=== PATIENT | female | born 1945 | race Caucasian/White ===

== ENCOUNTER → 2016-04-16 | Outpatient (CLI) | payer OTHER ==
[~2016-04-16] MED LIST: HYDR25TA5 PO; LATA0.009 OP; LEVO175T23 PO; LISI40TA PO; METF1000 PO; OMEP20CA9 PO; OXYB5TAB74 PO; RANI300T PO
[2016-04-16 17:36] LABS: ESTIMATED AVERAGE GLUCOSE 146 mg/dl; HA1C FLAG Normal (Normal)
[2016-04-16 18:54] LABS: AST/SGOT 14 U/L (15-37); BLOOD UREA NITROGEN 15 mg/dl (7-18); BUN/CREATININE RATIO 18.7 (10-20); CALCIUM 9.2 mg/dl (8.5-10.1); CARBON DIOXIDE 30 mmol/L (21-32); CHLORIDE 104 mmol/L (98-107); CHOLESTEROL 193 mg/dl (0-200); CREATININE 0.79 mg/dl (0.60-1.20); GLUCOSE 139 mg/dl (70-99); POTASSIUM 4.3 mmol/L (3.5-5.1); SODIUM 141 mmol/L (136-145); TRIGLYCERIDES 105 mg/dl (0-150); VERY LOW DENSITY LIPOPROT CALC 21 mg/dl
[2016-04-16 19:12] LABS: ALB/GLOB RATIO 0.8 (0.9-2); ALKALINE PHOSPHATASE 91 U/L (45-117); ALT/SGPT 22 U/L (12-78); CHOLESTEROL/HDL RATIO 3.6; HDL CHOLESTEROL 53 mg/dl; LDL CHOLESTEROL CALCULATED 119 mg/dl
== END | disposition home or self-care (01) ==
LOC: C.LABBC 12:50
PROVIDERS: ATTEND Family Medicine
DX: Z11.59 Encounter for screening for other viral diseases (principal); I10 Essential (primary) hypertension; E11.9 Type 2 diabetes mellitus without complications; E03.9 Hypothyroidism, unspecified; E78.5 Hyperlipidemia, unspecified

== ENCOUNTER → 2016-07-03 | Outpatient (CLI) | payer OTHER ==
[~2016-07-03] MED LIST changes: +ACET-749 PO; +CARV6.25 PO; +DTR/5 PO; +GLIP-197 PO; -LATA0.009 OP; +LATA0.009 OPB; +LEVO175T3 PO; -OXYB5TAB74 PO; +POLYSOL50 OPB
--- NOTE | 2016-07-03 18:01 | DIAGNOSTIC IMAGING REPORT ---
ULTRASOUND VENOUS DOPPLER LWR EXT BILA CLINICAL HISTORY: ELEVATED D DIMER LEG SWELLING COMPARISON STUDY: No previous studies for comparison. FINDINGS: The examination was difficult due to the patient's large body habitus. Real-time and color flow Doppler imaging were performed. Flow was seen within the femoral, popliteal veins with no intraluminal thrombus demonstrated. The saphenous vein is patent. IMPRESSION: 1. Technically limited study with suboptimal visualization of the calf veins. 2. No evidence of DVT from the common femoral to the popliteal veins bilaterally Electronically signed by: Marcellus Weaver M.D. 07/03/2016 6:00 PM Dictated Date/Time: 07/03/2016 5:58 PM
== END | disposition home or self-care (01) ==
LOC: C.ULTR 17:07
PROVIDERS: ATTEND Family Medicine
DX: R79.89 Other specified abnormal findings of blood chemistry (principal)

== ENCOUNTER → 2016-07-03 | Outpatient (CLI) | payer OTHER ==
[2016-07-03 12:10] LABS: BASO % 0.2 %; BASO ABS # 0.02 K/uL (0-0.2); COMPLETE YES; EOS % 2.3 %; HEMATOCRIT 43.3 % (37-47); IG% 0.2 %; LYMPH % 29.8 %; MEAN CELL VOLUME 91.2 fL (80-100); MEAN CORPUSCULAR HEMOGLOBIN 30.1 pg (25-34); MEAN PLATELET VOLUME 9.3 fL (7.4-10.4); MONO % 7.5 %; PLATELET COUNT 243 K/uL (130-400); RED BLOOD COUNT 4.75 M/uL (4.2-5.4); WHITE BLOOD COUNT 9.73 K/uL (4.8-10.8)
[2016-07-03 12:21] LABS: BLOOD UREA NITROGEN 13 mg/dl (7-18); BUN/CREATININE RATIO 15.4 (10-20); CALCIUM 9.3 mg/dl (8.5-10.1); CARBON DIOXIDE 31 mmol/L (21-32); CHLORIDE 105 mmol/L (98-107); CREATININE 0.81 mg/dl (0.60-1.20); GLUCOSE 161 mg/dl (70-99); POTASSIUM 4.3 mmol/L (3.5-5.1); SODIUM 141 mmol/L (136-145)
[2016-07-03 12:31] LABS: ALB/GLOB RATIO 0.7 (0.9-2); ALKALINE PHOSPHATASE 95 U/L (45-117); ALT/SGPT 19 U/L (12-78); AST/SGOT 15 U/L (15-37); THYROID STIMULATING HORMONE 0.878 uIu/ml (0.300-4.500)
[2016-07-03 13:43] LABS: URINE PROTIEN/CREAT RATIO 0.1 (0-0.2); URINE TOTAL PROTEIN 20.1 mg/dl (0-11.9)
== END | disposition home or self-care (01) ==
LOC: C.LAB 10:58
PROVIDERS: ATTEND Family Medicine
DX: R60.0 Localized edema (principal); R79.89 Other specified abnormal findings of blood chemistry

== ENCOUNTER → 2016-07-16 | Outpatient (CLI) | payer OTHER ==
[~2016-07-16] MED LIST changes: +OPTIRAY 320 IV PRN
--- NOTE | 2016-07-16 11:38 | DIAGNOSTIC IMAGING REPORT ---
ABDOMEN AND PELVIS CT WITH IV AND ORAL CONTRAST CT DOSE: 1653.41 mGy.cm HISTORY: Generalized abdominal pain and cramping. TECHNIQUE: Multiaxial CT images of the abdomen and pelvis were performed following the use of intravenous and oral contrast. COMPARISON STUDY: None. FINDINGS: There is a 3.6 mm subpleural nodule within the right lower lobe on image 7. This is likely benign. The left lung base is clear. Mild hepatic steatosis. The pancreas, spleen, adrenal glands, and right kidney are unremarkable. There is a 1.5 cm hypodense lesion within the lower pole the left kidney. This likely represents a cyst. The gallbladder is not identified and is likely surgically absent. No retroperitoneal lymphadenopathy. The uterus and bilateral ovaries are unremarkable. Small focus of fat within the anterior bladder wall. This favors a small lipoma. This measures 1 cm. No bowel wall thickening or obstruction. Colonic diverticulosis. Normal appendix. Moderate degenerative disc disease within the lumbar spine. IMPRESSION: 1. No bowel wall thickening or obstruction. 2. Colonic diverticulosis. 3. Normal appendix. 4. Cholecystectomy. 5. Additional findings as described above. Electronically signed by: Wilfred Willis M.D. 07/16/2016 11:36 AM Dictated Date/Time: 07/16/2016 11:29 AM
== END ==
LOC: C.CTS 08:13
PROVIDERS: ATTEND Family Medicine
DX: R10.9 Unspecified abdominal pain (principal)

== ENCOUNTER → 2016-08-07 | Outpatient (CLI) | payer OTHER ==
[~2016-08-07] MED LIST changes: -OPTIRAY 320 IV PRN
[2016-08-07 11:22] LABS: ALT/SGPT 23 U/L (12-78); BLOOD UREA NITROGEN 14 mg/dl (7-18); BUN/CREATININE RATIO 18.8 (10-20); CARBON DIOXIDE 32 mmol/L (21-32); CHLORIDE 105 mmol/L (98-107); CREATININE 0.75 mg/dl (0.60-1.20); GLUCOSE 126 mg/dl (70-99); SODIUM 141 mmol/L (136-145)
[2016-08-07 11:25] LABS: ALB/GLOB RATIO 0.9 (0.9-2); ALKALINE PHOSPHATASE 95 U/L (45-117); AST/SGOT 19 U/L (15-37)
[2016-08-07 11:32] LABS: CALCIUM 10.2 mg/dl (8.5-10.1)
[2016-08-07 11:47] LABS: ESTIMATED AVERAGE GLUCOSE 177 mg/dl; HA1C FLAG Normal (Normal)
== END | disposition home or self-care (01) ==
LOC: C.LABBC 09:00
PROVIDERS: ATTEND Family Medicine
DX: I10 Essential (primary) hypertension (principal); E11.9 Type 2 diabetes mellitus without complications

== ENCOUNTER → 2017-03-10 | Day surgery (SDC) | payer OTHER ==
[2017-03-01 11:45] VITALS: BMI 54.0
[2017-03-04 09:40] VITALS: Ht 153 cm; Wt 129.0 kg
--- NOTE | 2017-03-04 09:57 | PAT Medication Instructions ---
Service Date Mar 04, 2017. Current Home Medication List Carvedilol (Coreg), 6.25 MG PO BID Glipizide (Glipizide Er), 1 TAB PO BID Latanoprost (Xalatan 0.005% Oph Rowena), 1 DROP OPB HS Levothyroxine Sodium (Levothyroxine Sodium), 1 TAB PO QAM Lisinopril (Zestril), 40 MG PO QAM Oxybutynin Chloride (Ditropan), 5 MG PO TID Polymyxin/Trimethoprim Oph (Polytrim Oph), 1 DROP OPB TID Ranitidine Hcl (Zantac), 300 MG PO HS Medication Instructions For Your Scheduled Surgery - Hold the following medications the morning of surgery: Glipizide (Glipizide Er), 1 TAB PO BID Lisinopril (Zestril), 40 MG PO QAM Oxybutynin Chloride (Ditropan), 5 MG PO TID - Take the following medications the morning of surgery with a sip of water: Carvedilol (Coreg), 6.25 MG PO BID Levothyroxine Sodium (Levothyroxine Sodium), 1 TAB PO QAM Polymyxin/Trimethoprim Oph (Polytrim Oph), 1 DROP OPB TID - Take the following medications as scheduled the night before surgery: Glipizide (Glipizide Er), 1 TAB PO BID Carvedilol (Coreg), 6.25 MG PO BID Latanoprost (Xalatan 0.005% Oph Rowena), 1 DROP OPB HS Ranitidine Hcl (Zantac), 300 MG PO HS Polymyxin/Trimethoprim Oph (Polytrim Oph), 1 DROP OPB TID Oxybutynin Chloride (Ditropan), 5 MG PO TID If you have any questions please call us at [phone] or [phone] or [phone]
[2017-03-04 10:29] LABS: HEMATOCRIT 43.1 % (37-47); MEAN CELL VOLUME 92.7 fL (80-100); MEAN CORPUSCULAR HEMOGLOBIN 30.1 pg (25-34); MEAN CORPUSCULAR HGB CONC 32.5 g/dl (32-36); MEAN PLATELET VOLUME 9.1 fL (7.4-10.4); PLATELET COUNT 212 K/uL (130-400); RED BLOOD COUNT 4.65 M/uL (4.2-5.4); WHITE BLOOD COUNT 12.07 K/uL (4.8-10.8)
[2017-03-04 12:00] LABS: BUN/CREATININE RATIO 20.4 (10-20); CALCIUM 9.3 mg/dl (8.5-10.1); CREATININE 0.81 mg/dl (0.60-1.20); POTASSIUM 4.2 mmol/L (3.5-5.1)
[~2017-03-10] VITALS: Ht 153 cm; Wt 129.0 kg
[~2017-03-10] MED LIST changes: +ACETAMINOPHEN/CODEINE 300/30MG TAB PO PRN; +ATROPINE SULFATE 0.1 MG/ML 5ML SYR IV PRN; +BUPIVACAINE 0.5 % 5 MG/1 ML PF 10ML VIAL ONE; +CARVEDILOL 6.25 MG TAB PO SCH; +CEFAZOLIN 3000MG IV PUSH 15 ML IV SCH; +EpHEDrine SULFATE INJ 50 MG/ML AMP IV PRN; -HYDR25TA5 PO; +LACTATED RINGER'S 1000ML 1,000 ML IV SCH; +LATANOPROST 0.005% OP SOLN 2.5 ML BTL OPB SCH; -LEVO175T23 PO; +LEVOTHYROXINE 175 MCG TAB PO SCH; +LIDOCAINE HCL 2% 2 ML VIAL (20MG/ML) ONE; +LIDOCAINE HCL 2% LOCAL 20 ML VIAL ONE; +LISINOPRIL 40 MG TAB PO SCH; -METF1000 PO; +MIDAZOLAM HCL 1 MG/ML 2ML VIAL ONE; +NON-FORMULARY MEDICATION (Glipizide (Glipizide Er) 1 TAB) PO SCH; +NON-FORMULARY MEDICATION (Ranitidine Hcl (Zantac) 300 MG) PO SCH; -OMEP20CA9 PO; +OXYBUTYNIN CHLORIDE 5 MG TAB PO SCH; +PROPOFOL IV EMULSION 10 MG/ML 20 ML VIAL IV ONE; +SODIUM CHLORIDE 0.9% 1000ML 1,000 ML IV SCH; +TRIMETHOPRIM/POLYMYXIN B OPB SCH
--- NOTE | 2017-03-10 06:48 | History & Physical Bridge - [place] ---
H&P Re-Evaluation Bridge Note: I have examined the patient, reviewed the History & Physical and in the interval since the performance of the History & Physical I have noted the following changes of clinical significance: No changes noted
--- NOTE | 2017-03-10 07:01 | Discharge Instructions-SurgCtr ---
Discharge Instructions Date of Service Mar 10, 2017. Visit Reason for Visit: Right Carpal Tunnel Syndrome Discharge Discharge Diagnosis / Problem: Right Carpal Tunnel Release Discharge Goals Goal(s): Decrease discomfort, Improve function, Increase independence, Improve disease control, Therapeutic intervention Activity Recommendations Activity Limitations: per Instructions/Follow-up section Anesthesia . Post Anesthesia Instructions: If you have had General Anesthesia or IV Sedation: * Do not drive today. * Resume driving when surgeon permits. * Do not make important decisions or sign legal documents today. * Call surgeon for: 1. Temperature elevations greater than 101 degrees F. 2. Uncontrollable pain. 3. Excessive bleeding. 4. Persistent nausea and vomiting. 5. Medication intolerance (nausea, vomiting or rash). * For nausea and vomiting use only clear liquids such as: tea, soda, bouillon until nausea subsides, then gradually increase diet as tolerated. * If you have any concerns or questions, call your surgeon's office. If physician is unavailable and it is an emergency, call 911 or go to the nearest emergency room. . Instructions / Follow-Up Instructions / Follow-Up Keep dressing clean, dry, and in place until return to clinic visit. Diet Recommendations Home Diet: resume previous diet Pending Studies Studies pending at discharge: no Medical Emergencies . Who to Call and When: Medical Emergencies: If at any time you feel your situation is an emergency, please call 911 immediately. . Non-Emergent Contact Non-Emergency issues call your: Surgeon . . "Provider Documentation" section prepared by Ryan Duff. .
[2017-03-10 07:32] VITALS: BP 177/106; PULSE 70; TEMP 36.3; O2SAT 97
--- NOTE | 2017-03-10 07:33 | [facility] Post Operative Brief Note ---
Immediate Operative Summary Operative Date Mar 10, 2017. Pre-Operative Diagnosis Right Carpal Tunnel Syndrome Post-Operative Diagnosis same Procedure(s) Performed Right Carpal Tunnel Release Surgeon Dr Duff Slag Worker Surgeon(s) none Estimated Blood Loss Minimal Findings Right Carpal TUnnel Syndrome Specimens none Anesthesia Local with IV Sedation Complication(s) None Disposition Recovery Room / PACU
--- NOTE | 2017-03-10 07:45 | Anesthesia Progress Nt - [facility] ---
Anesthesia Post Op Note Date & Time Mar 10, 2017 at 07:45 Vital Signs Pain Intensity: 1 Vital Signs Past 12 Hours Date Time Temp Pulse Resp B/P (MAP) Pulse Ox O2 Delivery O2 Flow Rate FiO2 03/10/17 06:26 36.6 75 16 212/87 (128 95 Notes Mental Status: alert / awake / arousable, participated in evaluation Pt Amnestic to Procedure: Yes Nausea / Vomiting: adequately controlled Pain: adequately controlled Airway Patency, RR, SpO2: stable & adequate BP & HR: stable & adequate Hydration State: stable & adequate Anesthetic Complications: no major complications apparent
--- NOTE | 2017-03-10 13:44 | OPERATIVE REPORT ---
DATE OF OPERATION: 03/10/2017 SURGEON: Ryan Duff MD ENGRAVER JEWELRY: None. PREOPERATIVE DIAGNOSIS: Right carpal tunnel syndrome. POSTOPERATIVE DIAGNOSIS: Same. PROCEDURE PERFORMED: Right carpal tunnel release. COMPLICATIONS: None. ESTIMATED BLOOD LOSS: Minimal. TOURNIQUET TIME: 7 minutes at 250 mmHg. ANESTHESIA: Local with IV sedation. OPERATIVE INDICATIONS: The patient is a 71-year-old female who has had a several year history of right hand pain, discomfort and numbness. She has been through extensive conservative treatment. She has had nerve studies several years ago, which showed severe carpal tunnel syndrome. The patient finally elected to proceed with surgical intervention. Of note, she has had some intermittent trigger fingers, but nothing recently and does not have any current active trigger fingers. OPERATIVE PROCEDURE: The patient was taken to the operating room, identified and placed on the operating table in the supine position. All contact areas were appropriately padded. IV antibiotics were provided by the anesthesia team. A right forearm tourniquet was placed. Some IV sedation was provided. 10 mL of a 50:50 combination of 0.5% Marcaine and 2% lidocaine were then injected in and around the proposed incision site. The right hand was then prepped and draped in the usual sterile fashion. The right arm was elevated and exsanguinated with Esmarch and tourniquet was placed at 250 mmHg. A 2.5-3 cm incision was made in the palm just ulnar to the palmaris longus tendon. Blunt dissection was carried out through the subcutaneous tissues down to the level of the palmar fascia. The palmar fascia was incised longitudinally in line with the skin incision. The underlying transverse carpal ligament was identified. It was transected distally with use of a Garvin blade knife and then bluntly spread. Attention was then drawn proximally. Blunt dissection carried out above and below the ligament proximally. The ligament was then transected for a minimum distance of 3 cm proximal to the wrist flexion crease. The ligament was bluntly spread and found to be completely released. There did appear to be quite a bit of tension and pressure on the median nerve. Attention was then drawn toward closing. The wound was irrigated with copious amounts of normal saline. The tourniquet was let down for a tourniquet time of 7 minutes. Hemostasis was assured with use of electrocautery. The wound was once again irrigated. The skin was then closed with 5-0 nylon suture in a horizontal mattress fashion. The hand was then cleaned and dried and a sterile dressing of Xeroform, 4 x 4, sterile cast padding and Kelton bandage were applied. The patient then transferred to the recovery room in stable condition. The patient tolerated the procedure well with no complications. All needle and sponge counts were correct at the end of the operation. I attest to the content of the Intraoperative Record and any orders documented therein. Any exception s are noted below.
== END | disposition home or self-care (01) ==
LOC: X.SURG 06:13
PROVIDERS: ATTEND Orthopaedic Surgery Sports Medicine
DX: G56.01 Carpal tunnel syndrome, right upper limb (principal); I10 Essential (primary) hypertension; J45.909 Unspecified asthma, uncomplicated; M19.90 Unspecified osteoarthritis, unspecified site; E11.9 Type 2 diabetes mellitus without complications; E66.01 Morbid (severe) obesity due to excess calories; Z96.659 Presence of unspecified artificial knee joint

== ENCOUNTER 2020-09-13 10:35 | Inpatient (IN) ==
--- NOTE | 2020-09-13 11:28 | Emergency Department Note ---
Impression & Plan Hypotension, Weakness, CHAN (acute kidney injury), Acute hyponatremia, DVT (deep venous thrombosis) ED Provider Note NAME: RIGO KRISHNAMURTHY AGE: 74 SEX: F : 1945 ARRIVES VIA: Walk-In INFORMANT: [Patient][family] ED PROVIDER(S): [Jayesh Dougherty MD] CHIEF COMPLAINT: Weakness HISTORY OF PRESENT ILLNESS: The patient is a 74-year-old female who over the last few months has been increasingly weak, short of breath, fatigued. She has lost 20 pounds. She has no appetite. She has some mild diffuse abdominal discomfort that seems to radiate to the back. She has not had fever. There has been no cough. No urinary complaints. The patient has had diarrhea. Sometimes, she cannot make it to the bathroom in time. The patient went to her doctor's office, she was referred to the ED for further testing. Of note, in our triage area, her blood pressure was 85 over palp. She admits she does feel worse with everything when she is standing, better sitting. REVIEW OF SYSTEMS: See HPI for pertinent positives and negatives. A total of ten systems were reviewed and were otherwise negative. PMHx/PSHx: See Below SOCIAL HISTORY: See Below. PHYSICAL EXAM: GENERAL: Patient is in no acute distress. HEENT: No acute trauma, normocephalic atraumatic, mucous membranes moist, no nasal congestion, no scleral icterus. NECK: No stridor, no adenopathy, no meningismus, trachea is midline. LUNGS: Clear to auscultation bilaterally, no wheeze, no rhonchi, breath sounds equal. HEART: Bradycardic, regular rhythm, no murmurs. ABDOMEN: Soft, diffusely mildly tender, bowel sounds positive, no hernias, no peritonitis. EXTREMITIES: No cyanosis, mild bilateral pedal edema, full range of motion of all the joints without pain or difficulty, no signs for acute trauma. She has a firm palpable areas behind both calves, primarily on the right and more distal than proximal. No leg erythema. NEUROLOGIC: Oriented x 3, no acute motor or sensory deficits, no focal weakness. SKIN: No rash, no jaundice, no diaphoresis. DIFFERENTIAL DIAGNOSIS: Infection, dehydration, metabolic abnormality, hypo/hyperglycemia, malignancy, UTI, electrolyte disturbance, anemia, hypoxia, cardiac sources, intracerebral event, toxicologic issues, stroke, TIA, as well as other pathologies. EMERGENCY DEPARTMENT COURSE/PROCEDURES: ECG: Indication was weakness. The ECG shows a sinus bradycardia with a rate of 51. There is some sinus arrhythmia. The QTc is 436. There is no ST elevation, no PVCs. Continuous Cardiac Monitoring: An order was placed for continuous cardiac monitoring. The monitor shows a rate of 50 with sinus bradycardia. Critical Care Note: I have personally spent 38 minutes of critical care time in the direct management of this patient. This includes bedside care, interpretation of diagnostic studies, and testing, discussion with consultants, patient, and family members, and other required patient management activities. This 38 minutes is in excess of all separately billable procedures. MEDICAL DECISION MAKING: There is no leukocytosis or concerning anemia. There is a normal platelet count. Sodium was low at 129. There was evidence for acute kidney injury with a creatinine over 2. No concerning liver enzyme elevation. Patient did appear to be slightly hyperthyroid. ECG showed a sinus bradycardia, no acute ischemia. Cardiac enzyme testing x1 was not consistent with acute cardiac injury. Urinalysis did not show evidence for infection. Covid testing returned negative. Chest film did not show pneumonia or CHF. Abdominal and pelvis CT did not show any evidence for bowel obstruction or mass. There was adenopathy seen. There was no urinary obstruction. Bilateral lower extremity ultrasound shows a left leg DVT. Patient presents with weakness and weight loss. She has been fatigued. She was hypotensive in triage. The patient received a liter of IV saline for hydration. The patient's blood pressure did improve with her IV hydration. The patient is in need of a hospital stay. She is hyponatremic with acute kidney injury. She is dehydrated. She has a left leg DVT. Further care in the hospital and correction of her electrolyte imbalance is required. I did speak with the patient and case management. The on-call hospitalist was consulted. Past Med/Surg History Medical History Anxiety Arthritis Asthma COVID-19 virus detected 06/03/20--c/o fever, headache, fatigue roughly a couple weeks ago, daughter was also sick with symptoms Diabetes mellitus, type 2 Diastolic dysfunction Dysphagia chronic dysphagia, h/o esophageal dilation GERD (gastroesophageal reflux disease) Hiatal hernia History of COVID-19 06/2020 Hypertension Hypothyroidism Morbid obesity with BMI of 45.0-49.9, adult SOBOE (shortness of breath on exertion) Surgical History History of anesthesia reaction "WAKES UP EARLY"-NEEDS MORE MEDS History of bilateral cataract extraction History of bilateral tubal ligation History of carpal tunnel release RIGHT History of section X 2 History of cholecystectomy History of colonoscopy History of esophagogastroduodenoscopy (EGD) WITH DILITATION History of total left knee replacement (TKR) History of total right knee replacement (TKR) x2 Hx of LASIK Family History Daughter Family history of reaction to anesthesia WAKES UP EARLY Mother Family history of diabetes mellitus Father Family history of diabetes mellitus Sister Family history of diabetes mellitus Sister Family history of diabetes mellitus Brother Family history of diabetes mellitus Brother Family history of diabetes mellitus Social History Smoking Status: Never smoker Second Hand Exposure: No; Hx Alcohol Use: No Hx Substance Use: No Preferred Language: Croatian Communication Ability: Effective Quantitative Analyst Developer Required: No Beliefs That Will Affect Care: None Current Living Situation: Family Current Living Situation Comment: Lives with daughter and son Other Information That Helps Us Care for You: No Feels Safe at Home: Yes Safety Concerns: Feels Safe At This Time Assistive Devices: Denture - Upper and Walker Allergies Allergies Allergy/AdvReac Type Severity Reaction Status Date / Time albuterol Allergy Intermediate tachycardia Verified 09/13/20 14:29 amoxicillin Allergy Mild RASH Verified 09/13/20 14:29 aspirin AdvReac Mild stomach Verified 09/13/20 14:29 upset Home Meds Home Medications Medication Instructions Recorded Confirmed carvedilol 6.25 mg PO BID 12/08/18 09/13/20 duloxetine 30 mg PO QAM 12/08/18 09/13/20 furosemide 20 mg PO QAM 12/08/18 09/13/20 glipizide 5 mg PO BID 12/08/18 09/13/20 latanoprost (PF) 1 drp OPHTHALMIC (EYE) HS 12/08/18 09/13/20 levothyroxine 175 mcg PO QAM 12/08/18 09/13/20 lisinopril 40 mg PO QAM 12/08/18 09/13/20 omeprazole 40 mg PO QAM 12/08/18 09/13/20 oxybutynin chloride [Ditropan XL] 5 mg PO TID 12/08/18 09/13/20 spironolactone 12.5 mg PO QAM 12/08/18 09/13/20 famotidine 40 mg PO HS 06/05/20 09/13/20 semaglutide [Ozempic] 0.25 mg SUBCUT FLORES 06/05/20 09/13/20 aspirin 81 mg PO DAILY 09/13/20 09/13/20 Results & Data (ED) Vital Signs Vital Signs - 24 hr 09/13/20 10:56 09/13/20 11:08 09/13/20 11:28 Temperature 36.0 C L Temperature Source Temporal Artery Scan Pulse Rate 50 L 52 L Pulse Rate [Apical] Pulse Rate from SpO2 Sensor 52 L Respiratory Rate 18 20 Respiratory Effort / Characteristics Non-Labored Respiratory Depth Normal Blood Pressure 83/54 L 119/74 Blood Pressure [Right Arm] Blood Pressure Mean 63 89 Blood Pressure Mean [Right Arm] Pulse Oximetry 98 98 98 Oxygen Delivery Method Room Air Room Air Sepsis Recent Fever Within 48 Hours No Sepsis New/Unexplained Change in Mental Status No Sepsis Action Taken by Nursing No Action Required 09/13/20 11:31 09/13/20 11:32 09/13/20 12:01 Temperature Temperature Source Pulse Rate 57 L 51 L Pulse Rate [Apical] 54 L Pulse Rate from SpO2 Sensor 56 L 57 L Respiratory Rate 16 18 20 Respiratory Effort / Characteristics Respiratory Depth Blood Pressure 121/67 108/48 L Blood Pressure [Right Arm] 121/67 Blood Pressure Mean 85 68 Blood Pressure Mean [Right Arm] 85 Pulse Oximetry 96 98 98 Oxygen Delivery Method Room Air Sepsis Recent Fever Within 48 Hours Sepsis New/Unexplained Change in Mental Status Sepsis Action Taken by Nursing 09/13/20 12:30 09/13/20 12:40 09/13/20 12:50 Temperature Temperature Source Pulse Rate 54 L 46 L 52 L Pulse Rate [Apical] Pulse Rate from SpO2 Sensor 52 L 49 L 54 L Respiratory Rate 19 18 23 Respiratory Effort / Characteristics Respiratory Depth Blood Pressure 116/72 Blood Pressure [Right Arm] Blood Pressure Mean 86 Blood Pressure Mean [Right Arm] Pulse Oximetry 97 96 96 Oxygen Delivery Method Sepsis Recent Fever Within 48 Hours Sepsis New/Unexplained Change in Mental Status Sepsis Action Taken by Custodial Medications Current Medication List: was personally reviewed by me Laboratory Data Attestation: I reviewed the patient's lab results. Result diagrams: 09/13/20 11:14 09/13/20 15:13 Lab Results 09/13/20 09/13/20 09/13/20 Range/Units 11:14 11:14 11:14 WBC 7.47 (4.8-10.8) K/uL RBC 3.93 L (4.2-5.4) M/uL Hgb 11.1 L (12.0-16.0) g/dL Hct 33.6 L (37-47) % MCV 85.5 (80-100) fL MCH 28.2 (25-34) pg MCHC 33.0 (32-36) g/dL RDW Std Deviation 47.3 H (36.4-46.3) fL RDW Coeff of Joseline 14.9 H (11.5-14.5) % Plt Count 192 (130-400) K/uL MPV 9.2 (7.4-10.4) fL Immature Gran % (Auto) 0.1 % Neut % (Auto) 82.6 % Lymph % (Auto) 9.2 % Tift % (Auto) 7.2 % Eos % (Auto) 0.8 % Baso % (Auto) 0.1 % Neut # (Auto) 6.16 (1.4-6.5) K/uL Lymph # (Auto) 0.69 L (1.2-3.4) K/uL Tift # (Auto) 0.54 (0.11-0.59) K/uL Eos # (Auto) 0.06 (0-0.5) K/uL Baso # (Auto) 0.01 (0-0.2) K/uL Immature Gran # (Auto) 0.01 (0.00-0.02) K/uL APTT 29.6 (21.0-31.0) Seconds PTT Ratio 1.1 Sodium 129 L (136-145) mmol/L Potassium 4.3 (3.5-5.1) mmol/L Chloride 96 L (98-107) mmol/L Carbon Dioxide 26 (21-32) mmol/L Anion Gap 7.0 (3-11) BUN 33 H (7-18) mg/dl Creatinine 2.14 H (0.6-1.2) mg/dl Est Cr Clr Drug Dosing 26.7 ml/min Est GFR ( Amer) 25.4 ml/min Est GFR (Non-Af Amer) 21.9 ml/min BUN/Creatinine Ratio 15.4 (10-20) Glucose 268 H (70-99) mg/dl Calcium 9.7 (8.5-10.1) mg/dl Magnesium 2.1 (1.8-2.4) mg/dl Total Bilirubin 0.8 (0.2-1) mg/dl AST 17 (15-37) U/L ALT 21 (12-78) U/L Alkaline Phosphatase 109 (45-117) U/L Troponin I < 0.015 (0-0.045) ng/ml Total Protein 7.5 (6.4-8.2) gm/dl Albumin 2.2 L (3.4-5.0) gm/dl Globulin 5.3 H (2.5-4.0) gm/dl Albumin/Globulin Ratio 0.4 L (0.9-2) TSH 0.254 L (0.300-4.500) uIu/ml Free T4 2.08 H (0.8-1.6) ng/dl COVID-19 Eval Order SARS-CoV-2 (PCR) (Negative) 09/13/20 09/13/20 Range/Units 11:41 11:41 WBC (4.8-10.8) K/uL RBC (4.2-5.4) M/uL Hgb (12.0-16.0) g/dL Hct (37-47) % MCV (80-100) fL MCH (25-34) pg MCHC (32-36) g/dL RDW Std Deviation (36.4-46.3) fL RDW Coeff of Joseline (11.5-14.5) % Plt Count (130-400) K/uL MPV (7.4-10.4) fL Immature Gran % (Auto) % Neut % (Auto) % Lymph % (Auto) % Tift % (Auto) % Eos % (Auto) % Baso % (Auto) % Neut # (Auto) (1.4-6.5) K/uL Lymph # (Auto) (1.2-3.4) K/uL Tift # (Auto) (0.11-0.59) K/uL Eos # (Auto) (0-0.5) K/uL Baso # (Auto) (0-0.2) K/uL Immature Gran # (Auto) (0.00-0.02) K/uL APTT (21.0-31.0) Seconds PTT Ratio Sodium (136-145) mmol/L Potassium (3.5-5.1) mmol/L Chloride (98-107) mmol/L Carbon Dioxide (21-32) mmol/L Anion Gap (3-11) BUN (7-18) mg/dl Creatinine (0.6-1.2) mg/dl Est Cr Clr Drug Dosing ml/min Est GFR ( Amer) ml/min Est GFR (Non-Af Amer) ml/min BUN/Creatinine Ratio (10-20) Glucose (70-99) mg/dl Calcium (8.5-10.1) mg/dl Magnesium (1.8-2.4) mg/dl Total Bilirubin (0.2-1) mg/dl AST (15-37) U/L ALT (12-78) U/L Alkaline Phosphatase (45-117) U/L Troponin I (0-0.045) ng/ml Total Protein (6.4-8.2) gm/dl Albumin (3.4-5.0) gm/dl Globulin (2.5-4.0) gm/dl Albumin/Globulin Ratio (0.9-2) TSH (0.300-4.500) uIu/ml Free T4 (0.8-1.6) ng/dl COVID-19 Eval [address] Covid[address] [facility] SARS-CoV-2 (PCR) NEGATIVE (Negative) Administered Medications Heparin Sodium/Dextrose (Heparin Sodium/Dextrose) 25,000 units in 500 mls @ 27 mls/hr IV .[id number] [facility]; Protocol Stop: 10/13/20 15:59 Last Admin: 09/13/20 16:55 Dose: 1,350 units/hr, 27 mls/hr Documented by: [id number] Cosigned by: [id number] Sodium Chloride (Nss 1000ml) 1,000 mls @ 80 mls/hr IV .[id number] [facility] Stop: 09/14/20 16:59 Last Admin: 09/13/20 15:49 Dose: 80 mls/hr Documented by: [id number] Insulin Aspart (Insulin Aspart 100 Units/Ml 3 Ml Pen) 0 units SC ACHS ELIA Stop: 10/13/20 16:29 Last Admin: 09/13/20 16:58 Dose: 9 units Documented by: [id number] Cosigned by: [id number] Discontinued Medications Heparin Sodium (Porcine) (Heparin Sod (Porcine) 1000 Unit/Ml) 6,000 units IV NOW ONE Stop: 09/13/20 16:01 Last Admin: 09/13/20 16:55 Dose: 6,000 units Documented by: [id number] Cosigned by: [id number] Heparin Sodium/Dextrose (Heparin Iv Adult Wt-Based Standard With Bolus Protocol) 1 ea IV Q15M ELIA; Protocol Stop: 09/13/20 15:30 Last Admin: 09/13/20 16:55 Dose: 1 ea Documented by: [id number] Sodium Chloride (Nss) 500 mls @ 999 mls/hr IV .Q31M [facility] Stop: 09/13/20 12:00 Last Infusion: 09/13/20 12:22 Dose: 0 mls/hr Documented by: [id number] Admin: 09/13/20 11:29 Dose: 999 mls/hr Documented by: [id number] Sodium Chloride (Nss 1000ml) 500 mls @ 999 mls/hr IV .Q31M ONE Stop: 09/13/20 12:25 Last Infusion: 09/13/20 13:33 Dose: 0 mls/hr Documented by: [id number] Admin: 09/13/20 12:22 Dose: 999 mls/hr Documented by: [id number] Imaging Data Radiologist's Impression: Chest X-Ray 09/13/20 11:21 XR chest 1V portable CLINICAL HISTORY: weakness COMPARISON STUDY: Chest x-ray dated 03/18/2012 FINDINGS: Study is rotated. The heart is borderline enlarged. There is no failure. There is no focal pulmonary consolidation. There are no significant pleural effusions. Increased basilar markings are likely atelectatic.[There is mild superior mediastinal prominence, likely secondary to mediastinal fat deposition, given the patient's body habitus. IMPRESSION: 1. Mild mediastinal prominence, statistically secondary to fat deposition given the patient's body habitus 2. No evidence of focal pulmonary consolidation 3. Mild basilar atelectasis ACT 112: Negative or not required by law. Electronically signed by: Marcellus Weaver M.D. 09/13/2020 11:39 AM Venous Doppler Study 09/13/20 11:22 US venous doppler LE BI CLINICAL HISTORY: Bilateral leg swelling COMPARISON STUDY: 07/03/2016 FINDINGS: Grayscale, color-flow, Doppler spectral waveform analysis was performed. The study was difficult from a technical standpoint due to the patient's body habitus. On the right, no intraluminal thrombus was visualized within the common femoral superficial femoral or popliteal veins. The proximal trifurcation veins of the right calf appear patent. On the left, no thrombus is visualized within the common femoral vein. There is left femoral vein and popliteal vein thrombus. Calf veins were nonvisualized. IMPRESSION: 1. Acute left lower extremity DVT involving the common femoral vein and popliteal vein. 2. No evidence of right lower extremity DVT ACT 112: Negative or not required by law. Electronically signed by: Marcellus Wevaer M.D. 09/13/2020 1:59 PM Abdomen/Pelvis CT 09/13/20 11:53 CT SCAN OF THE ABDOMEN AND PELVIS WITHOUT CONTRAST CLINICAL HISTORY: diarrhea, high creat COMPARISON STUDY: 07/16/2016 TECHNIQUE: CT scan of the abdomen and pelvis was performed from the lung bases to the proximal femurs. Images are reviewed in the axial, sagittal, and coronal planes. IV contrast was not administered for this examination. A dose lowering technique was utilized adhering to the principles of ALARA. CT DOSE: 1601.07 mGy.cm FINDINGS: Lower chest: There is prominence of the pulmonary arteries bilaterally. There are small bilateral pleural effusions. There is basilar atelectasis. Liver: There is mild hepatic steatosis. No focal hepatic masses are visualized on this noncontrast study. The liver has a subtle cirrhotic morphology Gallbladder: Not visualized presumed surgically absent. Spleen: Mildly enlarged measuring 13.1 cm. Pancreas: Unremarkable. Adrenal glands: Unremarkable. Kidneys: No renal, ureteral, or bladder calculi are visualized. Bowel: There are no transition zones to indicate bowel obstruction. There is no evidence of acute diverticulitis. The appendix appears normal. Peritoneum: There is no intraperitoneal free air or abdominal ascites. Vasculature: The abdominal aorta is normal in course and caliber. Adenopathy: Since the prior study, the patient has developed pathologic l ymphadenopathy. There are enlarged left inguinal lymph nodes measuring up to 36 mm in diameter. There are enlarged obturator and femoral chain lymph nodes measuring up to 28 mm in diameter. There is pathologic para-aortic lymphadenopathy. There is a 41 mm precaval lymph node. There is a 34 mm anterior para-aortic lymph node. There are enlarged mary hepatis lymph nodes. There are enlarged retrocrural lymph nodes. There is mild nonspecific infiltration of fat anterior to the left iliac vessels. Pelvic viscera: The bladder, and pelvic viscera are unremarkable. Skeletal structures: There are moderate multilevel degenerative changes in the spine. There is a grade 1 spinal listhesis of L5 and S1. No destructive lesions are visualized. There is ankylosis of the spine. IMPRESSION: 1. No evidence of bowel obstruction. No evidence of free air 2. No evidence of acute diverticulitis. No evidence of acute appendicitis. 3. No renal, ureteral, or bladder calculi identified 4. Hepatic steatosis. Subtle cirrhotic morphology the the liver. Splenomegaly. 5. Trace bilateral pleural effusions 6. Interval development of pathologic abdominal pelvic and inguinal lymphadenopathy. A lymphoproliferative disorder is the diagnosis of exclusion. Further workup is advocated. ACT 112: Positive. There are findings on this exam that require communication between the performing entity and the patient following Patient Test Result Information Act ([place] Act 112) guidelines. Electronically signed by: Marcellus Weaver M.D. 09/13/2020 1:39 PM Discharge Plan Visit Data Chief Complaint: Weakness Stated Complaint: REFERRED BY [facility], WEAKNESS, DIZZINESS ED Provider: Jayesh Dougherty Discharge Problem: Hypotension, Weakness, CHAN (acute kidney injury), Acute hyponatremia, DVT (deep venous thrombosis) Patient Disposition: Admitted As Inpatient Condition: Fair Discharge Instructions Interventions: ED Discharge Assessment Last Done: 09/13/20 14:40 Discharge Problem: Hypotension Qualifiers: Hypotension type: unspecified hypotension type Qualified Code(s): I95.9 - Hypotension, unspecified DVT (deep venous thrombosis) Qualifiers: DVT location: lower extremity Affected thrombotic vein of extremity: unspecified vein of extremity Chronicity: acute Laterality: left Qualified Code(s): I82.402 - Acute embolism and thrombosis of unspecified deep veins of left lower extremity
[2020-09-13] MEDS ORDERED: SODIUM CHLORIDE 0.9% 500 ML IV SCH (11:30)
[2020-09-13 11:40] LABS: Basophils # (auto) 0.01 K/uL (0-0.2); Basophils % (auto) 0.1 %; Eosinophils # (auto) 0.06 K/uL (0-0.5); Eosinophils % (auto) 0.8 %; Hematocrit (blood only) 33.6 % (37-47); Hemoglobin 11.1 g/dL (12.0-16.0); Immature Granulocytes # (auto) 0.01 K/uL (0.00-0.02); Immature Granulocytes % (auto) 0.1 %; Lymphocytes # (auto) 0.69 K/uL (1.2-3.4); Lymphocytes % (auto) 9.2 %; Mean Corpuscular Hemoglobin 28.2 pg (25-34); Mean Corpuscular Volume 85.5 fL (80-100); Mean Platelet Volume 9.2 fL (7.4-10.4); Monocytes # (auto) 0.54 K/uL (0.11-0.59); Monocytes % (auto) 7.2 %; Neutrophils # (auto) 6.16 K/uL (1.4-6.5); Neutrophils % (auto) 82.6 %; Platelet Count 192 K/uL (130-400); RDW Coefficient of Variation 14.9 % (11.5-14.5); RDW Standard Deviation 47.3 fL (36.4-46.3); Red Blood Count 3.93 M/uL (4.2-5.4); White Blood Count 7.47 K/uL (4.8-10.8)
--- NOTE | 2020-09-13 11:40 | XRay Report ---
XR chest 1V portable CLINICAL HISTORY: weakness COMPARISON STUDY: Chest x-ray dated 03/18/2012 FINDINGS: Study is rotated. The heart is borderline enlarged. There is no failure. There is no focal pulmonary consolidation. There are no significant pleural effusions. Increased basilar markings are l ikely atelectatic.[There is mild superior mediastinal prominence, likely secondary to mediastinal fat deposition, given the patient's body habitus. IMPRESSION: 1. Mild mediastinal prominence, statistically secondary to fat deposition given the patient's body lau bitus 2. No evidence of focal pulmonary consolidation 3. Mild basilar atelectasis ACT 112: Negative or not required by law. Electronically signed by: Marcellus Weaver M.D. 09/13/2020 11:39 AM
[2020-09-13 11:44] LABS: Appearance Urine Turbid (Clear); Bacteria Urine Automated Negative (Negative); Bilirubin Urine 1+ (Negative); Blood Urine Negative (Negative); Color Urine Dark Yellow; Epithelial Cell Urine Auto >30 /lpf (0-5); Glucose Urine UA Negative (Negative); Ketones Urine Trace (Negative); Leukocyte Esterase Urine Negative (Negative); Nitrite Urine Negative (Negative); Protein Urine Trace (Negative); Urobilinogen Urine Negative (Negative)
[2020-09-13 11:47] LABS: Alanine Aminotransferase 21 U/L (12-78); Albumin Level 2.2 gm/dl (3.4-5.0); Aspartate Aminotransferase 17 U/L (15-37); BUN Creatinine Ratio 15.4 (10-20); Blood Urea Nitrogen 33 mg/dl (7-18); Calcium 9.7 mg/dl (8.5-10.1); Carbon Dioxide 26 mmol/L (21-32); Chloride 96 mmol/L (98-107); Creatinine Clr Calc Pharmacy 26.7 ml/min; Est GFR (African American) 25.4 ml/min; Est GFR (Non-African American) 21.9 ml/min; Glucose 268 mg/dl (70-99); Magnesium 2.1 mg/dl (1.8-2.4); Potassium 4.3 mmol/L (3.5-5.1); Sodium 129 mmol/L (136-145)
[2020-09-13] MEDS ORDERED: SODIUM CHLORIDE 0.9% 1000ML 500 ML IV ONE (11:55)
[2020-09-13 11:58] LABS: Albumin Globulin Ratio 0.4 (0.9-2); Alkaline Phosphatase 109 U/L (45-117); Bilirubin,Total 0.8 mg/dl (0.2-1); Globulin 5.3 gm/dl (2.5-4.0); Thyroid Stimulating Hormone 0.254 uIu/ml (0.300-4.500); Total Protein 7.5 gm/dl (6.4-8.2); Troponin I < 0.015 ng/ml (0-0.045)
[2020-09-13 12:11] LABS: T4 Free Thyroxine 2.08 ng/dl (0.8-1.6)
--- NOTE | 2020-09-13 13:05 | History & Physical Report ---
Date of Service September 13, 2020 Assessment & Plan (1) Weakness: (2) Ambulatory dysfunction: Pt is 74 y/o F with PMH DM II, HTN, dyslipidemia, asthma, diastolic dysfunction, GERD, hypothyroidism, obesity, anxiety, H/O COVID-19 in 06/2020 presented to ER with complaint of progressive weakness past several months, worse past month. Was using cane, now unable to walk without assistance. Poor oral intake. In ER patient with initial blood pressure 83/54, afebrile, pulse 50. Blood pressure increased to 121/67 after 1L NSS No leukocytosis, UA appears contaminated, pseudohyponatremia, otherwise no significant electrolyte abnormality Pt initially hypotensive in ER and BP improved with lying supine and IVF. Weakness may be secondary to CHAN, orthostatic hypotension, dehydration, deconditioning, May have prolonged fatigue, poor appetite from COVID-19 in 05/2020 among others in the differential -Orthostatic vital signs -IVF -PT/OT -Fall precautions (3) CHAN (acute kidney injury): BUN: 33, Cr: 2.1. Baseline Cr: 0.9 Pt has had poor oral intake -CT abd/pelvis to R/O obstruction -IVF -Hold lisinopril, lasix, spironolactone -Monitor renal functions, avoid nephrotoxic agents when possible (4) Hyponatremia: Sodium: 132 corrected for glucose of 268 -IVF -Monitor BMP (5) Left leg DVT: (6) Calf tenderness: BLE Venous Doppler: 1. Acute left lower extremity DVT involving the common femoral vein and popliteal vein. 2. No evidence of right lower extremity DVT -Hypercoagulable workup -Start Heparin IV -Will need to follow renal functions to determine further anticoagulant choice (7) Abnormal CT of the abdomen: (8) Abdominal pain: Intermittent Loose stools reported and lower abdominal discomfort. No leukocytosis, UA appears contaminated CT ABD/PELVIS: 1. No evidence of bowel obstruction. No evidence of free air 2. No evidence of acute diverticulitis. No evidence of acute appendicitis. 3. No renal, ureteral, or bladder calculi identified 4. Hepatic steatosis. Subtle cirrhotic morphology the the liver. Splenomegaly. 5. Trace bilateral pleural effusions 6. Interval development of pathologic abdominal pelvic and inguinal lymphadenopathy. A lymphoproliferative disorder is the diagnosis of exclusion. Further workup is advocated. -Obtain C-diff, and stool culture if recurrent diarrhea -Pt will require further workup and outpatient referral heme/onc (9) Hypertension: Was hypotensive in ER -Continue carvedilol with holding parameters -Hold lisinopril, spironolactone, lasix (10) Diastolic dysfunction: Grade II diastolic dysfunction, EF 59% on echo in 2018 -Hold lasix for now secondary to CHAN and hypotension (11) Diabetes mellitus, type 2: A1c: 6.9 in 07/2020 -Hold home meds -Novolog, Lantus sliding scale per protocol (12) Hypothyroidism: TSH: 0.2, Free T4: 2.0 (TSH was 0.4 in 07/2020) -Decrease levothyroxine from 175mcg to 150mcg daily (13) Dysphagia: Chronic dysphagia. H/O EGD in 2019 without abnormality, however decision made to dilate esophagus -Aspiration precautions -Soft bite size diet (14) GERD (gastroesophageal reflux disease): -Continue PPI, H2 rosita (15) Anxiety: -Continue duloxetine (16) History of COVID-19: In 05/2020. Had GRAF, fever, fatigue. DVT Prophylaxis -Has current LLE DVT, Heparin IV Full Code as per discussion with pt and pt's daughter Follows with Dr Maynard for routine care Pt was seen and care coordinated with Dr Stevens. See addendum History of Present Illness Chief Complaint: Weakness Primary Care Provider: Musa Maynard MD Pt is 74 y/o F with PMH DM II, HTN, dyslipidemia, asthma, diastolic dysfunction, GERD, hypothyroidism, obesity, anxiety, H/O COVID-19 in 05/2020 presented to ER with complaint of progressive weakness. Reports has had progressive weakness over the last couple months, worse the past month. Has been using walker with seat. Has a lift chair. Complains of increased fatigue. Has been sleeping 20 hours a day. Pt has been sitting and not moving much. Decreased appetite and oral intake. Lost 20 pounds in the last 2 months. Daughter reports had a hallucination episode where she reported watching the neighbors put up [place] decorations. Daughter states that pt had reported shortness of breath on exertion previously, however denies that currently. Pt has chronic dysphagia, had esophagus stretched in past. Not on special diet. History COVID- 19 in 06/2020 symptoms were fever, GRAF, fatigue, poor appetite. Seems like still has decreased appetite and fatigue. Also reports loose stools and several episodes of fecal incontinence. Pt c/o lower abdominal discomfort. C/O lower extremity discomfort to calf area, left worse than right and daughter reports "cottage cheese" type sensation to skin on bilateral legs. Had Pfizer COVID 19 vaccine 05/31/20, 06/21/20. Denies h/o DVT/PE. Denies recent fever/chills, recent falls, N/V, hematochezia, melena, epistaxis, GRAF, dizziness, syncope, vision changes, neck pain, CP, orthopnea, palpitations, cough, sore throat, choking, otalgia, rhinorrhea, paresthesias, extremity edema, rashes, dysuria, hematuria, urinary frequency. In ER patient with initial blood pressure 83/54, afebrile, pulse 50. Blood pressure increased to 121/67 after 1L NSS. No leukocytosis. Patient found to have CHAN. UA unremarkable. Patient being admitted for further evaluation and treatment Allergies Allergy/AdvReac Type Severity Reaction Status Date / Time albuterol Allergy Intermediate tachycardia Verified 09/13/20 14:29 amoxicillin Allergy Mild RASH Verified 09/13/20 14:29 aspirin AdvReac Mild stomach Verified 09/13/20 14:29 upset Home Medications Medication Instructions Recorded Confirmed Type carvedilol 6.25 mg PO BID 12/08/18 09/13/20 History duloxetine 30 mg PO QAM 12/08/18 09/13/20 History furosemide 20 mg PO QAM 12/08/18 09/13/20 History glipizide 5 mg PO BID 12/08/18 09/13/20 History latanoprost (PF) 1 drp OPHTHALMIC (EYE) 12/08/18 09/13/20 History levothyroxine 175 mcg PO QAM 12/08/18 09/13/20 History lisinopril 40 mg PO QAM 12/08/18 09/13/20 History omeprazole 40 mg PO QAM 12/08/18 09/13/20 History oxybutynin chloride [Ditropan XL] 5 mg PO TID 12/08/18 09/13/20 History spironolactone 12.5 mg PO QAM 12/08/18 09/13/20 History famotidine 40 mg PO HS 06/05/20 09/13/20 History semaglutide [Ozempic] 0.25 mg SUBCUT FLORES 06/05/20 09/13/20 History aspirin 81 mg PO DAILY 09/13/20 09/13/20 History Past Med/Surg History Medical History Anxiety Arthritis Asthma COVID-19 virus detected 06/03/20--c/o fever, headache, fatigue roughly a couple weeks ago, daughter was also sick with symptoms Diabetes mellitus, type 2 Diastolic dysfunction Dysphagia chronic dysphagia, h/o esophageal dilation GERD (gastroesophageal reflux disease) Hiatal hernia History of COVID-19 06/2020 Hypertension Hypothyroidism Morbid obesity with BMI of 45.0-49.9, adult SOBOE (shortness of breath on exertion) Surgical History History of anesthesia reaction "WAKES UP EARLY"-NEEDS MORE MEDS History of bilateral cataract extraction History of bilateral tubal ligation History of carpal tunnel release RIGHT History of section X 2 History of cholecystectomy History of colonoscopy History of esophagogastroduodenoscopy (EGD) WITH DILITATION History of total left knee replacement (TKR) History of total right knee replacement (TKR) x2 Hx of LASIK Family History Daughter Family history of reaction to anesthesia WAKES UP EARLY Mother Family history of diabetes mellitus Father Family history of diabetes mellitus Sister Family history of diabetes mellitus Sister Family history of diabetes mellitus Brother Family history of diabetes mellitus Brother Family history of diabetes mellitus Social History Smoking Status: Never smoker Second Hand Exposure: No; Hx Alcohol Use: No Hx Substance Use: No Preferred Language: Setswana Communication Ability: Effective Office System Analyst Required: No Beliefs That Will Affect Care: None Current Living Situation: Family Current Living Situation Comment: Lives with daughter and son Other Information That Helps Us Care for You: No Feels Safe at Home: Yes Safety Concerns: Feels Safe At This Time Assistive Devices: Denture - Upper and Walker Review of Systems Review of Systems: All systems reviewed & are unremarkable except as noted in HPI & below Physical Exam Physical Exam: General: no distress, obese Head: normocephalic, atraumatic Eyes: PERRL, EOM's intact, conjunctiva non-injected, anicteric ENT: normal inspection external ears, nose, mucous membranes mildly dry Neck: supple, trachea midline Lungs: clear, no respiratory distress, no wheezing/rhonchi/rales CV: regular rhythm, rate 50, no murmur, no JVD, no pretibial edema Abd: protuberant, normal BS, soft,+tenderness to palpation RLQ, LLQ without rebound or guarding Ext: no cyanosis, no erythema, bilateral posterior lower legs with palpable cord like firmness, left posterior calf with tenderness to palpation, distal pulses palpable, sensation to light touch intact Neuro: Alert, oriented to person. Reports year as 1991, knows it is summer, knows previous president. Unsure of location. no focal deficits noted, somewhat flat affect Skin: warm, dry Results & Data Results & Data ([facility]) Vital Signs (Past 12 Hours) Vital Signs Temp Pulse Pulse Resp BP BP Pulse Ox 09/13/20 11:32 54 L 18 121/67 98 09/13/20 11:28 98 09/13/20 10:56 36.0 C L 50 L 18 83/54 L 98 Laboratory Results Short CBC 09/13/20 Range/Units 11:14 WBC 7.47 (4.8-10.8) K/uL Hgb 11.1 L (12.0-16.0) g/dL Hct 33.6 L (37-47) % Plt Count 192 (130-400) K/uL BMP 09/13/20 11:14 Sodium 129 L Potassium 4.3 Chloride 96 L Carbon Dioxide 26 BUN 33 H Creatinine 2.14 H Glucose 268 H Calcium 9.7 Cardiac Enzymes 09/13/20 Range/Units 11:14 Troponin I < 0.015 (0-0.045) ng/ml Liver Function 09/13/20 Range/Units 11:14 Total Bilirubin 0.8 (0.2-1) mg/dl AST 17 (15-37) U/L ALT 21 (12-78) U/L Alkaline Phosphatase 109 (45-117) U/L Albumin 2.2 L (3.4-5.0) gm/dl Urine 09/13/20 Range/Units Unknown Urine Color Dark Yellow Urine Appearance Turbid A (Clear) Urine pH 5.0 (4.5-7.5) Ur Specific [place] 1.020 (1.000-1.030) Urine Protein Trace H (Negative) Urine Glucose (UA) Negative (Negative) Diagnostic Findings Chest X-Ray 09/13/20 11:21 XR chest 1V portable CLINICAL HISTORY: weakness COMPARISON STUDY: Chest x-ray dated 03/18/2012 FINDINGS: Study is rotated. The heart is borderline enlarged. There is no failure. There is no focal pulmonary consolidation. There are no significant pleural effusions. Increased basilar markings are likely atelectatic.[There is mild superior mediastinal prominence, likely secondary to mediastinal fat deposition, given the patient's body habitus. IMPRESSION: 1. Mild mediastinal prominence, statistically secondary to fat deposition given the patient's body habitus 2. No evidence of focal pulmonary consolidation 3. Mild basilar atelectasis ACT 112: Negative or not required by law. Electronically signed by: Marcellus Weaver M.D. 09/13/2020 11:39 AM Venous Doppler Study 09/13/20 11:22 US venous doppler LE CLINICAL HISTORY: Bilateral leg swelling COMPARISON STUDY: 07/03/2016 FINDINGS: Grayscale, color-flow, Doppler spectral waveform analysis was performed. The study was difficult from a technical standpoint due to the patient's body habitus. On the right, no intraluminal thrombus was visualized within the common femoral superficial femoral or popliteal veins. The proximal trifurcation veins of the right calf appear patent. On the left, no thrombus is visualized within the common femoral vein. There is left femoral vein and popliteal vein thrombus. Calf veins were nonvisualized. IMPRESSION: 1. Acute left lower extremity DVT involving the common femoral vein and popliteal vein. 2. No evidence of right lower extremity DVT ACT 112: Negative or not required by law. Electronically signed by: Marcellus Weaver M.D. 09/13/2020 1:59 PM Abdomen/Pelvis CT 09/13/20 11:53 CT SCAN OF THE ABDOMEN AND PELVIS WITHOUT CONTRAST CLINICAL HISTORY: diarrhea, high creat COMPARISON STUDY: 07/16/2016 TECHNIQUE: CT scan of the abdomen and pelvis was performed from the lung bases to the proximal femurs. Images are reviewed in the axial, sagittal, and coronal planes. IV contrast was not administered for this examination. A dose lowering technique was utilized adhering to the principles of ALARA. CT DOSE: 1601.07 mGy.cm FINDINGS: Lower chest: There is prominence of the pulmonary arteries bilaterally. There ar e small bilateral pleural effusions. There is basilar atelectasis. Liver: There is mild hepatic steatosis. No focal hepatic masses are visualized on this noncontrast study. The liver has a subtle cirrhotic morphology Gallbladder: Not visualized presumed surgically absent. Spleen: Mildly enlarged measuring 13.1 cm. Pancreas: Unremarkable. Adrenal glands: Unremarkable. Kidneys: No renal, ureteral, or bladder calculi are visualized. Bowel: There are no transition zones to indicate bowel obstruction. There is no evidence of acute diverticulitis. The appendix appears normal. Peritoneum: There is no intraperitoneal free air or abdominal ascites. Vasculature: The abdominal aorta is normal in course and caliber. Adenopathy: Since the prior study, the patient has developed pathologic lymphadenopathy. There are enlarged left inguinal lymph nodes measuring up to 36 mm in diameter. There are enlarged obturator and femoral chain lymph nodes measuring up to 28 mm in diameter. There is pathologic para-aortic lymphadenopathy. There is a 41 mm precaval lymph node. There is a 34 mm anterior para-aortic lymph node. There are enlarged mary hepatis lymph nodes. There are enlarged retrocrural lymph nodes. There is mild nonspecific infiltration of fat anterior to the left iliac vessels. Pelvic viscera: The bladder, and pelvic viscera are unremarkable. Skeletal structures: There are moderate multilevel degenerative changes in the spine. There is a grade 1 spinal listhesis of L5 and S1. No destructive lesions are visualized. There is ankylosis of the spine. IMPRESSION: 1. No evidence of bowel obstruction. No evidence of free air 2. No evidence of acute diverticulitis. No evidence of acute appendicitis. 3. No renal, ureteral, or bladder calculi identified 4. Hepatic steatosis. Subtle cirrhotic morphology the the liver. Splenomegaly. 5. Trace bilateral pleural effusions 6. Interval development of pathologic abdominal pelvic and inguinal lymphadenopathy. A lymphoproliferative disorder is the diagnosis of exclusion. Further workup is advocated. ACT 112: Positive. There are findings on this exam that require communication between the performing entity and the patient following Patient Test Result Information Act ([place] Act 112) guidelines. Electronically signed by: Marcellus Weaver M.D. 09/13/2020 1:39 PM ECG Rate (beats per minute): 51 Rhythm: sinus bradycardia Code Status & VTE Plan VTE Prophylaxis Plan VTE Prophylaxis will be ordered: Yes Supervising Physician Co-Signing Physician Notes Patient is a 74-year-old female with history of diabetes mellitus, hypertension, diastolic dysfunction and other medical problems presents with history of generalized weakness, poor appetite, weight loss, fatigue, and increased sleeping since recent Covid infection in May. Patient admits to have lost at least about 20 pounds in last 2 months. She also states having dyspnea on exertion. Complains about generalized mild lower abdominal discomfort. Please review HPI for complete details of presentation. She was noted to have CHAN with creatinine elevated at 2.14. Noted elevated free T4 and decreased TSH. Corrected sodium mildly low. CT abdomen showed findings suggestive of lymphoproliferative disorder. Venous Dopplers showed acute left lower extremity DVT within femoral and popliteal vein. On exam patient is morbidly obese, no apparent distress, normocephalic atraumatic, lungs-decreased breath sounds, clear to auscultation, S1-S2, no murmur, abdomen soft, mild generalized tenderness, no guarding or rigidity, normal bowel sounds, alert, awake, oriented, grossly no focal deficits. Chronic venous stasis changes noted, no calf tenderness, no pretibial edema. Patient is admitted for management of gen eralized weakness likely secondary to lymphoproliferative disorder and acute DVT. Hypothyroidism could be contributing to weakness as well. Will start on IV heparin. Will need to establish with oncology. Will obtain anemia work-up including fecal occult. PT OT evaluation requested. Monitor for bradycardia while on carvedilol. Decreased levothyroxine dose to 150 mcg from 175 mcg. Will need repeat thyroid function tests as outpatient. Agree with holding Metformin, spironolactone, Lasix, lisinopril secondary to CHAN. We will give her gentle IV fluids. Monitor renal function and avoid nephrotoxic agents as able. Will obtain stool studies if recurrence of diarrhea. Consider nephrology evaluation if no improvement with current management. Monitor sodium levels. Agree with insulin therapy while hospitalized for diabetes management. I personally reviewed the record. Patient is interviewed and examined at bedside. Patient's care is coordinated with Eda Morton PA-C. Please refer to the documentation above for details of patient's presentation and for discussion of other issues.
--- NOTE | 2020-09-13 13:40 | CT Scan Report ---
CT SCAN OF THE ABDOMEN AND PELVIS WITHOUT CONTRAST CLINICAL HISTORY: diarrhea, high creat COMPARISON STUDY: 07/16/2016 TECHNIQUE: CT scan of the abdomen and pelvis was performed from the lung bases to the proximal femurs . Images are reviewed in the axial, sagittal, and coronal planes. IV contrast was not administered fo r this examination. A dose lowering technique was utilized adhering to the principles of ALARA. CT DOSE: 1601.07 mGy.cm FINDINGS: Lower chest: There is prominence of the pulmonary arteries bilaterally. There are small bilateral ple ural effusions. There is basilar atelectasis. Liver: There is mild hepatic steatosis. No focal hepatic masses are visualized on this noncontrast st udy. The liver has a subtle cirrhotic morphology Gallbladder: Not visualized presumed surgically absent. Spleen: Mildly enlarged measuring 13.1 cm. Pancreas: Unremarkable. Adrenal glands: Unremarkable. Kidneys: No renal, ureteral, or bladder calculi are visualized. Bowel: There are no transition zones to indicate bowel obstruction. There is no evidence of acute div erticulitis. The appendix appears normal. Peritoneum: There is no intraperitoneal free air or abdominal ascites. Vasculature: The abdominal aorta is normal in course and caliber. Adenopathy: Since the prior study, the patient has developed pathologic lymphadenopathy. There are en larged left inguinal lymph nodes measuring up to 36 mm in diameter. There are enlarged obturator and femoral chain lymph nodes measuring up to 28 mm in diameter. There is pathologic para-aortic lymphade nopathy. There is a 41 mm precaval lymph node. There is a 34 mm anterior para-aortic lymph node. Ther e are enlarged mary hepatis lymph nodes. There are enlarged retrocrural lymph nodes. There is mild n onspecific infiltration of fat anterior to the left iliac vessels. Pelvic viscera: The bladder, and pelvic viscera are unremarkable. Skeletal structures: There are moderate multilevel degenerative changes in the spine. There is a grad e 1 spinal listhesis of L5 and S1. No destructive lesions are visualized. There is ankylosis of the s pine. IMPRESSION: 1. No evidence of bowel obstruction. No evidence of free air 2. No evidence of acute diverticulitis. No evidence of acute appendicitis. 3. No renal, ureteral, or bladder calculi identified 4. Hepatic steatosis. Subtle cirrhotic morphology the the liver. Splenomegaly. 5. Trace bilateral pleural effusions 6. Interval development of pathologic abdominal pelvic and inguinal lymphadenopathy. A lymphoprolifer ative disorder is the diagnosis of exclusion. Further workup is advocated. ACT 112: Positive. There are findings on this exam that require communication between the performing entity and the patient following Patient Test Result Information Act ([place] Act 112) guidelines. Electronically signed by: Marcellus Weaver M.D. 09/13/2020 1:39 PM
--- NOTE | 2020-09-13 14:00 | Ultrasound Report ---
US venous doppler LE BI CLINICAL HISTORY: Bilateral leg swelling COMPARISON STUDY: 07/03/2016 FINDINGS: Grayscale, color-flow, Doppler spectral waveform analysis was performed. The study was difficult from a technical standpoint due to the patient's body habitus. On the right, no intraluminal thrombus was visualized within the common femoral superficial femoral o r popliteal veins. The proximal trifurcation veins of the right calf appear patent. On the left, no thrombus is visualized within the common femoral vein. There is left femoral vein and popliteal vein thrombus. Calf veins were nonvisualized. IMPRESSION: 1. Acute left lower extremity DVT involving the common femoral vein and popliteal vein. 2. No evidence of right lower extremity DVT ACT 112: Negative or not required by law. Electronically signed by: Marcellus Weaver M.D. 09/13/2020 1:59 PM
[2020-09-13] MEDS ORDERED: GLUCOSE 10 TABS/TUBE PO PRN (14:51)
[2020-09-13] MEDS ORDERED: GLUCOSE 40% GEL 15 GM TUBE PO PRN (14:51)
[2020-09-13] MEDS ORDERED: GLUCAGON FOR INJ 1 MG VIAL SQ PRN (14:51)
[2020-09-13] MEDS ORDERED: CARBOHYDRATES FOR HYPOGLYCEMIA PO PRN (14:51)
[2020-09-13] MEDS ORDERED: ONDANSETRON INJ 2 MG/ML 2 ML VIAL IV PRN (14:51)
[2020-09-13] MEDS ORDERED: DEXTROSE 50% 50 ML SYRINGE IV PRN (14:51)
[2020-09-13 15:32] LABS: Reticulocytes # 0.07 10^6/uL (0.02-0.10)
[2020-09-13] MEDS: SODIUM CHLORIDE 0.9% 1000ML 1,000 ML IV SCH (15:49)
[2020-09-13 15:53] LABS: BUN Creatinine Ratio 16.5 (10-20); Calcium 9.1 mg/dl (8.5-10.1); Est GFR (African American) 28.5 ml/min; Est GFR (Non-African American) 24.6 ml/min
[2020-09-13 15:58] LABS: Ferritin 819.1 ng/ml (8-388)
[2020-09-13] MEDS ORDERED: HEPARIN SOD (PORCINE) 1000 UNIT/ML IV ONE (16:00)
[2020-09-13 16:30] LABS: Folate (Folic Acid) 3.7 ng/ml (>5.38)
[2020-09-13] MEDS: HEPARIN SODIUM/DEXTROSE 25,000 UNITS/500 ML BAG IV SCH (16:55)
[2020-09-13] MEDS: Heparin IV Adult Wt-Based Standard WITH Bolus Protocol IV SCH ×3 (16:55→18:04)
[2020-09-13] MEDS: INSULIN ASPART 100 UNITS/ML 3 ML PEN SC SCH ×2 (16:58→20:53)
[2020-09-13 17:19] LABS: Partial Thromboplastin Ratio 1.1; Partial Thromboplastin Time 29.6 Seconds (21.0-31.0)
[2020-09-13] MEDS: INSULIN GLARGINE SOLOSTAR 100 UNITS/ML 3 ML PEN SC SCH (20:56)
[2020-09-13] MEDS: FAMOTIDINE 40 MG TABLET PO SCH (20:58)
[2020-09-13] MEDS: carvediloL 6.25 MG TAB PO SCH (20:58)
[2020-09-13] MEDS: LATANOPROST 0.005% OP SOLN 2.5 ML BTL OP SCH (20:59)
[2020-09-13] MEDS: OXYBUTYNIN CHLORIDE XL 5 MG TABCR PO SCH (20:59)
[2020-09-13 23:19] LABS: Partial Thromboplastin Ratio 4.6
[2020-09-13 23:22] LABS: Partial Thromboplastin Time 121.3 Seconds (21.0-31.0)
[2020-09-14] MEDS: SODIUM CHLORIDE 0.9% 1000ML 1,000 ML IV SCH (04:28)
[2020-09-14] MEDS: LEVOTHYROXINE SODIUM 150 MCG TABLET PO SCH (06:01)
[2020-09-14 07:44] LABS: Hematocrit (blood only) 30.1 % (37-47); Hemoglobin 9.9 g/dL (12.0-16.0); Mean Corpuscular Hemoglobin 27.5 pg (25-34); Mean Corpuscular Hgb Conc 32.9 g/dL (32-36); Mean Corpuscular Volume 83.6 fL (80-100); Mean Platelet Volume 8.5 fL (7.4-10.4); Platelet Count 206 K/uL (130-400); RDW Standard Deviation 45.5 fL (36.4-46.3); White Blood Count 6.21 K/uL (4.8-10.8)
[2020-09-14 08:04] LABS: BUN Creatinine Ratio 18.6 (10-20); Calcium 9.5 mg/dl (8.5-10.1); Est GFR (African American) 31.6 ml/min; Est GFR (Non-African American) 27.2 ml/min; Magnesium 1.9 mg/dl (1.8-2.4); Potassium 3.8 mmol/L (3.5-5.1)
[2020-09-14 08:06] LABS: Partial Thromboplastin Ratio 1.9
--- NOTE | 2020-09-14 08:26 | Electrocardiogram Report ---
Test Reason : Blood Pressure : / mmHG Vent. Rate : 051 BPM Atrial Rate : 051 BPM P-R Int : 128 ms QRS Dur : 100 ms QT Int : 474 ms P-R-T Axes : -17 023 036 degrees QTc Int : 436 ms Sinus bradycardia with sinus arrhythmia Otherwise normal ECG When compared with ECG of 04-MAR-2017 10:06, No significant change was found Confirmed by Jarod De Santiago [id number]) on 09/14/2020 8:26:33 AM Referred By: Musa Maynard Confirmed By:Jarod De Santiago
[2020-09-14] MEDS: carvediloL 6.25 MG TAB PO SCH ×2 (08:28→21:36)
[2020-09-14] MEDS: PANTOprazole 40 MG TAB PO SCH (08:28)
[2020-09-14] MEDS: ASPIRIN 81 MG ECTAB PO SCH (08:28)
[2020-09-14] MEDS: OXYBUTYNIN CHLORIDE XL 5 MG TABCR PO SCH ×3 (08:28→21:36)
[2020-09-14] MEDS: DULoxetine HCL 30 MG CAP PO SCH (08:29)
[2020-09-14] MEDS: INSULIN GLARGINE SOLOSTAR 100 UNITS/ML 3 ML PEN SC SCH ×2 (08:30→21:31)
[2020-09-14] MEDS: INSULIN ASPART 100 UNITS/ML 3 ML PEN SC SCH ×4 (08:30→21:30)
--- NOTE | 2020-09-14 14:17 | Hospitalist Progress Note ---
Date of Service September 14, 2020 Assessment & Plan (1) Weakness: (2) Ambulatory dysfunction: Pt is 74 y/o F with PMH DM II, HTN, dyslipidemia, asthma, diastolic dysfunction, GERD, hypothyroidism, obesity, anxiety, H/O COVID-19 in 06/2020 presented to ER with complaint of progressive weakness past several months, worse past month. Was using cane, now unable to walk without assistance. Poor oral intake. In ER patient with initial blood pressure 83/54, afebrile, pulse 50. Blood pressure increased to 121/67 after 1L NSS No leukocytosis, UA appears contaminated, pseudohyponatremia, otherwise no significant electrolyte abnormality ordered for PT/OT eval ct abdomen /pelvis shows pelvic and inguinal lympadenopathy , needs biopsy lower ext DVT ; on Iv heparin hypercoag work up ordered (3) CHAN (acute kidney injury): BUN: 33, Cr: 2.1. Baseline Cr: 0.9 renal function improved with IVF (4) Hyponatremia: improved with Iv fluid (5) Left leg DVT: (6) Calf tenderness: BLE Venous Doppler: 1. Acute left lower extremity DVT involving the common femoral vein and popliteal vein. 2. No evidence of right lower extremity DVT -Hypercoagulable workup -on Heparin IV (7) Abnormal CT of the abdomen: (8) Abdominal pain: Intermittent Loose stools reported and lower abdominal discomfort. No leukocytosis, UA appears contaminated CT ABD/PELVIS: 1. No evidence of bowel obstruction. No evidence of free air 2. No evidence of acute diverticulitis. No evidence of acute appendicitis. 3. No renal, ureteral, or bladder calculi identified 4. Hepatic steatosis. Subtle cirrhotic morphology the the liver. Splenomegaly. 5. Trace bilateral pleural effusions 6. Interval development of pathologic abdominal pelvic and inguinal lymphadenopathy. A lymphoproliferative disorder is the diagnosis of exclusion. Further workup is advocated. will need sugery consult for LN biopsy cont on iv heparin , which can be on hold 8-10 hrs prior to porcedure (9) Hypertension: BP improved after IVF -Continue carvedilol with holding parameters -Hold lisinopril, spironolactone, lasix (10) Diastolic dysfunction: Grade II diastolic dysfunction, EF 59% on echo in 2018 -Hold lasix for now secondary to CHAN and hypotension at present stable vol status (11) Diabetes mellitus, type 2: A1c: 6.9 in 07/2020 -Hold home meds -Novolog, Lantus sliding scale per protocol (12) Hypothyroidism: TSH: 0.2, Free T4: 2.0 (TSH was 0.4 in 07/2020) -Decrease levothyroxine from 175mcg to 150mcg daily (13) Dysphagia: Chronic dysphagia. H/O EGD in 2019 without abnormality, however decision made to dilate esophagus -Aspiration precautions -Soft bite size diet (14) GERD (gastroesophageal reflux disease): -Continue PPI, H2 rosita (15) Anxiety: -Continue duloxetine (16) History of COVID-19: In 05/2020. Had GRAF, fever, fatigue. DVT Prophylaxis -Has current LLE DVT, Heparin IV Full Code as per discussion with pt and pt's daughter Follows with Dr Maynard for routine care Admission and Anticipated Discharge Date Admission Date: September 13, 2020 Subjective no complain of SOB generalized weakness c/o BRICENO , no cough , no fever or chills Review of Systems Review of Systems: All systems reviewed & are unremarkable except as noted in Subjective Physical Exam Physical Exam: Physical exam: General: No acute distress, alert awake oriented x3 HEENT: PERRLA, EOMI, Heart: Regular S1-S2, no carotid bruit, no JVD, extensive bilateral lower ext edema with chronic venous stasis changes Lungs: Clear to auscultate, no wheeze or rales Abdomen: Soft nontender, no organomegaly Neuro: No focal neurological deficit normal speech, normal visual field, Psych: Alert awake oriented x3, normal affect Results & Data Results & Data ([facility]) Vital Signs (Past 12 Hours) Vital Signs Temp Pulse Pulse Resp BP BP Pulse Ox 09/14/20 11:54 36.7 C 58 L 18 177/84 H 98 09/14/20 07:42 60 09/14/20 07:33 36.5 C 62 18 157/51 H 97 09/14/20 03:50 36.4 C L 63 18 136/62 96
[2020-09-14] MEDS: HEPARIN SODIUM/DEXTROSE 25,000 UNITS/500 ML BAG IV SCH (17:20)
[2020-09-14] MEDS: LATANOPROST 0.005% OP SOLN 2.5 ML BTL OP SCH (21:37)
[2020-09-14] MEDS: FAMOTIDINE 40 MG TABLET PO SCH (21:37)
[2020-09-14] MEDS ORDERED: HALOPERIDOL LACTATE 5 MG/ML 1 ML VIAL IM STA (23:07)
[2020-09-15] MEDS ORDERED: HALOPERIDOL LACTATE 5 MG/ML 1 ML VIAL IM STA (02:28)
[2020-09-15] MEDS ORDERED: HALOPERIDOL LACTATE 5 MG/ML 1 ML VIAL ONE (02:33)
[2020-09-15] MEDS: LEVOTHYROXINE SODIUM 150 MCG TABLET PO SCH (06:02)
[2020-09-15 06:37] LABS: BUN Creatinine Ratio 20.5 (10-20); Calcium 9.4 mg/dl (8.5-10.1); Creatinine Clr Calc Pharmacy 43.1 ml/min; Est GFR (African American) 45.2 ml/min; Potassium 4.2 mmol/L (3.5-5.1)
[2020-09-15 06:54] LABS: Partial Thromboplastin Ratio 1.9
[2020-09-15 07:19] LABS: Partial Thromboplastin Time 49.5 Seconds (21.0-31.0)
[2020-09-15] MEDS: DULoxetine HCL 30 MG CAP PO SCH (08:42)
[2020-09-15] MEDS: PANTOprazole 40 MG TAB PO SCH (08:42)
[2020-09-15] MEDS: carvediloL 6.25 MG TAB PO SCH ×2 (08:43→20:26)
[2020-09-15] MEDS: OXYBUTYNIN CHLORIDE XL 5 MG TABCR PO SCH ×3 (08:43→20:27)
[2020-09-15] MEDS: INSULIN ASPART 100 UNITS/ML 3 ML PEN SC SCH ×4 (08:47→21:25)
[2020-09-15] MEDS: INSULIN GLARGINE SOLOSTAR 100 UNITS/ML 3 ML PEN SC SCH ×2 (08:48→21:26)
[2020-09-15] MEDS: HEPARIN SODIUM/DEXTROSE 25,000 UNITS/500 ML BAG IV SCH (17:31)
--- NOTE | 2020-09-15 17:57 | Surgery Consultation ---
Date of Consultation September 15, 2020 Assessment & Plan (1) Lymphadenopathy: This patient has lymphadenopathy. By CT it appeared to be pathologic. We will try to plan for lymph node biopsy. I will discuss the CT with the radiologist. I cannot palpate any of the lymph nodes even in the inguinal area. We will may need to discuss a needle localized technique. I explained all this to the daughter. History of Present Illness Reason for Consultation: Lymphadenopathy Requesting Physician: Sienna Kothari MD Attending Physician: Sienna Kothari MD History of Present Illness I have been asked by Dr. Kothari to see this 74-year-old female who was admitted with weakness. She was very sleepy when I went to see her. The history was obtained from the chart and from the patient's daughter. She has apparently been having increasing weakness over the the last few months. Her daughter said that she would sleep for at least the 16 to 18 hours a day. They had difficulty even keeping her aroused for meals. She apparently had had some shortness of breath at 1 point but she does have a history of chronic dysphagia. Her appetite has been poor. She has had about a 20 pound weight loss in the last 2 months. She underwent a work-up that included a CT scan of the abdomen and pelvis that showed lymphadenopathy in the retroperitoneum along the vena cava and aorta as well as in the mary hepatis. There were lymph nodes along the iliac vessels as well as in the left inguinal area. She has also been found to have a DVT. Allergies Allergy/AdvReac Type Severity Reaction Status Date / Time albuterol Allergy Intermediate tachycardia Verified 09/13/20 14:29 amoxicillin Allergy Mild RASH Verified 09/13/20 14:29 aspirin AdvReac Mild stomach Verified 09/13/20 14:29 upset Home Medications Medication Instructions Recorded Confirmed Type carvedilol 6.25 mg PO BID 12/08/18 09/13/20 History duloxetine 30 mg PO QAM 12/08/18 09/13/20 History furosemide 20 mg PO QAM 12/08/18 09/13/20 History glipizide 5 mg PO BID 12/08/18 09/13/20 History latanoprost (PF) 1 drp OPHTHALMIC (EYE) HS 12/08/18 09/13/20 History levothyroxine 175 mcg PO QAM 12/08/18 09/13/20 History lisinopril 40 mg PO QAM 12/08/18 09/13/20 History omeprazole 40 mg PO QAM 12/08/18 09/13/20 History oxybutynin chloride [Ditropan XL] 5 mg PO TID 12/08/18 09/13/20 History spironolactone 12.5 mg PO QAM 12/08/18 09/13/20 History famotidine 40 mg PO HS 06/05/20 09/13/20 History semaglutide [Ozempic] 0.25 mg SUBCUT FLORES 06/05/20 09/13/20 History aspirin 81 mg PO DAILY 09/13/20 09/13/20 History Patient History Medical History Anxiety Arthritis Asthma COVID-19 virus detected 06/03/20--c/o fever, headache, fatigue roughly a couple weeks ago, daughter was also sick with symptoms Diabetes mellitus, type 2 Diastolic dysfunction Dysphagia chronic dysphagia, h/o esophageal dilation GERD (gastroesophageal reflux disease) Hiatal hernia History of COVID-19 06/2020 Hypertension Hypothyroidism Morbid obesity with BMI of 45.0-49.9, adult SOBOE (shortness of breath on exertion) Surgical History History of anesthesia reaction "WAKES UP EARLY"-NEEDS MORE MEDS History of bilateral cataract extraction History of bilateral tubal ligation History of carpal tunnel release RIGHT History of section X 2 History of cholecystectomy History of colonoscopy History of esophagogastroduodenoscopy (EGD) WITH DILITATION History of total left knee replacement (TKR) History of total right knee replacement (TKR) x2 Hx of LASIK Family History Daughter Family history of reaction to anesthesia WAKES UP EARLY Mother Family history of diabetes mellitus Father Family history of diabetes mellitus Sister Family history of diabetes mellitus Sister Family history of diabetes mellitus Brother Family history of diabetes mellitus Brother Family history of diabetes mellitus Social History Smoking Status: Never smoker Second Hand Exposure: No; Hx Alcohol Use: No Hx Substance Use: No Preferred Language: Slovak Communication Ability: Effective Executive Creative Director Required: No Beliefs That Will Affect Care: None Current Living Situation: Family Current Living Situation Comment: Lives with daughter and son Other Information That Helps Us Care for You: No Feels Safe at Home: Yes Safety Concerns: Feels Safe At This Time Assistive Devices: Denture - Upper and Walker Physical Exam Constitutional: no acute distress Very sleepy upon my arrival Neck: trachea midline Respiratory: normal respiratory effort, lungs clear to auscultation Cardiovascular: Rate/Rhythm: regular rate and regular rhythm Gastrointestinal (Abdomen): Inspection/Auscultation: abdomen normal to inspection; abdomen not distended Percussion/Palpation: + abdomen tender and abdomen soft Lymphatic: I cannot palpate adenopathy in any of the lymph node bearing areas most likely due to her body habitus. Results & Data ([facility]) Vital Signs (Past 12 Hours) Vital Signs Temp Pulse Pulse Resp BP BP Pulse Ox 09/15/20 14:48 36.9 C 74 16 137/68 95 09/15/20 11:17 37.1 C 70 18 147/81 H 96 09/15/20 07:49 37.0 C 79 18 168/77 H 94 09/15/20 07:14 73 Laboratory Results 09/15/20 09/15/20 09/15/20 Range/Units 16:24 11:26 11:23 APTT (21.0-31.0) Seconds PTT Ratio Sodium (136-145) mmol/L Potassium (3.5-5.1) mmol/L Chloride (98-107) mmol/L Carbon Dioxide (21-32) mmol/L Anion Gap (3-11) BUN (7-18) mg/dl Creatinine (0.6-1.2) mg/dl Est Cr Clr Drug Dosing ml/min Est GFR ( Amer) ml/min Est GFR (Non-Af Amer) ml/min BUN/Creatinine Ratio (10-20) Glucose (70-99) mg/dl POC Glucose 163 H 151 H 143 H (70-99) mg/dl Calcium (8.5-10.1) mg/dl 09/15/20 09/15/20 09/15/20 Range/Units 11:21 07:37 05:51 APTT 49.5 H* (21.0-31.0) Seconds PTT Ratio 1.9 Sodium (136-145) mmol/L Potassium (3.5-5.1) mmol/L Chloride (98-107) mmol/L Carbon Dioxide (21-32) mmol/L Anion Gap (3-11) BUN (7-18) mg/dl Creatinine (0.6-1.2) mg/dl Est Cr Clr Drug Dosing ml/min Est GFR ( Amer) ml/min Est GFR (Non-Af Amer) ml/min BUN/Creatinine Ratio (10-20) Glucose (70-99) mg/dl POC Glucose 48 L* 109 H (70-99) mg/dl Calcium (8.5-10.1) mg/dl 09/15/20 09/15/20 09/14/20 Range/Units 05:51 03:05 20:26 APTT (21.0-31.0) Seconds PTT Ratio Sodium 136 (136-145) mmol/L Potassium 4.2 (3.5-5.1) mmol/L Chloride 106 (98-107) mmol/L Carbon Dioxide 24 (21-32) mmol/L Anion Gap 6.0 (3-11) BUN 27 H (7-18) mg/dl Creatinine 1.33 H D (0.6-1.2) mg/dl Est Cr Clr Drug Dosing 43.1 ml/min Est GFR ( Amer) 45.2 ml/min Est GFR (Non-Af Amer) 39.0 ml/min BUN/Creatinine Ratio 20.5 H (10-20) Glucose 116 H (70-99) mg/dl POC Glucose 112 H 99 (70-99) mg/dl Calcium 9.4 (8.5-10.1) mg/dl
[2020-09-15] MEDS: ACETAMINOPHEN 325 MG TAB PO PRN (20:25)
[2020-09-15] MEDS: LATANOPROST 0.005% OP SOLN 2.5 ML BTL OP SCH (20:27)
[2020-09-15] MEDS: FAMOTIDINE 40 MG TABLET PO SCH (20:27)
--- NOTE | 2020-09-16 00:14 | Hospitalist Progress Note ---
Date of Service September 16, 2020 Assessment & Plan (1) Weakness: (2) Ambulatory dysfunction: Pt is 74 y/o F with PMH DM II, HTN, dyslipidemia, asthma, diastolic dysfunction, GERD, hypothyroidism, obesity, anxiety, H/O COVID-19 in 06/2020 presented to ER with complaint of progressive weakness past several months, worse past month. Was using cane, now unable to walk without assistance. Poor oral intake. In ER patient with initial blood pressure 83/54, afebrile, pulse 50. Blood pressure increased to 121/67 after 1L NSS No leukocytosis, UA appears contaminated, pseudohyponatremia, otherwise no significant electrolyte abnormality ct abdomen /pelvis shows pelvic and inguinal lympadenopathy , concern for lymphoma needs biopsy general surgery consulted lower ext DVT ; on Iv heparin hypercoag work up ordered (3) CHAN (acute kidney injury): BUN: 33, Cr: 2.1. Baseline Cr: 0.9 renal function improved to baseline received Ivf (4) Hyponatremia: improved with Iv fluid Iv fluid d/willian , pt is tolerating PO intake (5) Left leg DVT: (6) Calf tenderness: BLE Venous Doppler: 1. Acute left lower extremity DVT involving the common femoral vein and popliteal vein. 2. No evidence of right lower extremity DVT -Hypercoagulable workup -on Heparin IV (7) Abnormal CT of the abdomen: (8) Abdominal pain: Intermittent Loose stools reported and lower abdominal discomfort. No leukocytosis, UA appears contaminated CT ABD/PELVIS: 1. No evidence of bowel obstruction. No evidence of free air 2. No evidence of acute diverticulitis. No evidence of acute appendicitis. 3. No renal, ureteral, or bladder calculi identified 4. Hepatic steatosis. Subtle cirrhotic morphology the the liver. Splenomegaly. 5. Trace bilateral pleural effusions 6. Interval development of pathologic abdominal pelvic and inguinal lymphadenopathy. A lymphoproliferative disorder is the diagnosis of exclusion. Further workup is advocated. will need sugery consult for LN biopsy cont on iv heparin , which can be on hold 8-10 hrs prior to porcedure (9) Hypertension: BP improved after IVF -Continue carvedilol with holding parameters -Hold lisinopril, spironolactone, lasix (10) Diastolic dysfunction: Grade II diastolic dysfunction, EF 59% on echo in 2018 -Hold lasix for now secondary to CHAN and hypotension at present stable vol status (11) Diabetes mellitus, type 2: A1c: 6.9 in 07/2020 -Hold home meds -Novolog, Lantus sliding scale per protocol (12) Hypothyroidism: TSH: 0.2, Free T4: 2.0 (TSH was 0.4 in 07/2020) -Decrease levothyroxine from 175mcg to 150mcg daily (13) Dysphagia: Chronic dysphagia. H/O EGD in 2019 without abnormality, however decision made to dilate esophagus -Aspiration precautions -Soft bite size diet (14) GERD (gastroesophageal reflux disease): -Continue PPI, H2 rosita (15) Anxiety: -Continue duloxetine (16) History of COVID-19: In 05/2020. Had GRAF, fever, fatigue. DVT Prophylaxis -Has current LLE DVT, Heparin IV Full Code as per discussion with pt and pt's daughter Follows with Dr Maynard for routine care Admission and Anticipated Discharge Date Admission Date: September 13, 2020 Subjective offers no new complain feels beter , was able to be on chair no fever or chills no cough Physical Exam Physical Exam: Physical exam: General: No acute distress, alert awake oriented x3 HEENT: PERRLA, EOMI, Heart: Regular S1-S2, no carotid bruit, no JVD, extensive bilateral lower ext edema with chronic venous stasis changes Lungs: Clear to auscultate, no wheeze or rales Abdomen: Soft nontender, no organomegaly Neuro: No focal neurological deficit normal speech, normal visual field, Psych: Alert awake oriented x3, normal affect Results & Data Results & Data ([facility]) Vital Signs (Past 12 Hours) Vital Signs Temp Pulse Pulse Resp BP Pulse Ox 09/15/20 22:33 36.9 C 81 18 166/90 H 94 09/15/20 22:19 69 09/15/20 14:48 36.9 C 74 16 137/68 95
[2020-09-16] MEDS: LEVOTHYROXINE SODIUM 150 MCG TABLET PO SCH (06:26)
[2020-09-16 08:16] LABS: Partial Thromboplastin Ratio 1.9
[2020-09-16 08:37] LABS: Partial Thromboplastin Time 49.8 Seconds (21.0-31.0)
[2020-09-16] MEDS: DULoxetine HCL 30 MG CAP PO SCH (08:41)
[2020-09-16] MEDS: PANTOprazole 40 MG TAB PO SCH (08:42)
[2020-09-16] MEDS: OXYBUTYNIN CHLORIDE XL 5 MG TABCR PO SCH ×3 (08:42→20:19)
[2020-09-16] MEDS: carvediloL 6.25 MG TAB PO SCH ×2 (08:42→20:19)
[2020-09-16] MEDS: INSULIN GLARGINE SOLOSTAR 100 UNITS/ML 3 ML PEN SC SCH ×2 (08:44→20:20)
[2020-09-16] MEDS: INSULIN ASPART 100 UNITS/ML 3 ML PEN SC SCH ×4 (08:45→20:21)
[2020-09-16] MEDS ORDERED: FIBERSOURCE HN 1.2 CAL 1000 ML BAG ONE (12:16)
[2020-09-16] MEDS: HEPARIN SODIUM/DEXTROSE 25,000 UNITS/500 ML BAG IV SCH (13:27)
--- NOTE | 2020-09-16 13:43 | Communication Note ---
Date of Service: September 16, 2020 received update from General Surgery regarding lymph node biopsy . As pt has new DVT on left lower extremity and same side inguinal LN biopsy is needed , surgery recommends vascular consult for IVF filter placement before surgical procedure . Dr dolan consulted will cont Iv heparin for now , needs to be on hold 10-8 hrs before any procedure will D/w Dr Dolan for IVC filter placement tomorrow ordered for NPO past midnight daughter will be updated over phone Sienna Kothari MD
--- NOTE | 2020-09-16 14:37 | Surgery Progress Note ---
Date of Service September 16, 2020 Assessment & Plan (1) Lymphadenopathy: By CT it appears to be pathologic. Given patient's body habitus, may require needle localization Given the new left lower extremity DVT , Dr. Kignston recommending vascular surgery consultation for possible IVC filter given lymphadenopathy is located in the left inguinal region. Continue medical management Will await vascular surgery consultation and recommendation Dr. Kingston has seen and examined pt, agrees with above. Admission and Anticipated Discharge Date Admission Date: September 13, 2020 Subjective having some pain in lower extremities bilaterally nurse states she had a few bites of eggs this morning and some coffee Physical Exam Constitutional: + morbidly obese; no acute distress and not ill appearing Respiratory: normal respiratory effort; no respiratory distress Skin: no rashes, warm and dry Lymphatic: + inguinal lymphadenopathy (left inguinal lymphadenopathy) Results & Data ([facility]) Vital Signs (Past 12 Hours) Vital Signs Temp Pulse Pulse Resp BP BP Pulse Ox 09/16/20 11:40 36.7 C 76 18 157/71 H 96 09/16/20 07:00 68 09/16/20 03:49 36.7 C 74 18 163/78 H 96 Laboratory Results 09/16/20 09/16/20 09/16/20 Range/Units 11:54 07:38 07:36 APTT 49.8 H* (21.0-31.0) Seconds PTT Ratio 1.9 POC Glucose 153 H 156 H (70-99) mg/dl 09/15/20 09/15/20 Range/Units 20:23 16:24 APTT (21.0-31.0) Seconds PTT Ratio POC Glucose 137 H 163 H (70-99) mg/dl Diagnostic Findings US venous doppler LE BI CLINICAL HISTORY: Bilateral leg swelling COMPARISON STUDY: 07/03/2016 FINDINGS: Grayscale, color-flow, Doppler spectral waveform analysis was performed. The study was difficult from a technical standpoint due to the patient's body habitus. On the right, no intraluminal thrombus was visualized within the common femoral superficial femoral or popliteal veins. The proximal trifurcation veins of the right calf appear patent. On the left, no thrombus is visualized within the common femoral vein. There is left femoral vein and popliteal vein thrombus. Calf veins were nonvisualized. IMPRESSION: 1. Acute left lower extremity DVT involving the common femoral vein and popliteal vein. 2. No evidence of right lower extremity DVT
--- NOTE | 2020-09-16 15:57 | Hospitalist Progress Note ---
Date of Service September 16, 2020 Assessment & Plan (1) Weakness: (2) Ambulatory dysfunction: Pt is 74 y/o F with PMH DM II, HTN, dyslipidemia, asthma, diastolic dysfunction, GERD, hypothyroidism, obesity, anxiety, H/O COVID-19 in 06/2020 presented to ER with complaint of progressive weakness past several months, worse past month. Was using cane, now unable to walk without assistance. Poor oral intake. In ER patient with initial blood pressure 83/54, afebrile, pulse 50. Blood pressure increased to 121/67 after 1L NSS No leukocytosis, UA appears contaminated, pseudohyponatremia, otherwise no significant electrolyte abnormality ct abdomen /pelvis shows pelvic and inguinal lymphadenopathy , concern for lymphoma needs biopsy general surgery consulted appreciate input As pt has new DVT on left lower extremity and same side inguinal LN biopsy is needed , surgery recommends vascular consult for IVF filter placement before surgical procedure . Dr dolan consulted will cont Iv heparin for now , needs to be on hold 10-8 hrs before any procedure will D/w Dr Dolan for IVC filter placement tomorrow ordered for NPO past midnight (3) CHAN (acute kidney injury): BUN: 33, Cr: 2.1. Baseline Cr: 0.9 renal function improved to baseline received Ivf (4) Hyponatremia: improved with Iv fluid Iv fluid d/willian , pt is tolerating PO intake (5) Left leg DVT: (6) Calf tenderness: BLE Venous Doppler: 1. Acute left lower extremity DVT involving the common femoral vein and popliteal vein. 2. No evidence of right lower extremity DVT -Hypercoagulable workup -on Heparin IV (7) Abnormal CT of the abdomen: (8) Abdominal pain: Intermittent Loose stools reported and lower abdominal discomfort. No leukocytosis, UA appears contaminated CT ABD/PELVIS: 1. No evidence of bowel obstruction. No evidence of free air 2. No evidence of acute diverticulitis. No evidence of acute appendicitis. 3. No renal, ureteral, or bladder calculi identified 4. Hepatic steatosis. Subtle cirrhotic morphology the the liver. Splenomegaly. 5. Trace bilateral pleural effusions 6. Interval development of pathologic abdominal pelvic and inguinal lymphadenopathy. A lymphoproliferative disorder is the diagnosis of exclusion. Further workup is advocated. will need sugery consult for LN biopsy cont on iv heparin , which can be on hold 8-10 hrs prior to porcedure (9) Hypertension: BP improved after IVF -Continue carvedilol with holding parameters -Hold lisinopril, spironolactone, lasix (10) Diastolic dysfunction: Grade II diastolic dysfunction, EF 59% on echo in 2018 -Hold lasix for now secondary to CHAN and hypotension at present stable vol status (11) Diabetes mellitus, type 2: A1c: 6.9 in 07/2020 -Hold home meds -Novolog, Lantus sliding scale per protocol (12) Hypothyroidism: TSH: 0.2, Free T4: 2.0 (TSH was 0.4 in 07/2020) -Decrease levothyroxine from 175mcg to 150mcg daily (13) Dysphagia: Chronic dysphagia. H/O EGD in 2019 without abnormality, however decision made to dilate esophagus -Aspiration precautions -Soft bite size diet (14) GERD (gastroesophageal reflux disease): -Continue PPI, H2 rosita (15) Anxiety: -Continue duloxetine (16) History of COVID-19: In 05/2020. Had GRAF, fever, fatigue. DVT Prophylaxis -Has current LLE DVT, Heparin IV Full Code as per discussion with pt and pt's daughter Follows with Dr Maynard for routine care Admission and Anticipated Discharge Date Admission Date: September 13, 2020 Subjective offers no new complain feels beter , was able to be on chair no fever or chills no cough Physical Exam Physical Exam: Physical exam: General: No acute distress, alert awake oriented x3 HEENT: PERRLA, EOMI, Heart: Regular S1-S2, no carotid bruit, no JVD, extensive bilateral lower ext edema with chronic venous stasis changes Lungs: Clear to auscultate, no wheeze or rales Abdomen: Soft nontender, no organomegaly Neuro: No focal neurological deficit normal speech, normal visual field, Psych: Alert awake oriented x3, normal affect Results & Data Results & Data ([facility]) Vital Signs (Past 12 Hours) Vital Signs Temp Pulse Pulse Resp BP BP Pulse Ox 09/16/20 15:37 36.8 C 86 18 172/89 H 94 09/16/20 11:40 36.7 C 76 18 157/71 H 96 09/16/20 07:00 68
[2020-09-16] MEDS ORDERED: POLYETHYLENE (MIRALAX) 17 GM PACK PO PRN (16:10)
[2020-09-16] MEDS ORDERED: POLYETHYLENE (MIRALAX) 17 GM PACK ONE (16:26)
[2020-09-16] MEDS: ACETAMINOPHEN 325 MG TAB PO PRN (16:38)
[2020-09-16] MEDS ORDERED: hydrALAZINE HCL 20 MG/ML VIAL IV PRN (16:57)
[2020-09-16] MEDS ORDERED: hydrALAZINE HCL 20 MG/ML VIAL ONE (17:13)
[2020-09-16] MEDS: FAMOTIDINE 40 MG TABLET PO SCH (20:19)
[2020-09-16] MEDS: DOCUSATE SODIUM 100 MG CAP PO SCH (20:19)
[2020-09-16] MEDS: LATANOPROST 0.005% OP SOLN 2.5 ML BTL OP SCH (20:20)
[2020-09-17] MEDS: LEVOTHYROXINE SODIUM 150 MCG TABLET PO SCH (05:25)
[2020-09-17 06:20] LABS: Partial Thromboplastin Ratio 1.2; Partial Thromboplastin Time 30.7 Seconds (21.0-31.0)
[2020-09-17 06:27] LABS: BUN Creatinine Ratio 14.6 (10-20); Calcium 9.1 mg/dl (8.5-10.1); Creatinine Clr Calc Pharmacy 67.2 ml/min; Est GFR (African American) 78.8 ml/min; Potassium 4.3 mmol/L (3.5-5.1)
[2020-09-17] MEDS ORDERED: LEVOTHYROXINE SODIUM 175 MCG TABLET PO SCH (06:30)
[2020-09-17] MEDS: INSULIN ASPART 100 UNITS/ML 3 ML PEN SC SCH ×4 (08:30→20:44)
--- NOTE | 2020-09-17 12:31 | Consultation ---
Date of Consultation September 17, 2020 Assessment & Plan (1) DVT (deep venous thrombosis): Acute LLE DVT noted on venous doppler, and pt will require interruption of her AC for lymph node bx, so IVC filter recommended. Planning to place filter on WEDNESDAY afternoon, and lymph node bx can be scheduled after that time. Pt agreeable. Please call if needed. Patient was seen, examined, and chart reviewed. Agree with exam and treatment plan of the Vascular PA. Affected thrombotic vein of extremity: unspecified vein of extremity Chronicity: acute DVT location: lower extremity Laterality: left Qualified Code(s): I82.402 - Acute embolism and thrombosis of unspecified deep veins of left lower extremity History of Present Illness Reason for Consultation: DVT, need IVC filter Attending Physician: Sienna Kothari MD History of Present Illness 74 yo f with hx of HTN, hypothyroidism, asthma, anxiety, DMII, GERD, obesity, admitted with generalized weakness and found to have L inguinal lymphadenopathy, as well as acute LLE DVT, seen in consultation today for IVC filter placement d/t interruption of AC for lymph node bx. Pt denies prior hx of DVT in past. Admits fatigue/malaise, and states this is improving since admission. Admits some mild chronic edema of BLE and some LLE calf discomfort. Pt denies GRAF, fever, chest pain, SOB, abd pain, N/V, rest pain, claudication, other complaints. Venous doppler demonstrates acute LLE DVT in common femoral to popliteal veins. Allergies Allergy/AdvReac Type Severity Reaction Status Date / Time albuterol Allergy Intermediate tachycardia Verified 09/13/20 14:29 amoxicillin Allergy Mild RASH Verified 09/13/20 14:29 aspirin AdvReac Mild stomach Verified 09/13/20 14:29 upset Home Medications Medication Instructions Recorded Confirmed Type carvedilol 6.25 mg PO BID 12/08/18 09/13/20 History duloxetine 30 mg PO QAM 12/08/18 09/13/20 History furosemide 20 mg PO QAM 12/08/18 09/13/20 History glipizide 5 mg PO BID 12/08/18 09/13/20 History latanoprost (PF) 1 drp OPHTHALMIC (EYE) HS 12/08/18 09/13/20 History levothyroxine 175 mcg PO QAM 12/08/18 09/13/20 History lisinopril 40 mg PO QAM 12/08/18 09/13/20 History omeprazole 40 mg PO QAM 12/08/18 09/13/20 History oxybutynin chloride [Ditropan XL] 5 mg PO TID 12/08/18 09/13/20 History spironolactone 12.5 mg PO QAM 12/08/18 09/13/20 History famotidine 40 mg PO HS 06/05/20 09/13/20 History semaglutide [Ozempic] 0.25 mg SUBCUT FLORES 06/05/20 09/13/20 History aspirin 81 mg PO DAILY 09/13/20 09/13/20 History Patient History Medical History Anxiety Arthritis Asthma COVID-19 virus detected 06/03/20--c/o fever, headache, fatigue roughly a couple weeks ago, daughter was also sick with symptoms Diabetes mellitus, type 2 Diastolic dysfunction Dysphagia chronic dysphagia, h/o esophageal dilation GERD (gastroesophageal reflux disease) Hiatal hernia History of COVID-19 06/2020 Hypertension Hypothyroidism Morbid obesity with BMI of 45.0-49.9, adult SOBOE (shortness of breath on exertion) Surgical History History of anesthesia reaction "WAKES UP EARLY"-NEEDS MORE MEDS History of bilateral cataract extraction History of bilateral tubal ligation History of carpal tunnel release RIGHT History of section X 2 History of cholecystectomy History of colonoscopy History of esophagogastroduodenoscopy (EGD) WITH DILITATION History of total left knee replacement (TKR) History of total right knee replacement (TKR) x2 Hx of LASIK Family History Daughter Family history of reaction to anesthesia WAKES UP EARLY Mother Family history of diabetes mellitus Father Family history of diabetes mellitus Sister Family history of diabetes mellitus Sister Family history of diabetes mellitus Brother Family history of diabetes mellitus Brother Family history of diabetes mellitus Social History Smoking Status: Never smoker Second Hand Exposure: No; Hx Alcohol Use: No Hx Substance Use: No Preferred Language: Micronesian Communication Ability: Effective Yard Engineer Required: No Beliefs That Will Affect Care: None Current Living Situation: Family Current Living Situation Comment: Lives with daughter and son Other Information That Helps Us Care for You: No Feels Safe at Home: Yes Safety Concerns: Feels Safe At This Time Assistive Devices: Walker Review of Systems Review of Systems: All systems reviewed & are unremarkable except as noted in HPI & below Physical Exam Constitutional: WD/WN, vitals as above + morbidly obese, cooperative and comfortable; not in distress Eyes: PERRL, conjunctivae normal, anicteric sclerae ENMT: Ears: no hearing impairment Neck: trachea midline Respiratory: normal respiratory effort, lungs clear to auscultation Auscultation: + diminished lung sounds Cardiovascular: Rate/Rhythm: regular rate and regular rhythm Vessels: femoral pulses present, posterior tibial pulses present, dorsalis pedis pulses present and radial pulses present; + abnormal peripheral pulses Extremities: normal capillary refill, + calf tenderness, + edema (+2 chronic) and + varicosities (firm varicosities posterior LLE, no erythema) Gastrointestinal (Abdomen): normal bowel sounds, soft, nontender, no hepatosplenomegaly Musculoskeletal: no cyanosis or clubbing, extremities motor strength 5/5 Skin: no rashes, warm and dry Neurologic: moves all extremities and awake; no focal motor deficits and not confused Psychiatric: A+Ox3, euthymic affect Results & Data ([facility]) Vital Signs (Past 12 Hours) Vital Signs Temp Pulse Resp BP Pulse Ox 09/17/20 07:37 36.8 C 81 18 163/82 H 95 09/17/20 01:05 37.0 C 82 21 171/84 H 94
--- NOTE | 2020-09-17 13:04 | Communication Note ---
Date of Service: September 17, [address] Xiong : IVC filter placement in scheduled for afternoon 09/19/20 will update general surgery , left inguinal LN biopsy will be done after IVC filter placement -possibly same day diet ordered IV heparin resumed pt will need order for NPO past midnight @ 12AM 09/19/20 IV heparin needs to be on hold 6-8 hrs prior to procedure Daughter updated over phone Sienna Kothari MD
[2020-09-17] MEDS: DULoxetine HCL 30 MG CAP PO SCH (14:48)
[2020-09-17] MEDS: DOCUSATE SODIUM 100 MG CAP PO SCH ×2 (14:48→20:48)
[2020-09-17] MEDS: carvediloL 6.25 MG TAB PO SCH ×2 (14:48→20:48)
[2020-09-17] MEDS: ASPIRIN 81 MG ECTAB PO SCH (14:48)
[2020-09-17] MEDS: OXYBUTYNIN CHLORIDE XL 5 MG TABCR PO SCH ×3 (14:49→20:47)
[2020-09-17] MEDS: SPIRONOLACTONE 12.5 MG TAB PO SCH (14:49)
[2020-09-17] MEDS: PANTOprazole 40 MG TAB PO SCH (14:49)
[2020-09-17] MEDS: lisinopril 40 MG TAB PO SCH (14:49)
--- NOTE | 2020-09-17 16:57 | Hospitalist Progress Note ---
Date of Service September 17, 2020 Assessment & Plan (1) Weakness: (2) Ambulatory dysfunction: Pt is 74 y/o F with PMH DM II, HTN, dyslipidemia, asthma, diastolic dysfunction, GERD, hypothyroidism, obesity, anxiety, H/O COVID-19 in 06/2020 presented to ER with complaint of progressive weakness past several months, worse past month. Was using cane, now unable to walk without assistance. Poor oral intake. In ER patient with initial blood pressure 83/54, afebrile, pulse 50. Blood pressure increased to 121/67 after 1L NSS No leukocytosis, UA appears contaminated, pseudohyponatremia, otherwise no significant electrolyte abnormality ct abdomen /pelvis shows pelvic and inguinal lymphadenopathy , concern for lymphoma needs biopsy general surgery consulted appreciate input As pt has new DVT on left lower extremity and same side inguinal LN biopsy is needed , surgery recommends vascular consult for IVF filter placement before surgical procedure . Dr markham consulted-plan for IVC filter placement on General Surgery will do Lymph node biopsy sameday after the IVC placement will cont Iv heparin for now , needs to be on hold 10-8 hrs before any procedure (3) CHAN (acute kidney injury): BUN: 33, Cr: 2.1. Baseline Cr: 0.9 renal function improved to baseline received Ivf (4) Hyponatremia: improved with Iv fluid Iv fluid d/willian , pt is tolerating PO intake (5) Left leg DVT: (6) Calf tenderness: BLE Venous Doppler: 1. Acute left lower extremity DVT involving the common femoral vein and popliteal vein. 2. No evidence of right lower extremity DVT -Hypercoagulable workup -on Heparin IV plan for IVC filter placement on (7) Abnormal CT of the abdomen: (8) Abdominal pain: Intermittent Loose stools reported and lower abdominal discomfort. No leukocytosis, UA appears contaminated GI symptoms has resolved completely CT ABD/PELVIS: 1. No evidence of bowel obstruction. No evidence of free air 2. No evidence of acute diverticulitis. No evidence of acute appendicitis. 3. No renal, ureteral, or bladder calculi identified 4. Hepatic steatosis. Subtle cirrhotic morphology the the liver. Splenomegaly. 5. Trace bilateral pleural effusions 6. Interval development of pathologic abdominal pelvic and inguinal lymphadenopathy. A lymphoproliferative disorder is the diagnosis of exclusion. Further workup is advocated. surgery consulted for LN biopsy cont on iv heparin , which can be on hold 8-10 hrs prior to procedure will need heme onc follow up once LN pathology is available daughter updated over phone (9) Hypertension: BP improved after IVF - -resumed lisinopril, spironolactone, lasix (10) Diastolic dysfunction: Grade II diastolic dysfunction, EF 59% on echo in 2018 lisinopril, aldactone lasix resumed at present stable vol status (11) Diabetes mellitus, type 2: A1c: 6.9 in 07/2020 -Hold home meds -Novolog, Lantus sliding scale per protocol (12) Hypothyroidism: TSH: 0.2, Free T4: 2.0 (TSH was 0.4 in 07/2020) -Decrease levothyroxine from 175mcg to 150mcg daily (13) Dysphagia: Chronic dysphagia. H/O EGD in 2019 without abnormality, however decision made to dilate esophagus -Aspiration precautions -Soft bite size diet (14) GERD (gastroesophageal reflux disease): -Continue PPI, H2 rosita (15) Anxiety: -Continue duloxetine (16) History of COVID-19: In 05/2020. Had GRAF, fever, fatigue. DVT Prophylaxis -Has current LLE DVT, Heparin IV Full Code as per discussion with pt and pt's daughter Follows with Dr Maynard for routine care Admission and Anticipated Discharge Date Admission Date: September 13, 2020 Review of Systems Review of Systems: All systems reviewed & are unremarkable except as noted in Subjective Physical Exam Physical Exam: Physical exam: General: No acute distress, alert awake oriented x3 HEENT: PERRLA, EOMI, Heart: Regular S1-S2, no carotid bruit, no JVD, extensive bilateral lower ext edema with chronic venous stasis changes Lungs: Clear to auscultate, no wheeze or rales Abdomen: Soft nontender, no organomegaly Neuro: No focal neurological deficit normal speech, normal visual field, Psych: Alert awake oriented x3, normal affect Results & Data Results & Data ([facility]) Vital Signs (Past 12 Hours) Vital Signs Temp Pulse Resp BP Pulse Ox 09/17/20 07:37 36.8 C 81 18 163/82 H 95
[2020-09-17] MEDS: INSULIN GLARGINE SOLOSTAR 100 UNITS/ML 3 ML PEN SC SCH ×2 (19:05→20:44)
--- NOTE | 2020-09-17 19:10 | Surgery Progress Note ---
Date of Service pt feels better, tolerated diet, no abdominal pain, September 17, 2020 Assessment & Plan (1) Lymphadenopathy: By CT it appears to be pathologic. Given patient's body habitus, may require needle localization Given the new left lower extremity DVT , Dr. Kingston recommending vascular surgery consultation for possible IVC filter given lymphadenopathy is located in the left inguinal region. Continue medical management Will await vascular surgery consultation and recommendation Dr. Kingston has seen and examined pt, agrees with above. 09/17/2020 7:07PM vascular surgeon will do IVC filter on 2020, I recommend to do biopsy left groin at same time, IVC filter place first, then i follow to do biopsy left groin lymph node, pt agrees with the plan, I will call her daughter tomorrow, Admission and Anticipated Discharge Date Admission Date: September 13, 2020 Supervising Physician Co-Signing Physician Notes Patient is a 74-year-old female with history of diabetes mellitus, hypertension, diastolic dysfunction and other medical problems presents with history of generalized weakness, poor appetite, weight loss, fatigue, and increased sleeping since recent Covid infection in May. Patient admits to have lost at least about 20 pounds in last 2 months. She also states having dyspnea on exertion. Complains about generalized mild lower abdominal discomfort. Please review HPI for complete details of presentation. She was noted to have CHAN with creatinine elevated at 2.14. Noted elevated free T4 and decreased TSH. Cor rected sodium mildly low. CT abdomen showed findings suggestive of lymphoproliferative disorder. Venous Dopplers showed acute left lower extremity DVT within femoral and popliteal vein. On exam patient is morbidly obese, no apparent distress, normocephalic atraumatic, lungs-decreased breath sounds, clear to auscultation, S1-S2, no murmur, abdomen soft, mild generalized tenderness, no guarding or rigidity, normal bowel sounds, alert, awake, oriented, grossly no focal deficits. Chronic venous stasis changes noted, no calf tenderness, no pretibial edema. Patient is admitted for management of generalized weakness likely secondary to lymphoproliferative disorder and acute DVT. Hypothyroidism could be contributing to weakness as well. Will start on IV heparin. Will need to establish with oncology. Will obtain anemia work-up including fecal occult. PT OT evaluation requested. Monitor for bradycardia while on carvedilol. Decreased levothyroxine dose to 150 mcg from 175 mcg. Will need repeat thyroid function tests as outpatient. Agree with holding Metformin, spironolactone, Lasix, lisinopril secondary to CHAN. We will give her gentle IV fluids. Monitor renal function and avoid nephrotoxic agents as able. Will obtain stool studies if recurrence of diarrhea. Consider nephrology evaluation if no improvement with current management. Monitor sodium levels. Agree with insulin therapy while hospitalized for diabetes management. I personally reviewed the record. Patient is interviewed and examined at bedside. Patient's care is coordinated with Eda Morton PA-C. Please refer to the documentation above for details of patient's presentation and for discussion of other issues. Subjective offers no new complain feels beter , was able to be on chair no fever or chills no cough Physical Exam Constitutional: WD/WN, vitals as above well developed and well nourished Eyes: PERRL, conjunctivae normal, anicteric sclerae Neck: trachea midline, no thyromegaly Respiratory: normal respiratory effort, lungs clear to auscultation Cardiovascular: RRR, no murmur, no edema Gastrointestinal (Abdomen): normal bowel sounds, soft, nontender, no hepatosplenomegaly Neurologic: awake Psychiatric: Orientation: alert Results & Data ([facility]) Vital Signs (Past 12 Hours) Vital Signs Temp Pulse Pulse Resp BP Pulse Ox 09/17/20 16:00 37.3 C 78 18 135/79 96 09/17/20 07:37 36.8 C 81 18 163/82 H 95 Laboratory Results Abnormal lab results 09/16/20 09/17/20 09/17/20 Range/Units 20:08 05:16 08:09 Glucose 110 H (70-99) mg/dl POC Glucose 147 H 129 H (70-99) mg/dl 09/17/20 09/17/20 Range/Units 12:31 17:08 Glucose (70-99) mg/dl POC Glucose 115 H 119 H (70-99) mg/dl
[2020-09-17] MEDS: HEPARIN SODIUM/DEXTROSE 25,000 UNITS/500 ML BAG IV SCH (19:30)
[2020-09-17] MEDS: LATANOPROST 0.005% OP SOLN 2.5 ML BTL OP SCH (20:48)
[2020-09-17] MEDS: FAMOTIDINE 40 MG TABLET PO SCH (20:48)
[2020-09-17 23:07] LABS: Anti-Thrombin III Activity 41 % normal (80-135); Protein S Functional(Activity) 57 % (60-140)
[2020-09-18 02:24] LABS: Partial Thromboplastin Ratio 1.9
[2020-09-18 02:31] LABS: Partial Thromboplastin Time 50.1 Seconds (21.0-31.0)
[2020-09-18] MEDS: LEVOTHYROXINE SODIUM 150 MCG TABLET PO SCH (05:57)
[2020-09-18] MEDS: carvediloL 6.25 MG TAB PO SCH ×2 (08:07→19:27)
[2020-09-18] MEDS: PANTOprazole 40 MG TAB PO SCH (08:07)
[2020-09-18] MEDS: lisinopril 40 MG TAB PO SCH (08:07)
[2020-09-18] MEDS: ASPIRIN 81 MG ECTAB PO SCH (08:07)
[2020-09-18] MEDS: SPIRONOLACTONE 12.5 MG TAB PO SCH (08:08)
[2020-09-18] MEDS: DULoxetine HCL 30 MG CAP PO SCH (08:08)
[2020-09-18] MEDS: OXYBUTYNIN CHLORIDE XL 5 MG TABCR PO SCH ×3 (08:08→19:27)
[2020-09-18] MEDS: DOCUSATE SODIUM 100 MG CAP PO SCH ×2 (08:19→19:28)
[2020-09-18] MEDS: INSULIN ASPART 100 UNITS/ML 3 ML PEN SC SCH ×4 (09:04→20:29)
[2020-09-18] MEDS: INSULIN GLARGINE SOLOSTAR 100 UNITS/ML 3 ML PEN SC SCH ×2 (09:06→20:45)
--- NOTE | 2020-09-18 11:27 | Surgery Progress Note ---
Date of Service September 18, 2020 Assessment & Plan (1) DVT (deep venous thrombosis): Being that the patient has a DVT in the left common femoral vein and large lymph nodes that will be biopsied in that area, we recommend a temporary filter. This is due to possible epilation of the vein and dislodgment of clot as well as being off the heparin for short period of time for the surgical procedure. I have discussed the risks options and benefits of the procedure with the patient. The patient understands the risks options and benefits and agrees to the procedure. Filter will be planned to be placed tomorrow afternoon. Admission and Anticipated Discharge Date Admission Date: September 13, 2020 Subjective Patient has no new complaints today she was sitting in a chair without any acute distress. Physical Exam Constitutional: WD/WN, vitals as above She does have mild swelling of the lower extremity. Results & Data ([facility]) Vital Signs (Past 12 Hours) Vital Signs Temp Pulse Resp BP Pulse Ox 09/18/20 07:06 37.0 C 70 16 123/74 94 (1) DVT (deep venous thrombosis) Affected thrombotic vein of extremity: unspecified vein of extremity Chronicity: acute DVT location: lower extremity Laterality: left Qualified Code(s): I82.402 - Acute embolism and thrombosis of unspecified deep veins of left lower extremity
--- NOTE | 2020-09-18 14:44 | Surgery Progress Note ---
Date of Service pt is stable, no fever, tolerated diet, September 18, 2020 Assessment & Plan (1) Lymphadenopathy: By CT it appears to be pathologic. Given patient's body habitus, may require needle localization Given the new left lower extremity DVT , Dr. Kingston recommending vascular surgery consultation for possible IVC filter given lymphadenopathy is located in the left inguinal region. Continue medical management Will await vascular surgery consultation and recommendation Dr. Kingston has seen and examined pt, agrees with above. 09/17/2020 7:07PM vascular surgeon will do IVC filter on 2020, I recommend to do biopsy left groin at same time, IVC filter place first, then i follow to do biopsy left groin lymph node, pt agrees with the plan, I will call her daughter tomorrow, 09/18/2020 2:38PM vascular surgeon will do IVC filter on 2020, I recommend to do U/S guard wire located left groin lymph node then I do biopsy left groin at same time, IVC filter place first, then i follow to do biopsy left groin lymph node, pt agrees with the plan, I called her daughter , D/W the benefits, risks and alternatives of the surgery, the risks - infection, bleeding, chronic wound infection, leg edema, pt's daughter and pt agree with surgery, pt's daughter gave consent on the phone, NPO after MN, hold iv heparin drip 6 hours prior surgery, possible hold heparin at 6 AM 09/19/2020, Admission and Anticipated Discharge Date Admission Date: September 13, 2020 Supervising Physician Co-Signing Physician Notes Patient is a 74-year-old female with history of diabetes mellitus, hypertension, diastolic dysfunction and other medical problems presents with history of generalized weakness, poor appetite, weight loss, fatigue, and increased s leeping since recent Covid infection in May. Patient admits to have lost at least about 20 pounds in last 2 months. She also states having dyspnea on exertion. Complains about generalized mild lower abdominal discomfort. Please review HPI for complete details of presentation. She was noted to have CHAN with creatinine elevated at 2.14. Noted elevated free T4 and decreased TSH. Corrected sodium mildly low. CT abdomen showed findings suggestive of lymphoproliferative disorder. Venous Dopplers showed acute left lower extremity DVT within femoral and popliteal vein. On exam patient is morbidly obese, no apparent distress, normocephalic atraumatic, lungs-decreased breath sounds, clear to auscultation, S1-S2, no murmur, abdomen soft, mild generalized tenderness, no guarding or rigidity, normal bowel sounds, alert, awake, oriented, grossly no focal deficits. Chronic venous stasis changes noted, no calf tenderness, no pretibial edema. Patient is admitted for management of generalized weakness likely secondary to lymphoproliferative disorder and acute DVT. Hypothyroidism could be contributing to weakness as well. Will start on IV heparin. Will need to establish with oncology. Will obtain anemia work-up including fecal occult. PT OT evaluation requested. Monitor for bradycardia while on carvedilol. Decreased levothyroxine dose to 150 mcg from 175 mcg. Will need repeat thyroid function tests as outpatient. Agree with holding Metformin, spironolactone, Lasix, lisinopril secondary to CHAN. We will give her gentle IV fluids. Monitor renal function and avoid nephrotoxic agents as able. Will obtain stool studies if recurrence of diarrhea. Consider nephrology evaluation if no improvement with current management. Monitor sodium levels. Agree with insulin therapy while hospitalized for diabetes management. I personally reviewed the record. Patient is interviewed and examined at bedside. Patient's care is coordinated with Eda Morton PA-C. Please refer to the documentation above for details of patient's presentation and for discussion of other issues. Subjective Patient has no new complaints today she was sitting in a chair without any acute distress. Physical Exam Constitutional: WD/WN, vitals as above well developed and well nourished Eyes: PERRL, conjunctivae normal, anicteric sclerae Neck: trachea midline, no thyromegaly Respiratory: normal respiratory effort, lungs clear to auscultation Cardiovascular: RRR, no murmur, no edema Gastrointestinal (Abdomen): normal bowel sounds, soft, nontender, no hepatosplenomegaly base on obesity, could not feel mass on left groin area, Neurologic: awake Psychiatric: Orientation: alert Results & Data ([facility]) Vital Signs (Past 12 Hours) Vital Signs Temp Pulse Resp BP Pulse Ox 09/18/20 07:06 37.0 C 70 16 123/74 94
[2020-09-18] MEDS: HEPARIN SODIUM/DEXTROSE 25,000 UNITS/500 ML BAG IV SCH (18:56)
--- NOTE | 2020-09-18 18:59 | Hospitalist Progress Note ---
Date of Service September 18, 2020 Assessment & Plan (1) Weakness: (2) Ambulatory dysfunction: Pt is 74 y/o F with PMH DM II, HTN, dyslipidemia, asthma, diastolic dysfunction, GERD, hypothyroidism, obesity, anxiety, H/O COVID-19 in 06/2020 presented to ER with complaint of progressive weakness past several months, worse past month. Was using cane, now unable to walk without assistance. Poor oral intake. In ER patient with initial blood pressure 83/54, afebrile, pulse 50. Blood pressure increased to 121/67 after 1L NSS No leukocytosis, UA appears contaminated, pseudohyponatremia, otherwise no significant electrolyte abnormality ct abdomen /pelvis shows pelvic and inguinal lymphadenopathy , concern for lymphoma needs biopsy general surgery consulted appreciate input As pt has new DVT on left lower extremity and same side inguinal LN biopsy is needed , surgery recommends vascular consult for IVF filter placement before surgical procedure . Dr markham consulted-plan for IVC filter placement on General Surgery will do Lymph node biopsy sameday after the IVC placement will cont Iv heparin for now , needs to be on hold 10-8 hrs before any procedure (3) CHAN (acute kidney injury): BUN: 33, Cr: 2.1. Baseline Cr: 0.9 Creatinine back to baseline resovled (4) Hyponatremia: improved with Iv fluid Iv fluid d/willian , pt is tolerating PO intake (5) Left leg DVT: (6) Calf tenderness: BLE Venous Doppler: 1. Acute left lower extremity DVT involving the common femoral vein and popliteal vein. 2. No evidence of right lower extremity DVT Hypercoagulable workup Continue Heparin IV drip plan for IVC filter placement on (7) Abnormal CT of the abdomen: (8) Abdominal pain: Intermittent Loose stools reported and lower abdominal discomfort. No leukocytosis, UA appears contaminated GI symptoms has resolved completely CT ABD/PELVIS: 1. No evidence of bowel obstruction. No evidence of free air 2. No evidence of acute diverticulitis. No evidence of acute appendicitis. 3. No renal, ureteral, or bladder calculi identified 4. Hepatic steatosis. Subtle cirrhotic morphology the the liver. Splenomegaly. 5. Trace bilateral pleural effusions 6. Interval development of pathologic abdominal pelvic and inguinal lymphadenopathy. A lymphoproliferative disorder is the diagnosis of exclusion. Further workup is advocated. surgery consulted for LN biopsy, plan for tomorrow cont on iv heparin , which can be on hold 8-10 hrs prior to procedure will need heme onc follow up once LN pathology is available (9) Hypertension: BP improved after IVF resumed lisinopril, spironolactone, lasix (10) Diastolic dysfunction: Grade II diastolic dysfunction, EF 59% on echo in 2018 lisinopril, aldactone lasix resumed at present stable vol status (11) Diabetes mellitus, type 2: A1c: 6.9 in 07/2020 -Hold home meds -Novolog, Lantus sliding scale per protocol (12) Hypothyroidism: TSH: 0.2, Free T4: 2.0 (TSH was 0.4 in 07/2020) -Decrease levothyroxine from 175mcg to 150mcg daily (13) Dysphagia: Chronic dysphagia. H/O EGD in 2019 without abnormality, however decision made to dilate esophagus -Aspiration precautions -Soft bite size diet (14) GERD (gastroesophageal reflux disease): -Continue PPI, H2 rosita (15) Anxiety: -Continue duloxetine (16) History of COVID-19: In 05/2020. Had GRAF, fever, fatigue. DVT Prophylaxis -Has current LLE DVT, Heparin IV Full Code Follows with Dr Maynard for routine care Admission and Anticipated Discharge Date Admission Date: September 13, 2020 Subjective Pt was seen and examined Lying in bed with no distress Pt said that she feels fine Schedule to have IVC filter place tomorrow Denies any chest pain, palpitation, dizziness and SOB Review of Systems Review of Systems: All systems reviewed & are unremarkable except as noted in Subjective Physical Exam Physical Exam: General- No acute distress Head- atraumatic Eyes- PERRL, EOMI, ENT- oropharynx clear Neck- supple, no JVD Lungs- clear to auscultation Heart- regular rhythm; no murmur Abdomen- normal bowel sounds, soft, nontender Extremities- +edema Neuro- alert, oriented x 3; PERRL, EOMI; no facial palsy; no dysarthria Skin- warm & dry Results & Data Results & Data ([facility]) Vital Signs (Past 12 Hours) Vital Signs Temp Pulse Resp BP Pulse Ox 09/18/20 14:49 36.4 C L 99 H 16 125/65 96 09/18/20 07:06 37.0 C 70 16 123/74 94
[2020-09-18] MEDS: FAMOTIDINE 40 MG TABLET PO SCH (19:28)
[2020-09-18] MEDS: LATANOPROST 0.005% OP SOLN 2.5 ML BTL OP SCH (19:28)
[2020-09-18] MEDS ORDERED: Nursing to Pharmacy Communication SCH (23:30)
[2020-09-19] MEDS: INSULIN ASPART 100 UNITS/ML 3 ML PEN SC SCH ×5 (00:05→20:32)
[2020-09-19] MEDS: HEPARIN SODIUM/DEXTROSE 25,000 UNITS/500 ML BAG IV SCH (00:29)
[2020-09-19] MEDS: LEVOTHYROXINE SODIUM 150 MCG TABLET PO SCH (06:09)
--- NOTE | 2020-09-19 07:04 | History & Physical Bridge Note ---
Date of Service September 19, 2020 History & Physical Bridge Note Patient for insertion for of filter today. I have discussed the risks options and benefits of the procedure with the patient. The patient understands the risks options and benefits and agrees to the procedure. I have examined the patient, reviewed the History & Physical and in the interval since the performance of the History & Physical I have noted the following changes of clinical significance: no changes noted
[2020-09-19 07:44] LABS: Eosinophils # (auto) 0.03 K/uL (0-0.5); Eosinophils % (auto) 0.4 %; Hematocrit (blood only) 30.9 % (37-47); Hemoglobin 9.9 g/dL (12.0-16.0); Immature Granulocytes # (auto) 0.04 K/uL (0.00-0.02); Immature Granulocytes % (auto) 0.5 %; Lymphocytes # (auto) 0.63 K/uL (1.2-3.4); Lymphocytes % (auto) 8.6 %; Mean Corpuscular Hemoglobin 27.6 pg (25-34); Mean Corpuscular Volume 86.1 fL (80-100); Mean Platelet Volume 8.6 fL (7.4-10.4); Monocytes # (auto) 0.85 K/uL (0.11-0.59); Monocytes % (auto) 11.6 %; Neutrophils # (auto) 5.77 K/uL (1.4-6.5); Neutrophils % (auto) 78.9 %; Platelet Count 139 K/uL (130-400); RDW Coefficient of Variation 16.1 % (11.5-14.5); RDW Standard Deviation 50.6 fL (36.4-46.3); Red Blood Count 3.59 M/uL (4.2-5.4); White Blood Count 7.32 K/uL (4.8-10.8)
[2020-09-19 07:55] LABS: Partial Thromboplastin Ratio 1.2; Partial Thromboplastin Time 31.2 Seconds (21.0-31.0)
[2020-09-19] MEDS: carvediloL 6.25 MG TAB PO SCH ×2 (08:39→20:26)
[2020-09-19] MEDS: ASPIRIN 81 MG ECTAB PO SCH (08:40)
[2020-09-19] MEDS: OXYBUTYNIN CHLORIDE XL 5 MG TABCR PO SCH ×3 (08:40→20:27)
[2020-09-19] MEDS: PANTOprazole 40 MG TAB PO SCH (08:40)
[2020-09-19] MEDS: DULoxetine HCL 30 MG CAP PO SCH (08:42)
[2020-09-19] MEDS: lisinopril 40 MG TAB PO SCH (08:42)
[2020-09-19] MEDS: SPIRONOLACTONE 12.5 MG TAB PO SCH (08:42)
[2020-09-19] MEDS: INSULIN GLARGINE SOLOSTAR 100 UNITS/ML 3 ML PEN SC SCH ×2 (08:44→20:32)
[2020-09-19] MEDS: DOCUSATE SODIUM 100 MG CAP PO SCH ×2 (08:48→20:26)
[2020-09-19] MEDS ORDERED: CLINDAMYCIN 600 MG/54 ML BAG IV SCH (09:00)
--- NOTE | 2020-09-19 13:41 | History & Physical Bridge Note ---
Date of Service September 19, 2020 History & Physical Bridge Note I have examined the patient, reviewed the History & Physical and in the interval since the performance of the History & Physical I have noted the following changes of clinical significance: no changes noted Supervising Physician Co-Signing Physician Notes Patient is a 74-year-old female with history of diabetes mellitus, hypertension, diastolic dysfunction and other medical problems presents with history of generalized weakness, poor appetite, weight loss, fatigue, and increased sleeping since recent Covid infection in May. Patient admits to have lost at least about 20 pounds in last 2 months. She also states having dyspnea on exertion. Complains about generalized mild lower abdominal discomfort. Please review HPI for complete details of presentation. She was noted to have CHAN with creatinine elevated at 2.14. Noted elevated free T4 and decreased TSH. Corrected sodium mildly low. CT abdomen showed findings suggestive of lymphoproliferative disorder. Venous Dopplers showed acute left lower extremity DVT within femoral and popliteal vein. On exam patient is morbidly obese, no apparent distress, normocephalic atraumatic, lungs-decreased breath sounds, clear to auscultation, S1-S2, no murmur, abdomen soft, mild generalized tenderness, no guarding or rigidity, normal bowel sounds, alert, awake, oriented, grossly no focal deficits. Chronic venous stasis changes noted, no calf tenderness, no pretibial edema. Patient is admitted for management of generalized weakness likely secondary to lymphoproliferative disorder and acute DVT. Hypothyroidism could be contributing to weakness as well. Will start on IV heparin. Will need to establish with oncology. Will obtain anemia work-up including fecal occult. PT OT evaluation requested. Monitor for bradycardia while on carvedilol. Decreased levothyroxine dose to 150 mcg from 175 mcg. Will need repeat thyroid function tests as outpatient. Agree with holding Metformin, spironolactone, Lasix, lisinopril secondary to CHAN. We will give her gentle IV fluids. Monitor renal function and avoid nephrotoxic agents as able. Will obtain stool studies if recurrence of diarrhea. Consider nephrology evaluation if no improvement with current management. Monitor sodium levels. Agree with insulin therapy while hospitalized for diabetes management. I personally reviewed the record. Patient is interviewed and examined at bedside. Patient's care is coordinated with Eda Morton PA-C. Please refer to the documentation above for details of patient's presentation and for discussion of other issues.
--- NOTE | 2020-09-19 14:09 | Ultrasound Report ---
ULTRASOUND-GUIDED NEEDLE LOCALIZATION LEFT INGUINAL LYMPH NODE CLINICAL HISTORY: Inguinal lymphadenopathy. Needle localization for surgical resection. COMPARISON STUDY: Pelvic CT dated 09/13/2020. PROCEDURE: The risks, benefits, and alternatives to the procedure were discussed with the patient. Wr itten informed consent was obtained. The patient was placed supine in ultrasound, and an approximatel y 3 cm left inguinal lymph node was identified by ultrasound and selected for needle localization. Th e left inguinal soft tissues were prepped and draped in the usual sterile fashion. 1% lidocaine was u sed for local anesthetic. The node was then localized under ultrasound guidance with a 20-gauge needl e. Once positioning was confirmed, the needle was removed and the wire was left in place for the surg enrike. The patient tolerated the procedure well and left the department in satisfactory condition. IMPRESSION: Completed needle localization of a left inguinal lymph node as above. ACT 112: Negative or not required by law. Electronically signed by: Jayesh Tapia M.D. 09/19/2020 2:07 PM
--- NOTE | 2020-09-19 15:31 | Anesthesiology Consultation ---
Date of Service September 19, 2020 Assessment & Plan (1) Encounter for pre-operative examination: Chart Review Chart Review: Acceptable Risk for Surgery and Patient NOT seen in Pre Admission Testing Consults Requested none History Surgery Operation Date: 09/16/20 14:10 Proposed Procedures p Needle Loc, Left Inguinal Lymph Node Excisional Biopsy - Juliocesar Sheehan MD Operation Date: 09/19/20 14:40 Proposed Procedures p Inferior Vena Cava Filter Placement - Rafat Xiong MD s Left Inguinal Lymph Node Excisional Biopsy (needle localization) - Kush Kingston MD Height/Weight Height: 5 ft 1 in Weight: 112.2 kg Allergies Allergy/AdvReac Type Severity Reaction Status Date / Time albuterol Allergy Intermediate tachycardia Verified 09/13/20 14:29 amoxicillin Allergy Mild RASH Verified 09/13/20 14:29 aspirin AdvReac Mild stomach Verified 09/13/20 14:29 upset Medications Home Medications Medication Instructions Recorded Confirmed Last Taken carvedilol 6.25 mg PO BID 12/08/18 09/13/20 09/13/20 duloxetine 30 mg PO QAM 12/08/18 09/13/20 09/13/20 furosemide 20 mg PO QAM 12/08/18 09/13/20 09/13/20 glipizide 5 mg PO BID 12/08/18 09/13/20 09/13/20 latanoprost (PF) 1 drp OPHTHALMIC (EYE) 12/08/18 09/13/20 09/12/20 levothyroxine 175 mcg PO QAM 12/08/18 09/13/20 09/13/20 lisinopril 40 mg PO QAM 12/08/18 09/13/20 09/13/20 omeprazole 40 mg PO QAM 12/08/18 09/13/20 09/13/20 oxybutynin chloride [Ditropan XL] 5 mg PO TID 12/08/18 09/13/20 09/13/20 spironolactone 12.5 mg PO QAM 12/08/18 09/13/20 09/13/20 famotidine 40 mg PO HS 06/05/20 09/13/20 09/12/20 semaglutide [Ozempic] 0.25 mg SUBCUT FLORES 06/05/20 09/13/20 09/08/20 aspirin 81 mg PO DAILY 09/13/20 09/13/20 09/13/20 Active Medications Generic Name Dose Route Start Last Admin Trade Name [place] PRN Reason Stop Dose Admin Acetaminophen 650 mg 09/13/20 14:51 09/16/20 16:38 Acetaminophen 325 Mg Tab PO 10/13/20 14:50 650 mg Q4H PRN Administration Pain or Fever Aspirin 81 mg 09/14/20 09:00 09/19/20 08:40 Aspirin 81 Mg Ectab PO 10/14/20 08:59 81 mg DAILY ELIA Administration Carvedilol 6.25 mg 09/13/20 21:00 09/19/20 08:39 Carvedilol 6.25 Mg Tab PO 10/13/20 20:59 6.25 mg BID ELIA Administration Docusate Sodium 100 mg 09/16/20 21:00 09/19/20 08:48 Docusate Sodium 100 Mg Cap PO 10/16/20 20:59 100 mg BID ELIA Administration Duloxetine HCl 30 mg 09/14/20 09:00 09/19/20 08:42 Duloxetine Hcl 30 Mg Cap PO 10/14/20 08:59 30 mg QAM ELIA Administration Famotidine 40 mg 09/13/20 21:00 09/18/20 19:28 Famotidine 40 Mg Tablet PO 10/13/20 20:59 40 mg HS ELIA Administration Hydralazine HCl 10 mg 09/16/20 16:57 09/16/20 17:20 Hydralazine Hcl 20 Mg/Ml Vial IV 10/16/20 16:56 10 mg Q8 PRN Administration SBP > 160 Heparin Sodium/Dextrose 25,000 units in 500 mls @ 0 mls/hr 09/13/20 16:00 09/19/20 00:29 Heparin Sodium/Dextrose IV 10/13/20 15:59 Not Given .Q0M ELIA Protocol 0 UNITS/HR Insulin Aspart 0 units 09/19/20 00:00 09/19/20 13:01 Insulin Aspart 100 Units/Ml 3 Ml Pen SC 10/19/20 00:00 Not Given Q6 ELIA Insulin Glargine 0 units 09/13/20 21:00 09/19/20 08:44 Insulin Glargine Solostar 100 Units/Ml 3 Ml Pen SC 10/13/20 20:59 5 units BID ELIA Administration Protocol Latanoprost 1 drops 09/13/20 21:00 09/18/20 19:28 Latanoprost 0.005% Op Soln 2.5 Ml Btl OP 10/13/20 20:59 1 drops HS ELIA Administration Levothyroxine Sodium 150 mcg 09/14/20 06:30 09/19/20 06:09 Levothyroxine Sodium 150 Mcg Tablet PO 10/14/20 06:29 150 mcg DAILYBB ELIA Administration Lisinopril 40 mg 09/17/20 09:00 09/19/20 08:42 Lisinopril 40 Mg Tab PO 10/17/20 08:59 40 mg QAM ELIA Administration Ondansetron HCl 4 mg 09/13/20 14:51 09/16/20 18:05 Ondansetron Inj 2 Mg/Ml 2 Ml Vial IV 10/13/20 14:50 4 mg Q6H PRN Administration Nausea Oxybutynin Chloride 5 mg 09/13/20 21:00 09/19/20 08:40 Oxybutynin Chloride Xl 5 Mg Tabcr PO 10/13/20 20:59 5 mg TID ELIA Administration Pantoprazole Sodium 40 mg 09/14/20 09:00 09/19/20 08:40 Pantoprazole 40 Mg Tab PO 10/14/20 08:59 40 mg QAM ELIA Administration Spironolactone 12.5 mg 09/17/20 09:00 09/19/20 08:42 Spironolactone 12.5 Mg Tab PO 10/17/20 08:59 12.5 mg QAM ELIA Administration NPO Date Last Intake of Fluids: 09/19/20 Time Last Intake of Fluids: 08:40 Date Last Intake of Solids: 09/18/20 Time Last Intake of Solids: 18:00 Last Intake of Solids Comment: Sip with meds this morning Past Medical History Medical History Anxiety Arthritis Asthma COVID-19 virus detected 06/03/20--c/o fever, headache, fatigue roughly a couple weeks ago, daughter was also sick with symptoms Diabetes mellitus, type 2 Diastolic dysfunction Dysphagia chronic dysphagia, h/o esophageal dilation GERD (gastroesophageal reflux disease) Hiatal hernia History of COVID-19 06/2020 Hypertension Hypothyroidism Morbid obesity with BMI of 45.0-49.9, adult SOBOE (shortness of breath on exertion) Past Family History Family History Daughter Family history of reaction to anesthesia WAKES UP EARLY Mother Family history of diabetes mellitus Father Family history of diabetes mellitus Sister Family history of diabetes mellitus Sister Family history of diabetes mellitus Brother Family history of diabetes mellitus Brother Family history of diabetes mellitus Past Surgical History Surgical History History of anesthesia reaction "WAKES UP EARLY"-NEEDS MORE MEDS History of bilateral cataract extraction History of bilateral tubal ligation History of carpal tunnel release RIGHT History of section X 2 History of cholecystectomy History of colonoscopy History of esophagogastroduodenoscopy (EGD) WITH DILITATION History of total left knee replacement (TKR) History of total right knee replacement (TKR) x2 Hx of LASIK Social History Smoking Status: Never smoker Hx Alcohol Use: No Alcohol type: hard liquor alcohol intake frequency: holidays/special occasions only Hx Substance Use: No substance use type: does not use Physical Exam Vital Signs Last Vital Signs Temp 37.2 C 09/19/20 14:30 Pulse 63 09/19/20 14:30 Resp 18 09/19/20 14:30 BP 127/67 09/19/20 14:30 Pulse Ox 96 09/19/20 14:30 Testing Laboratory Results 09/19/20 07:13 09/17/20 05:16 APTT 31.2 Seconds (21.0-31.0) H 09/19/20 07:13 Urine Color Dark Yellow 09/13/20 Unknown Urine Appearance Turbid (Clear) A 09/13/20 Unknown Urine pH 5.0 (4.5-7.5) 09/13/20 Unknown Ur Specific [place] 1.020 (1.000-1.030) 09/13/20 Unknown Urine Protein Trace (Negative) H 09/13/20 Unknown Urine Glucose (UA) Negative (Negative) 09/13/20 Unknown Urine Ketones Trace (Negative) H 09/13/20 Unknown Urine Nitrite Negative (Negative) 09/13/20 Unknown Ur Leukocyte Esterase Negative (Negative) 09/13/20 Unknown Urine WBC (Auto) 1-5 /hpf (0-5) 09/13/20 Unknown Urine RBC (Auto) 5-10 /hpf (0-4) H 09/13/20 Unknown U Hyaline Cast (Auto) Not Reportable 09/13/20 Unknown U Epithel Cells (Auto) >30 /lpf (0-5) H 09/13/20 Unknown Urine Bacteria (Auto) Negative (Negative) 09/13/20 Unknown 09/14/20 06:05 Urine Culture - Final Urine,Clean Catch More than three types of organisms present, all high counts. Repeat collection recommended. No further identifications or sensitivities to follow. 09/19/20 09/19/20 12:28 05:53 POC Glucose 108 H 123 H Electrocardiogram Date: 09/13/20 DICTATED BY: Jarod De Santiago MD Test Reason : Blood Pressure : / mmHG Vent. Rate : 051 BPM Atrial Rate : 051 BPM P-R Int : 128 ms QRS Dur : 100 ms QT Int : 474 ms P-R-T Axes : -17 023 036 degrees QTc Int : 436 ms Sinus bradycardia with sinus arrhythmia Otherwise normal ECG When compared with ECG of 04-MAR-2017 10:06, No significant change was found Confirmed by Jarod De Santiago ([id number]) on 09/14/2020 8:26:33 AM Chest X-Ray Date: 09/13/20 XR chest 1V portable CLINICAL HISTORY: weakness COMPARISON STUDY: Chest x-ray dated 03/18/2012 FINDINGS: Study is rotated. The heart is borderline enlarged. There is no failure. There is no focal pulmonary consolidation. There are no significant p leural effusions. Increased basilar markings are likely atelectatic.[There is mild superior mediastinal prominence, likely secondary to mediastinal fat deposition, given the patient's body habitus. IMPRESSION: 1. Mild mediastinal prominence, statistically secondary to fat deposition given the patient's body habitus 2. No evidence of focal pulmonary consolidation 3. Mild basilar atelectasis
[2020-09-19] MEDS ORDERED: ATROPINE SULFATE 0.1 MG/ML 10ML SYR IV PRN (15:36)
[2020-09-19] MEDS ORDERED: ONDANSETRON INJ 2 MG/ML 2 ML VIAL IV PRN (15:36)
[2020-09-19] MEDS ORDERED: fentaNYL citrate 100 MCG/2 ML VIAL IV PRN (15:36)
[2020-09-19] MEDS ORDERED: ONDANSETRON INJ 2 MG/ML 2 ML VIAL ONE (15:45)
[2020-09-19] MEDS ORDERED: MIDAZOLAM HCL 1 MG/ML 2ML VIAL ONE (15:45)
[2020-09-19] MEDS ORDERED: LIDOCAINE 2% 2 ML VIAL/AMP(20MG/ML) INFIL ONE (15:45)
[2020-09-19] MEDS ORDERED: PROPOFOL IV EMULSION 10 MG/ML 20 ML VIAL IV ONE (15:45)
[2020-09-19] MEDS ORDERED: fentaNYL citrate 100 MCG/2 ML VIAL ONE (15:45)
[2020-09-19] MEDS ORDERED: BUPIVACAINE 0.5 % 5 MG/1 ML MPF 30ML VIAL ONE (16:02)
[2020-09-19] MEDS ORDERED: LIDOCAINE 1% LOCAL 20 ML VIAL ONE (16:02)
[2020-09-19] MEDS ORDERED: BACITRACIN OINT 15 GM TUBE ONE (16:02)
[2020-09-19] MEDS ORDERED: VISIPAQUE IV PRN (16:26)
--- NOTE | 2020-09-19 16:29 | Operative Report ---
Post Operative Report Pre & Post Diagnosis Operation Date: 09/16/20 14:10 <No data on this case meets the specified criteria> Operation Date: 09/19/20 14:40 Pre-Op Diagnosis: Deep Vein Thrombosis Contraindication to Anticoagulation Post-Op Diagnosis: Deep Vein Thrombosis Contraindication to Anticoagulation I identified the patient and participated in the time-out.: Yes Procedure Operation Date: 09/16/20 14:10 <No data on this case meets the specified criteria> Operation Date: 09/19/20 14:40 Actual Procedures p Inferior Vena Cava Filter Placement, Right Jugular Vein Approach, Ultrasound Localization of Right Jugular Vein, Fluoroscopy for Positioning(Right) - Rafat Xiong MD s Left Inguinal Lymph Node Excisional Biopsy (needle localization) - Kush Kingston MD Surgeon Rafat Xiong MD [employer] Adviser None Estimated Blood Loss 0 Findings Consistent with Post-Op Diagnosis Specimens None Anesthesia Type General Complications none Disposition Accompanied Patient To Recovery: No Disposition: Recovery Room Indications This 74-year-old female with acute deep venous thrombosis of the left lower extremity. She has a large lymph node in the left groin which needed to be excised for biopsy. Due to the location of the lymph node and the possible epilation of the vein the filter for prophylaxis was recommended. I have discussed the risks options and benefits of the procedure with the patient. The patient understands the risks options and benefits and agrees to the procedure Description of Procedure The patient was brought to the angio suite and placed in the supine position. The patient was identified and a timeout performed. The right side of the neck was prepped and draped in the usual fashion. The right internal jugular vein was located with ultrasound. It was patent, compressed easily, and had no filling defects. The vein was then punctured under ultrasound visualization. A guidewire was then passed centrally into the inferior vena cava under fluoroscopic guidance. The puncture site was then dilated and the filter sheath inserted. It was passed to the infra renal vena cava. A venacavagram was done which showed no cava clot and an acceptable size. The renal veins were identified. The filter was then passed through the sheath and deployed in the infra renal vena cava in an upright position. Satisfied with the positioning of the filter, the sheath was removed. Pressure was applied to the puncture site. Adequate hemostasis was obtained and a sterile dressing was applied. The patient left the operation room in satisfactory condition and tolerated the procedure well. All needle and sponge counts were correct at the end of the procedure. I attest to the content of the Intraoperative Record and any orders documented therein. Any exceptions are noted below.
--- NOTE | 2020-09-19 16:46 | Hospitalist Progress Note ---
Date of Service September 19, 2020 Assessment & Plan (1) Left leg DVT: (2) Calf tenderness: 74 y/o F with PMH DM II, HTN, dyslipidemia, asthma, diastolic dysfunction, GERD, hypothyroidism, obesity, anxiety, H/O COVID-19 in 06/2020 presented to ER with complaint of progressive weakness past several months, worse past month. Was using cane, now unable to walk without assistance. No leukocytosis, UA appears contaminated, pseudohyponatremia, otherwise no significant electrolyte abnormality BLE Venous Doppler showed Acute left lower extremity DVT involving the common femoral vein and popliteal vein. Hypercoagulable workup pending On Heparin IV drip that placed on hold for lymph node biopsy Status post IVC filter placed by Dr. Xiong today Case discussed with surgery Dr. Kingston that recommend to restart the IV heparin drip 12 hours after the procedure Case discussed with Dr. Mcleod that recommended low dose heparin without bolus when planing to resume the heparin We will consider NOAC if insurance will cover it on discharge Continue monitor closely (3) Weakness: (4) Ambulatory dysfunction: Possible related to the pain from the DVT Continue PT OT eval Fall precaution (5) Inguinal lymphadenopathy: CT abd/pelvis showed interval development of pathologic abdominal pelvic and inguinal lymphadenopathy. S/P Left Inguinal Lymph Node Excisional Biopsy (needle localization) performed by Dr. Kingston Case discussed with Dr. Kingston agreed to resume the IV heparin drip 12 hr after the procedure (6) CHAN (acute kidney injury): BUN: 33, Cr: 2.1 on admission baseline Cr: 0.9 Creatinine back to baseline (7) Hyponatremia: improved with Iv fluid Iv fluid d/willian , pt is tolerating PO intake (8) Hypertension: BP improved after IVF - -resumed lisinopril, spironolactone, lasix (9) Diastolic dysfunction: Grade II diastolic dysfunction, EF 59% on echo in 2018 lisinopril, aldactone lasix resumed at present stable vol status (10) Diabetes mellitus, type 2: A1c: 6.9 in 07/2020 -Hold home meds -Novolog, Lantus sliding scale per protocol (11) Hypothyroidism: TSH: 0.2, Free T4: 2.0 (TSH was 0.4 in 07/2020) -Decrease levothyroxine from 175mcg to 150mcg daily (12) Dysphagia: Chronic dysphagia. H/O EGD in 2019 without abnormality, however decision made to dilate esophagus -Aspiration precautions -Soft bite size diet (13) Anxiety: -Continue duloxetine (14) GERD (gastroesophageal reflux disease): -Continue PPI, H2 rosita (15) History of COVID-19: In 05/2020. Had GRAF, fever, fatigue. DVT Prophylaxis S/P IVC filter Will resume heparin drip after 12hr from the procedure Full Code Follows with Dr Maynard for routine care Admission and Anticipated Discharge Date Admission Date: September 13, 2020 Subjective Pt was seen and examined for follow up of LE DVT Sitting in chair with no distress Pt had the IVC filter placed this morning She said that she feels ok Denies any chest pain, palpitation, dizziness and sob Review of Systems Review of Systems: All systems reviewed & are unremarkable except as noted in Subjective Physical Exam Physical Exam: General- No acute distress Head- atraumatic Eyes- PERRL, EOMI, ENT- oropharynx clear Neck- supple, no JVD Lungs- clear to auscultation Heart- regular rhythm; no murmur Abdomen- normal bowel sounds, soft, nontender Extremities- +edema , + left groin with dressing on from the IVC filter Neuro- alert, oriented x 3; PERRL, EOMI; no facial palsy; no dysarthria Skin- warm & dry Results & Data Results & [facility] ([facility]) Vital Signs (Past 12 Hours) Vital Signs Temp Pulse Resp BP BP Pulse Ox 09/19/20 14:30 37.2 C 63 18 127/67 96 09/19/20 07:25 37.4 C 71 16 127/76 93
--- NOTE | 2020-09-19 17:18 | Post Operative Brief Note ---
Immediate Post Op Note v1 Date of Surgery September 19, 2020 Pre & Post Diagnosis Operation Date: 09/16/20 14:10 <No data on this case meets the specified criteria> Operation Date: 09/19/20 14:40 Pre-Op Diagnosis: Deep Vein Thrombosis Contraindication to Anticoagulation Lymphadenopathy Post-Op Diagnosis: Deep Vein Thrombosis Contraindication to Anticoagulation Lymphadenopathy I identified the patient and participated in the time-out.: Yes Procedure Operation Date: 09/16/20 14:10 <No data on this case meets the specified criteria> Operation Date: 09/19/20 14:40 Actual Procedures p Inferior Vena Cava Filter Placement, Right Jugular Vein Approach, Ultrasound Localization of Right Jugular Vein, Fluoroscopy for Positioning(Right) - Rafat Xiong MD s Left Inguinal Lymph Node Excisional Biopsy (needle localization)(Right) - Kush Kingston MD Surgeon Kush Kingston MD De Icer Kit Assembler surgical scrub tech Estimated Blood Loss 3 Findings Consistent with Post-Op Diagnosis finding 2x3cm lymph node Fluids 700ml Specimens left groin lymph node Anesthesia Type General Complications none Disposition Accompanied Patient To Recovery: No Disposition: Recovery Room Overlapping Procedure I was immediately available: during the entire case.
--- NOTE | 2020-09-19 17:53 | Anesthesiology Progress Note ---
Date of Service September 19, 2020 Anesthesia Post Procedure Vital Signs Vital Signs: Temp Pulse Pulse Resp BP BP Pulse Ox 09/19/20 17:45 71 20 138/73 99 09/19/20 17:35 67 18 131/69 99 09/19/20 17:28 36.4 C L 68 18 140/63 99 09/19/20 14:30 37.2 C 63 18 127/67 96 09/19/20 07:25 37.4 C 71 16 127/76 93 09/18/20 23:26 37.3 C 72 16 133/84 95 Pain Intensity Right Leg: Pain Intensity: 3 Transfer of Care Handoff Completed per policy Notes Mental Status: alert / awake / arousable and participated in evaluation Patient Amnestic to Procedure: Yes Nausea / Vomiting: adequately controlled Pain: adequately controlled Airway Patency, RR, SpO2: stable & adequate BP & HR: stable & adequate Hydration State: stable & adequate Anesthetic Complications: no major complications apparent and Pt Satisfied with anesthetic care
--- NOTE | 2020-09-19 17:56 | Operative Report (OR) ---
DATE OF PROCEDURE: 09/19/2020 PREOPERATIVE DIAGNOSIS: Lymphadenopathy. POSTOPERATIVE DIAGNOSIS: Lymphadenopathy. OPERATION: Biopsy of left groin lymph node. SURGEON: Kush Kingston MD. ANESTHESIA: General. ESTIMATED BLOOD LOSS: About 3 mL. FINDINGS: Enlarged lymph node, size about 2 x 3 cm. COMPLICATIONS: None. INDICATIONS FOR THE PROCEDURE: This is a 74-year-old female who has an enlarged lymph node on the le ft side of the groin. The patient required to do biopsy of the left groin lymph node. I did talk to the patient and the patient's daughter about the benefits, risks, and alternate procedure. I indica fatimah the risks may include but not limited to such as bleeding, infection, nonhealing, chronic wound, injury to other organs, leg edema. They understand. The patient signed informed consent. Also, the patient's daughter gave her consent on the phone. I answered all questions. DESCRIPTION OF PROCEDURE: After identified the patient and verified the procedure, the patient was brought to the OR. The vascular surgeon did an IVC filter first. Once they finished the procedure, they called me to come to the OR. The patient already had a needle localized left inguinal lymph nod e by the radiology, so the patient's left side of the groin was prepped and draped in routine sterile fashion after timeout. Also, the patient received 600 clindamycin IV for prophylactic antibiotic. After time-out, I injected local around the wire. The wire already located in the left groin, then I made about a 2 cm incision, followed the wire, dissected deep into the subcutaneous layer and we fou nd the patient had one large lymph node. The lymph node size about 2 x 3 cm. I completely mobilized the lymph node. Whenever the blood supplied to the lymph node, I used a small metal clip to clip th e vessel, then used Bovie to take down all connected to lymph node tissue. Hemostasis obtained and o nce completely removed the large lymph node, we sent it to pathology. Hemostasis was obtained. Then , I closed the subcutaneous layer by using 2-0 Vicryl interruptedly, closed the skin by using 4-0 Matthew ryl continuous running. Then, we put a dressing on. The patient tolerated the procedure well. All instrument, needle and sponge counts were correct x2 at the end of the case. The patient was transfe rred to recovery room in stable condition. After the procedure, I did talk to the patient and patien t's family member about the OR findings and the procedure we did, they understand. Job ID: [id number]
[2020-09-19] MEDS ORDERED: Nursing to Pharmacy Communication SCH (19:15)
--- NOTE | 2020-09-19 20:20 | Communication Note ---
Date of Service: September 19, 2020 RN inquiring about timing of resumption of IV Heparin. Medication held prior to vascular procedure/lymph node biopsy today. Dr. Kingston (surgeon commissioned sales associate) recommends holding IV Heparin until patient seen on postop eval tomorrow. He also recommends that morning provider check with vascular surgery prior to resumption of IV heparin.
[2020-09-19] MEDS: LATANOPROST 0.005% OP SOLN 2.5 ML BTL OP SCH (20:27)
[2020-09-19] MEDS: FAMOTIDINE 40 MG TABLET PO SCH (20:27)
[2020-09-19] MEDS: ACETAMINOPHEN 325 MG TAB PO PRN (20:52)
[2020-09-19] MEDS ORDERED: glipiZIDE 5 MG TAB PO SCH (21:00)
[2020-09-20] MEDS ORDERED: Heparin IV Adult Wt-Based Low-Dose *NO* Bolus Protocol IV SCH (05:30)
[2020-09-20] MEDS: LEVOTHYROXINE SODIUM 150 MCG TABLET PO SCH (05:41)
[2020-09-20] MEDS ORDERED: HEPARIN SODIUM/DEXTROSE 25,000 UNITS/500 ML BAG IV SCH ×2 (06:30→17:15)
[2020-09-20 07:25] LABS: Hematocrit (blood only) 34.6 % (37-47); Hemoglobin 10.9 g/dL (12.0-16.0); Mean Corpuscular Hemoglobin 28.2 pg (25-34); Mean Corpuscular Hgb Conc 31.5 g/dL (32-36); Mean Corpuscular Volume 89.4 fL (80-100); Mean Platelet Volume 8.4 fL (7.4-10.4); Platelet Count 159 K/uL (130-400); RDW Coefficient of Variation 16.2 % (11.5-14.5); RDW Standard Deviation 52.6 fL (36.4-46.3); Red Blood Count 3.87 M/uL (4.2-5.4); White Blood Count 9.41 K/uL (4.8-10.8)
[2020-09-20 07:30] LABS: Partial Thromboplastin Ratio 1.2; Partial Thromboplastin Time 32.5 Seconds (21.0-31.0)
[2020-09-20 07:38] LABS: Calcium 9.4 mg/dl (8.5-10.1); Creatinine Clr Calc Pharmacy 57.6 ml/min; Est GFR (African American) 65.4 ml/min; Est GFR (Non-African American) 56.4 ml/min; Potassium 3.9 mmol/L (3.5-5.1)
[2020-09-20] MEDS: DULoxetine HCL 30 MG CAP PO SCH (08:44)
[2020-09-20] MEDS: ASPIRIN 81 MG ECTAB PO SCH (08:44)
[2020-09-20] MEDS: lisinopril 40 MG TAB PO SCH (08:45)
[2020-09-20] MEDS: carvediloL 6.25 MG TAB PO SCH ×2 (08:45→20:42)
[2020-09-20] MEDS: OXYBUTYNIN CHLORIDE XL 5 MG TABCR PO SCH ×3 (08:46→20:42)
[2020-09-20] MEDS: PANTOprazole 40 MG TAB PO SCH (08:46)
[2020-09-20] MEDS: SPIRONOLACTONE 12.5 MG TAB PO SCH (08:46)
[2020-09-20] MEDS: FUROSEMIDE 20 MG TAB PO SCH (08:59)
[2020-09-20] MEDS: DOCUSATE SODIUM 100 MG CAP PO SCH ×2 (08:59→20:49)
[2020-09-20] MEDS: INSULIN ASPART 100 UNITS/ML 3 ML PEN SC SCH ×4 (09:27→20:43)
[2020-09-20] MEDS: INSULIN GLARGINE SOLOSTAR 100 UNITS/ML 3 ML PEN SC SCH ×2 (09:29→20:43)
--- NOTE | 2020-09-20 13:14 | Surgery Progress Note ---
Date of Service F/U biopsy left groin lymph node, POD 1 pt is doing fine, no fever, September 20, 2020 Assessment & Plan (1) Lymphadenopathy: By CT it appears to be pathologic. Given patient's body habitus, may require needle localization Given the new left lower extremity DVT , Dr. Kingston recommending vascular surgery consultation for possible IVC filter given lymphadenopathy is located in the left inguinal region. Continue medical management Will await vascular surgery consultation and recommendation Dr. Kingston has seen and examined pt, agrees with above. 09/17/2020 7:07PM vascular surgeon will do IVC filter on 2020, I recommend to do biopsy left groin at same time, IVC filter place first, then i follow to do biopsy left groin lymph node, pt agrees with the plan, I will call her daughter tomorrow, 09/18/2020 2:38PM vascular surgeon will do IVC filter on 2020, I recommend to do U/S guard wire located left groin lymph node then I do biopsy left groin at same time, IVC filter place first, then i follow to do biopsy left groin lymph node, pt agrees with the plan, I called her daughter , D/W the benefits, risks and alternatives of the surgery, the risks - infection, bleeding, chronic wound infection, leg edema, pt's daughter and pt agree with surgery, pt's daughter gave consent on the phone, NPO after MN, hold iv heparin drip 6 hours prior surgery, possible hold heparin at 6 AM 09/19/2020, 09/20/2020 1:13PM s/p biopsy left groin lymph node, POD 1, doing fine, keep the dressing on for 4 days, she can take a shower on 09/24/2020, sign off today, please call with questions, thanks, Admission and Anticipated Discharge Date Admission Date: September 13, 2020 Subjective Pt was seen and examined for follow up of LE DVT Sitting in chair with no distress Pt had the IVC filter placed this morning She said that she feels ok Denies any chest pain, palpitation, dizziness and sob Physical Exam Constitutional: WD/WN, vitals as above well developed and well nourished Eyes: PERRL, conjunctivae normal, anicteric sclerae Neck: trachea midline, no thyromegaly Respiratory: normal respiratory effort, lungs clear to auscultation Cardiovascular: RRR, no murmur, no edema Gastrointestinal (Abdomen): normal bowel sounds, soft, nontender, no hepatosplenomegaly the incision site intact, no redness, Neurologic: awake Psychiatric: Orientation: alert Results & Data ([facility]) Vital Signs (Past 12 Hours) Vital Signs Temp Pulse Resp BP BP Pulse Ox 09/20/20 08:18 36.4 C L 67 16 126/63 95 09/20/20 01:37 36.6 C 80 18 156/85 H 92
--- NOTE | 2020-09-20 17:54 | Hospitalist Progress Note ---
Date of Service September 20, 2020 Assessment & Plan (1) Left leg DVT: (2) Calf tenderness: 74 y/o F with PMH DM II, HTN, dyslipidemia, asthma, diastolic dysfunction, GERD, hypothyroidism, obesity, anxiety, H/O COVID-19 in 06/2020 presented to ER with complaint of progressive weakness past several months, worse past month. Was using cane, now unable to walk without assistance. No leukocytosis, UA appears contaminated, pseudohyponatremia, otherwise no significant electrolyte abnormality BLE Venous Doppler showed Acute left lower extremity DVT involving the common femoral vein and popliteal vein. Hypercoagulable workup pending On Heparin IV drip that placed on hold for lymph node biopsy Status post IVC filter placed by Dr. Xiong today Case discussed with surgery Dr. Kingston that recommend to restart the IV heparin drip 12 hours after the procedure Case discussed with Dr. Mcleod that recommended low dose heparin without bolus when planing to resume the heparin We will consider NOAC if insurance will cover it on discharge Continue monitor closely 09/20 IV heparin drip has been on hold since surgeon wanted to reach with Dr. Xiong to see if it safe to resume the Lovenox Case discussed with Dr. Xiong no contraindication to resume heparin drip We will start with low-dose heparin drip with no bolus Plan to transition to Eliquis tomorrow if stable (3) Weakness: (4) Ambulatory dysfunction: Possible related to the pain from the DVT Continue PT OT eval Fall precaution (5) Inguinal lymphadenopathy: CT abd/pelvis showed interval development of pathologic abdominal pelvic and inguinal lymphadenopathy. S/P Left Inguinal Lymph Node Excisional Biopsy (needle localization) performed by Dr. Kingston Case discussed with Dr. Kingston agreed to resume the IV heparin drip 12 hr after the procedure (6) CHAN (acute kidney injury): BUN: 33, Cr: 2.1 on admission baseline Cr: 0.9 Creatinine back to baseline (7) Hyponatremia: improved with Iv fluid Iv fluid d/willian , pt is tolerating PO intake (8) Hypertension: BP improved after IVF resumed lisinopril, spironolactone, lasix (9) Diastolic dysfunction: Grade II diastolic dysfunction, EF 59% on echo in 2018 lisinopril, aldactone lasix resumed at present stable vol status (10) Diabetes mellitus, type 2: A1c: 6.9 in 07/2020 -Hold home meds -Novolog, Lantus sliding scale per protocol (11) Hypothyroidism: TSH: 0.2, Free T4: 2.0 (TSH was 0.4 in 07/2020) -Decrease levothyroxine from 175mcg to 150mcg daily (12) Dysphagia: Chronic dysphagia. H/O EGD in 2019 without abnormality, however decision made to dilate esophagus -Aspiration precautions -Soft bite size diet (13) Anxiety: -Continue duloxetine (14) GERD (gastroesophageal reflux disease): -Continue PPI, H2 rosita (15) History of COVID-19: In 05/2020. Had GRAF, fever, fatigue. DVT Prophylaxis S/P IVC filter Will resume heparin drip after 12hr from the procedure Full Code Follows with Dr Maynard for routine care Admission and Anticipated Discharge Date Admission Date: September 13, 2020 Subjective Pt was seen and examined for follow up of LE DVT Sitting in chair with no distress Status post day 1 IVC filter placement by Dr. Xiong Denies any chest pain, palpitation, dizziness and sob Review of Systems Review of Systems: All systems reviewed & are unremarkable except as noted in Subjective Physical Exam Physical Exam: General- No acute distress Head- atraumatic Eyes- PERRL, EOMI, ENT- oropharynx clear Neck- supple, no JVD Lungs- clear to auscultation Heart- regular rhythm; no murmur Abdomen- normal bowel sounds, soft, nontender Extremities- +edema , + left groin with dressing on from the IVC filter, no hematoma Neuro- alert, oriented x 3; PERRL, EOMI; no facial palsy; no dysarthria Skin- warm & dry Results & Data Results & Data ([facility]) Vital Signs (Past 12 Hours) Vital Signs Temp Pulse Resp BP Pulse Ox 09/20/20 15:26 36.7 C 63 16 114/71 91 09/20/20 08:18 36.4 C L 67 16 126/63 95
[2020-09-20] MEDS: Heparin IV Adult Wt-Based Low-Dose *NO* Bolus Protocol IV SCH ×2 (19:16→20:44)
[2020-09-20] MEDS: LATANOPROST 0.005% OP SOLN 2.5 ML BTL OP SCH (20:42)
[2020-09-20] MEDS: FAMOTIDINE 40 MG TABLET PO SCH (20:42)
[2020-09-20] MEDS ORDERED: COUGH DROP (SUGAR FREE) LOZ 24 LOZ/1 BOX BUCCAL ONE (22:34)
[2020-09-21] MEDS: Heparin IV Adult Wt-Based Low-Dose *NO* Bolus Protocol IV SCH (00:34)
[2020-09-21 02:03] LABS: Eosinophils # (auto) 0.04 K/uL (0-0.5); Eosinophils % (auto) 0.5 %; Hematocrit (blood only) 30.8 % (37-47); Hemoglobin 9.9 g/dL (12.0-16.0); Immature Granulocytes # (auto) 0.06 K/uL (0.00-0.02); Immature Granulocytes % (auto) 0.8 %; Lymphocytes # (auto) 0.77 K/uL (1.2-3.4); Lymphocytes % (auto) 10.1 %; Mean Corpuscular Hemoglobin 27.8 pg (25-34); Mean Corpuscular Hgb Conc 32.1 g/dL (32-36); Mean Corpuscular Volume 86.5 fL (80-100); Mean Platelet Volume 8.2 fL (7.4-10.4); Monocytes % (auto) 7.9 %; Neutrophils # (auto) 6.15 K/uL (1.4-6.5); Neutrophils % (auto) 80.7 %; Platelet Count 120 K/uL (130-400); RDW Coefficient of Variation 16.2 % (11.5-14.5); RDW Standard Deviation 51.4 fL (36.4-46.3); Red Blood Count 3.56 M/uL (4.2-5.4); White Blood Count 7.62 K/uL (4.8-10.8)
[2020-09-21 02:23] LABS: Partial Thromboplastin Ratio 1.8
[2020-09-21 02:24] LABS: Partial Thromboplastin Time 46.4 Seconds (21.0-31.0)
[2020-09-21] MEDS: LEVOTHYROXINE SODIUM 150 MCG TABLET PO SCH (06:39)
[2020-09-21 08:07] LABS: Partial Thromboplastin Ratio 1.7; Partial Thromboplastin Time 43.9 Seconds (21.0-31.0)
[2020-09-21] MEDS: OXYBUTYNIN CHLORIDE XL 5 MG TABCR PO SCH ×2 (08:54→13:27)
[2020-09-21] MEDS: DULoxetine HCL 30 MG CAP PO SCH (08:54)
[2020-09-21] MEDS: PANTOprazole 40 MG TAB PO SCH (08:54)
[2020-09-21] MEDS: lisinopril 40 MG TAB PO SCH (08:54)
[2020-09-21] MEDS: FUROSEMIDE 20 MG TAB PO SCH (08:54)
[2020-09-21] MEDS: ASPIRIN 81 MG ECTAB PO SCH (08:55)
[2020-09-21] MEDS: SPIRONOLACTONE 12.5 MG TAB PO SCH (08:55)
[2020-09-21] MEDS: carvediloL 6.25 MG TAB PO SCH (08:55)
[2020-09-21] MEDS: DOCUSATE SODIUM 100 MG CAP PO SCH (08:57)
[2020-09-21] MEDS: INSULIN GLARGINE SOLOSTAR 100 UNITS/ML 3 ML PEN SC SCH (08:57)
[2020-09-21] MEDS: INSULIN ASPART 100 UNITS/ML 3 ML PEN SC SCH ×2 (08:58→13:23)
[2020-09-21] MEDS ORDERED: APIXABAN 5 MG TABLET PO SCH (12:00)
--- NOTE | 2020-09-21 13:36 | Hospitalist Progress Note ---
Date of Service September 21, 2020 Assessment & Plan (1) Left leg DVT: (2) Calf tenderness: 74 y/o F with PMH DM II, HTN, dyslipidemia, asthma, diastolic dysfunction, GERD, hypothyroidism, obesity, anxiety, H/O COVID-19 in 06/2020 presented to ER with complaint of progressive weakness past several months, worse past month. Was using cane, now unable to walk without assistance. No leukocytosis, UA appears contaminated, pseudohyponatremia, otherwise no significant electrolyte abnormality BLE Venous Doppler showed Acute left lower extremity DVT involving the common femoral vein and popliteal vein. Hypercoagulable workup pending On Heparin IV drip that placed on hold for lymph node biopsy Status post IVC filter placed by Dr. Xiong today Case discussed with surgery Dr. Kingston that recommend to restart the IV heparin drip 12 hours after the procedure Case discussed with Dr. Mcleod that recommended low dose heparin without bolus when planing to resume the heparin We will consider NOAC if insurance will cover it on discharge Continue monitor closely 09/[address] Xiong yesterday and no contraindication to resume heparin drip yesterday Currently on low-dose heparin drip with no bolus Will transition to oral anticoagulant. Daughter does not want to do Coumadin because she will not have time to take her to get the INR check case discussed with Dr. Mcleod that recommended Eliquis BID. will do 10mg BID for 7 days, then 5mg BID Pt is on baby aspirin, discuss with daughter that pt had no stent place or hx CVA in the past. Will discontinue the aspirin 81mg to decrease the risk of bleeding while on Eliquis Major sides effect discuss with patient such bleeding (3) Weakness: (4) Ambulatory dysfunction: Possible related to the pain from the DVT Continue PT OT eval Fall precaution (5) Inguinal lymphadenopathy: CT abd/pelvis showed interval development of pathologic abdominal pelvic and inguinal lymphadenopathy. S/P Left Inguinal Lymph Node Excisional Biopsy (needle localization) performed by Dr. Kingston Case discussed with Dr. Kingston agreed to resume the IV heparin drip 12 hr after the procedure Will need to follow biopsy result of the lymph node keep the dressing on for 4 days, she can take a shower on 09/24/2020 as per surgery (6) CHAN (acute kidney injury): BUN: 33, Cr: 2.1 on admission baseline Cr: 0.9 Creatinine back to baseline (7) Hyponatremia: improved with Iv fluid Iv fluid d/willian , pt is tolerating PO intake (8) Hypertension: BP improved after IVF resumed lisinopril, spironolactone, lasix (9) Diastolic dysfunction: Grade II diastolic dysfunction, EF 59% on echo in 2018 lisinopril, aldactone lasix resumed at present stable vol status (10) Diabetes mellitus, type 2: A1c: 6.9 in 07/2020 -Hold home meds -Novolog, Lantus sliding scale per protocol (11) Hypothyroidism: TSH: 0.2, Free T4: 2.0 (TSH was 0.4 in 07/2020) -Decrease levothyroxine from 175mcg to 150mcg daily Check TSH in 4 weeks (12) Dysphagia: Chronic dysphagia. H/O EGD in 2019 without abnormality, however decision made to dilate esophagus -Aspiration precautions -Soft bite size diet (13) Anxiety: -Continue duloxetine (14) GERD (gastroesophageal reflux disease): -Continue PPI, H2 rosita (15) History of COVID-19: In 05/2020. Had GRAF, fever, fatigue. DVT Prophylaxis S/P IVC filter heparin drip , then transition to Eliquis Full Code Follows with Dr Maynard for routine care Admission and Anticipated Discharge Date Admission Date: September 13, 2020 Subjective Pt was seen and examined for follow up of LE DVT Sitting in chair with no distress Pt said that she feels fine No hematoma and tenderness in the left groin area I spoke to daughter this morning and provided with updates Discussed with daughter about anticoagulant on discharge Daughter does not want her to do the coumadin because daughter will not have the time for her to get INR done. She said that her dad was on coumadin I called the pharmacy to check the mcclain on eliquis, it will cost about $140/Month Daughter said that she will be able to afford it Denies any chest pain, palpitation, dizziness and sob Review of Systems Review of Systems: All systems reviewed & are unremarkable except as noted in Subjective Physical Exam Physical Exam: General- No acute distress Head- atraumatic Eyes- PERRL, EOMI, ENT- oropharynx clear Neck- supple, no JVD Lungs- clear to auscultation Heart- regular rhythm; no murmur Abdomen- normal bowel sounds, soft, nontender Extremities- +edema , + left groin with dressing on from the IVC filter, no hematoma Neuro- alert, oriented x 3; PERRL, EOMI; no facial palsy; no dysarthria Skin- warm & dry Results & Data Results & Data ([facility]) Vital Signs (Past 12 Hours) Vital Signs Temp Pulse Resp BP Pulse Ox 09/21/20 07:46 36.8 C 72 18 137/65 93
[2020-09-22] MEDS ORDERED: NON-FORMULARY MEDICATION (Semaglutide [Ozempic] 0.25 mg or 0.5 mg(2 mg/1.5 mL) Pen Injecto SQ SCH (17:23)
--- NOTE | 2020-10-01 23:36 | Discharge Summary ---
Date of Service September 21, 2020 Admission HPI Per Admitting Provider Pt is 74 y/o F with PMH DM II, HTN, dyslipidemia, asthma, diastolic dysfunction, GERD, hypothyroidism, obesity, anxiety, H/O COVID-19 in 05/2020 presented to ER with complaint of progressive weakness. Reports has had progressive weakness over the last couple months, worse the past month. Has been using walker with seat. Has a lift chair. Complains of increased fatigue. Has been sleeping 20 hours a day. Pt has been sitting and not moving much. Decreased appetite and oral intake. Lost 20 pounds in the last 2 months. Daughter reports had a hallucination episode where she reported watching the neighbors put up [place] decorations. Daughter states that pt had reported shortness of breath on exertion previously, however denies that currently. Pt has chronic dysphagia, had esophagus stretched in past. Not on special diet. History COVID-19 in 06/2020 symptoms were fever, GRAF, fatigue, poor appetite. Seems like still has decreased appetite and fatigue. Also reports loose stools and several episodes of fecal in continence. Pt c/o lower abdominal discomfort. C/O lower extremity discomfort to calf area, left worse than right and daughter reports "cottage cheese" type sensation to skin on bilateral legs. Had Pfizer COVID 19 vaccine 05/31/20, 06/21/20. Denies h/o DVT/PE. Denies recent fever/chills, recent falls, N/V, hematochezia, melena, epistaxis, GRAF, dizziness, syncope, vision changes, neck pain, CP, orthopnea, palpitations, cough, sore throat, choking, otalgia, rhinorrhea, paresthesias, extremity edema, rashes, dysuria, hematuria, urinary frequency. In ER patient with initial blood pressure 83/54, afebrile, pulse 50. Blood pressure increased to 121/67 after 1L NSS. No leukocytosis. Patient found to have CHAN. UA unremarkable. Patient being admitted for further evaluation and treatment Admission Exam Per Admitting Provider General: no distress, obese Head: normocephalic, atraumatic Eyes: PERRL, EOM's intact, conjunctiva non-injected, anicteric ENT: normal inspection external ears, nose, mucous membranes mildly dry Neck: supple, trachea midline Lungs: clear, no respiratory distress, no wheezing/rhonchi/rales CV: regular rhythm, rate 50, no murmur, no JVD, no pretibial edema Abd: protuberant, normal BS, soft,+tenderness to palpation RLQ, LLQ without rebound or guarding Ext: no cyanosis, no erythema, bilateral posterior lower legs with palpable cord like firmness, left posterior calf with tenderness to palpation, distal pulses palpable, sensation to light touch intact Neuro: Alert, oriented to person. Reports year as 1991, knows it is summer, knows previous president. Unsure of location. no focal deficits noted, somewhat flat affect Skin: warm, dry Principal Diagnosis Lower extremity DVT enlarged lymph node generalized weakness Discharge Exam General- No acute distress Head- atraumatic Eyes- PERRL, EOMI, ENT- oropharynx clear Neck- supple, no JVD Lungs- clear to auscultation Heart- regular rhythm; no murmur Abdomen- normal bowel sounds, soft, nontender Extremities- +edema , + left groin with dressing on from the IVC filter, no hematoma Neuro- alert, oriented x 3; PERRL, EOMI; no facial palsy; no dysarthria Skin- warm & dry Discharge Data Allergies Allergy/AdvReac Type Severity Reaction Status Date / Time albuterol Allergy Intermediate tachycardia Verified 09/25/20 19:57 amoxicillin Allergy Mild RASH Verified 09/25/20 19:57 aspirin AdvReac Mild stomach Verified 09/25/20 19:58 upset Consultations 09/13/20 12:22 ED Decision to Admit Stat 09/14/20 19:06 Consult General Surgery Routine 09/17/20 10:55 Consult Vascular Surgery Routine Procedures Performed Operation Date: 09/16/20 14:10 <No data on this case meets the specified criteria> Operation Date: 09/19/20 14:40 Actual Procedures s Inferior Vena Cava Filter Placement, Right Jugular Vein Approach, Ultrasound Localization of Right Jugular Vein, Fluoroscopy for Positioning(Right) - Rafat Xiong MD p Left Inguinal Lymph Node Excisional Biopsy (needle localization)(Right) - Kush Kingston MD Ordered Studies 09/13/20 11:22 US venous doppler LE BI Stat 09/13/20 11:53 CT abd pelvis wo con Stat 09/19/20 12:00 US soft tissue loc w/imaging Routine 09/19/20 12:39 EV IVC filter placement Routine XR chest 1V portable CLINICAL HISTORY: weakness COMPARISON STUDY: Chest x-ray dated 03/18/2012 FINDINGS: Study is rotated. The heart is borderline enlarged. There is no failure. There is no focal pulmonary consolidation. There are no significant pleural effusions. Increased basilar markings are likely atelectatic.[There is mild superior mediastinal prominence, likely secondary to mediastinal fat deposition, given the patient's body habitus. IMPRESSION: 1. Mild mediastinal prominence, statistically secondary to fat deposition given the patient's body habitus 2. No evidence of focal pulmonary consolidation 3. Mild basilar atelectasis ACT 112: Negative or not required by law. Electronically signed by: Marcellus Weaver M.D. 09/13/2020 11:39 AM Dictated: 09/13/20 1138Transcribed: 09/13/20 1138 US venous doppler LE BI CLINICAL HISTORY: Bilateral leg swelling COMPARISON STUDY: 07/03/2016 FINDINGS: Grayscale, color-flow, Doppler spectral waveform analysis was performed. The study was difficult from a technical standpoint due to the patient's body habitus. On the right, no intraluminal thrombus was visualized within the common femoral superficial femoral or popliteal veins. The proximal trifurcation veins of the right calf appear patent. On the left, no thrombus is visualized within the common femoral vein. There is left femoral vein and popliteal vein thrombus. Calf veins were nonvisualized. IMPRESSION: 1. Acute left lower extremity DVT involving the common femoral vein and popliteal vein. 2. No evidence of right lower extremity DVT ACT 112: Negative or not required by law. Electronically signed by: Marcellus Waever M.D. 09/13/2020 1:59 PM Dictated: 09/13/20 1357Transcribed: 09/13/[address] SCAN OF THE ABDOMEN AND PELVIS WITHOUT CONTRAST CLINICAL HISTORY: diarrhea, high creat COMPARISON STUDY: 07/16/2016 TECHNIQUE: CT scan of the abdomen and pelvis was performed from the lung bases to the proximal femurs. Images are reviewed in the axial, sagittal, and coronal planes. IV contrast was not administered for this examination. A dose lowering technique was utilized adhering to the principles of ALARA. CT DOSE: 1601.07 mGy.cm FINDINGS: Lower chest: There is prominence of the pulmonary arteries bilaterally. There are small bilateral pleural effusions. There is basilar atelectasis. Liver: There is mild hepatic steatosis. No focal hepatic masses are visualized on this noncontrast study. The liver has a subtle cirrhotic morphology Gallbladder: Not visualized presumed surgically absent. Spleen: Mildly enlarged measuring 13.1 cm. Pancreas: Unremarkable. Adrenal glands: Unremarkable. Kidneys: No renal, ureteral, or bladder calculi are visualized. Bowel: There are no transition zones to indicate bowel obstruction. There is no evidence of acute diverticulitis. The appendix appears normal. Peritoneum: There is no intraperitoneal free air or abdominal ascites. Vasculature: The abdominal aorta is normal in course and caliber. Adenopathy: Since the prior study, the patient has developed pathologic ly mphadenopathy. There are enlarged left inguinal lymph nodes measuring up to 36 mm in diameter. There are enlarged obturator and femoral chain lymph nodes measuring up to 28 mm in diameter. There is pathologic para-aortic lymphadenopathy. There is a 41 mm precaval lymph node. There is a 34 mm anterior para-aortic lymph node. There are enlarged mary hepatis lymph nodes. There are enlarged retrocrural lymph nodes. There is mild nonspecific infiltration of fat anterior to the left iliac vessels. Pelvic viscera: The bladder, and pelvic viscera are unremarkable. Skeletal structures: There are moderate multilevel degenerative changes in the spine. There is a grade 1 spinal listhesis of L5 and S1. No destructive lesions are visualized. There is ankylosis of the spine. IMPRESSION: 1. No evidence of bowel obstruction. No evidence of free air 2. No evidence of acute diverticulitis. No evidence of acute appendicitis. 3. No renal, ureteral, or bladder calculi identified 4. Hepatic steatosis. Subtle cirrhotic morphology the the liver. Splenomegaly. 5. Trace bilateral pleural effusions 6. Interval development of pathologic abdominal pelvic and inguinal lymphadenopathy. A lymphoproliferative disorder is the diagnosis of exclusion. Further workup is advocated. ACT 112: Positive. There are findings on this exam that require communication between the performing entity and the patient following Patient Test Result Information Act ([place] Act 112) guidelines. Electronically signed by: Marcellus Weaver M.D. 09/13/2020 1:39 PM Dictated: 09/13/20 1330Transcribed: 09/13/20 1330 ULTRASOUND-GUIDED NEEDLE LOCALIZATION LEFT INGUINAL LYMPH NODE CLINICAL HISTORY: Inguinal lymphadenopathy. Needle localization for surgical resection. COMPARISON STUDY: Pelvic CT dated 09/13/2020. PROCEDURE: The risks, benefits, and alternatives to the procedure were discussed with the patient. Written informed consent was obtained. The patient was placed supine in ultrasound, and an approximately 3 cm left inguinal lymph node was identified by ultrasound and selected for needle localization. The left inguinal soft tissues were prepped and draped in the usual sterile fashion. 1% lidocaine was used for local anesthetic. The node was then localized under ultrasound guidance with a 20-gauge needle. Once positioning was confirmed, the needle was removed and the wire was left in place for the surgeon. The patient tolerated the procedure well and left the department in satisfactory condition. IMPRESSION: Completed needle localization of a left inguinal lymph node as above. ACT 112: Negative or not required by law. Electronically signed by: Jayesh Tapia M.D. 09/19/2020 2:07 PM Dictated: 09/19/20 1403Transcribed: 09/19/20 1403 Hospital Course (1) Left leg DVT: (2) Calf tenderness: 74 y/o F with PMH DM II, HTN, dyslipidemia, asthma, diastolic dysfunction, GERD, hypothyroidism, obesity, anxiety, H/O COVID-19 in 06/2020 presented to ER with complaint of progressive weakness past several months, worse past month. Was using cane, now unable to walk without assistance. No leukocytosis, UA appears contaminated, pseudohyponatremia, otherwise no significant electrolyte abnormality BLE Venous Doppler showed Acute left lower extremity DVT involving the common femoral vein and popliteal vein. Hypercoagulable workup pending On Heparin IV drip that placed on hold for lymph node biopsy Status post IVC filter placed by Dr. Xiong today Case discussed with surgery Dr. Kingston that recommend to restart the IV heparin drip 12 hours after the procedure Case discussed with Dr. Mcleod that recommended low dose heparin without bolus when planing to resume the heparin We will consider NOAC if insurance will cover it on discharge Continue monitor closely 09/[address] Xiong yesterday and no contraindication to resume heparin drip yesterday Currently on low-dose heparin drip with no bolus Will transition to oral anticoagulant. Daughter does not want to do Coumadin because she will not have time to take her to get the INR check case discussed with Dr. Mcleod that recommended Eliquis BID. will do 10mg BID for 7 days, then 5mg BID Pt is on baby aspirin, discuss with daughter that pt had no stent place or hx CVA in the past. Will discontinue the aspirin 81mg to decrease the risk of bleeding while on Eliquis Major sides effect discuss with patient such bleeding (3) Weakness: (4) Ambulatory dysfunction: Possible related to the pain from the DVT Continue PT OT eval Fall precaution (5) Inguinal lymphadenopathy: CT abd/pelvis showed interval development of pathologic abdominal pelvic and inguinal lymphadenopathy. S/P Left Inguinal Lymph Node Excisional Biopsy (needle localization) performed by Dr. Kingston Case discussed with Dr. Kingston agreed to resume the IV heparin drip 12 hr after the procedure Will need to follow biopsy result of the lymph node keep the dressing on for 4 days, she can take a shower on 09/24/2020 as per surgery (6) CHAN (acute kidney injury): BUN: 33, Cr: 2.1 on admission baseline Cr: 0.9 Creatinine back to baseline (7) Hyponatremia: improved with Iv fluid Iv fluid d/willian , pt is tolerating PO intake (8) Hypertension: BP improved after IVF resumed lisinopril, spironolactone, lasix (9) Diastolic dysfunction: Grade II diastolic dysfunction, EF 59% on echo in 2018 lisinopril, aldactone lasix resumed at present stable vol status (10) Diabetes mellitus, type 2: A1c: 6.9 in 07/2020 -Hold home meds -Novolog, Lantus sliding scale per protocol (11) Hypothyroidism: TSH: 0.2, Free T4: 2.0 (TSH was 0.4 in 07/2020) -Decrease levothyroxine from 175mcg to 150mcg daily Check TSH in 4 weeks (12) Dysphagia: Chronic dysphagia. H/O EGD in 2019 without abnormality, however decision made to dilate esophagus -Aspiration precautions -Soft bite size diet (13) Anxiety: -Continue duloxetine (14) GERD (gastroesophageal reflux disease): -Continue PPI, H2 rosita (15) History of COVID-19: In 05/2020. Had GRAF, fever, fatigue. DVT Prophylaxis S/P IVC filter heparin drip , then transition to Eliquis Full Code Follows with Dr Maynard for routine care Total Time Total Time Spent Total Time Spent (In Minutes): 35 minutes Total Time Includes: Examination of the Patient, Discharge Planning, Medication Reconciliation, Communication With Other Providers and Other Discharge Plan Discharge Items Patient Disposition: Home - Home Health Services Reason For Visit: REFERRED BY NEYER, WEAKNESS, DIZZINESS Discharge Diagnosis: Lower extremity DVT enlarged lymph node generalized weakness Condition on Discharge: Fair Activity: Resume your previous activity Non-emergency contact: Primary Care Provider Call non-emergency contact if: you have any medication questions Follow-up/Referrals: Musa Maynard MD [Primary Care Provider] - Diet: Carb Consistent or DM2 and Heart Healthy Addtl Attending Provider Instructions: Follow up with your primary care provider dr. Maynard within 1 week [address] a referral with oncology base on the left groin lymph node biopsy result Monitor for abnormal bleeding (such as blood in your stool, urine,..) while on Eliquis Fall precaution No submerging incisions underwater for 2 weeks (no swimming, bathing, hot tubs) but you may shower and gently clean the incisions with soap and water and pat dry. Walking and light activities encouraged daily to prevent blood clots from forming keep the dressing on for 4 days and OK to take a shower on 09/24/2020 Medication Instructions:Eliquis Your condition is typically treated with an anticoagulant. Anticoagulants will thin your blood to help prevent new clots. You should take her medication exactly as directed. Never skip a dose. Never take a double dose. If you miss a dose, take it as soon as you remember. Avoid NSAIDs (Motrin, Aleve, Naproxen, Ibuprofen, Advil, Meloxicam,..) due to risks of bleeding Call your Primary Care doctor if you experience any of the following: Swelling or Pain in your leg Sudden, continuous pain deep in a muscle Pain that worsens when you are active or when you stand still for a long time Chest Pain Sudden Shortness of Breath Rapid or pounding heart beat Fainting Dizziness Cough with blood or bloody sputum Sweating more than normal Bruises Heavy or uncontrolled bleeding Blood in your urine, stool or vomit Black or tarry stools Caring for Your Self at Home: Avoid sitting, standing or lying down for long periods without moving your legs and feet When traveling by car, stop to get out and move around at least once every 3 hours On long airplane, train or bus rides, get up and move around when possible If you can't get up, wiggle your toes and tighten your calves to keep your blood moving Please take all medications as instructed on discharge list below. It is recommended that you follow-up with your primary care physician within 1-2 weeks of hospital discharge to ensure you are still doing well. Please call if you have any questions or problems. You can reach a [facility] hospitalist on duty at [facility] 24 hours a day by calling [phone] Pending Studies at Discharge: Yes Stand-Alone Forms: My [facility] Medications and DC Order Prescriptions: New Eliquis 5 mg Tablet 5 mg PO BID Qty: 74 RF: 0 Continued omeprazole 40 mg Capsule,Delayed Release(Dr/Ec) 40 mg PO QAM RF: 0 spironolactone 25 mg Tablet 12.5 mg PO QAM RF: 0 furosemide 20 mg Tablet 20 mg PO QAM RF: 0 duloxetine 30 mg Capsule,Delayed Release(Dr/Ec) 30 mg PO QAM RF: 0 levothyroxine 175 mcg Tablet 175 mcg PO QAM RF: 0 carvedilol 6.25 mg Tablet 6.25 mg PO BID RF: 0 oxybutynin chloride [Ditropan XL] 5 mg Tablet Extended Release 24hr 5 mg PO TID RF: 0 lisinopril 40 mg Tablet 40 mg PO QAM RF: 0 glipizide 5 mg Tablet 5 mg PO BID RF: 0 latanoprost (PF) 0.005 % Drops 1 drp OPHTHALMIC (EYE) HS RF: 0 famotidine 20 mg Tablet 40 mg PO HS RF: 0 Ozempic 0.25 mg or 0.5 mg(2 mg/1.5 mL) Pen Injector 0.25 mg SUBCUT FLORES RF: 0 Discontinued aspirin 81 mg Tablet,Delayed Release (Dr/Ec) 81 mg PO DAILY RF: 0 No Action levothyroxine 150 mcg capsule 150 mcg PO DAILY Qty: 30 RF: 3 Discharge Orders: Discharge Order (Routine); Ordered 09/21/20 Ordered By: Reny Jacobs/Other Patient Handouts: Excisional Biopsy: Neck Lymph Node, Lymphadenopathy Admission Data Admit Date/Time: 09/13/20 12:57 Attending Provider: Reny Ortega Admit Provider: César Stevens Primary Care Provider: Musa Maynard Other Providers: Donte Tierney ; Sienna Kothari ; [facility],Home Health ; [facility],Home Healthcare ; César Stevens ; Juliocesar Sheehan ; Elena Monge ; Alicia Garcia ; Aramis Gee ; Moo Walker ; Anayeli Tim ; Mary Anne Hair ; Yaw Portillo Jr ; Kush Kingston ; Milind Marie ; Kelly Bermudez ; Rafat Xiong Other Interventions: Discharge Summary Assessment (RN) Last Done: 09/21/20 15:29
== END 2020-09-21 16:25 | disposition home health service (06) | DRG 264 ==
LOC: ED 10:35 → SUATTDRO 12:57 → EDINP 12:57 → 2W 14:40 → 3N 09-17 00:53

== ENCOUNTER 2020-09-25 18:03 | Inpatient (IN) ==
[2020-09-25] MEDS ORDERED: SODIUM CHLORIDE 0.9% 1000ML 1,000 ML IV SCH (18:30)
[2020-09-25 19:11] LABS: Appearance Urine Cloudy (Clear); Bacteria Urine Automated 4+ (Negative); Blood Urine Trace (Negative); Color Urine Dark Yellow; Epithelial Cell Urine Auto 0-5 /lpf (0-5); Glucose Urine UA Negative (Negative); Ketones Urine Negative (Negative); Leukocyte Esterase Urine 3+ (Negative); Nitrite Urine Negative (Negative); Protein Urine Trace (Negative); Specific Gravity Urine 1.012 (1.000-1.030); Urobilinogen Urine Negative (Negative); WBC Urine Automated >30 /hpf (0-5)
[2020-09-25 19:14] LABS: Bilirubin Urine 1+ (Negative)
[2020-09-25] MEDS ORDERED: cefTRIAXone SODIUM 2,000 MG/70 ML BAG IV STA (19:23)
[2020-09-25 19:27] LABS: Basophils # (auto) 0.01 K/uL (0-0.2); Basophils % (auto) 0.1 %; Eosinophils # (auto) 0.06 K/uL (0-0.5); Eosinophils % (auto) 0.5 %; Hematocrit (blood only) 30.1 % (37-47); Hemoglobin 9.9 g/dL (12.0-16.0); Immature Granulocytes # (auto) 0.03 K/uL (0.00-0.02); Immature Granulocytes % (auto) 0.3 %; Lymphocytes # (auto) 0.53 K/uL (1.2-3.4); Lymphocytes % (auto) 4.5 %; Mean Corpuscular Hgb Conc 32.9 g/dL (32-36); Mean Platelet Volume 9.1 fL (7.4-10.4); Monocytes # (auto) 0.91 K/uL (0.11-0.59); Monocytes % (auto) 7.8 %; Neutrophils # (auto) 10.14 K/uL (1.4-6.5); Neutrophils % (auto) 86.8 %; Platelet Count 112 K/uL (130-400); RDW Coefficient of Variation 16.2 % (11.5-14.5); RDW Standard Deviation 50.5 fL (36.4-46.3); Red Blood Count 3.54 M/uL (4.2-5.4); White Blood Count 11.68 K/uL (4.8-10.8)
[2020-09-25] MEDS ORDERED: DEXTROSE 50% 50 ML SYRINGE IV STA (19:35)
--- NOTE | 2020-09-25 19:41 | XRay Report ---
XR chest 1V portable HISTORY: 74 years-old Female weakness acute weakness COMPARISON: Chest radiograph 09/13/2020 TECHNIQUE: Portable AP view of the chest FINDINGS: Cardiac silhouette is enlarged. Calcified plaque of the thoracic aorta. Mild right hemidiaphragmatic elevation with bibasilar opacities. Pulmonary vascular congestion. Degenerative changes of the should ers and spine. IMPRESSION: 1. Cardiomegaly with pulmonary vascular congestion. 2. Mild bibasilar opacities suggestive of atelectasis versus pneumonitis. ACT 112: Negative or not required by law. The above report was generated using voice recognition software. It may contain grammatical, syntax o r spelling errors. Electronically signed by: Parker Warren M.D. 09/25/2020 7:40 PM
[2020-09-25 19:48] LABS: Alanine Aminotransferase 17 U/L (12-78); Albumin Level 1.9 gm/dl (3.4-5.0); Aspartate Aminotransferase 25 U/L (15-37); BUN Creatinine Ratio 20.8 (10-20); Blood Urea Nitrogen 19 mg/dl (7-18); Carbon Dioxide 29 mmol/L (21-32); Chloride 97 mmol/L (98-107); Creatinine Clr Calc Pharmacy 62.1 ml/min; Est GFR (African American) 69.7 ml/min; Est GFR (Non-African American) 60.1 ml/min; Glucose 31 mg/dl (70-99); Magnesium 1.8 mg/dl (1.8-2.4); Potassium 3.4 mmol/L (3.5-5.1); Sodium 132 mmol/L (136-145)
[2020-09-25 19:56] LABS: Albumin Globulin Ratio 0.4 (0.9-2); Alkaline Phosphatase 124 U/L (45-117); Bilirubin,Total 0.9 mg/dl (0.2-1); Thyroid Stimulating Hormone 0.284 uIu/ml (0.300-4.500); Total Protein 6.9 gm/dl (6.4-8.2); Troponin I < 0.015 ng/ml (0-0.045)
[2020-09-25 20:11] LABS: T4 Free Thyroxine 2.01 ng/dl (0.8-1.6)
[2020-09-25] MEDS ORDERED: DEXTROSE 50% 50 ML SYRINGE IV ONE ×3 (20:12→23:32)
[2020-09-25] MEDS ORDERED: D5W AND 1/2NSS + 20MEQ KCL 20 MEQ/1,000 ML BAG IV SCH (20:30)
--- NOTE | 2020-09-25 20:51 | History & Physical Report ---
Date of Service September 25, 2020 Assessment & Plan (1) Hypoglycemia: (2) AMS (altered mental status): Pt is 74 y/o F with PMH DM II, HTN, dyslipidemia, asthma, diastolic dysfunction, GERD, hypothyroidism, obesity, anxiety, H/O COVID-19 in 05/2020, LLE DVT is on Eliquis, s/p IVC filter presented to ER with complaint of AMS and hypoglycemia. This afternoon with sudden onset AMS and found to have BSG 35. Patient was given 250 mL D50 with BSG up to 147 and back to baseline mental status. Reports ate sandwich for breakfast and for lunch. Is on glipizide and Ozempic, denies possible medication error In ER vitals stable, patient afebrile. BS in ER. Was given total 50 mg dextrose IV with BSG up to 71. In ER D5 1/2 NSS plus potassium 20 mEq given Pt back to baseline mental status with improved BSG. Will hold on brain imaging at this time Hold glipizide and Ozempic A1c: 6.9 in 07/2020 D5W at 125ml/hr Monitor BSG UTI UA: 3+ leuk esterase,> 30 WBC, 4+ bacteria. No reported symptoms In ER given Rocephin Urine culture pending Continue Rocephin Weakness/Ambulatory dysfunction: Ongoing generalized weakness Weakness may be secondary to deconditioning, prolonged fatigue from COVID-19 in 05/2020 Patient started receiving home PT this week Fall precautions Left lower extremity DVT Present upon admission. Diagnosed 09/13/2020 S/p IVC filter Continue Eliquis Hypertension: Continue carvedilol, lisinopril, spironolactone, lasix Diastolic dysfunction: Grade II diastolic dysfunction, EF 59% on echo in 2018 Continue lasix Hypothyroidism: TSH: 0.2, Free T4: 2.0 (TSH was 0.4 in 07/2020) Decrease levothyroxine from 175mcg to 150mcg daily Inguinal lymphadenopathy Had recent biopsy. Family awaiting results Anemia: Hgb: 9.9. Recent admission Hgb: 9-11 No reported bleeding Recent anemia studies decreased iron, TIBC, transferrin levels, increased ferritin, decreased folate, B12 and reticulocytes within normal limits Dysphagia: Chronic dysphagia. H/O EGD in 2019 without abnormality, however decision made to dilate esophagus Aspiration precautions Soft bite size diet GERD (gastroesophageal reflux disease): Continue PPI, H2 rosita Anxiety: Continue duloxetine History of COVID-19: In 05/2020. Had GRAF, fever, fatigue. DVT Prophylaxis Has current LLE DVT, Eliquis Full Code as per discussion with pt and pt's daughter Follows with Dr Mayanrd for routine care Pt was seen and care coordinated with Dr Terry. See addendum History of Present Illness Chief Complaint: Hypoglycemia Primary Care Provider: Musa Maynard MD Pt is 74 y/o F with PMH DM II, HTN, dyslipidemia, asthma, diastolic dysfunction, GERD, hypothyroidism, obesity, anxiety, H/O COVID-19 in 05/2020, LLE DVT is on Eliquis, s/p IVC filter presented to ER with complaint of hypoglycemia. Patient reports laid down to take a nap this afternoon and later when her son saw her she had altered mental status. Reports her BSG was 45 at the time and upon EMS arrival was reported at 35. Patient was given 250 mL D50 with BSG up to 147 and resolution of altered mental status. Daughter is with patient in ER and reports she is at her baseline mental status. Patient's daughter reports that she has not been eating and drinking as well. States did have egg sandwich for breakfast and ham sandwich for lunch today. Daughter reports she manages patient's medications and denies any possible occasion ER. States patient had her glipizide this morning. Last dose of Ozempic was on Wednesday. Does report patient still has overall weakness. She started home PT 2 days ago. She was recently admitted to [facility] 09/13/2020-09/21/2020 for generalized weakness and was diagnosed with LLE DVT, had IVC filter placed, was found to have inguinal lymphadenopathy and had biopsy, CAHN that resolved. Reports 3 days ago had a fall at home. Denies injury from that fall. Denies fever/chills, diaphoresis, N/V/D/C, GRAF, dizziness, syncope, vision changes, neck pain, CP, SOB, orthopnea, palpitations, cough, sore throat, choking, otalgia, rhinorrhea, abdominal pain, paresthesias, increased extremity edema, rashes, urinary symptoms. Allergies Allergy/AdvReac Type Severity Reaction Status Date / Time albuterol Allergy Intermediate tachycardia Verified 09/25/20 19:57 amoxicillin Allergy Mild RASH Verified 09/25/20 19:57 aspirin AdvReac Mild stomach Verified 09/25/20 19:58 upset Home Medications Medication Instructions Recorded Confirmed Type carvedilol 6.25 mg PO BID 12/08/18 09/25/20 History duloxetine 30 mg PO QAM 12/08/18 09/25/20 History furosemide 20 mg PO QAM 12/08/18 09/25/20 History glipizide 5 mg PO BID 12/08/18 09/25/20 History latanoprost (PF) 1 drp OPHTHALMIC (EYE) HS 12/08/18 09/25/20 History levothyroxine 175 mcg PO QAM 12/08/18 09/25/20 History lisinopril 40 mg PO QAM 12/08/18 09/25/20 History omeprazole 40 mg PO QAM 12/08/18 09/25/20 History oxybutynin chloride [Ditropan XL] 5 mg PO TID 12/08/18 09/25/20 History spironolactone 12.5 mg PO QAM 12/08/18 09/25/20 History Ozempic 0.25 mg SUBCUT FLORES 06/05/20 09/25/20 History famotidine 40 mg PO HS 06/05/20 09/25/20 History apixaban [Eliquis] 5 mg PO BID #74 tab 09/21/20 09/25/20 Rx Past Med/Surg History Medical History Anxiety Arthritis Asthma COVID-19 virus detected 06/03/20--c/o fever, headache, fatigue roughly a couple weeks ago, daughter was also sick with symptoms Diabetes mellitus, type 2 Diastolic dysfunction Dysphagia chronic dysphagia, h/o esophageal dilation GERD (gastroesophageal reflux disease) Hiatal hernia History of COVID-19 06/2020 Hypertension Hypothyroidism Morbid obesity with BMI of 45.0-49.9, adult SOBOE (shortness of breath on exertion) Surgical History History of anesthesia reaction "WAKES UP EARLY"-NEEDS MORE MEDS History of bilateral cataract extraction History of bilateral tubal ligation History of carpal tunnel release RIGHT History of section X 2 History of cholecystectomy History of colonoscopy History of esophagogastroduodenoscopy (EGD) WITH DILITATION History of total left knee replacement (TKR) History of total right knee replacement (TKR) x2 Hx of LASIK Family History Daughter Family history of reaction to anesthesia WAKES UP EARLY Mother Family history of diabetes mellitus Father Family history of diabetes mellitus Sister Family history of diabetes mellitus Sister Family history of diabetes mellitus Brother Family history of diabetes mellitus Brother Family history of diabetes mellitus Social History Smoking Status: Never smoker Second Hand Exposure: No; Hx Alcohol Use: No Hx Substance Use: No Preferred Language: Czech Communication Ability: Effective Sluice Tender Required: No Beliefs That Will Affect Care: None Current Living Situation: Family Current Living Situation Comment: Lives with daughter and son Feels Safe at Home: Yes Safety Concerns: Feels Safe At This Time Assistive Devices: Denture - Upper and Walker Review of Systems Review of Systems: All systems reviewed & are unremarkable except as noted in HPI & below Physical Exam Physical Exam: General: no distress, obese Head: normocephalic, atraumatic Eyes: PERRL, EOM's intact, conjunctiva non-injected, anicteric ENT: normal inspection external ears, nose, mucous membranes mildly dry Neck: supple, trachea midline Lungs: clear, no respiratory distress, no wheezing/rhonchi/rales CV: regular rhythm, no JVD, trace pretibial edema Abd: protuberant, normal BS, soft, nontender to palpation Ext: no cyanosis, no erythema, bilateral posterior lower legs with palpable cord like firmness, distal pulses palpable, sensation to light touch intact Neuro: Alert, oriented to person, place, year. no focal deficits noted Skin: warm, dry Results & Data Results & Data ([facility]) Vital Signs (Past 12 Hours) Vital Signs Temp Pulse Resp BP Pulse Ox 09/25/20 20:30 69 20 168/93 H 99 09/25/20 20:18 79 22 176/83 H 97 09/25/20 20:00 66 30 H 97 09/25/20 19:00 74 36 H 09/25/20 18:16 37 C 75 18 134/58 L 93 09/25/20 18:13 76 34 H 134/58 L 96 Laboratory Results Short CBC 09/25/20 Range/Units 19:14 WBC 11.68 H (4.8-10.8) K/uL Hgb 9.9 L (12.0-16.0) g/dL Hct 30.1 L (37-47) % Plt Count 112 L (130-400) K/uL BMP 09/25/20 19:14 Sodium 132 L Potassium 3.4 L Chloride 97 L Carbon Dioxide 29 BUN 19 H Creatinine 0.93 Glucose 31 L* Calcium 9.0 Cardiac Enzymes 09/25/20 Range/Units 19:14 Troponin I < 0.015 (0-0.045) ng/ml Liver Function 09/25/20 Range/Units 19:14 Total Bilirubin 0.9 (0.2-1) mg/dl AST 25 (15-37) U/L ALT 17 (12-78) U/L Alkaline Phosphatase 124 H (45-117) U/L Albumin 1.9 L (3.4-5.0) gm/dl Urine 09/25/20 Range/Units 18:55 Urine Color Dark Yellow Urine Appearance Cloudy A (Clear) Urine pH 6.0 (4.5-7.5) Ur Specific [place] 1.012 (1.000-1.030) Urine Protein Trace H (Negative) Urine Glucose (UA) Negative (Negative) Diagnostic Findings Chest X-Ray 09/25/20 18:27 XR chest 1V portable HISTORY: 74 years-old Female weakness acute weakness COMPARISON: Chest radiograph 09/13/2020 TECHNIQUE: Portable AP view of the chest FINDINGS: Cardiac silhouette is enlarged. Calcified plaque of the thoracic aorta. Mild right hemidiaphragmatic elevation with bibasilar opacities. Pulmonary vascular congestion. Degenerative changes of the shoulders and spine. IMPRESSION: 1. Cardiomegaly with pulmonary vascular congestion. 2. Mild bibasilar opacities suggestive of atelectasis versus pneumonitis. ACT 112: Negative or not required by law. The above report was generated using voice recognition software. It may contain grammatical, syntax or spelling errors. Electronically signed by: Parker Warren M.D. 09/25/2020 7:40 PM Code Status & VTE Plan VTE Prophylaxis Plan VTE Prophylaxis will be ordered: Yes Supervising Physician Co-Signing Physician Notes Care coordinated with Eda Morton PA-C. Agree with above note. Patient seen and examined. Please refer to her notes for full details. Vital signs reviewed. Physical exam: General exam: Alert and oriented. Not in acute distress. CVS: S1 and S2 heard, regular rate and rhythm, no murmurs. RS: Clear to auscultation, no wheezing or crackles. ABD: Soft, bowel sounds present, nontender, no distention. CUFF SLITTER: Nonfocal. EXT: No edema, no erythema. Labs: Reviewed. Assessment and plan: 74f who recently had left LE DVT s/p ivc filter and left groin lymphnode biopsy was found to be confused at home and hypoglycemic. Encephalopathy mostly from hypoglcemia requiring D!0. hold home diabetic medication close monitor UTi left groin biopsy site infection possible cause of hypoglycemia started on abx zosyn and vancofollow cultures surgery consult for biopsy site infection Lymphadenopathy s/p biposy of left groin lymph node pathology possible hodgkins needs close followup Other diagnosis and plan of care as per Eda Morton PA-C.. Amado soliman MD.
--- NOTE | 2020-09-25 20:55 | Emergency Department Note ---
History of Present Illness General Chief complaint: Hypoglycemia Time Seen by Provider: 09/25/20 18:08 Source: patient, family (daughter) and RN notes reviewed Mode of arrival: EMS Limitations: no limitations History of Present Illness Provider complaint: Low blood sugar This pt is a 74 yo female who presents to the ED with c/o low blood glucose per EMS. Pt was noted to be altered and family checked her glucose, noting it in the 30s. Ambulance was called and pt was given dextrose with improvement, but quickly dropped by arrival in the ED. Pt was recently admitted to [facility] and per family her diabetes meds have remained the same. Daughter states she is "a picky eater" and will only eat sugary sweets and did not eat a good dinner last night. She noted this as the reason the pt's sugars dropped. She denies fevers, vomiting, CP, SOB, abd pain, urinary sx. Home Medications Medication Instructions Recorded Confirmed Type carvedilol 6.25 mg PO BID 12/08/18 09/25/20 History duloxetine 30 mg PO QAM 12/08/18 09/25/20 History furosemide 20 mg PO QAM 12/08/18 09/25/20 History glipizide 5 mg PO BID 12/08/18 09/25/20 History latanoprost (PF) 1 drp OPHTHALMIC (EYE) HS 12/08/18 09/25/20 History levothyroxine 175 mcg PO QAM 12/08/18 09/25/20 History lisinopril 40 mg PO QAM 12/08/18 09/25/20 History omeprazole 40 mg PO QAM 12/08/18 09/25/20 History oxybutynin chloride [Ditropan XL] 5 mg PO TID 12/08/18 09/25/20 History spironolactone 12.5 mg PO QAM 12/08/18 09/25/20 History Ozempic 0.25 mg SUBCUT FLORES 06/05/20 09/25/20 History famotidine 40 mg PO HS 06/05/20 09/25/20 History apixaban [Eliquis] 5 mg PO BID #74 tab 09/21/20 09/25/20 Rx levothyroxine 150 mcg PO DAILY #30 cap 09/27/20 Rx Allergies Allergy/AdvReac Type Severity Reaction Status Date / Time albuterol Allergy Intermediate tachycardia Verified 09/25/20 19:57 amoxicillin Allergy Mild RASH Verified 09/25/20 19:57 aspirin AdvReac Mild stomach Verified 09/25/20 19:58 upset Past Med/Surg History Medical History Anxiety Arthritis Asthma COVID-19 virus detected 06/03/20--c/o fever, headache, fatigue roughly a couple weeks ago, daughter was also sick with symptoms Diabetes mellitus, type 2 Diastolic dysfunction Dysphagia chronic dysphagia, h/o esophageal dilation GERD (gastroesophageal reflux disease) Hiatal hernia History of COVID-19 06/2020 Hypertension Hypothyroidism Morbid obesity with BMI of 45.0-49.9, adult SOBOE (shortness of breath on exertion) Surgical History History of anesthesia reaction "WAKES UP EARLY"-NEEDS MORE MEDS History of bilateral cataract extraction History of bilateral tubal ligation History of carpal tunnel release RIGHT History of section X 2 History of cholecystectomy History of colonoscopy History of esophagogastroduodenoscopy (EGD) WITH DILITATION History of total left knee replacement (TKR) History of total right knee replacement (TKR) x2 Hx of LASIK Family History Daughter Family history of reaction to anesthesia WAKES UP EARLY Mother Family history of diabetes mellitus Father Family history of diabetes mellitus Sister Family history of diabetes mellitus Sister Family history of diabetes mellitus Brother Family history of diabetes mellitus Brother Family history of diabetes mellitus Social History Smoking Status: Never smoker Second Hand Exposure: No; Hx Alcohol Use: No Hx Substance Use: No Preferred Language: Brazilian Communication Ability: Effective Tow Bar Driver Required: No Beliefs That Will Affect Care: None Current Living Situation: Family Current Living Situation Comment: Lives with daughter and son Feels Safe at Home: Yes Safety Concerns: Feels Safe At This Time Assistive Devices: Denture - Upper and Oxygen - Continuous Review of Systems See HPI for pertinent positives & negatives. and A total of 10 systems reviewed and were otherwise negative Physical Exam Vital Signs Vital Signs - 24 hr 09/25/20 18:13 09/25/20 18:16 09/25/20 19:00 Temperature 37 C Temperature Source Oral Pulse Rate 76 75 74 Pulse Rate from SpO2 Sensor 75 Respiratory Rate 34 H 18 36 H Respiratory Effort / Characteristics Non-Labored Spontaneous Respiratory Depth Normal Blood Pressure 134/58 L 134/58 L Blood Pressure Mean 83 83 Blood Pressure Position Lying Pulse Oximetry 96 93 Oxygen Delivery Method Room Air Sepsis Recent Fever Within 48 Hours No Sepsis New/Unexplained Change in Mental Status N/A Sepsis Action Taken by Nursing No Action Required 09/25/20 20:00 09/25/20 20:18 09/25/20 20:30 Temperature Temperature Source Pulse Rate 66 79 69 Pulse Rate from SpO2 Sensor 66 71 69 Respiratory Rate 30 H 22 20 Respiratory Effort / Characteristics Respiratory Depth Blood Pressure 176/83 H 168/93 H Blood Pressure Mean 114 118 Blood Pressure Position Pulse Oximetry 97 97 99 Oxygen Delivery Method Sepsis Recent Fever Within 48 Hours Sepsis New/Unexplained Change in Mental Status Sepsis Action Taken by Nursing Vital signs reviewed. General: Obese, chronically ill-appearing 74 yo female, in no significant distress. HEENT: No scleral icterus, PERRLA, neck supple. Atraumatic. Cardiovascular: Regular rate and rhythm, no extra sounds. Pulmonary: Clear to auscultation bilaterally, normal work of breathing. Abdomen: Soft, obese, nontender, nondistended, positive bowel sounds. Musculoskeletal: Atraumatic, no peripheral edema. Neurologic: Patient awake alert and follows commands, but confused to age, date and details of recent events. Skin: Warm, dry, no rash Course Administered Medications Acetaminophen (Acetaminophen 325 Mg Tab) 650 mg PO Q4H PRN PRN Reason: Pain or Fever Stop: 10/25/20 23:05 Last Admin: 09/26/20 23:21 Dose: 650 mg Documented by: [id number] Admin: 09/26/20 12:07 Dose: 650 mg Documented by: [id number] Apixaban (Apixaban 5 Mg Tablet) 5 mg PO BID [facility] Stop: 10/25/20 23:05 Last Admin: 09/30/20 23:16 Dose: Not Given Documented by: [id number] Admin: 09/30/20 08:28 Dose: 5 mg Documented by: [id number] Admin: 09/29/20 21:04 Dose: 5 mg Documented by: [id number] Admin: 09/29/20 08:38 Dose: 5 mg Documented by: [id number] Admin: 09/28/20 20:36 Dose: 5 mg Documented by: [id number] Admin: 09/28/20 09:27 Dose: 5 mg Documented by: [id number] Admin: 09/27/20 20:45 Dose: 5 mg Documented by: [id number] Admin: 09/27/20 08:11 Dose: 5 mg Documented by: [id number] Admin: 09/26/20 20:43 Dose: 5 mg Documented by: [id number] Admin: 09/26/20 07:45 Dose: 5 mg Documented by: [id number] Admin: 09/26/20 00:58 Dose: 5 mg Documented by: [id number] Carvedilol (Carvedilol 6.25 Mg Tab) 6.25 mg PO BID [facility] Stop: 10/26/20 08:59 Last Admin: 09/30/20 23:17 Dose: Not Given Documented by: [id number] Admin: 09/30/20 08:28 Dose: 6.25 mg Documented by: [id number] Admin: 09/29/20 21:04 Dose: 6.25 mg Documented by: [id number] Admin: 09/29/20 08:38 Dose: 6.25 mg Documented by: [id number] Admin: 09/28/20 20:36 Dose: 6.25 mg Documented by: [id number] Admin: 09/28/20 09:27 Dose: 6.25 mg Documented by: [id number] Admin: 09/27/20 20:46 Dose: 6.25 mg Documented by: [id number] Admin: 09/27/20 08:11 Dose: 6.25 mg Documented by: [id number] Admin: 09/26/20 20:43 Dose: 6.25 mg Documented by: [id number] Admin: 09/26/20 07:45 Dose: 6.25 mg Documented by: [id number] Dextrose (Dextrose 50% 50 Ml Syringe) 25 - 50 ml IV UD PRN; Protocol PRN Reason: Hypoglycemia Protocol Stop: 10/25/20 23:05 Last Admin: 09/26/20 00:56 Dose: 25 ml Documented by: [id number] Docusate Sodium (Docusate Sodium 100 Mg Cap) 100 mg PO BID [facility] Stop: 10/30/20 20:59 Last Admin: 09/30/20 23:17 Dose: Not Given Documented by: [id number] Duloxetine HCl (Duloxetine Hcl 30 Mg Cap) 30 mg PO QA [facility] Stop: 10/26/20 08:59 Last Admin: 09/30/20 08:29 Dose: 30 mg Documented by: [id number] Admin: 09/29/20 08:38 Dose: 30 mg Documented by: [id number] Admin: 09/28/20 09:28 Dose: 30 mg Documented by: [id number] Admin: 09/27/20 08:11 Dose: 30 mg Documented by: [id number] Admin: 09/26/20 07:45 Dose: 30 mg Documented by: [id number] Famotidine (Famotidine 40 Mg Tablet) 40 mg PO HS [facility] Stop: 10/26/20 20:59 Last Admin: 09/30/20 23:17 Dose: Not Given Documented by: [id number] Admin: 09/29/20 21:04 Dose: 40 mg Documented by: [id number] Admin: 09/28/20 20:37 Dose: 40 mg Documented by: [id number] Admin: 09/27/20 20:46 Dose: 40 mg Documented by: [id number] Admin: 09/26/20 20:43 Dose: 40 mg Documented by: [id number] Furosemide (Furosemide 20 Mg Tab) 20 mg PO QAM [facility] Stop: 10/26/20 08:59 Last Admin: 09/28/20 10:06 Dose: 20 mg Documented by: [id number] Admin: 09/26/20 07:45 Dose: 20 mg Documented by: [id number] Meropenem 500 mg/ Syringe 10 mls @ 2 mls/min IV Q6 [facility]; Protocol Stop: 10/07/20 23:29 Last Admin: 10/01/20 06:06 Dose: 2 mls/min Documented by: [id number] Admin: 10/01/20 00:08 Dose: 2 mls/min Documented by: [id number] Doxycycline Hyclate 100 mg/ (Dextrose) 110 mls @ 50 mls/hr IV Q12H [facility] Stop: 10/11/20 00:00 Last Infusion: 10/01/20 03:18 Dose: 0 mls/hr Documented by: [id number] Admin: 10/01/20 00:50 Dose: 50 mls/hr Documented by: [id number] Insulin Aspart (Insulin Aspart 100 Units/Ml 3 Ml Pen) 0 units SC ACHS [facility] Stop: 10/27/20 07:29 Last Admin: 09/30/20 21:42 Dose: 1 units Documented by: [id number] Cosigned by: [id number] Admin: 09/30/20 17:18 Dose: Not Given Documented by: [id number] Cosigned by: [id number] Admin: 09/30/20 11:50 Dose: Not Given Documented by: [id number] Cosigned by: [id number] Admin: 09/30/20 09:17 Dose: Not Given Documented by: [id number] Cosigned by: [id number] Admin: 09/29/20 21:28 Dose: Not Given Documented by: [id number] Cosigned by: [id number] Admin: 09/29/20 17:05 Dose: 1 units Documented by: [id number] Cosigned by: [id number] Admin: 09/29/20 12:06 Dose: Not Given Documented by: [id number] Cosigned by: [id number] Admin: 09/29/20 07:30 Dose: Not Given Documented by: [id number] Cosigned by: [id number] Admin: 09/28/20 20:37 Dose: 1 units Documented by: [id number] Cosigned by: [id number] Admin: 09/28/20 16:54 Dose: 6 units Documented by: [id number] Cosigned by: [id number] Admin: 09/28/20 13:20 Dose: Not Given Documented by: [id number] Cosigned by: [id number] Admin: 09/28/20 10:06 Dose: Not Given Documented by: [id number] Cosigned by: [id number] Admin: 09/27/20 20:47 Dose: 1 units Documented by: [id number] Cosigned by: [id number] Admin: 09/27/20 17:47 Dose: 1 units Documented by: [id number] Cosigned by: [id number] Admin: 09/27/20 13:04 Dose: 1 units Documented by: [id number] Cosigned by: [id number] Admin: 09/27/20 08:10 Dose: 1 units Documented by: [id number] Cosigned by: [id number] Lactobacillus Acidoph/Casei/Rhamnos (Advanced Probiotic 1250 Mg Capsule) 2 cap PO DAILY [facility] Stop: 10/29/20 08:59 Last Admin: 09/30/20 08:29 Dose: 2 cap Documented by: [id number] Admin: 09/29/20 08:38 Dose: 2 cap Documented by: [id number] Latanoprost (Latanoprost 0.005% Op Soln 2.5 Ml Btl) 1 drops OP HS [facility] Stop: 10/26/20 20:59 Last Admin: 09/30/20 21:35 Dose: 1 drops Documented by: [id number] Admin: 09/29/20 21:04 Dose: 1 drops Documented by: [id number] Admin: 09/28/20 20:37 Dose: 1 drops Documented by: [id number] Admin: 09/27/20 20:46 Dose: 1 drops Documented by: [id number] Admin: 09/26/20 20:44 Dose: 1 drops Documented by: [id number] Levothyroxine Sodium (Levothyroxine Sodium 125 Mcg Tablet) 125 mcg PO DAILYBB [facility] Stop: 10/27/20 06:29 Last Admin: 09/27/20 05:44 Dose: 125 mcg Documented by: [id number] Lisinopril (Lisinopril 40 Mg Tab) 40 mg PO QAM [facility] Stop: 10/26/20 08:59 Last Admin: 09/30/20 08:29 Dose: 40 mg Documented by: [id number] Admin: 09/29/20 08:38 Dose: 40 mg Documented by: [id number] Admin: 09/28/20 10:07 Dose: 40 mg Documented by: [id number] Admin: 09/26/20 07:46 Dose: 40 mg Documented by: [id number] Oxybutynin Chloride (Oxybutynin Chloride Xl 5 Mg Tabcr) 5 mg PO TID [facility] Stop: 10/26/20 08:59 Last Admin: 09/30/20 23:17 Dose: Not Given Documented by: [id number] Admin: 09/30/20 14:51 Dose: 5 mg Documented by: [id number] Admin: 09/30/20 08:28 Dose: 5 mg Documented by: [id number] Admin: 09/29/20 21:04 Dose: 5 mg Documented by: [id number] Admin: 09/29/20 13:33 Dose: 5 mg Documented by: [id number] Admin: 09/29/20 08:38 Dose: 5 mg Documented by: [id number] Admin: 09/28/20 20:37 Dose: 5 mg Documented by: [id number] Admin: 09/28/20 15:02 Dose: 5 mg Documented by: [id number] Admin: 09/28/20 09:28 Dose: 5 mg Documented by: [id number] Admin: 09/27/20 20:46 Dose: 5 mg Documented by: [id number] Admin: 09/27/20 13:04 Dose: 5 mg Documented by: [id number] Admin: 09/27/20 08:11 Dose: 5 mg Documented by: [id number] Admin: 09/26/20 20:44 Dose: 5 mg Documented by: [id number] Admin: 09/26/20 12:07 Dose: 5 mg Documented by: [id number] Admin: 09/26/20 07:46 Dose: 5 mg Documented by: [id number] Pantoprazole Sodium (Pantoprazole 40 Mg Tab) [facility] [place] Stop: 10/26/20 08:59 Last Admin: 09/30/20 08:29 Dose: 40 mg Documented by: [id number] Admin: 09/29/20 08:38 Dose: 40 mg Documented by: [id number] Admin: 09/28/20 09:29 Dose: 40 mg Documented by: [id number] Admin: 09/27/20 08:11 Dose: 40 mg Documented by: [id number] Admin: 09/26/20 07:46 Dose: 40 mg Documented by: [id number] Polyethylene Glycol (Polyethylene (Miralax) 17 Gm Pack) 17 gm PO DAILY PRN PRN Reason: Constipation Stop: 10/25/20 23:05 Last Admin: 09/30/20 08:27 Dose: 17 gm Documented by: [id number] Admin: 09/28/20 23:04 Dose: 17 gm Documented by: [id number] Spironolactone (Spironolactone 12.5 Mg Tab) 12.5 mg PO [facility] Stop: 10/26/20 08:59 Last Admin: 09/30/20 08:29 Dose: 12.5 mg Documented by: [id number] Admin: 09/29/20 08:38 Dose: 12.5 mg Documented by: [id number] Admin: 09/28/20 10:35 Dose: 12.5 mg Documented by: [id number] Admin: 09/26/20 07:46 Dose: 12.5 mg Documented by: [id number] Discontinued Medications Ciprofloxacin (Ciprofloxacin 500 Mg Tab) 500 mg PO Q12H [facility]; Protocol Stop: 10/08/20 17:59 Last Admin: 09/30/20 05:55 Dose: 500 mg Documented by: [id number] Admin: 09/29/20 17:22 Dose: 500 mg Documented by: [id number] Dextrose (Dextrose 50% 50 Ml Syringe) 25 ml IV NOW STA Stop: 09/25/20 19:36 Last Admin: 09/25/20 19:42 Dose: 25 ml Documented by: [id number] Dextrose (Dextrose 50% 50 Ml Syringe) 25 ml IV NOW ONE Stop: 09/25/20 20:13 Last Admin: 09/25/20 20:13 Dose: 25 ml Documented by: [id number] Dextrose (Dextrose 50% 50 Ml Syringe) 25 ml IV NOW ONE Stop: 09/25/20 20:18 Last Admin: 09/25/20 20:26 Dose: Not Given Documented by: [id number] Dextrose (Dextrose 50% 50 Ml Syringe) Confirm Administered Dose 50 ml IV .STK-MED ONE Stop: 09/25/20 23:33 Last Admin: 09/25/20 23:35 Dose: 50 ml Documented by: [id number] Sodium Chloride (Nss 1000ml) 1,000 mls @ 125 mls/hr IV .Q8H [facility] Stop: 09/26/20 02:29 Last Infusion: 09/25/20 21:48 Dose: 0 mls/hr Documented by: [id number] Admin: 09/25/20 19:33 Dose: 125 mls/hr Documented by: [id number] Ceftriaxone Sodium (Rocephin) 2,000 mg in 70 mls @ 140 mls/hr IV NOW STA Stop: 09/25/20 19:52 Last Infusion: 09/25/20 20:07 Dose: 0 mls/hr Documented by: [id number] Admin: 09/25/20 19:33 Dose: 140 mls/hr Documented by: [id number] Potassium Chloride/Dextrose/Sod Cl (D5w And 1/2nss + 20meq Kcl) 20 meq in 1,000 mls @ 100 mls/hr IV .Q10H [facility] Stop: 10/25/20 20:29 Last Infusion: 09/25/20 23:50 Dose: 0 mls/hr Documented by: [id number] Admin: 09/25/20 21:48 Dose: 100 mls/hr Documented by: [id number] Dextrose (D5w) 1,000 mls @ 125 mls/hr IV .Q8H [facility] Stop: 09/26/20 07:05 Last Infusion: 09/26/20 01:05 Dose: 0 mls/hr Documented by: [id number] Admin: 09/25/20 23:52 Dose: 125 mls/hr Documented by: [id number] Dextrose (D10w) 1,000 mls @ 75 mls/hr IV .[id number] [facility] Stop: 10/26/20 00:59 Last Admin: 09/26/20 15:11 Dose: Not Given Documented by: [id number] Infusion: 09/26/20 14:46 Dose: 0 mls/hr Documented by: [id number] Infusion: 09/26/20 06:01 Dose: 75 mls/hr Documented by: [id number] Infusion: 09/26/20 05:16 Dose: 0 mls/hr Documented by: [id number] Infusion: 09/26/20 03:00 Dose: 75 mls/hr Documented by: [id number] Infusion: 09/26/20 02:15 Dose: 0 mls/hr Documented by: [id number] Admin: 09/26/20 01:15 Dose: 75 mls/hr Documented by: [id number] Ertapenem 1,000 mg/ Sodium (Chloride) 60 mls @ 100 mls/hr IV Q24H [facility] Stop: 10/03/20 04:59 Last Infusion: 09/27/20 06:21 Dose: 0 mls/hr Documented by: [id number] Admin: 09/27/20 05:43 Dose: 100 mls/hr Documented by: [id number] Infusion: 09/26/20 05:45 Dose: 0 mls/hr Documented by: [id number] Admin: 09/26/20 05:15 Dose: 100 mls/hr Documented by: [id number] Vancomycin HCl 1,250 mg/ (Sodium Chloride) 275 mls @ 200 mls/hr IV Q12H [facility]; Protocol Stop: 10/03/20 17:59 Last Infusion: 09/27/20 07:51 Dose: 0 mls/hr Documented by: [id number] Admin: 09/27/20 05:43 Dose: 200 mls/hr Documented by: [id number] Infusion: 09/26/20 19:05 Dose: 0 mls/hr Documented by: [id number] Admin: 09/26/20 17:36 Dose: 200 mls/hr Documented by: [id number] Vancomycin HCl 2,500 mg/ (Sodium Chloride) 550 mls @ 200 mls/hr IV NOW ONE Stop: 09/26/20 07:44 Last Infusion: 09/26/20 08:00 Dose: 0 mls/hr Documented by: [id number] Admin: 09/26/20 05:15 Dose: 200 mls/hr Documented by: [id number] Dextrose/Sodium Chloride (D5w And Nss) 1,000 mls @ 100 mls/hr IV .Q10H [facility] Stop: 09/27/20 00:44 Last Infusion: 09/27/20 00:48 Dose: 0 mls/hr Documented by: [id number] Admin: 09/26/20 14:46 Dose: 100 mls/hr Documented by: [id number] Ceftriaxone Sodium 2,000 mg/ (Dextrose) 70 mls @ 100 mls/hr IV DAILY [facility]; Protocol Stop: 10/02/20 08:59 Last Infusion: 09/28/20 11:08 Dose: 0 mls/hr Documented by: [id number] Admin: 09/28/20 10:05 Dose: 100 mls/hr Documented by: [id number] Infusion: 09/27/20 10:24 Dose: 0 mls/hr Documented by: [id number] Admin: 09/27/20 09:33 Dose: 100 mls/hr Documented by: [id number] Ciprofloxacin (Cipro / D5w) 400 mg in 200 mls @ 100 mls/hr IV Q12H [facility]; Protocol Stop: 10/08/20 17:59 Last Infusion: 09/29/20 09:01 Dose: 0 mls/hr Documented by: [id number] Admin: 09/29/20 05:54 Dose: 100 mls/hr Documented by: [id number] Infusion: 09/28/20 20:44 Dose: 0 mls/hr Documented by: [id number] Admin: 09/28/20 18:22 Dose: 100 mls/hr Documented by: [id number] Lactated Ringer's (Lr) 1,000 mls @ 75 mls/hr IV .[id number] [facility] Stop: 09/29/20 07:04 Last Infusion: 09/29/20 09:01 Dose: 0 mls/hr Documented by: [id number] Admin: 09/28/20 18:22 Dose: 75 mls/hr Documented by: [id number] Ciprofloxacin (Cipro / D5w) 400 mg in 200 mls @ 100 mls/hr IV Q12H [facility]; Protocol Stop: 10/08/20 17:59 Last Infusion: 09/30/20 19:40 Dose: 0 mls/hr Documented by: [id number] Admin: 09/30/20 17:25 Dose: 100 mls/hr Documented by: [id number] Sodium Chloride (Nss) 500 mls @ 100 mls/hr IV .Q5H [facility] Stop: 10/01/20 04:14 Last Infusion: 10/01/20 04:37 Dose: 0 mls/hr Documented by: [id number] Admin: 09/30/20 23:12 Dose: 100 mls/hr Documented by: [id number] Levalbuterol HCl (') 1.25 mg NEB NOW STA Stop: 10/01/20 01:45 Last Admin: 10/01/20 02:17 Dose: 1.25 mg Documented by: [id number] Levothyroxine Sodium (Levothyroxine Sodium 150 Mcg Tablet) 150 mcg PO DAILYBB [facility] Stop: 10/26/20 06:29 Last Admin: 09/26/20 05:16 Dose: 150 mcg Documented by: [id number] Critical Care Time Critical Care Time: Yes I have personally spent 35 minutes of critical care time in the direct management of this patient. This was a life threatening event. This 35 minutes is in excess of all separately billable procedures. Medical Decision Making Differential Diagnosis Infection, dehydration, metabolic abnormality, hypo/hyperglycemia, electrolyte disturbance, anemia, hypoxia, cardiac sources, intracerebral event, toxicologic, neurologic, as well as other pathologies. Medical Records Attestation: I reviewed the patient's medical records. Home Medications Current Medication List: was personally reviewed by me Laboratory Data Attestation: I reviewed the patient's lab results. Result diagrams: 09/30/20 22:16 09/30/20 22:16 Lab Results 09/25/20 09/25/20 09/25/20 Range/Units 18:16 18:55 19:14 WBC 11.68 H (4.8-10.8) K/uL RBC 3.54 L (4.2-5.4) M/uL Hgb 9.9 L (12.0-16.0) g/dL Hct 30.1 L (37-47) % MCV 85.0 (80-100) fL MCH 28.0 (25-34) pg MCHC 32.9 (32-36) g/dL RDW Std Deviation 50.5 H (36.4-46.3) fL RDW Coeff of Joseline 16.2 H (11.5-14.5) % Plt Count 112 L (130-400) K/uL MPV 9.1 (7.4-10.4) fL Immature Gran % (Auto) 0.3 % Neut % (Auto) 86.8 % Lymph % (Auto) 4.5 % [place] % (Auto) 7.8 % Eos % (Auto) 0.5 % Baso % (Auto) 0.1 % Neut # (Auto) 10.14 H (1.4-6.5) K/uL Lymph # (Auto) 0.53 L (1.2-3.4) K/uL [place] # (Auto) 0.91 H (0.11-0.59) K/uL Eos # (Auto) 0.06 (0-0.5) K/uL Baso # (Auto) 0.01 (0-0.2) K/uL Immature Gran # (Auto) 0.03 H (0.00-0.02) K/uL Sodium (136-145) mmol/L Potassium (3.5-5.1) mmol/L Chloride (98-107) mmol/L Carbon Dioxide (21-32) mmol/L Anion Gap (3-11) BUN (7-18) mg/dl Creatinine (0.6-1.2) mg/dl Est Cr Clr Drug Dosing ml/min Est GFR ( Amer) ml/min Est GFR (Non-Af Amer) ml/min BUN/Creatinine Ratio (10-20) Glucose (70-99) mg/dl POC Glucose 67 L* (70-99) mg/dl Calcium (8.5-10.1) mg/dl Magnesium (1.8-2.4) mg/dl Total Bilirubin (0.2-1) mg/dl AST (15-37) U/L ALT (12-78) U/L Alkaline Phosphatase (45-117) U/L Troponin I (0-0.045) ng/ml Total Protein (6.4-8.2) gm/dl Albumin (3.4-5.0) gm/dl Globulin (2.5-4.0) gm/dl Albumin/Globulin Ratio (0.9-2) TSH (0.300-4.500) uIu/ml Free T4 (0.8-1.6) ng/dl Urine Color Dark Yellow Urine Appearance Cloudy A (Clear) Urine pH 6.0 (4.5-7.5) Ur Specific Jones 1.012 (1.000-1.030) Urine Protein Trace H (Negative) Urine Glucose (UA) Negative (Negative) Urine Ketones Negative (Negative) Urine Blood Trace H (Negative) Urine Nitrite Negative (Negative) Urine Bilirubin 1+ H (Negative) Urine Urobilinogen Negative (Negative) Ur Leukocyte Esterase 3+ H (Negative) Urine WBC (Auto) >30 H (0-5) /hpf Urine RBC (Auto) 10-30 H (0-4) /hpf U Hyaline Cast (Auto) 1-5 (0-5) /lpf U Epithel Cells (Auto) 0-5 (0-5) /lpf Urine Bacteria (Auto) 4+ H (Negative) COVID-19 Eval Order SARS-CoV-2 (PCR) (Negative) 09/25/20 09/25/20 09/25/20 Range/Units 19:14 19:16 19:34 WBC (4.8-10.8) K/uL RBC (4.2-5.4) M/uL Hgb (12.0-16.0) g/dL Hct (37-47) % MCV (80-100) fL MCH (25-34) pg MCHC (32-36) g/dL RDW Std Deviation (36.4-46.3) fL RDW Coeff of Joseline (11.5-14.5) % Plt Count (130-400) K/uL MPV (7.4-10.4) fL Immature Gran % (Auto) % Neut % (Auto) % Lymph % (Auto) % [place] % (Auto) % Eos % (Auto) % Baso % (Auto) % Neut # (Auto) (1.4-6.5) K/uL Lymph # (Auto) (1.2-3.4) K/uL [place] # (Auto) (0.11-0.59) K/uL Eos # (Auto) (0-0.5) K/uL Baso # (Auto) (0-0.2) K/uL Immature Gran # (Auto) (0.00-0.02) K/uL Sodium 132 L (136-145) mmol/L Potassium 3.4 L (3.5-5.1) mmol/L Chloride 97 L (98-107) mmol/L Carbon Dioxide 29 (21-32) mmol/L Anion Gap 6.0 (3-11) BUN 19 H (7-18) mg/dl Creatinine 0.93 (0.6-1.2) mg/dl Est Cr Clr Drug Dosing 62.1 ml/min Est GFR ( Amer) 69.7 ml/min Est GFR (Non-Af Amer) 60.1 ml/min BUN/Creatinine Ratio 20.8 H (10-20) Glucose 31 L* (70-99) mg/dl POC Glucose 43 L* 41 L* (70-99) mg/dl Calcium 9.0 (8.5-10.1) mg/dl Magnesium 1.8 (1.8-2.4) mg/dl Total Bilirubin 0.9 (0.2-1) mg/dl AST 25 (15-37) U/L ALT 17 (12-78) U/L Alkaline Phosphatase 124 H (45-117) U/L Troponin I < 0.015 (0-0.045) ng/ml Total Protein 6.9 (6.4-8.2) gm/dl Albumin 1.9 L (3.4-5.0) gm/dl Globulin 5.0 H (2.5-4.0) gm/dl Albumin/Globulin Ratio 0.4 L (0.9-2) TSH 0.284 L (0.300-4.500) uIu/ml Free T4 2.01 H (0.8-1.6) ng/dl Urine Color Urine Appearance (Clear) Urine pH (4.5-7.5) Ur Specific Jones (1.000-1.030) Urine Protein (Negative) Urine Glucose (UA) (Negative) Urine Ketones (Negative) Urine Blood (Negative) Urine Nitrite (Negative) Urine Bilirubin (Negative) Urine Urobilinogen (Negative) Ur Leukocyte Esterase (Negative) Urine WBC (Auto) (0-5) /hpf Urine RBC (Auto) (0-4) /hpf U Hyaline Cast (Auto) (0-5) /lpf U Epithel Cells (Auto) (0-5) /lpf Urine Bacteria (Auto) (Negative) COVID-19 Eval Order SARS-CoV-2 (PCR) (Negative) 09/25/20 09/25/20 09/25/20 Range/Units 19:44 19:44 20:05 WBC (4.8-10.8) K/uL RBC (4.2-5.4) M/uL Hgb (12.0-16.0) g/dL Hct (37-47) % MCV (80-100) fL MCH (25-34) pg MCHC (32-36) g/dL RDW Std Deviation (36.4-46.3) fL RDW Coeff of Joseline (11.5-14.5) % Plt Count (130-400) K/uL MPV (7.4-10.4) fL Immature Gran % (Auto) % Neut % (Auto) % Lymph % (Auto) % [place] % (Auto) % Eos % (Auto) % Baso % (Auto) % Neut # (Auto) (1.4-6.5) K/uL Lymph # (Auto) (1.2-3.4) K/uL [place] # (Auto) (0.11-0.59) K/uL Eos # (Auto) (0-0.5) K/uL Baso # (Auto) (0-0.2) K/uL Immature Gran # (Auto) (0.00-0.02) K/uL Sodium (136-145) mmol/L Potassium (3.5-5.1) mmol/L Chloride (98-107) mmol/L Carbon Dioxide (21-32) mmol/L Anion Gap (3-11) BUN (7-18) mg/dl Creatinine (0.6-1.2) mg/dl Est Cr Clr Drug Dosing ml/min Est GFR ( Amer) ml/min Est GFR (Non-Af Amer) ml/min BUN/Creatinine Ratio (10-20) Glucose (70-99) mg/dl POC Glucose 52 L* (70-99) mg/dl Calcium (8.5-10.1) mg/dl Magnesium (1.8-2.4) mg/dl Total Bilirubin (0.2-1) mg/dl AST (15-37) U/L ALT (12-78) U/L Alkaline Phosphatase (45-117) U/L Troponin I (0-0.045) ng/ml Total Protein (6.4-8.2) gm/dl Albumin (3.4-5.0) gm/dl Globulin (2.5-4.0) gm/dl Albumin/Globulin Ratio (0.9-2) TSH (0.300-4.500) uIu/ml Free T4 (0.8-1.6) ng/dl Urine Color Urine Appearance (Clear) Urine pH (4.5-7.5) Ur Specific Jones (1.000-1.030) Urine Protein (Negative) Urine Glucose (UA) (Negative) Urine Ketones (Negative) Urine Blood (Negative) Urine Nitrite (Negative) Urine Bilirubin (Negative) Urine Urobilinogen (Negative) Ur Leukocyte Esterase (Negative) Urine WBC (Auto) (0-5) /hpf Urine RBC (Auto) (0-4) /hpf U Hyaline Cast (Auto) (0-5) /lpf U Epithel Cells (Auto) (0-5) /lpf Urine Bacteria (Auto) (Negative) COVID-19 Eval Order Covid19 at [facility] SARS-CoV-2 (PCR) NEGATIVE (Negative) Imaging Data Radiologist's Impression: Chest X-Ray 09/25/20 18:27 XR chest 1V portable HISTORY: 74 years-old Female weakness acute weakness COMPARISON: Chest radiograph 09/13/2020 TECHNIQUE: Portable AP view of the chest FINDINGS: Cardiac silhouette is enlarged. Calcified plaque of the thoracic aorta. Mild right hemidiaphragmatic elevation with bibasilar opacities. Pulmonary vascular congestion. Degenerative changes of the shoulders and spine. IMPRESSION: 1. Cardiomegaly with pulmonary vascular congestion. 2. Mild bibasilar opacities suggestive of atelectasis versus pneumonitis. ACT 112: Negative or not required by law. The above report was generated using voice recognition software. It may contain grammatical, syntax or spelling errors. Electronically signed by: Parker Warren M.D. 09/25/2020 7:40 PM ECG Data Attestation: I personally reviewed and interpreted this ECG as follows: Indication: + altered mental status Rate (beats per minute): 73 Rhythm: + normal sinus ECG Intervals/blocks: + Normal QT-c ECG Lawn: + Normal ECG ST segments: + Normal ST segments Comparison ECG Date: from (09/13/20) Change: no significant change Blood Pressure Blood Pressure Findings: Elevated blood pressure Blood Pressure Disposition: further management by hospitalist MDM Narrative This pt was evaluated and appeared to be in no distress. IV access was obtained and lab work was drawn. An order was placed for the switchboard operator helper and the pt was noted to be in a NSR at 75 bpm. Pt was given food and fluid to drink, but glucose kept dropping. IV dextrose was administered prehospital and again in the ED, and still the glucose dropped. The etiology must be a medication error. IV D5 continuous was initiated as well as IV ceftriaxone for UTI administered. Case was d/w the hospitalist for further management. Impression & Plan Encephalopathy, Acute UTI, Hypoglycemia associated with diabetes Discharge Plan Visit Data Chief Complaint: Hypoglycemia ED Provider: Shanon Ochoa Discharge Problem: Encephalopathy, Acute UTI, Hypoglycemia associated with diabetes Patient Disposition: Admitted As Inpatient Discharge Instructions Interventions: ED Discharge Assessment Last Done: 09/25/20 22:20
[2020-09-25] MEDS ORDERED: GLUCAGON FOR INJ 1 MG VIAL SQ PRN (23:06)
[2020-09-25] MEDS ORDERED: CARBOHYDRATES FOR HYPOGLYCEMIA PO PRN (23:06)
[2020-09-25] MEDS ORDERED: GLUCOSE 40% GEL 15 GM TUBE PO PRN (23:06)
[2020-09-25] MEDS ORDERED: DEXTROSE 5% 1,000 ML IV SCH (23:06)
[2020-09-25] MEDS ORDERED: GLUCOSE 10 TABS/TUBE PO PRN (23:06)
[2020-09-25] MEDS ORDERED: DEXTROSE 50% 50 ML SYRINGE IV PRN (23:06)
[2020-09-26] MEDS: APIXABAN 5 MG TABLET PO SCH ×3 (00:58→20:43)
[2020-09-26] MEDS: DEXTROSE 10% 1,000 ML IV SCH ×2 (01:15→15:11)
[2020-09-26] MEDS ORDERED: VANCOMYCIN CONSULT ACTIVE PRN (04:22)
[2020-09-26] MEDS ORDERED: VANCOMYCIN HCL 2,500 MG in SODIUM CHLORIDE 0.9% 500 ML IV ONE (05:00)
[2020-09-26] MEDS: ERTAPENEM SODIUM 1,000 MG in SODIUM CHLORIDE 0.9% 50 ML IV SCH (05:15)
[2020-09-26] MEDS ORDERED: LEVOTHYROXINE SODIUM 150 MCG TABLET PO SCH (06:30)
[2020-09-26 07:16] LABS: Hematocrit (blood only) 31.4 % (37-47); Hemoglobin 10.1 g/dL (12.0-16.0); Mean Corpuscular Hemoglobin 27.5 pg (25-34); Mean Corpuscular Hgb Conc 32.2 g/dL (32-36); Mean Corpuscular Volume 85.6 fL (80-100); Mean Platelet Volume 8.8 fL (7.4-10.4); Platelet Count 111 K/uL (130-400); RDW Coefficient of Variation 16.3 % (11.5-14.5); RDW Standard Deviation 50.9 fL (36.4-46.3); Red Blood Count 3.67 M/uL (4.2-5.4); White Blood Count 10.16 K/uL (4.8-10.8)
[2020-09-26 07:43] LABS: Creatinine Clr Calc Pharmacy 65.7 ml/min; Est GFR (African American) 74.5 ml/min; Est GFR (Non-African American) 64.3 ml/min; Potassium 3.7 mmol/L (3.5-5.1)
[2020-09-26] MEDS: carvediloL 6.25 MG TAB PO SCH ×2 (07:45→20:43)
[2020-09-26] MEDS: FUROSEMIDE 20 MG TAB PO SCH (07:45)
[2020-09-26] MEDS: DULoxetine HCL 30 MG CAP PO SCH (07:45)
[2020-09-26] MEDS: OXYBUTYNIN CHLORIDE XL 5 MG TABCR PO SCH ×3 (07:46→20:44)
[2020-09-26] MEDS: lisinopril 40 MG TAB PO SCH (07:46)
[2020-09-26] MEDS: SPIRONOLACTONE 12.5 MG TAB PO SCH (07:46)
[2020-09-26] MEDS: PANTOprazole 40 MG TAB PO SCH (07:46)
--- NOTE | 2020-09-26 07:47 | Hospitalist Progress Note ---
Date of Service September 26, 2020 Assessment & Plan Admission and Anticipated Discharge Date Admission Date: September 25, 2020 Subjective Tsh is low and t4 high. will follow repeat labs.If shows same may need to start on methimazole or discuss with endocrinology Results & Data Results & Data ([facility]) Vital Signs (Past 12 Hours) Vital Signs Temp Pulse Pulse Resp BP BP BP 09/26/20 07:08 36.9 C 97 H 22 117/90 09/26/20 06:34 100 H 09/26/20 03:32 37.4 C 102 H 20 159/73 H 09/26/20 01:36 88 09/26/20 00:20 36.6 C 98 H 16 146/83 H 09/25/20 21:31 78 22 09/25/20 21:30 80 20 178/76 H 09/25/20 21:01 73 22 09/25/20 21:00 74 22 170/83 H 09/25/20 20:30 69 20 168/93 H 09/25/20 20:18 79 22 176/83 H 09/25/20 20:00 66 30 H Pulse Ox 09/26/20 07:08 95 09/26/20 06:34 09/26/20 03:32 97 09/26/20 01:36 09/26/20 00:20 96 09/25/20 21:31 09/25/20 21:30 09/25/20 21:01 09/25/20 21:00 09/25/20 20:30 99 09/25/20 20:18 97 09/25/20 20:00 97
[2020-09-26] MEDS ORDERED: cefTRIAXone SODIUM 2,000 MG in DEXTROSE 5% 50 ML IV SCH (09:00)
--- NOTE | 2020-09-26 11:56 | Hospitalist Progress Note ---
Date of Service September 26, 2020 Assessment & Plan (1) Hypoglycemia: (2) AMS (altered mental status): Pt is 74 y/o F with PMH DM II, HTN, dyslipidemia, asthma, diastolic dysfunction, GERD, hypothyroidism, obesity, anxiety, H/O COVID-19 in 05/2020, LLE DVT is on Eliquis, s/p IVC filter presented to ER with complaint of AMS and hypoglycemia. Presented with with sudden onset AMS and found to have BSG 35 Metabolic encephalopathy Presented with altered mental status, metabolic encephalopathy in setting of hypoglycemia, possible urinary tract infection, possible left groin biopsy site infection Mental status gradually improving, patient is still remains very fatigued, lethargic, with wakes up to voice, able to recognize person knows that she is in hospital cannot tell me the name of the hospital No dysarthria, no focal neurological deficit Blood glucose improved after IV dextrose, continue to hold p.o. glipizide and Ozempic Follow urine culture, and wound culture report, Continue with IV Rocephin for now Hypoglycemia: Hold glipizide and Ozempic A1c: 6.9 in 07/2020 Oral hypoglycemics may needs to be adjusted for presentation with hypoglycemia We will DC glipizide on discharge, and have close follow-up with family physician for glycemic management UTI UA: 3+ leuk esterase,> 30 WBC, 4+ bacteria. No reported symptoms Urine culture pending Continue Rocephin Weakness/Ambulatory dysfunction: Ongoing generalized weakness Weakness may be secondary to deconditioning, prolonged fatigue from COVID-19 in 05/2020 Patient started receiving home PT this week Fall precautions PT OT evaluation requested Left lower extremity DVT Present upon admission. Diagnosed 09/13/2020 S/p IVC filter Continue Eliquis Hypertension: Continue carvedilol, lisinopril, spironolactone, lasix Diastolic dysfunction: Stable volume status Grade II diastolic dysfunction, EF 59% on echo in 2018 Continue lasix Abnormal thyroid function test: Patient been on levothyroxine for hypothyroidism: Thyroid function shows low TSH, elevated free T4 reduce levothyroxine to 125 mcg daily Repeat TSH level in 4 to 6 weeks Recently diagnosed Hodgkin's lymphoma. left groin LN biopsy : Hodgkin's Lymphoma , needs out patient oncology follow up concern for possible infection at biopsy site appreciate input from wound care , no surrounding erythema , or evidence of infection noted wound culture ordered , will follow Anemia: Hgb: 9.9. Recent admission Hgb: 9-11 No reported bleeding Recent anemia studies decreased iron, TIBC, transferrin levels, increased ferritin, decreased folate, B12 and reticulocytes within normal limits Dysphagia: Chronic dysphagia. H/O EGD in 2019 without abnormality, however decision made to dilate esophagus Aspiration precautions Soft bite size diet GERD (gastroesophageal reflux disease): Continue PPI, H2 rosita Anxiety: Continue duloxetine History of COVID-19: In 05/2020. Had GRAF, fever, fatigue. DVT Prophylaxis Has current LLE DVT, Eliquis Full Code as per discussion with pt and pt's daughter Follows with Dr Maynard for routine care Disposition: Lives at home with son and daughter, has good family support PT OT evaluation, Case management consult for discharge planning Admission and Anticipated Discharge Date Admission Date: September 25, 2020 Subjective Follow-up visit for lethargy altered mental status, hypoglycemia: Remains lethargic, wakes up to voice, States that she feels very tired and weak, knows that she is in the hospital, oriented to person only Febrile episode noted this morning, Review of Systems Review of Systems: Unobtainable due to cognitive status Physical Exam Physical Exam: Physical exam: General: Morbidly obese, appears to be tired and lethargic, wakes up to voice HEENT: PERRLA, EOMI, Heart: Regular S1-S2, no carotid bruit, no JVD, no lower extremity edema Lungs: Diminished breath sound Abdomen: Soft nontender, no organomegaly Extremity: No cyanosis, no deformity, abscess site on left groin, appears to be healing well, no surrounding erythema, mild serous drainage Neuro: Unable to assess as patient remains very lethargic, moving all extremities, no dysphagia, Results & Data Results & Data ([facility]) Vital Signs (Past 12 Hours) Vital Signs Temp Pulse Pulse Resp BP BP Pulse Ox 09/26/20 11:20 38.1 C H 80 21 164/85 H 97 09/26/20 07:08 36.9 C 97 H 22 117/90 95 09/26/20 06:34 100 H 09/26/20 03:32 37.4 C 102 H 20 159/73 H 97 09/26/20 01:36 88 09/26/20 00:20 36.6 C 98 H 16 146/83 H 96
[2020-09-26] MEDS: ACETAMINOPHEN 325 MG TAB PO PRN ×2 (12:07→23:21)
--- NOTE | 2020-09-26 12:39 | Surgery Consultation ---
Date of Consultation September 26, 2020 Assessment & Plan (1) Postoperative follow-up: pt is a 74 year-old female who admitted to hospital for hypoglycemia, S/P biopsy left groin lymph node, reviewed pathology report- Hodgkin lymphoma, with pt and her daughter himanshu on the phone, IMP: Hodgkin lymphoma the incision heals well, please consult oncologist for further treatment, sign off today, please call with questions, thanks, Present on Admission?: Yes Supervising Physician Co-Signing Physician Notes Care coordinated with Eda Morton PA-C. Agree with above note. Patient seen and examined. Please refer to her notes for full details. Vital signs reviewed. Physical exam: General exam: Alert and oriented. Not in acute distress. CVS: S1 and S2 heard, regular rate and rhythm, no murmurs. RS: Clear to auscultation, no wheezing or crackles. ABD: Soft, bowel sounds present, nontender, no distention. OPERATIONS OFFICER: Nonfocal. EXT: No edema, no erythema. Labs: Reviewed. Assessment and plan: 74f who recently had left LE DVT s/p ivc filter and left groin lymphnode biopsy was found to be confused at home and hypoglycemic. Encephalopathy mostly from hypoglcemia requiring D!0. hold home diabetic medication close monitor UTi left groin biopsy site infection possible cause of hypoglycemia started on abx zosyn and vancofollow cultures surgery consult for biopsy site infection Lymphadenopathy s/p biposy of left groin lymph node pathology possible hodgkins needs close followup Other diagnosis and plan of care as per Eda Morton PA-C.. Amado soliman MD. History of Present Illness Attending Physician: Sienna Kothari MD Chief Complaint: Hypoglycemia Primary Care Provider: Musa Maynard MD Pt is 74 y/o F with PMH DM II, HTN, dyslipidemia, asthma, diastolic dysfunction, GERD, hypothyroidism, obesity, anxiety, H/O COVID-19 in 05/2020, LLE DVT is on Eliquis, s/p IVC filter presented to ER with complaint of hypoglycemia. Patient reports laid down to take a nap this afternoon and later when her son saw her she had altered mental status. Reports her BSG was 45 at the time and upon EMS arrival was reported at 35. Patient was given 250 mL D50 with BSG up to 147 and resolution of altered mental status. Daughter is with patient in ER and reports she is at her baseline mental status. Patient's daughter reports that she has not been eating and drinking as well. States did have egg sandwich for breakfast and ham sandwich for lunch today. Daughter reports she manages patient's medications and denies any possible occasion ER. States patient had her glipizide this morning. Last dose of Ozempic was on Wednesday. Does report patient still has overall weakness. She started home PT 2 days ago. She was recently admitted to [facility] 09/13/2020-09/21/2020 for generalized weakness and was diagnosed with LLE DVT, had IVC filter placed, was found to have inguinal lymphadenopathy and had biopsy, CHAN that resolved. Reports 3 days ago had a fall at home. Denies injury from that fall. Denies fever/chills, diaphoresis, N/V/D/C, GRAF, dizziness, syncope, vision changes, neck pain, CP, SOB, orthopnea, palpitations, cough, sore throat, choking, otalgia, rhinorrhea, abdominal pain, paresthesias, increased extremity edema, rashes, urinary symptoms. I ( Julián Colbert MD) was asked for consult F/U S/P biopsy left groin lymph node, I reviewed pt's H/P, labs, with pt, no fever, Allergies Allergy/AdvReac Type Severity Reaction Status Date / Time albuterol Allergy Intermediate tachycardia Verified 09/25/20 19:57 amoxicillin Allergy Mild RASH Verified 09/25/20 19:57 aspirin AdvReac Mild stomach Verified 09/25/20 19:58 upset Home Medications Medication Instructions Recorded Confirmed Type carvedilol 6.25 mg PO BID 12/08/18 09/25/20 History duloxetine 30 mg PO QAM 12/08/18 09/25/20 History furosemide 20 mg PO QAM 12/08/18 09/25/20 History glipizide 5 mg PO BID 12/08/18 09/25/20 History latanoprost (PF) 1 drp OPHTHALMIC (EYE) HS 12/08/18 09/25/20 History levothyroxine 175 mcg PO QAM 12/08/18 09/25/20 History lisinopril 40 mg PO QAM 12/08/18 09/25/20 History omeprazole 40 mg PO QAM 12/08/18 09/25/20 History oxybutynin chloride [Ditropan XL] 5 mg PO TID 12/08/18 09/25/20 History spironolactone 12.5 mg PO QAM 12/08/18 09/25/20 History Ozempic 0.25 mg SUBCUT FLORES 06/05/20 09/25/20 History famotidine 40 mg PO HS 06/05/20 09/25/20 History apixaban [Eliquis] 5 mg PO BID #74 tab 09/21/20 09/25/20 Rx Past Med/Surg History Medical History Anxiety Arthritis Asthma COVID-19 virus detected 06/03/20--c/o fever, headache, fatigue roughly a couple weeks ago, daughter was also sick with symptoms Diabetes mellitus, type 2 Diastolic dysfunction Dysphagia chronic dysphagia, h/o esophageal dilation GERD (gastroesophageal reflux disease) Hiatal hernia History of COVID-19 06/2020 Hypertension Hypothyroidism Morbid obesity with BMI of 45.0-49.9, adult SOBOE (shortness of breath on exertion) Surgical History History of anesthesia reaction "WAKES UP EARLY"-NEEDS MORE MEDS History of bilateral cataract extraction History of bilateral tubal ligation History of carpal tunnel release RIGHT History of section X 2 History of cholecystectomy History of colonoscopy History of esophagogastroduodenoscopy (EGD) WITH DILITATION History of total left knee replacement (TKR) History of total right knee replacement (TKR) x2 Hx of LASIK Family History Daughter Family history of reaction to anesthesia WAKES UP EARLY Mother Family history of diabetes mellitus Father Family history of diabetes mellitus Sister Family history of diabetes mellitus Sister Family history of diabetes mellitus Brother Family history of diabetes mellitus Brother Family history of diabetes mellitus Social History Smoking Status: Never smoker Second Hand Exposure: No; Hx Alcohol Use: No Hx Substance Use: No Preferred Language: Danish Communication Ability: Effective Email Production Specialist Required: No Beliefs That Will Affect Care: None Current Living Situation: Family Current Living Situation Comment: Lives with daughter and son Feels Safe at Home: Yes Safety Concerns: Feels Safe At This Time Assistive Devices: Denture - Upper and Walker Review of Systems Review of Systems: All systems reviewed & are unremarkable except as noted in HPI & below Allergies Allergy/AdvReac Type Severity Reaction Status Date / Time albuterol Allergy Intermediate tachycardia Verified 09/25/20 19:57 amoxicillin Allergy Mild RASH Verified 09/25/20 19:57 aspirin AdvReac Mild stomach Verified 09/25/20 19:58 upset Home Medications Medication Instructions Recorded Confirmed Type carvedilol 6.25 mg PO BID 12/08/18 09/25/20 History duloxetine 30 mg PO QAM 12/08/18 09/25/20 History furosemide 20 mg PO QAM 12/08/18 09/25/20 History glipizide 5 mg PO BID 12/08/18 09/25/20 History latanoprost (PF) 1 drp OPHTHALMIC (EYE) HS 12/08/18 09/25/20 History levothyroxine 175 mcg PO QAM 12/08/18 09/25/20 History lisinopril 40 mg PO QAM 12/08/18 09/25/20 History omeprazole 40 mg PO QAM 12/08/18 09/25/20 History oxybutynin chloride [Ditropan XL] 5 mg PO TID 12/08/18 09/25/20 History spironolactone 12.5 mg PO QAM 12/08/18 09/25/20 History Ozempic 0.25 mg SUBCUT FLORES 06/05/20 09/25/20 History famotidine 40 mg PO HS 06/05/20 09/25/20 History apixaban [Eliquis] 5 mg PO BID #74 tab 09/21/20 09/25/20 Rx levothyroxine [Synthroid] 125 mcg PO DAILYBB #30 tab 09/26/20 Rx Patient History Medical History Anxiety Arthritis Asthma COVID-19 virus detected 06/03/20--c/o fever, headache, fatigue roughly a couple weeks ago, daughter was also sick with symptoms Diabetes mellitus, type 2 Diastolic dysfunction Dysphagia chronic dysphagia, h/o esophageal dilation GERD (gastroesophageal reflux disease) Hiatal hernia History of COVID-19 06/2020 Hypertension Hypothyroidism Morbid obesity with BMI of 45.0-49.9, adult SOBOE (shortness of breath on exertion) Surgical History History of anesthesia reaction "WAKES UP EARLY"-NEEDS MORE MEDS History of bilateral cataract extraction History of bilateral tubal ligation History of carpal tunnel release RIGHT History of section X 2 History of cholecystectomy History of colonoscopy History of esophagogastroduodenoscopy (EGD) WITH DILITATION History of total left knee replacement (TKR) History of total right knee replacement (TKR) x2 Hx of LASIK Family History Daughter Family history of reaction to anesthesia WAKES UP EARLY Mother Family history of diabetes mellitus Father Family history of diabetes mellitus Sister Family history of diabetes mellitus Sister Family history of diabetes mellitus Brother Family history of diabetes mellitus Brother Family history of diabetes mellitus Social History Smoking Status: Never smoker Second Hand Exposure: No; Hx Alcohol Use: No Hx Substance Use: No Preferred Language: Danish Communication Ability: Effective Email Production Specialist Required: No Beliefs That Will Affect Care: None Current Living Situation: Family Current Living Situation Comment: Lives with daughter and son Feels Safe at Home: Yes Safety Concerns: Feels Safe At This Time Assistive Devices: Denture - Upper and Walker Physical Exam Constitutional: WD/WN, vitals as above well developed and well nourished Eyes: PERRL, conjunctivae normal, anicteric sclerae Neck: trachea midline, no thyromegaly Respiratory: normal respiratory effort, lungs clear to auscultation Cardiovascular: RRR, no murmur, no edema Gastrointestinal (Abdomen): normal bowel sounds, soft, nontender, no hepatosplenomegaly left groin incision heals well, no redness, Neurologic: awake Psychiatric: Orientation: alert and oriented x 3 Results & Data ([facility]) Vital Signs (Past 12 Hours) Vital Signs Temp Pulse Pulse Resp BP Pulse Ox 09/26/20 11:20 38.1 C H 80 21 164/85 H 97 09/26/20 07:08 36.9 C 97 H 22 117/90 95 09/26/20 06:34 100 H 09/26/20 03:32 37.4 C 102 H 20 159/73 H 97 09/26/20 01:36 88 Laboratory Results Abnormal lab results 09/25/20 09/25/20 09/25/20 Range/Units 18:16 18:55 19:14 WBC 11.68 H (4.8-10.8) K/uL RBC 3.54 L (4.2-5.4) M/uL Hgb 9.9 L (12.0-16.0) g/dL Hct 30.1 L (37-47) % RDW Std Deviation 50.5 H (36.4-46.3) fL RDW Coeff of Joseline 16.2 H (11.5-14.5) % Plt Count 112 L (130-400) K/uL Neut # (Auto) 10.14 H (1.4-6.5) K/uL Lymph # (Auto) 0.53 L (1.2-3.4) K/uL [place] # (Auto) 0.91 H (0.11-0.59) K/uL Immature Gran # (Auto) 0.03 H (0.00-0.02) K/uL Sodium (136-145) mmol/L Potassium (3.5-5.1) mmol/L Chloride (98-107) mmol/L BUN (7-18) mg/dl BUN/Creatinine Ratio (10-20) Glucose (70-99) mg/dl POC Glucose 67 L* (70-99) mg/dl Alkaline Phosphatase (45-117) U/L Albumin (3.4-5.0) gm/dl Globulin (2.5-4.0) gm/dl Albumin/Globulin Ratio (0.9-2) TSH (0.300-4.500) uIu/ml Free T4 (0.8-1.6) ng/dl Urine Appearance Cloudy A (Clear) Urine Protein Trace H (Negative) Urine Blood Trace H (Negative) Urine Bilirubin 1+ H (Negative) Ur Leukocyte Esterase 3+ H (Negative) Urine WBC (Auto) >30 H (0-5) /hpf Urine RBC (Auto) 10-30 H (0-4) /hpf Urine Bacteria (Auto) 4+ H (Negative) 09/25/20 09/25/20 09/25/20 Range/Units 19:14 19:16 19:34 WBC (4.8-10.8) K/uL RBC (4.2-5.4) M/uL Hgb (12.0-16.0) g/dL Hct (37-47) % RDW Std Deviation (36.4-46.3) fL RDW Coeff of Joseline (11.5-14.5) % Plt Count (130-400) K/uL Neut # (Auto) (1.4-6.5) K/uL Lymph # (Auto) (1.2-3.4) K/uL [place] # (Auto) (0.11-0.59) K/uL Immature Gran # (Auto) (0.00-0.02) K/uL Sodium 132 L (136-145) mmol/L Potassium 3.4 L (3.5-5.1) mmol/L Chloride 97 L (98-107) mmol/L BUN 19 H (7-18) mg/dl BUN/Creatinine Ratio 20.8 H (10-20) Glucose 31 L* (70-99) mg/dl POC Glucose 43 L* 41 L* (70-99) mg/dl Alkaline Phosphatase 124 H (45-117) U/L Albumin 1.9 L (3.4-5.0) gm/dl Globulin 5.0 H (2.5-4.0) gm/dl Albumin/Globulin Ratio 0.4 L (0.9-2) TSH 0.284 L (0.300-4.500) uIu/ml Free T4 2.01 H (0.8-1.6) ng/dl Urine Appearance (Clear) Urine Protein (Negative) Urine Blood (Negative) Urine Bilirubin (Negative) Ur Leukocyte Esterase (Negative) Urine WBC (Auto) (0-5) /hpf Urine RBC (Auto) (0-4) /hpf Urine Bacteria (Auto) (Negative) 09/25/20 09/25/20 09/25/20 Range/Units 20:05 22:58 23:29 WBC (4.8-10.8) K/uL RBC (4.2-5.4) M/uL Hgb (12.0-16.0) g/dL Hct (37-47) % RDW Std Deviation (36.4-46.3) fL RDW Coeff of Joseline (11.5-14.5) % Plt Count (130-400) K/uL Neut # (Auto) (1.4-6.5) K/uL Lymph # (Auto) (1.2-3.4) K/uL [place] # (Auto) (0.11-0.59) K/uL Immature Gran # (Auto) (0.00-0.02) K/uL Sodium (136-145) mmol/L Potassium (3.5-5.1) mmol/L Chloride (98-107) mmol/L BUN (7-18) mg/dl BUN/Creatinine Ratio (10-20) Glucose (70-99) mg/dl POC Glucose 52 L* 67 L* 26 L* (70-99) mg/dl Alkaline Phosphatase (45-117) U/L Albumin (3.4-5.0) gm/dl Globulin (2.5-4.0) gm/dl Albumin/Globulin Ratio (0.9-2) TSH (0.300-4.500) uIu/ml Free T4 (0.8-1.6) ng/dl Urine Appearance (Clear) Urine Protein (Negative) Urine Blood (Negative) Urine Bilirubin (Negative) Ur Leukocyte Esterase (Negative) Urine WBC (Auto) (0-5) /hpf Urine RBC (Auto) (0-4) /hpf Urine Bacteria (Auto) (Negative) 09/25/20 09/26/20 09/26/20 Range/Units 23:30 00:44 01:11 WBC (4.8-10.8) K/uL RBC (4.2-5.4) M/uL Hgb (12.0-16.0) g/dL Hct (37-47) % RDW Std Deviation (36.4-46.3) fL RDW Coeff of Joseline (11.5-14.5) % Plt Count (130-400) K/uL Neut # (Auto) (1.4-6.5) K/uL Lymph # (Auto) (1.2-3.4) K/uL [place] # (Auto) (0.11-0.59) K/uL Immature Gran # (Auto) (0.00-0.02) K/uL Sodium (136-145) mmol/L Potassium (3.5-5.1) mmol/L Chloride (98-107) mmol/L BUN (7-18) mg/dl BUN/Creatinine Ratio (10-20) Glucose (70-99) mg/dl POC Glucose 34 L* 64 L* 164 H (70-99) mg/dl Alkaline Phosphatase (45-117) U/L Albumin (3.4-5.0) gm/dl Globulin (2.5-4.0) gm/dl Albumin/Globulin Ratio (0.9-2) TSH (0.300-4.500) uIu/ml Free T4 (0.8-1.6) ng/dl Urine Appearance (Clear) Urine Protein (Negative) Urine Blood (Negative) Urine Bilirubin (Negative) Ur Leukocyte Esterase (Negative) Urine WBC (Auto) (0-5) /hpf Urine RBC (Auto) (0-4) /hpf Urine Bacteria (Auto) (Negative) 09/26/20 09/26/20 09/26/20 Range/Units 06:58 06:58 06:58 WBC (4.8-10.8) K/uL RBC 3.67 L (4.2-5.4) M/uL Hgb 10.1 L (12.0-16.0) g/dL Hct 31.4 L (37-47) % RDW Std Deviation 50.9 H (36.4-46.3) fL RDW Coeff of Joseline 16.3 H (11.5-14.5) % Plt Count 111 L (130-400) K/uL Neut # (Auto) (1.4-6.5) K/uL Lymph # (Auto) (1.2-3.4) K/uL [place] # (Auto) (0.11-0.59) K/uL Immature Gran # (Auto) (0.00-0.02) K/uL Sodium 132 L (136-145) mmol/L Potassium (3.5-5.1) mmol/L Chloride 97 L (98-107) mmol/L BUN (7-18) mg/dl BUN/Creatinine Ratio (10-20) Glucose (70-99) mg/dl POC Glucose (70-99) mg/dl Alkaline Phosphatase (45-117) U/L Albumin (3.4-5.0) gm/dl Globulin (2.5-4.0) gm/dl Albumin/Globulin Ratio (0.9-2) TSH 0.181 L (0.300-4.500) uIu/ml Free T4 (0.8-1.6) ng/dl Urine Appearance (Clear) Urine Protein (Negative) Urine Blood (Negative) Urine Bilirubin (Negative) Ur Leukocyte Esterase (Negative) Urine WBC (Auto) (0-5) /hpf Urine RBC (Auto) (0-4) /hpf Urine Bacteria (Auto) (Negative) 09/26/20 09/26/20 Range/Units 07:44 11:16 WBC (4.8-10.8) K/uL RBC (4.2-5.4) M/uL Hgb (12.0-16.0) g/dL Hct (37-47) % RDW Std Deviation (36.4-46.3) fL RDW Coeff of Joseline (11.5-14.5) % Plt Count (130-400) K/uL Neut # (Auto) (1.4-6.5) K/uL Lymph # (Auto) (1.2-3.4) K/uL [place] # (Auto) (0.11-0.59) K/uL Immature Gran # (Auto) (0.00-0.02) K/uL Sodium (136-145) mmol/L Potassium (3.5-5.1) mmol/L Chloride (98-107) mmol/L BUN (7-18) mg/dl BUN/Creatinine Ratio (10-20) Glucose (70-99) mg/dl POC Glucose 101 H 137 H (70-99) mg/dl Alkaline Phosphatase (45-117) U/L Albumin (3.4-5.0) gm/dl Globulin (2.5-4.0) gm/dl Albumin/Globulin Ratio (0.9-2) TSH (0.300-4.500) uIu/ml Free T4 (0.8-1.6) ng/dl Urine Appearance (Clear) Urine Protein (Negative) Urine Blood (Negative) Urine Bilirubin (Negative) Ur Leukocyte Esterase (Negative) Urine WBC (Auto) (0-5) /hpf Urine RBC (Auto) (0-4) /hpf Urine Bacteria (Auto) (Negative)
[2020-09-26] MEDS ORDERED: D5W AND NSS 1,000 ML IV SCH (14:45)
--- NOTE | 2020-09-26 16:00 | Pharmacy Report ---
Pharmacy Abx Initial Consult - Date of Service September 26, 2020 - Pharmacy Dosing Scope Date of Consult: 09/26/20 Consultation requested by: Dr. Terry Pharmacy is consulted to initiate Vancomycin IV dosing therapy, order appropriate labs and adjust drug dose/frequency. - Subjective The patient is a 74 year old F admitted on 09/25/20 20:23. - Objective Height: 5 ft 1 in Weight: 116.8 kg Vital Signs (Past 12hrs): Vital Signs Temp Pulse Pulse Resp BP Pulse Ox 09/26/20 14:47 36.9 C 82 28 H 164/82 H 98 09/26/20 14:30 36.9 C 72 21 120/66 97 09/26/20 14:20 73 09/26/20 13:28 37.3 C 09/26/20 11:20 38.1 C H 80 21 164/85 H 97 09/26/20 07:08 36.9 C 97 H 22 117/90 95 09/26/20 06:34 100 H Lab Results (24hrs): Laboratory Tests (24 Hours) 09/26/20 09/26/20 09/25/20 06:58 06:58 19:14 WBC 10.16 Neut # (Auto) Creatinine 0.88 0.93 Est Cr Clr Drug Dosing 65.7 62.1 09/25/20 19:14 WBC 11.68 H Neut # (Auto) 10.14 H Creatinine Est Cr Clr Drug Dosing Micro Results: 09/26/20 11:30 Gram Stain - Final Groin Wound Culture - Pending 09/26/20 05:20 Gram Stain - Final Groin Wound Culture - Pending - Risk Factors for Resistance * Hospitalization for 48 hours or more within the past 90 days * Asthma, Diabetes * Covid + in 05/2020 - Assessment & Plan Assessment 74 year old F admitted with L groin cellulitis. Due to recent admission, patient is empirically started on Vancomycin. Also on Invanz 1 gm Q24h. Plan Vancomycin IV * Estimated PK Parameters: Vd 0.7 L/kg, Edgard 0.056 hr-1, t1/2 12.4 hr * Loading dose: 2500 mg (21.4 mg/kg) IV x 1 dose given today at 0500. * Maintenance dose: 1250 mg IV (10.7 mg/kg) every 12 hours * Goal trough level for Cellulitis: ~ 15 mcg/mL * If Vancomycin is continued, then will order a Trough level tomorrow evening before 3rd maintenance dose. Pharmacy will continue to follow and will adjust dose/frequency as necessary. Thank you.
[2020-09-26] MEDS: VANCOMYCIN HCL 1,250 MG in SODIUM CHLORIDE 0.9% 250 ML IV SCH (17:36)
[2020-09-26] MEDS: FAMOTIDINE 40 MG TABLET PO SCH (20:43)
[2020-09-26] MEDS: LATANOPROST 0.005% OP SOLN 2.5 ML BTL OP SCH (20:44)
[2020-09-27] MEDS ORDERED: ONDANSETRON INJ 2 MG/ML 2 ML VIAL IV PRN (02:20)
[2020-09-27] MEDS: VANCOMYCIN HCL 1,250 MG in SODIUM CHLORIDE 0.9% 250 ML IV SCH (05:43)
[2020-09-27] MEDS: ERTAPENEM SODIUM 1,000 MG in SODIUM CHLORIDE 0.9% 50 ML IV SCH (05:43)
[2020-09-27] MEDS: LEVOTHYROXINE SODIUM 125 MCG TABLET PO SCH (05:44)
--- NOTE | 2020-09-27 05:45 | Electrocardiogram Report ---
Test Reason : Blood Pressure : / mmHG Vent. Rate : 073 BPM Atrial Rate : 073 BPM P-R Int : 130 ms QRS Dur : 104 ms QT Int : 386 ms P-R-T Axes : 097 023 039 degrees QTc Int : 425 ms Normal sinus rhythm Normal ECG When compared with ECG of 13-SEP-2020 11:06, No significant change was found Confirmed by Jarod De Santiago ([id number]) on 09/27/2020 5:45:16 AM Referred By: REFERRED SELF Confirmed By:Jarod De Santiago
[2020-09-27] MEDS: INSULIN ASPART 100 UNITS/ML 3 ML PEN SC SCH ×4 (08:10→20:47)
[2020-09-27] MEDS: carvediloL 6.25 MG TAB PO SCH ×2 (08:11→20:46)
[2020-09-27] MEDS: PANTOprazole 40 MG TAB PO SCH (08:11)
[2020-09-27] MEDS: OXYBUTYNIN CHLORIDE XL 5 MG TABCR PO SCH ×3 (08:11→20:46)
[2020-09-27] MEDS: APIXABAN 5 MG TABLET PO SCH ×2 (08:11→20:45)
[2020-09-27] MEDS: DULoxetine HCL 30 MG CAP PO SCH (08:11)
[2020-09-27] MEDS: cefTRIAXone SODIUM 2,000 MG in DEXTROSE 5% 50 ML IV SCH (09:33)
--- NOTE | 2020-09-27 14:44 | Hospitalist Progress Note ---
Date of Service September 27, 2020 Assessment & Plan (1) Hypoglycemia: (2) AMS (altered mental status): Pt is 74 y/o F with PMH DM II, HTN, dyslipidemia, asthma, diastolic dysfunction, GERD, hypothyroidism, obesity, anxiety, H/O COVID-19 in 05/2020, LLE DVT is on Eliquis, s/p IVC filter presented to ER with complaint of AMS and hypoglycemia. Presented with with sudden onset AMS and found to have BSG 35 Metabolic encephalopathy resolved, mental status improved gradually to baseline Presented with altered mental status, metabolic encephalopathy in setting of hypoglycemia, possible urinary tract infection, possible left groin biopsy site infection on Iv rocephin , Hypoglycemia: Hold glipizide and Ozempic A1c: 6.9 in 07/2020- Oral hypoglycemics may needs to be adjusted for presentation with hypoglycemia We will DC glipizide on discharge, and have close follow-up with family physician for glycemic management UTI UA: 3+ leuk esterase,> 30 WBC, 4+ bacteria. No reported symptoms Urine culture Klebsiella Continue Rocephin Weakness/Ambulatory dysfunction: Ongoing generalized weakness Weakness may be secondary to deconditioning, prolonged fatigue from COVID-19 in 05/2020 Patient started receiving home PT this week Fall precautions PT OT evaluation requested Left lower extremity DVT Present upon admission. Diagnosed 09/13/2020 S/p IVC filter Continue Eliquis Hypertension: Continue carvedilol, lisinopril, spironolactone, lasix Diastolic dysfunction: Stable volume status Grade II diastolic dysfunction, EF 59% on echo in 2018 Continue lasix Abnormal thyroid function test: Patient been on levothyroxine for hypothyroidism: Thyroid function shows low TSH, elevated free T4 reduce levothyroxine to 125 mcg daily Repeat TSH level in 4 to 6 weeks Recently diagnosed Hodgkin's lymphoma. left groin LN biopsy : Hodgkin's Lymphoma , needs out patient oncology follow up discussed with Daughter , will [facility] to schedule out patient follow up concern for possible infection at biopsy site appreciate input from wound care , no surrounding erythema , or evidence of infection noted wound culture ordered , will follow on rocephin Anemia: possible anemia of chronic disease /underlying hematological malignancy - Hodgkins lymphoma Hgb: 9.9. Recent admission Hgb: 9-11 No reported bleeding Dysphagia: denies of any symptoms reports of very poor appetite Chronic dysphagia. H/O EGD in 2019 without abnormality, however decision made to dilate esophagus Aspiration precautions Soft bite size diet GERD (gastroesophageal reflux disease): Continue PPI, H2 rosita Anxiety: Continue duloxetine History of COVID-19: In 05/2020. Had GRAF, fever, fatigue. DVT Prophylaxis Has current LLE DVT, Eliquis Full Code as per discussion with pt and pt's daughter Follows with Dr Maynard for routine care Disposition: Lives at home with son and daughter, has good family support PT OT evaluation, Case management consult for discharge planning Daughter updated over phone Admission and Anticipated Discharge Date Admission Date: September 25, 2020 Subjective Follow-up visit for lethargy altered mental status, hypoglycemia: awake and alert today knows where she is at appetite remains very poor denies of any shortness of breath , no fever or chill , no cough Review of Systems Review of Systems: All systems reviewed & are unremarkable except as noted in Subjective Physical Exam Physical Exam: Physical exam: General: Morbidly obese, appears to be tired and lethargic, wakes up to voice HEENT: PERRLA, EOMI, Heart: Regular S1-S2, no carotid bruit, no JVD, no lower extremity edema Lungs: Diminished breath sound Abdomen: Soft nontender, no organomegaly Extremity: No cyanosis, no deformity, abscess site on left groin, appears to be healing well, no surrounding erythema, mild serous drainage Neuro: Unable to assess as patient remains very lethargic, moving all extremities, no dysphagia, Results & Data Results & Data ([facility]) Vital Signs (Past 12 Hours) Vital Signs Temp Pulse Pulse Resp BP BP Pulse Ox 09/27/20 11:07 36.6 C 77 16 131/60 99 09/27/20 07:42 84 09/27/20 07:33 36.8 C 78 16 134/69 97 09/27/20 03:33 37.5 C 83 24 170/92 H 96
[2020-09-27] MEDS ORDERED: VANCOMYCIN TROUGH ONE (17:30)
[2020-09-27] MEDS: FAMOTIDINE 40 MG TABLET PO SCH (20:46)
[2020-09-27] MEDS: LATANOPROST 0.005% OP SOLN 2.5 ML BTL OP SCH (20:46)
[2020-09-28 07:34] LABS: BUN Creatinine Ratio 22.5 (10-20); Creatinine Clr Calc Pharmacy 91.4 ml/min; Est GFR (African American) 101.7 ml/min; Est GFR (Non-African American) 87.7 ml/min; Potassium 4.2 mmol/L (3.5-5.1)
[2020-09-28] MEDS: APIXABAN 5 MG TABLET PO SCH ×2 (09:27→20:36)
[2020-09-28] MEDS: carvediloL 6.25 MG TAB PO SCH ×2 (09:27→20:36)
[2020-09-28] MEDS: OXYBUTYNIN CHLORIDE XL 5 MG TABCR PO SCH ×3 (09:28→20:37)
[2020-09-28] MEDS: DULoxetine HCL 30 MG CAP PO SCH (09:28)
[2020-09-28] MEDS: PANTOprazole 40 MG TAB PO SCH (09:29)
[2020-09-28] MEDS: cefTRIAXone SODIUM 2,000 MG in DEXTROSE 5% 50 ML IV SCH (10:05)
[2020-09-28] MEDS: FUROSEMIDE 20 MG TAB PO SCH (10:06)
[2020-09-28] MEDS: INSULIN ASPART 100 UNITS/ML 3 ML PEN SC SCH ×4 (10:06→20:37)
[2020-09-28] MEDS: lisinopril 40 MG TAB PO SCH (10:07)
[2020-09-28] MEDS: SPIRONOLACTONE 12.5 MG TAB PO SCH (10:35)
--- NOTE | 2020-09-28 16:08 | Hospitalist Progress Note ---
Date of Service September 28, 2020 Assessment & Plan (1) Hypoglycemia: (2) AMS (altered mental status): Pt is 74 y/o F with PMH DM II, HTN, dyslipidemia, asthma, diastolic dysfunction, GERD, hypothyroidism, obesity, anxiety, H/O COVID-19 in 05/2020, LLE DVT is on Eliquis, s/p IVC filter presented to ER with complaint of AMS and hypoglycemia. Presented with with sudden onset AMS and found to have BSG 35 Metabolic encephalopathy remains very lathergic and fatigued very poor appetite cont antibiotic for infection : UTI /wound infection at left groin biopsy site Presented with altered mental status, metabolic encephalopathy in setting of hypoglycemia, possible urinary tract infection, left groin biopsy site infection Hypoglycemia: Hold glipizide and Ozempic A1c: 6.9 in 07/2020- Oral hypoglycemics may needs to be adjusted for presentation with hypoglycemia We will DC glipizide on discharge, and have close follow-up with family physician for glycemic management UTI Urine culture Klebsiella /Pseudomonas abx changed to PO cipro per sensitivity Wound infection at left groin biopsy site : appreciate input from wound care , wound culture : Klebsiella /Psudomonas cont on Cipro Weakness/Ambulatory dysfunction: Ongoing generalized weakness Weakness may be secondary to deconditioning, prolonged fatigue from COVID-19 in 05/2020 Patient started receiving home PT this week Fall precautions PT OT evaluation requested Left lower extremity DVT Present upon admission. Diagnosed 09/13/2020 S/p IVC filter Continue Eliquis Hyponatremia : acute on chronic hold Lasix repeat Lab in am Hypertension: Continue carvedilol, lisinopril, spironolactone, Diastolic dysfunction: Stable volume status Grade II diastolic dysfunction, EF 59% on echo in 2018 hold lasix for low Na Abnormal thyroid function test: Patient been on levothyroxine for hypothyroidism: Thyroid function shows low TSH, elevated free T4 reduce levothyroxine to 125 mcg daily Repeat TSH level in 4 to 6 weeks Recently diagnosed Hodgkin's lymphoma. left groin LN biopsy : Hodgkin's Lymphoma , needs out patient oncology follow up discussed with Daughter , will update [facility] to schedule out patient follow up Anemia: possible anemia of chronic disease /underlying hematological malignancy - Hodgkins lymphoma Hgb: 9.9. Recent admission Hgb: 9-11 No reported bleeding Dysphagia: denies of any symptoms reports of very poor appetite Chronic dysphagia. H/O EGD in 2019 without abnormality, however decision made to dilate esophagus Aspiration precautions Soft bite size diet GERD (gastroesophageal reflux disease): Continue PPI, H2 rosita Anxiety: Continue duloxetine History of COVID-19: In 05/2020. Had GRAF, fever, fatigue. DVT Prophylaxis Has current LLE DVT, Eliquis Full Code as per discussion with pt and pt's daughter Follows with Dr Maynard for routine care Disposition: Lives at home with son and daughter, has good family support PT OT evaluation, Case management consult for discharge planning Admission and Anticipated Discharge Date Admission Date: September 25, 2020 Subjective Follow-up visit for lethargy altered mental status, hypoglycemia: pt sitting on chair , hardly ate anything , appetite very poor , falling sleep while on chair daughter present , says pt is much more deconditioned during this admission than past pt remains afebrile , no Shortness of breath , no fever or chills Review of Systems Review of Systems: Unobtainable due to reduced consciousness (very fatigued and lathergic ) Physical Exam Physical Exam: Physical exam: General: Morbidly obese, appears to be tired and lethargic, wakes up to voice HEENT: PERRLA, EOMI, Heart: Regular S1-S2, no carotid bruit, no JVD, no lower extremity edema Lungs: Diminished breath sound Abdomen: Soft nontender, no organomegaly Extremity: No cyanosis, no deformity, abscess site on left groin, appears to be healing well, no surrounding erythema, mild serous drainage Neuro: Unable to assess as patient remains very lethargic, moving all extremities, no dysphagia, Results & Data Results & Data ([facility]) Vital Signs (Past 12 Hours) Vital Signs Temp Pulse Pulse Resp BP Pulse Ox 09/28/20 11:27 37.0 C 86 18 133/82 93 09/28/20 07:40 37.2 C 90 22 153/75 H 93 09/28/20 07:30 87
[2020-09-28] MEDS ORDERED: LACTATED RINGER'S 1,000 ML IV SCH (17:45)
[2020-09-28] MEDS: CIPROFLOXACIN / D5W 400 MG/200 ML BAG IV SCH (18:22)
[2020-09-28] MEDS: FAMOTIDINE 40 MG TABLET PO SCH (20:37)
[2020-09-28] MEDS: LATANOPROST 0.005% OP SOLN 2.5 ML BTL OP SCH (20:37)
[2020-09-28] MEDS ORDERED: CIPROFLOXACIN 500 MG TAB PO SCH (21:00)
[2020-09-28] MEDS: POLYETHYLENE (MIRALAX) 17 GM PACK PO PRN (23:04)
[2020-09-29] MEDS: CIPROFLOXACIN / D5W 400 MG/200 ML BAG IV SCH (05:54)
[2020-09-29] MEDS: INSULIN ASPART 100 UNITS/ML 3 ML PEN SC SCH ×4 (07:30→21:28)
[2020-09-29] MEDS: APIXABAN 5 MG TABLET PO SCH ×2 (08:38→21:04)
[2020-09-29] MEDS: OXYBUTYNIN CHLORIDE XL 5 MG TABCR PO SCH ×3 (08:38→21:04)
[2020-09-29] MEDS: carvediloL 6.25 MG TAB PO SCH ×2 (08:38→21:04)
[2020-09-29] MEDS: PANTOprazole 40 MG TAB PO SCH (08:38)
[2020-09-29] MEDS: lisinopril 40 MG TAB PO SCH (08:38)
[2020-09-29] MEDS: ADVANCED PROBIOTIC 1250 MG CAPSULE PO SCH (08:38)
[2020-09-29] MEDS: SPIRONOLACTONE 12.5 MG TAB PO SCH (08:38)
[2020-09-29] MEDS: DULoxetine HCL 30 MG CAP PO SCH (08:38)
--- NOTE | 2020-09-29 16:40 | Hospitalist Progress Note ---
Date of Service September 29, 2020 Assessment & Plan (1) Hypoglycemia: (2) AMS (altered mental status): Pt is 74 y/o F with PMH DM II, HTN, dyslipidemia, asthma, diastolic dysfunction, GERD, hypothyroidism, obesity, anxiety, H/O COVID-19 in 05/2020, LLE DVT is on Eliquis, s/p IVC filter presented to ER with complaint of AMS and hypoglycemia. Presented with with sudden onset AMS and found to have BSG 35 Metabolic encephalopathy due to infection , mental status waxes , weans , high risk for sun downing cont antibiotic for infection : UTI /wound infection at left groin biopsy site Presented with altered mental status, metabolic encephalopathy in setting of hypoglycemia, urinary tract infection, left groin biopsy site infection Hypoglycemia: Hold glipizide and Ozempic A1c: 6.9 in 07/2020- Oral hypoglycemics may needs to be adjusted for presentation with hypoglycemia We will DC glipizide on discharge, and have close follow-up with family physician for glycemic management UTI Urine culture Klebsiella /Pseudomonas abx changed to PO cipro per sensitivity Wound infection at left groin biopsy site : appreciate input from wound care , wound culture : Klebsiella /Psudomonas cont on Cipro Weakness/Ambulatory dysfunction: Ongoing generalized weakness Weakness may be secondary to deconditioning, prolonged fatigue from COVID-19 in 05/2020 Patient started receiving home PT this week Fall precautions PT OT evaluation requested Left lower extremity DVT Present upon admission. Diagnosed 09/13/2020 S/p IVC filter Continue Eliquis Hyponatremia : acute on chronic hold Lasix repeat Lab in am Hypertension: Continue carvedilol, lisinopril, spironolactone, Diastolic dysfunction: Stable volume status Grade II diastolic dysfunction, EF 59% on echo in 2018 hold lasix for low Na Abnormal thyroid function test: Patient been on levothyroxine for hypothyroidism: Thyroid function shows low TSH, elevated free T4 reduce levothyroxine to 125 mcg daily Repeat TSH level in 4 to 6 weeks Recently diagnosed Hodgkin's lymphoma. left groin LN biopsy : Hodgkin's Lymphoma , needs out patient oncology follow up discussed with Daughter , wants to have pt follow up with Dr Avelar [facility] Dr Avelar consulted Anemia: possible anemia of chronic disease /underlying hematological malignancy - Hodgkins lymphoma Hgb: 9.9. Recent admission Hgb: 9-11 No reported bleeding Dysphagia: denies of any symptoms reports of very poor appetite Chronic dysphagia. H/O EGD in 2019 without abnormality, however decision made to dilate esophagus Aspiration precautions Soft bite size diet GERD (gastroesophageal reflux disease): Continue PPI, H2 rosita Anxiety: Continue duloxetine History of COVID-19: In 05/2020. Had GRAF, fever, fatigue. DVT Prophylaxis Has current LLE DVT, Eliquis Full Code as per discussion with pt and pt's daughter Follows with Dr Maynard for routine care Disposition: Lives at home with son and daughter, has good family support PT OT evaluation, Case management consult for discharge planning Admission and Anticipated Discharge Date Admission Date: September 25, 2020 Subjective Follow-up visit for lethargy altered mental status, hypoglycemia: more awake and alert today daughter present at bedside appetite has improved somewhat , ate most part of her dinner still needs a lot of encouragement form family members episode of confusion , disorientation noted -sun downing ( noted in in past admission as well ) no cough , no fever or chills Daughter requests Heme onc consult with Dr Avelar for pt's new Dx of Hodgkins Lymphoma Physical Exam Physical Exam: Physical exam: General: Morbidly obese, confused , awake , HEENT: PERRLA, EOMI, Heart: Regular S1-S2, no carotid bruit, no JVD, no lower extremity edema Lungs: Diminished breath sound Abdomen: Soft nontender, no organomegaly Extremity: No cyanosis, no deformity, abscess site on left groin, appears to be healing well, no surrounding erythema, mild serous drainage Neuro: no focal deficit , confused Results & Data Results & Data ([facility]) Vital Signs (Past 12 Hours) Vital Signs Temp Pulse Resp BP Pulse Ox 09/29/20 11:30 36.7 C 74 20 114/70 97 09/29/20 07:23 37.3 C 74 18 134/76 98
[2020-09-29] MEDS: CIPROFLOXACIN 500 MG TAB PO SCH (17:22)
[2020-09-29] MEDS ORDERED: MICONAZOLE NITRATE POWDER 43 GM EXT PRN (21:02)
[2020-09-29] MEDS: LATANOPROST 0.005% OP SOLN 2.5 ML BTL OP SCH (21:04)
[2020-09-29] MEDS: FAMOTIDINE 40 MG TABLET PO SCH (21:04)
[2020-09-30] MEDS: CIPROFLOXACIN 500 MG TAB PO SCH (05:55)
--- NOTE | 2020-09-30 07:02 | CT Scan Report ---
CT head/brain wo con CLINICAL HISTORY: confusion COMPARISON STUDY: No previous studies for comparison. TECHNIQUE: Axial CT of the brain is performed from the vertex to the skull base. IV contrast was not administered for this examination. A dose lowering technique was utilized adhering to the principles of ALARA. CT DOSE: 884.08 mGy.cm FINDINGS: No intra or extra-axial mass lesions are visualized. There is no CT evidence of acute cortical infarc tion. There is no evidence of midline shift. There is no acute hemorrhage. No calvarial fractures ar e visualized. There are patchy white matter hypodensities likely on a small vessel basis. There is no evidence of pathologic ventricular dilatation. There is no evidence of acute sinusitis IMPRESSION: No acute intracranial findings ACT 112: Negative or not required by law. Electronically signed by: Marcellus Weaver M.D. 09/30/2020 7:01 AM
--- NOTE | 2020-09-30 07:43 | XRay Report ---
XR chest 1V portable CLINICAL HISTORY: hypoxia COMPARISON STUDY: Chest radiograph September 25, 2020. FINDINGS: Lung volumes are normal. Upper mediastinal widening is unchanged. Cardiomegaly is unchanged . There are small bilateral pleural effusions. There is no pneumothorax. Mild pulmonary edema is pres ent. There are mild bibasilar opacities. IMPRESSION: Mild pulmonary edema with small bilateral pleural effusions and mild bibasilar opacities. ACT 112: Negative or not required by law. Electronically signed by: Soham Olivera M.D. 09/30/2020 7:41 AM
[2020-09-30] MEDS: POLYETHYLENE (MIRALAX) 17 GM PACK PO PRN (08:27)
[2020-09-30] MEDS: APIXABAN 5 MG TABLET PO SCH ×2 (08:28→23:16)
[2020-09-30] MEDS: carvediloL 6.25 MG TAB PO SCH ×2 (08:28→23:17)
[2020-09-30] MEDS: OXYBUTYNIN CHLORIDE XL 5 MG TABCR PO SCH ×3 (08:28→23:17)
[2020-09-30] MEDS: lisinopril 40 MG TAB PO SCH (08:29)
[2020-09-30] MEDS: ADVANCED PROBIOTIC 1250 MG CAPSULE PO SCH (08:29)
[2020-09-30] MEDS: DULoxetine HCL 30 MG CAP PO SCH (08:29)
[2020-09-30] MEDS: PANTOprazole 40 MG TAB PO SCH (08:29)
[2020-09-30] MEDS: SPIRONOLACTONE 12.5 MG TAB PO SCH (08:29)
--- NOTE | 2020-09-30 09:06 | Hospitalist Progress Note ---
Date of Service September 30, 2020 Assessment & Plan (1) Hypoglycemia: (2) AMS (altered mental status): Pt is 74 y/o F with PMH DM II, HTN, dyslipidemia, asthma, diastolic dysfunction, GERD, hypothyroidism, obesity, anxiety, H/O COVID-19 in 05/2020, LLE DVT is on Eliquis, s/p IVC filter presented to ER with complaint of AMS and hypoglycemia. Presented with with sudden onset AMS and found to have BSG 35 Metabolic encephalopathy due to infection , mental status waxes , weans , high risk for sun downing cont antibiotic for infection : UTI /wound infection at left groin biopsy site Presented with altered mental status, metabolic encephalopathy in setting of hypoglycemia, urinary tract infection, left groin biopsy site infection Slurred speech , increased lethargy noted overnight , no evidence of Acute CVA , will check blood gas , BMP no hypoglycemia , BSG 160 's pt able to wake up and talk briefly no facial droop noted CT head done overnight -no acute CVA cont to monitor , aspiration precaution Hypoglycemia: Hold glipizide and Ozempic A1c: 6.9 in 07/2020- Oral hypoglycemics may needs to be adjusted for presentation with hypoglycemia We will DC glipizide on discharge, and have close follow-up with family physician for glycemic management UTI Urine culture Klebsiella /Pseudomonas abx changed to PO cipro per sensitivity Wound infection at left groin biopsy site : appreciate input from wound care , wound culture : Klebsiella /Pseudomonas cont on Cipro Weakness/Ambulatory dysfunction: Ongoing generalized weakness Weakness may be secondary to deconditioning, prolonged fatigue from COVID-19 in 05/2020 Patient started receiving home PT this week Fall precautions PT OT evaluation requested Left lower extremity DVT Present upon admission. Diagnosed 09/13/2020 S/p IVC filter Continue Eliquis Hyponatremia : acute on chronic hold Lasix repeat Lab in am Hypertension: Continue carvedilol, lisinopril, spironolactone, Diastolic dysfunction: Stable volume status Grade II diastolic dysfunction, EF 59% on echo in 2018 hold lasix for low Na Abnormal thyroid function test: Patient been on levothyroxine for hypothyroidism: Thyroid function shows low TSH, elevated free T4 reduce levothyroxine to 125 mcg daily Repeat TSH level in 4 to 6 weeks Recently diagnosed Hodgkin's lymphoma. left groin LN biopsy : Hodgkin's Lymphoma , needs out patient oncology follow up discussed with Daughter , wants to have pt follow up with Dr Avelar [facility] [place] Dr Avelar consulted Anemia: possible anemia of chronic disease /underlying hematological malignancy - Hodgkins lymphoma Hgb: 9.9. Recent admission Hgb: 9-11 No reported bleeding Dysphagia: hold food when pt is lathergic reports of very poor appetite Chronic dysphagia. H/O EGD in 2019 without abnormality, however decision made to dilate esophagus Aspiration precautions Soft bite size diet GERD (gastroesophageal reflux disease): Continue PPI, H2 rosita Anxiety: Continue duloxetine History of COVID-19: In 05/2020. Had GRAF, fever, fatigue. DVT Prophylaxis Has current LLE DVT, Eliquis Full Code as per discussion with pt and pt's daughter Follows with Dr Maynard for routine care Disposition: Lives at home with son and daughter, has good family support PT OT evaluation, Case management consult for discharge planning Admission and Anticipated Discharge Date Admission Date: September 25, 2020 Subjective Follow-up visit for lethargy altered mental status, hypoglycemia: pt is more confused /disoriented today overnight , pt had slurred speech -stat CT was done -negative for acute stroke was hypoxic , placed on supplemental 02 Chest Xray shows , no infiltration , mild pulm edema this morning , pt continues to be very lethargic seen at bedside wakes up to voice , unable to follow command , disoriented pt had poor urine output since yesterday no fever or chills ordered for stat ABG , BMP monitor closely Review of Systems Review of Systems: Unobtainable due to reduced consciousness Physical Exam Physical Exam: Physical exam: General: Morbidly obese, confused ,very fatigued , opens eyes to voice HEENT: PERRLA, EOMI, Heart: Regular S1-S2, no carotid bruit, no JVD, no lower extremity edema Lungs: Diminished breath sound Abdomen: Soft nontender, no organomegaly Extremity: No cyanosis, no deformity, abscess site on left groin, appears to be healing well, no surrounding erythema, mild serous drainage Neuro: unable to follow command , confused , very lethargic , Results & Data Results & Data ([facility]) Vital Signs (Past 12 Hours) Vital Signs Temp Pulse Pulse Resp BP Pulse Ox 09/30/20 08:27 79 130/69 09/30/20 07:07 36.4 C L 78 19 145/78 H 98 09/30/20 07:00 84 09/30/20 03:05 36.9 C 80 24 142/79 H 97 09/30/20 00:38 78 09/29/20 23:32 36.8 C 75 24 127/75 94
[2020-09-30 09:16] LABS: Base Excess ABG 3.4 mEq/L (-9-1.8); HCO3 ABG 28 mmol/L (19-24); Oxygen Saturation ABG 96.2 % (90-95); PCO2 ABG 42 mmHg (35-46); PO2 ABG 79 mmHg (80-95); pH ABG 7.44 (7.35-7.45)
[2020-09-30 09:17] LABS: Allen Test Pos (Pos)
[2020-09-30] MEDS: INSULIN ASPART 100 UNITS/ML 3 ML PEN SC SCH ×4 (09:17→21:42)
[2020-09-30 09:33] LABS: BUN Creatinine Ratio 34.1 (10-20); Calcium 9.8 mg/dl (8.5-10.1); Creatinine Clr Calc Pharmacy 60.8 ml/min; Est GFR (African American) 67.9 ml/min; Est GFR (Non-African American) 58.6 ml/min; Potassium 4.6 mmol/L (3.5-5.1)
[2020-09-30] MEDS ORDERED: bisacodyL 5 MG TABEC PO PRN (17:02)
[2020-09-30] MEDS ORDERED: CIPROFLOXACIN / D5W 400 MG/200 ML BAG IV SCH (18:00)
[2020-09-30] MEDS: LATANOPROST 0.005% OP SOLN 2.5 ML BTL OP SCH (21:35)
[2020-09-30 22:34] LABS: Hematocrit (blood only) 30.9 % (37-47); Hemoglobin 9.8 g/dL (12.0-16.0); Mean Corpuscular Hemoglobin 27.5 pg (25-34); Mean Corpuscular Volume 86.6 fL (80-100); RDW Standard Deviation 51.1 fL (36.4-46.3); Red Blood Count 3.57 M/uL (4.2-5.4); White Blood Count 10.02 K/uL (4.8-10.8)
[2020-09-30 22:37] LABS: HCO3 ABG 29 mmol/L (19-24); Oxygen Saturation ABG 96.8 % (90-95); PCO2 ABG 43 mmHg (35-46); PO2 ABG 85 mmHg (80-95); pH ABG 7.44 (7.35-7.45)
[2020-09-30 22:38] LABS: Allen Test Pos (Pos)
[2020-09-30 22:51] LABS: Albumin Level 1.5 gm/dl (3.4-5.0); BUN Creatinine Ratio 31.3 (10-20); Blood Urea Nitrogen 30 mg/dl (7-18); Calcium 9.7 mg/dl (8.5-10.1); Carbon Dioxide 29 mmol/L (21-32); Chloride 98 mmol/L (98-107); Creatinine Clr Calc Pharmacy 61.4 ml/min; Est GFR (African American) 68.8 ml/min; Est GFR (Non-African American) 59.3 ml/min; Glucose 159 mg/dl (70-99); Magnesium 2.1 mg/dl (1.8-2.4); Potassium 4.5 mmol/L (3.5-5.1); Sodium 131 mmol/L (136-145)
[2020-09-30 22:56] LABS: Alanine Aminotransferase 30 U/L (12-78); Albumin Globulin Ratio 0.3 (0.9-2); Alkaline Phosphatase 198 U/L (45-117); Aspartate Aminotransferase 48 U/L (15-37); Bilirubin,Total 1.2 mg/dl (0.2-1); Total Protein 6.5 gm/dl (6.4-8.2); Troponin I < 0.015 ng/ml (0-0.045)
[2020-09-30 22:58] LABS: Mean Corpuscular Hgb Conc 31.7 g/dL (32-36); Mean Platelet Volume 9.6 fL (7.4-10.4); Platelet Count 94 K/uL (130-400)
[2020-09-30 23:01] LABS: Dohle Bodies Occasional; Eosinophils # (auto) 0.03 K/uL (0-0.5); Eosinophils % (auto) 0.3 %; Immature Granulocytes # (auto) 0.05 K/uL (0.00-0.02); Immature Granulocytes % (auto) 0.5 %; Lymphocytes # (auto) 0.34 K/uL (1.2-3.4); Lymphocytes % (auto) 3.4 %; Monocytes # (auto) 0.36 K/uL (0.11-0.59); Monocytes % (auto) 3.6 %; Neutrophils # (auto) 9.24 K/uL (1.4-6.5); Neutrophils % (auto) 92.2 %; Platelet Estimate Decreased (Normal); Toxic Vacuolation 1+
[2020-09-30] MEDS ORDERED: MEROPENEM CONSULT ACITVE PRN (23:05)
[2020-09-30] MEDS ORDERED: SODIUM CHLORIDE 0.9% 500 ML IV SCH (23:15)
[2020-09-30] MEDS: FAMOTIDINE 40 MG TABLET PO SCH (23:17)
[2020-09-30] MEDS: DOCUSATE SODIUM 100 MG CAP PO SCH (23:17)
[2020-09-30 23:48] LABS: Lyme Ab IgM w/WB Rflx Negative (Negative)
[2020-09-30 23:57] LABS: Lyme Ab IgG w/WB Rflx Positive (Negative)
[2020-10-01] MEDS: MEROPENEM 500 MG in SYRINGE 0 ML IV SCH ×2 (00:08→06:06)
[2020-10-01] MEDS: DOXYCYCLINE HYCLATE 100 MG in DEXTROSE 5% 100 ML IV SCH ×3 (00:50→23:52)
[2020-10-01] MEDS ORDERED: ' NEB STA (01:44)
[2020-10-01 07:42] LABS: BUN Creatinine Ratio 34.6 (10-20); Calcium 9.8 mg/dl (8.5-10.1); Creatinine Clr Calc Pharmacy 68.9 ml/min; Est GFR (African American) 78.8 ml/min; Potassium 4.3 mmol/L (3.5-5.1)
[2020-10-01] MEDS: SPIRONOLACTONE 12.5 MG TAB PO SCH (09:08)
[2020-10-01] MEDS: ADVANCED PROBIOTIC 1250 MG CAPSULE PO SCH (09:08)
[2020-10-01] MEDS: PANTOprazole 40 MG TAB PO SCH (09:08)
[2020-10-01] MEDS: DOCUSATE SODIUM 100 MG CAP PO SCH ×2 (09:09→20:42)
[2020-10-01] MEDS: carvediloL 6.25 MG TAB PO SCH ×2 (09:09→20:42)
[2020-10-01] MEDS: APIXABAN 5 MG TABLET PO SCH ×2 (09:09→20:41)
[2020-10-01] MEDS: DULoxetine HCL 30 MG CAP PO SCH (09:09)
[2020-10-01] MEDS: lisinopril 40 MG TAB PO SCH (09:09)
[2020-10-01] MEDS: INSULIN ASPART 100 UNITS/ML 3 ML PEN SC SCH ×4 (09:10→20:42)
[2020-10-01] MEDS: OXYBUTYNIN CHLORIDE XL 5 MG TABCR PO SCH ×3 (09:10→20:42)
[2020-10-01] MEDS: CEFEPIME 2,000 MG in SYRINGE 0 ML IV SCH ×2 (13:07→21:50)
[2020-10-01] MEDS: ACETAMINOPHEN 1,000 MG/100 ML VIAL IV PRN (14:48)
--- NOTE | 2020-10-01 17:05 | Hospitalist Progress Note ---
Date of Service October 01, 2020 Assessment & Plan (1) Hypoglycemia: (2) AMS (altered mental status): Pt is 74 y/o F with PMH DM II, HTN, dyslipidemia, asthma, diastolic dysfunction, GERD, hypothyroidism, obesity, anxiety, H/O COVID-19 in 05/2020, LLE DVT is on Eliquis, s/p IVC filter presented to ER with complaint of AMS and hypoglycemia. Presented with with sudden onset AMS and found to have BSG 35 Metabolic encephalopathy due to infection , mental status waxes , weans , high risk for sun downing cont antibiotic for infection : UTI /wound infection at left groin biopsy site Presented with altered mental status, metabolic encephalopathy in setting of hypoglycemia, urinary tract infection, left groin biopsy site infection Slurred speech , increased lethargy noted overnight , no evidence of Acute CVA , will check blood gas , BMP no hypoglycemia , BSG 160 's pt able to wake up and talk briefly no facial droop noted CT head done overnight -no acute CVA cont to monitor , aspiration precaution Hypoglycemia: Hold glipizide and Ozempic A1c: 6.9 in 07/2020- Oral hypoglycemics may needs to be adjusted for presentation with hypoglycemia We will DC glipizide on discharge, and have close follow-up with family physician for glycemic management UTI Urine culture Klebsiella /Pseudomonas abx changed to PO cipro per sensitivity Wound infection at left groin biopsy site : appreciate input from wound care , wound culture : Klebsiella /Pseudomonas cont on Cipro Weakness/Ambulatory dysfunction: Ongoing generalized weakness Weakness may be secondary to deconditioning, prolonged fatigue from COVID-19 in 05/2020 Patient started receiving home PT this week Fall precautions PT OT evaluation requested Left lower extremity DVT Present upon admission. Diagnosed 09/13/2020 S/p IVC filter Continue Eliquis Hyponatremia : acute on chronic hold Lasix repeat Lab in am Hypertension: Continue carvedilol, lisinopril, spironolactone, Diastolic dysfunction: Stable volume status Grade II diastolic dysfunction, EF 59% on echo in 2018 hold lasix for low Na Abnormal thyroid function test: Patient been on levothyroxine for hypothyroidism: Thyroid function shows low TSH, elevated free T4 reduce levothyroxine to 125 mcg daily Repeat TSH level in 4 to 6 weeks Recently diagnosed Hodgkin's lymphoma. left groin LN biopsy : Hodgkin's Lymphoma , needs out patient oncology follow up discussed with Daughter , wants to have pt follow up with Dr Avelar [facility] [place] Dr Avelar consulted Anemia: possible anemia of chronic disease /underlying hematological malignancy - Hodgkins lymphoma Hgb: 9.9. Recent admission Hgb: 9-11 No reported bleeding Dysphagia: hold food when pt is lathergic reports of very poor appetite Chronic dysphagia. H/O EGD in 2019 without abnormality, however decision made to dilate esophagus Aspiration precautions Soft bite size diet GERD (gastroesophageal reflux disease): Continue PPI, H2 rosita Anxiety: Continue duloxetine History of COVID-19: In 05/2020. Had GRAF, fever, fatigue. DVT Prophylaxis Has current LLE DVT, Eliquis Full Code as per discussion with pt and pt's daughter Follows with Dr Maynard for routine care Disposition: Lives at home with son and daughter, has good family support PT OT evaluation, Case management consult for discharge planning Admission and Anticipated Discharge Date Admission Date: September 25, 2020 Subjective Follow-up visit for lethargy altered mental status, hypoglycemia: More sedated during my exam, per nursing patient was more awake and alert in the morning, Appetite remains very poor Physical Exam Physical Exam: Physical exam: General: Morbidly obese, confused ,very fatigued , opens eyes to voice HEENT: PERRLA, EOMI, Heart: Regular S1-S2, no carotid bruit, no JVD, no lower extremity edema Lungs: Diminished breath sound Abdomen: Soft nontender, no organomegaly Extremity: No cyanosis, no deformity, abscess site on left groin, appears to be healing well, no surrounding erythema, mild serous drainage Neuro: unable to follow command , confused , very lethargic , Results & Data Results & Data ([facility]) Vital Signs (Past 12 Hours) Vital Signs Temp Pulse Pulse Resp BP Pulse Ox 10/01/20 11:37 36.8 C 83 16 142/77 H 97 10/01/20 08:00 80 10/01/20 07:10 37.0 C 81 20 130/65 96
[2020-10-01] MEDS ORDERED: LACTATED RINGER'S 1,000 ML IV SCH (20:30)
[2020-10-01] MEDS: FAMOTIDINE 40 MG TABLET PO SCH (20:42)
[2020-10-01] MEDS: LATANOPROST 0.005% OP SOLN 2.5 ML BTL OP SCH (21:50)
[2020-10-02] MEDS: CEFEPIME 2,000 MG in SYRINGE 0 ML IV SCH ×2 (04:05→11:31)
[2020-10-02 06:19] LABS: Hematocrit (blood only) 30.4 % (37-47); Hemoglobin 9.5 g/dL (12.0-16.0); Mean Corpuscular Hemoglobin 27.1 pg (25-34); Mean Corpuscular Hgb Conc 31.3 g/dL (32-36); Mean Corpuscular Volume 86.9 fL (80-100); RDW Coefficient of Variation 16.2 % (11.5-14.5); RDW Standard Deviation 51.7 fL (36.4-46.3); White Blood Count 10.39 K/uL (4.8-10.8)
[2020-10-02 06:21] LABS: Mean Platelet Volume 9.5 fL (7.4-10.4); Platelet Count 66 K/uL (130-400)
[2020-10-02 06:36] LABS: Albumin Level 1.4 gm/dl (3.4-5.0); BUN Creatinine Ratio 41.7 (10-20); Creatinine Clr Calc Pharmacy 64.6 ml/min; Est GFR (African American) 73.5 ml/min; Est GFR (Non-African American) 63.4 ml/min; Potassium 4.3 mmol/L (3.5-5.1)
[2020-10-02 06:39] LABS: Albumin Globulin Ratio 0.3 (0.9-2); Bilirubin,Total 1.3 mg/dl (0.2-1); Globulin 4.7 gm/dl (2.5-4.0); Total Protein 6.1 gm/dl (6.4-8.2)
[2020-10-02] MEDS: lisinopril 40 MG TAB PO SCH (09:36)
[2020-10-02] MEDS: carvediloL 6.25 MG TAB PO SCH ×2 (09:36→20:03)
[2020-10-02] MEDS: OXYBUTYNIN CHLORIDE XL 5 MG TABCR PO SCH ×4 (09:36→20:04)
[2020-10-02] MEDS: DULoxetine HCL 30 MG CAP PO SCH (09:37)
[2020-10-02] MEDS: DOCUSATE SODIUM 100 MG CAP PO SCH ×2 (09:38→20:04)
[2020-10-02] MEDS: APIXABAN 5 MG TABLET PO SCH ×2 (09:38→20:04)
[2020-10-02] MEDS: PANTOprazole 40 MG TAB PO SCH (09:38)
[2020-10-02] MEDS: SPIRONOLACTONE 12.5 MG TAB PO SCH (09:38)
[2020-10-02] MEDS: LACTULOSE SYRUP 30 GM/45 ML UDP PO SCH (09:39)
[2020-10-02] MEDS: ADVANCED PROBIOTIC 1250 MG CAPSULE PO SCH (09:44)
[2020-10-02] MEDS: INSULIN ASPART 100 UNITS/ML 3 ML PEN SC SCH ×4 (09:52→20:05)
[2020-10-02] MEDS: DOXYCYCLINE HYCLATE 100 MG in DEXTROSE 5% 100 ML IV SCH (11:34)
--- NOTE | 2020-10-02 16:07 | Communication Note ---
Date of Service: October 02, 2020 Opal is 74 years old is right-handed and was admitted on the for lethargy and a change in mental status was found to have significant hypoglycemia. There was evidence for acute urinary tract infection and she recovered but last evening after having relatively normal mental status she apparently became less responsive dysarthric and has remained intermittently lethargic all day long and well occasionally oriented really is not very cooperative and this is a significant change. I talked about one of the nurses who knows her from outside confirm that this is a definite change in her overall status No one has noted any significant focal neurologic deficits. CAT scan of the brain has shown no significant changes and her metabolic studies are diffusely mildly abnormal but her glucose level remains unchanged and she continues to have low protein anemia mild renal failure all pretty much at baseline This occurs in the setting of recently diagnosed Hodgkin's lymphoma with inguinal adenopathy, with apparently acute renal injury that is resolving, low- grade hyponatremia, left leg DVT status post Dale filter placement, dysphagia, remote history of COVID-19 in May with some lethargy since that point, GERD, type 2 diabetes, asthma, arthritis, chronic anxiety, morbid obesity Medications at home include Eliquis carvedilol duloxetine famotidine, Lasix, glipizide, latanoprost eyedrops, levothyroxine, lisinopril, omeprazole, oxybutynin, Ozempic and spironolactone Family history is noncontributory Social history reveals remarried non-smoker nonconsumer of ethanol living at home Systems review could really not be obtained from the patient I refer the reader to multiple progress notes describing her lethargy over the past day but she herself offers no complaints other than pain in her arms and shoulders, she denies any headaches or visual disturbances denies chest pain but really it is difficult to keep her awake enough and attentive enough to cooperate with any questioning and to prefers to lay in bed with her eyes deviated slightly to the right and to have a slightly dysarthric speech pattern Exam reveals a blood pressure 124/75 pulse 74 respiration rate 18 she is afebrile O2 saturation 91% on 2 L She can be aroused has mildly dysarthric speech she is very hesitant seems to have trouble naming common objects at times cannot tell me her current location tends to have her head and eyes deviated a little to the right and tends to use her left arm a little more preferentially than the right but this is pretty subtle and the right arm is painful to the touch and she will not hold both arms up for any period of time to test for drift or pronation sign. She withdraws all extremities to noxious stimulation including the lower extremities. I am not impressed with any facial asymmetry and I cannot demonstrate a field cut or cannot document neglect of bilateral cutaneous stimulation but she really is so poorly cooperative that this is difficult to state with certainty. 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 It is difficult to tell exactly what is going on here. The fact that this may have been an overnight acute change suggest the possibility of a cerebrovascular event and there are some subtle signs of some bihemispheric involvement with a subtle head and eye deviation to the right yet the weakness of the right arm (this may reflect pain however) and some ill-defined language disturbance that may simply be a nonspecific encephalopathy but has elements of an aphasia with the hesitancy and word finding issues I would suggest that we get an EEG and we will schedule him for tomorrow as some of this fluctuation might reflect some nonconvulsive status epilepticus She is also on cefepime for the bladder infection and this cephalosporin is notorious for causing encephalopathy at times with seizure-like activity particularly in the setting of renal failure. She has been on it for a few days and this is often sufficient to cause this type of pattern and we have certainly seen at least 2 other similar cases within the past 6 months EEG will be helpful and that it often shows a nonspecific encephalopathy but can also show periodic epileptiform discharges I would repeat a CAT scan even though I doubt that we will get a find structural disease I am going to communicate with her attending physician Dr. Stevens with my concerns and suggest that the cefepime be stopped and an alternative antibiotic preferably of a non beta lactam type be substituted I will check back in the morning and will read the eeg but if we do see evidence that looks like continuous epileptiform activity she may need continuous EEG monitoring at a tertiary care center and prompt institution of anticonvulsants Yuriy Perez MD
--- NOTE | 2020-10-02 19:37 | Hospitalist Progress Note ---
Date of Service October 02, 2020 Assessment & Plan (1) Hypoglycemia: (2) AMS (altered mental status): Patient is a 74yr female with H/O DM II, HTN, dyslipidemia, asthma, diastolic dysfunction, GERD, hypothyroidism, obesity, anxiety, H/O COVID-19 in 05/2020, LLE DVT is on Eliquis, s/p IVC filter presented to ER with complaint of AMS and hypoglycemia. Presented with with sudden onset AMS and found to have BSG 35 Acute metabolic encephalopathy Presented with Hypoglycemia CT Head:No acute intracranial findings Covid screen negative Lyme's IgG positive, IgM negative Infection contributing--chronic infection, UTI MRI brain pending Appreciate neurology input EEG ordered to rule out nonconvulsive status epilepticus Cefepime changed to Cipro as Cefepime thought to be causing AMS Monitor for hypoglycemia Pending to transfer to tertiary care facility if EEG shows epileptiform activity Urinary tract infection Left Groin Biopsy site Infection Wound culture growing Klebsiella pneumonia, Pseudomonas Urine culture growing Klebsiella pneumonia Continue Doxycycline IV cefepime transition to ciprofloxacin Lactic acidosis Likely secondary to Hodgkin's lymphoma Monitor Hypoglycemia: Hold glipizide and Ozempic A1c: 6.9 in 07/2020 Consider to discontinue oral hypoglycemics upon discharge Monitor BGs Weakness/Ambulatory dysfunction: Ongoing generalized weakness Weakness may be secondary to deconditioning, prolonged fatigue from COVID-19 in 05/2020 Fall precautions PT OT as able Left lower extremity DVT Present upon admission. Diagnosed 09/13/2020 S/p IVC filter Continue Eliquis Chronic Hyponatremia : Due to diuretics Lasix held Monitor sodium levels Hypertension: Continue carvedilol, lisinopril, spironolactone, Diastolic dysfunction: Grade II diastolic dysfunction, EF 59% on echo in 2018 Monitor Volume status Resume lasix as able Abnormal thyroid function test: H/O Hypothyroidism: Low TSH, elevated free T4 levothyroxine held Repeat TSH, Free T4 in AM Recently diagnosed Hodgkin's lymphoma. left groin LN biopsy : Hodgkin's Lymphoma Needs out patient oncology follow up Follows with Dr Rosio NAVA Anemia: possible anemia of chronic disease /underlying hematological malignancy - Hodgkins lymphoma Monitor CBC No reported bleeding Dysphagia: very poor appetite Chronic dysphagia. H/O EGD in 2019 without abnormality, however decision made to dilate esophagus Aspiration precautions Soft bite size diet GERD (gastroesophageal reflux disease): Continue PPI, H2 rosita Anxiety: On Duloxetine--Hold due to AMS H/O COVID-19: In 05/2020 DVT Px: on Eliquis Code Status Full Code Admission and Anticipated Discharge Date Admission Date: September 25, 2020 Subjective Patient is seen and examined at bedside Currently oriented to person only Remains confused MRI brain pending Unable to follow simple commands Discussed with neurology today Poor historian secondary to mental status Review of Systems Review of Systems: Unobtainable due to mental health condition Physical Exam Physical Exam: Physical Exam: Vitals signs as noted above General Appearance:Morbidly Obese, no apparent distress Head: normocephalic, Atraumatic Eyes: normal inspection, EOMI Neck: supple, Trachea midline Respiratory/Chest: Normal breath sounds, CTA, No accessory muscle use Cardiovascular: S1, S2, No murmur Abdomen/GI:Soft, mild tender, Bowel sounds present : Left Groin in bandage Extremities/Musculoskeletal:normal inspection, 1+ B/L LE edema Neurologic/Psych:Alert, awake, OX1, grossly no focal neurological deficits Skin: normal color, warm Results & Data Results & Data ([place]) Vital Signs (Past 12 Hours) Vital Signs Temp Pulse Pulse Resp BP Pulse Ox 10/02/20 15:28 74 10/02/20 14:59 36.6 C 75 18 124/75 91 10/02/20 07:42 69 Laboratory Results Short CBC 10/02/20 Range/Units 06:05 WBC 10.39 (4.8-10.8) K/uL Hgb 9.5 L (12.0-16.0) g/dL Hct 30.4 L (37-47) % Plt Count 66 L (130-400) K/uL BMP 10/02/20 06:05 Sodium 134 L Potassium 4.3 Chloride 102 Carbon Dioxide 30 BUN 37 H Creatinine 0.89 Glucose 130 H Calcium 10.0 Liver Function 10/02/20 Range/Units 06:05 Total Bilirubin 1.3 H (0.2-1) mg/dl AST 32 (15-37) U/L ALT 27 (12-78) U/L Alkaline Phosphatase 154 H (45-117) U/L Albumin 1.4 L (3.4-5.0) gm/dl
[2020-10-02] MEDS: FAMOTIDINE 40 MG TABLET PO SCH (20:04)
[2020-10-02] MEDS: LATANOPROST 0.005% OP SOLN 2.5 ML BTL OP SCH (20:06)
[2020-10-02] MEDS: CIPROFLOXACIN / D5W 400 MG/200 ML BAG IV SCH (20:16)
[2020-10-02] MEDS ORDERED: OLANZapine 10 MG/2.1 ML SDV IM STA (22:21)
[2020-10-03] MEDS: DOXYCYCLINE HYCLATE 100 MG in DEXTROSE 5% 100 ML IV SCH ×2 (00:08→12:32)
--- NOTE | 2020-10-03 06:57 | Magnetic Resonance Report ---
MRI OF THE BRAIN WITHOUT CONTRAST CLINICAL HISTORY: Altered mental status NON-HODGKIN'S LYMPHOMA COMPARISON STUDY: Noncontrast head CT performed 09/29/2020 FINDINGS: Sagittal and axial images were obtained. The study is compromised by significant motion artifact. The patient was combative and unable to complete the examination. Coronal FLAIR images were not acquired . No postcontrast images were acquired. No intra or extra-axial mass lesions are visualized Axial diffusion-weighted images reveal no evidence of acute or subacute infarction. There is no evidence of ventricular dilatation. There are no abnormal flow voids. IMPRESSION: 1. Motion degraded study. 2. No evidence of acute or subacute infarct 3. No evidence of mass effect. 4. No evidence of hydrocephalus. ACT 112: Negative or not required by law. Electronically signed by: Marcellus Weaver M.D. 10/03/2020 6:56 AM
[2020-10-03 07:41] LABS: Hematocrit (blood only) 28.2 % (37-47); Hemoglobin 8.7 g/dL (12.0-16.0); Mean Corpuscular Hemoglobin 27.3 pg (25-34); Mean Corpuscular Hgb Conc 30.9 g/dL (32-36); Mean Corpuscular Volume 88.4 fL (80-100); RDW Coefficient of Variation 16.4 % (11.5-14.5); RDW Standard Deviation 53.4 fL (36.4-46.3); Red Blood Count 3.19 M/uL (4.2-5.4); White Blood Count 9.72 K/uL (4.8-10.8)
[2020-10-03 07:44] LABS: Mean Platelet Volume 10.1 fL (7.4-10.4); Platelet Count 72 K/uL (130-400)
[2020-10-03 08:03] LABS: Albumin Level 1.3 gm/dl (3.4-5.0); BUN Creatinine Ratio 43.2 (10-20); Calcium 9.9 mg/dl (8.5-10.1); Creatinine Clr Calc Pharmacy 49.8 ml/min; Est GFR (African American) 53.9 ml/min; Est GFR (Non-African American) 46.5 ml/min; Potassium 4.3 mmol/L (3.5-5.1)
[2020-10-03 08:17] LABS: Albumin Globulin Ratio 0.3 (0.9-2); Bilirubin,Total 1.2 mg/dl (0.2-1); Globulin 4.3 gm/dl (2.5-4.0); T4 Free Thyroxine 0.59 ng/dl (0.8-1.6); Thyroid Stimulating Hormone 0.722 uIu/ml (0.300-4.500); Total Protein 5.6 gm/dl (6.4-8.2)
[2020-10-03] MEDS: INSULIN ASPART 100 UNITS/ML 3 ML PEN SC SCH ×4 (08:43→21:53)
[2020-10-03] MEDS: CIPROFLOXACIN / D5W 400 MG/200 ML BAG IV SCH ×2 (08:43→21:19)
[2020-10-03] MEDS: carvediloL 6.25 MG TAB PO SCH ×2 (08:45→21:55)
[2020-10-03] MEDS: lisinopril 40 MG TAB PO SCH (08:46)
[2020-10-03 09:17] LABS: 18KDIGG Band REACTIVE; 23KDIGG Band NON-REACTIVE; 23KDIGM Band NON-REACTIVE; 28KDIGG Band NON-REACTIVE; 30KDIGG Band NON-REACTIVE; 39KDIGG Band REACTIVE; 39KDIGM Band NON-REACTIVE; 41KDIGG Band REACTIVE; 41KDIGM Band NON-REACTIVE; 45KDIGG Band NON-REACTIVE; 58KDIGG Band REACTIVE; 66KDIGG Band NON-REACTIVE; 93KDIGG Band NON-REACTIVE; Lyme Antibodies, WB IgG NEGATIVE (NEGATIVE); Lyme Antibodies, WB IgM NEGATIVE (NEGATIVE)
[2020-10-03] MEDS: DOCUSATE SODIUM 100 MG CAP PO SCH ×2 (10:10→21:55)
[2020-10-03] MEDS: APIXABAN 5 MG TABLET PO SCH ×2 (10:10→21:55)
[2020-10-03] MEDS: SPIRONOLACTONE 12.5 MG TAB PO SCH (10:11)
[2020-10-03] MEDS: ADVANCED PROBIOTIC 1250 MG CAPSULE PO SCH (10:11)
[2020-10-03] MEDS: PANTOprazole 40 MG TAB PO SCH (10:11)
[2020-10-03] MEDS: OXYBUTYNIN CHLORIDE XL 5 MG TABCR PO SCH ×2 (10:11→13:20)
[2020-10-03] MEDS: LACTULOSE SYRUP 30 GM/45 ML UDP PO SCH (10:11)
--- NOTE | 2020-10-03 12:41 | Electroencephalogram ---
EEG Procedure Note Date of Service October 03, 2020 Start / End Times Start Time: 1057 End Time: 1117 Referring Physician Yuriy Perez MD History Acute onset of encephalopathy cause uncertain Home Medication List Medication Instructions Recorded Confirmed Type carvedilol 6.25 mg PO BID 12/08/18 09/25/20 History duloxetine 30 mg PO QAM 12/08/18 09/25/20 History furosemide 20 mg PO QAM 12/08/18 09/25/20 History glipizide 5 mg PO BID 12/08/18 09/25/20 History latanoprost (PF) 1 drp OPHTHALMIC (EYE) HS 12/08/18 09/25/20 History levothyroxine 175 mcg PO QAM 12/08/18 09/25/20 History lisinopril 40 mg PO QAM 12/08/18 09/25/20 History omeprazole 40 mg PO QAM 12/08/18 09/25/20 History oxybutynin chloride [Ditropan XL] 5 mg PO TID 12/08/18 09/25/20 History spironolactone 12.5 mg PO QAM 12/08/18 09/25/20 History Ozempic 0.25 mg SUBCUT FLORES 06/05/20 09/25/20 History famotidine 40 mg PO HS 06/05/20 09/25/20 History apixaban [Eliquis] 5 mg PO BID #74 tab 09/21/20 09/25/20 Rx levothyroxine 150 mcg PO DAILY #30 cap 09/27/20 Rx Inpatient Medication List Acetaminophen (Acetaminophen 325 Mg Tab) 650 mg PO Q4H PRN PRN Reason: Pain or Fever Stop: 10/25/20 23:05 Last Admin: 09/26/20 23:21 Dose: 650 mg Documented by: [id number] Admin: 09/26/20 12:07 Dose: 650 mg Documented by: [id number] Apixaban (Apixaban 5 Mg Tablet) 5 mg PO BID [facility] Stop: 10/25/20 23:05 Last Admin: 10/03/20 10:10 Dose: Not Given Documented by: [id number] Admin: 10/02/20 20:04 Dose: 5 mg Documented by: [id number] Admin: 10/02/20 09:38 Dose: 5 mg Documented by: [id number] Admin: 10/01/20 20:41 Dose: Not Given Documented by: [id number] Admin: 10/01/20 09:09 Dose: 5 mg Documented by: [id number] Admin: 09/30/20 23:16 Dose: Not Given Documented by: [id number] Admin: 09/30/20 08:28 Dose: 5 mg Documented by: [id number] Admin: 09/29/20 21:04 Dose: 5 mg Documented by: [id number] Admin: 09/29/20 08:38 Dose: 5 mg Documented by: [id number] Admin: 09/28/20 20:36 Dose: 5 mg Documented by: [id number] Admin: 09/28/20 09:27 Dose: 5 mg Documented by: [id number] Admin: 09/27/20 20:45 Dose: 5 mg Documented by: [id number] Admin: 09/27/20 08:11 Dose: 5 mg Documented by: [id number] Admin: 09/26/20 20:43 Dose: 5 mg Documented by: [id number] Admin: 09/26/20 07:45 Dose: 5 mg Documented by: [id number] Admin: 09/26/20 00:58 Dose: 5 mg Documented by: [id number] Carvedilol (Carvedilol 6.25 Mg Tab) 6.25 mg PO BID [facility] Stop: 10/26/20 08:59 Last Admin: 10/03/20 08:45 Dose: Not Given Documented by: [id number] Admin: 10/02/20 20:03 Dose: 6.25 mg Documented by: [id number] Admin: 10/02/20 09:36 Dose: 6.25 mg Documented by: [id number] Admin: 10/01/20 20:42 Dose: Not Given Documented by: [id number] Admin: 10/01/20 09:09 Dose: 6.25 mg Documented by: [id number] Admin: 09/30/20 23:17 Dose: Not Given Documented by: [id number] Admin: 09/30/20 08:28 Dose: 6.25 mg Documented by: [id number] Admin: 09/29/20 21:04 Dose: 6.25 mg Documented by: [id number] Admin: 09/29/20 08:38 Dose: 6.25 mg Documented by: [id number] Admin: 09/28/20 20:36 Dose: 6.25 mg Documented by: [id number] Admin: 09/28/20 09:27 Dose: 6.25 mg Documented by: [id number] Admin: 09/27/20 20:46 Dose: 6.25 mg Documented by: [id number] Admin: 09/27/20 08:11 Dose: 6.25 mg Documented by: [id number] Admin: 09/26/20 20:43 Dose: 6.25 mg Documented by: [id number] Admin: 09/26/20 07:45 Dose: 6.25 mg Documented by: [id number] Dextrose (Dextrose 50% 50 Ml Syringe) 25 - 50 ml IV UD PRN; Protocol PRN Reason: Hypoglycemia Protocol Stop: 10/25/20 23:05 Last Admin: 09/26/20 00:56 Dose: 25 ml Documented by: [id number] Docusate Sodium (Docusate Sodium 100 Mg Cap) 100 mg PO BID [facility] Stop: 10/30/20 20:59 Last Admin: 10/03/20 10:10 Dose: Not Given Documented by: [id number] Admin: 10/02/20 20:04 Dose: 100 mg Documented by: [id number] Admin: 10/02/20 09:38 Dose: 100 mg Documented by: [id number] Admin: 10/01/20 20:42 Dose: Not Given Documented by: [id number] Admin: 10/01/20 09:09 Dose: 100 mg Documented by: [id number] Admin: 09/30/20 23:17 Dose: Not Given Documented by: [id number] Duloxetine HCl (Duloxetine Hcl 30 Mg Cap) 30 mg PO QAM [facility] Stop: 10/26/20 08:59 Last Admin: 10/02/20 09:37 Dose: 30 mg Documented by: [id number] Admin: 10/01/20 09:09 Dose: 30 mg Documented by: [id number] Admin: 09/30/20 08:29 Dose: 30 mg Documented by: [id number] Admin: 09/29/20 08:38 Dose: 30 mg Documented by: [id number] Admin: 09/28/20 09:28 Dose: 30 mg Documented by: [id number] Admin: 09/27/20 08:11 Dose: 30 mg Documented by: [id number] Admin: 09/26/20 07:45 Dose: 30 mg Documented by: [id number] Famotidine (Famotidine 40 Mg Tablet) 40 mg PO HS [facility] Stop: 10/26/20 20:59 Last Admin: 10/02/20 20:04 Dose: 40 mg Documented by: [id number] Admin: 10/01/20 20:42 Dose: Not Given Documented by: [id number] Admin: 09/30/20 23:17 Dose: Not Given Documented by: [id number] Admin: 09/29/20 21:04 Dose: 40 mg Documented by: [id number] Admin: 09/28/20 20:37 Dose: 40 mg Documented by: [id number] Admin: 09/27/20 20:46 Dose: 40 mg Documented by: [id number] Admin: 09/26/20 20:43 Dose: 40 mg Documented by: [id number] [facility]uro[facility] ([facility] 20 Mg Tab) [facility] [place]: 10/26/20 08:59 Last Admin: 09/28/20 10:06 Dose: 20 mg Documented by: [id number] Admin: 09/26/20 07:45 Dose: 20 mg Documented by: [id number] Doxycycline Hyclate 100 mg/ (Dextrose) 110 mls @ 50 mls/hr IV Q12H [facility] Stop: 10/11/20 00:00 Last Admin: 10/03/20 12:32 Dose: 50 mls/hr Documented by: [id number] Infusion: 10/03/20 02:21 Dose: 0 mls/hr Documented by: [id number] Admin: 10/03/20 00:08 Dose: 50 mls/hr Documented by: [id number] Infusion: 10/02/20 13:46 Dose: 0 mls/hr Documented by: [id number] Admin: 10/02/20 11:34 Dose: 50 mls/hr Documented by: [id number] Infusion: 10/02/20 02:05 Dose: 0 mls/hr Documented by: [id number] Admin: 10/01/20 23:52 Dose: 50 mls/hr Documented by: [id number] Infusion: 10/01/20 17:28 Dose: 0 mls/hr Documented by: [id number] Admin: 10/01/20 13:07 Dose: 50 mls/hr Documented by: [id number] Infusion: 10/01/20 03:18 Dose: 0 mls/hr Documented by: [id number] Admin: 10/01/20 00:50 Dose: 50 mls/hr Documented by: [id number] Acetaminophen (Ofirmev) 1,000 mg in 100 mls @ 400 mls/hr IV Q8H PRN PRN Reason: Pain or Fever Stop: 10/04/20 02:34 Last Infusion: 10/01/20 15:10 Dose: 0 mls/hr Documented by: [id number] Admin: 10/01/20 14:48 Dose: 400 mls/hr Documented by: [id number] Ciprofloxacin (Cipro / D5w) 400 mg in 200 mls @ 100 mls/hr IV Q12H [facility]; Protocol Stop: 10/06/20 19:59 Last Infusion: 10/03/20 10:43 Dose: 0 mls/hr Documented by: [id number] Admin: 10/03/20 08:43 Dose: 100 mls/hr Documented by: [id number] Infusion: 10/02/20 22:16 Dose: 0 mls/hr Documented by: [id number] Admin: 10/02/20 20:16 Dose: 100 mls/hr Documented by: [id number] Insulin Aspart (Insulin Aspart 100 Units/Ml 3 Ml Pen) 0 units SC ACHS [facility] Stop: 10/27/20 07:29 Last Admin: 10/03/20 12:28 Dose: Not Given Documented by: [id number] Admin: 10/03/20 08:43 Dose: Not Given Documented by: [id number] Admin: 10/02/20 20:05 Dose: Not Given Documented by: [id number] Admin: 10/02/20 16:47 Dose: Not Given Documented by: [id number] Cosigned by: [id number] Admin: 10/02/20 11:25 Dose: Not Given Documented by: [id number] Cosigned by: [id number] Admin: 10/02/20 09:52 Dose: Not Given Documented by: [id number] Cosigned by: [id number] Admin: 10/01/20 20:42 Dose: Not Given Documented by: [id number] Cosigned by: [id number] Admin: 10/01/20 17:29 Dose: 1 units Documented by: [id number] Cosigned by: [id number] Admin: 10/01/20 13:06 Dose: Not Given Documented by: [id number] Admin: 10/01/20 09:10 Dose: Not Given Documented by: [id number] Admin: 09/30/20 21:42 Dose: 1 units Documented by: [id number] Cosigned by: [id number] Admin: 09/30/20 17:18 Dose: Not Given Documented by: [id number] Cosigned by: [id number] Admin: 09/30/20 11:50 Dose: Not Given Documented by: [id number] Cosigned by: [id number] Admin: 09/30/20 09:17 Dose: Not Given Documented by: [id number] Cosigned by: [id number] Admin: 09/29/20 21:28 Dose: Not Given Documented by: [id number] Cosigned by: [id number] Admin: 09/29/20 17:05 Dose: 1 units Documented by: [id number] Cosigned by: [id number] Admin: 09/29/20 12:06 Dose: Not Given Documented by: [id number] Cosigned by: [id number] Admin: 09/29/20 07:30 Dose: Not Given Documented by: [id number] Cosigned by: [id number] Admin: 09/28/20 20:37 Dose: 1 units Documented by: [id number] Cosigned by: [id number] Admin: 09/28/20 16:54 Dose: 6 units Documented by: [id number] Cosigned by: [id number] Admin: 09/28/20 13:20 Dose: Not Given Documented by: [id number] Cosigned by: [id number] Admin: 09/28/20 10:06 Dose: Not Given Documented by: [id number] Cosigned by: [id number] Admin: 09/27/20 20:47 Dose: 1 units Documented by: [id number] Cosigned by: [id number] Admin: 09/27/20 17:47 Dose: 1 units Documented by: [id number] Cosigned by: [id number] Admin: 09/27/20 13:04 Dose: 1 units Documented by: [id number] Cosigned by: [id number] Admin: 09/27/20 08:10 Dose: 1 units Documented by: [id number] Cosigned by: [id number] Lactobacillus Acidoph/Casei/Rhamnos (Advanced Probiotic 1250 Mg Capsule) 2 cap PO DAILY [facility] Stop: 10/29/20 08:59 Last Admin: 10/03/20 10:11 Dose: Not Given Documented by: [id number] Admin: 10/02/20 09:44 Dose: Not Given Documented by: [id number] Admin: 10/01/20 09:08 Dose: 2 cap Documented by: [id number] Admin: 09/30/20 08:29 Dose: 2 cap Documented by: [id number] Admin: 09/29/20 08:38 Dose: 2 cap Documented by: [id number] Lactulose (Lactulose Syrup 30 Gm/45 Ml Udp) 30 gm PO DAILY [facility] Stop: 11/01/20 08:59 Last Admin: 10/03/20 10:11 Dose: Not Given Documented by: [id number] Admin: 10/02/20 09:39 Dose: 30 gm Documented by: [id number] Latanoprost (Latanoprost 0.005% Op Soln 2.5 Ml Btl) 1 drops OP HS [facility] Stop: 10/26/20 20:59 Last Admin: 10/02/20 20:06 Dose: 1 drops Documented by: [id number] Admin: 10/01/20 21:50 Dose: 1 drops Documented by: [id number] Admin: 09/30/20 21:35 Dose: 1 drops Documented by: [id number] Admin: 09/29/20 21:04 Dose: 1 drops Documented by: [id number] Admin: 09/28/20 20:37 Dose: 1 drops Documented by: [id number] Admin: 09/27/20 20:46 Dose: 1 drops Documented by: [id number] Admin: 09/26/20 20:44 Dose: 1 drops Documented by: [id number] Levothyroxine Sodium (Levothyroxine Sodium 125 Mcg Tablet) 125 mcg PO DAILYBB [facility] Stop: 10/27/20 06:29 Last Admin: 09/27/20 05:44 Dose: 125 mcg Documented by: [id number] Lisinopril (Lisinopril 40 Mg Tab) 40 mg PO QAM [facility] Stop: 10/26/20 08:59 Last Admin: 10/03/20 08:46 Dose: Not Given Documented by: [id number] Admin: 10/02/20 09:36 Dose: 40 mg Documented by: [id number] Admin: 10/01/20 09:09 Dose: 40 mg Documented by: [id number] Admin: 09/30/20 08:29 Dose: 40 mg Documented by: [id number] Admin: 09/29/20 08:38 Dose: 40 mg Documented by: [id number] Admin: 09/28/20 10:07 Dose: 40 mg Documented by: [id number] Admin: 09/26/20 07:46 Dose: 40 mg Documented by: [id number] Oxybutynin Chloride (Oxybutynin Chloride Xl 5 Mg Tabcr) 5 mg PO TID [facility] Stop: 10/26/20 08:59 Last Admin: 10/03/20 10:11 Dose: Not Given Documented by: [id number] Admin: 10/02/20 20:04 Dose: 5 mg Documented by: [id number] Admin: 10/02/20 13:49 Dose: Not Given Documented by: [id number] Admin: 10/02/20 09:36 Dose: 5 mg Documented by: [id number] Admin: 10/01/20 20:42 Dose: Not Given Documented by: [id number] Admin: 10/01/20 16:27 Dose: Not Given Documented by: [id number] Admin: 10/01/20 09:10 Dose: 5 mg Documented by: [id number] Admin: 09/30/20 23:17 Dose: Not Given Documented by: [id number] Admin: 09/30/20 14:51 Dose: 5 mg Documented by: [id number] Admin: 09/30/20 08:28 Dose: 5 mg Documented by: [id number] Admin: 09/29/20 21:04 Dose: 5 mg Documented by: [id number] Admin: 09/29/20 13:33 Dose: 5 mg Documented by: [id number] Admin: 09/29/20 08:38 Dose: 5 mg Documented by: [id number] Admin: 09/28/20 20:37 Dose: 5 mg Documented by: [id number] Admin: 09/28/20 15:02 Dose: 5 mg Documented by: [id number] Admin: 09/28/20 09:28 Dose: 5 mg Documented by: [id number] Admin: 09/27/20 20:46 Dose: 5 mg Documented by: [id number] Admin: 09/27/20 13:04 Dose: 5 mg Documented by: [id number] Admin: 09/27/20 08:11 Dose: 5 mg Documented by: [id number] Admin: 09/26/20 20:44 Dose: 5 mg Documented by: [id number] Admin: 09/26/20 12:07 Dose: 5 mg Documented by: [id number] Admin: 09/26/20 07:46 Dose: 5 mg Documented by: [id number] Pantoprazole Sodium (Pantoprazole 40 Mg Tab) 40 mg PO [facility] Stop: 10/26/20 08:59 Last Admin: 10/03/20 10:11 Dose: Not Given Documented by: [id number] Admin: 10/02/20 09:38 Dose: 40 mg Documented by: [id number] Admin: 10/01/20 09:08 Dose: 40 mg Documented by: [id number] Admin: 09/30/20 08:29 Dose: 40 mg Documented by: [id number] Admin: 09/29/20 08:38 Dose: 40 mg Documented by: [id number] Admin: 09/28/20 09:29 Dose: 40 mg Documented by: [id number] Admin: 09/27/20 08:11 Dose: 40 mg Documented by: [id number] Admin: 09/26/20 07:46 Dose: 40 mg Documented by: [id number] Polyethylene Glycol (Polyethylene (Miralax) 17 Gm Pack) 17 gm PO DAILY PRN PRN Reason: Constipation Stop: 10/25/20 23:05 Last Admin: 09/30/20 08:27 Dose: 17 gm Documented by: [id number] Admin: 09/28/20 23:04 Dose: 17 gm Documented by: [id number] Spironolactone (Spironolactone 12.5 Mg Tab) [facility] Stop: 10/26/20 08:59 Last Admin: 10/03/20 10:11 Dose: Not Given Documented by: [id number] Admin: 10/02/20 09:38 Dose: 12.5 mg Documented by: [id number] Admin: 10/01/20 09:08 Dose: 12.5 mg Documented by: [id number] Admin: 09/30/20 08:29 Dose: 12.5 mg Documented by: [id number] Admin: 09/29/20 08:38 Dose: 12.5 mg Documented by: [id number] Admin: 09/28/20 10:35 Dose: 12.5 mg Documented by: [id number] Admin: 09/26/20 07:46 Dose: 12.5 mg Documented by: [id number] Discontinued Medications Ciprofloxacin (Ciprofloxacin 500 Mg Tab) 500 mg PO Q12H [facility]; Protocol Stop: 10/08/20 17:59 Last Admin: 09/30/20 05:55 Dose: 500 mg Documented by: [id number] Admin: 09/29/20 17:22 Dose: 500 mg Documented by: [id number] Dextrose (Dextrose 50% 50 Ml Syringe) 25 ml IV NOW STA Stop: 09/25/20 19:36 Last Admin: 09/25/20 19:42 Dose: 25 ml Documented by: [id number] Dextrose (Dextrose 50% 50 Ml Syringe) 25 ml IV NOW ONE Stop: 09/25/20 20:13 Last Admin: 09/25/20 20:13 Dose: 25 ml Documented by: [id number] Dextrose (Dextrose 50% 50 Ml Syringe) 25 ml IV NOW ONE Stop: 09/25/20 20:18 Last Admin: 09/25/20 20:26 Dose: Not Given Documented by: [id number] Dextrose (Dextrose 50% 50 Ml Syringe) Confirm Administered Dose 50 ml IV .STK-M ED ONE Stop: 09/25/20 23:33 Last Admin: 09/25/20 23:35 Dose: 50 ml Documented by: [id number] Sodium Chloride (Nss 1000ml) 1,000 mls @ 125 mls/hr IV .Q8H [facility]IA Stop: 09/26/20 02:29 Last Infusion: 09/25/20 21:48 Dose: 0 mls/hr Documented by: [id number] Admin: 09/25/20 19:33 Dose: 125 mls/hr Documented by: [id number] Ceftriaxone Sodium (Rocephin) 2,000 mg in 70 mls @ 140 mls/hr IV NOW STA Stop: 09/25/20 19:52 Last Infusion: 09/25/20 20:07 Dose: 0 mls/hr Documented by: [id number] Admin: 09/25/20 19:33 Dose: 140 mls/hr Documented by: [id number] Potassium Chloride/Dextrose/Sod Cl (D5w And 1/2nss + 20meq Kcl) 20 meq in 1,000 mls @ 100 mls/hr IV .Q10H [facility]IA Stop: 10/25/20 20:29 Last Infusion: 09/25/20 23:50 Dose: 0 mls/hr Documented by: [id number] Admin: 09/25/20 21:48 Dose: 100 mls/hr Documented by: [id number] Dextrose (D5w) 1,000 mls @ 125 mls/hr IV .Q8H ELIA Stop: 09/26/20 07:05 Last Infusion: 09/26/20 01:05 Dose: 0 mls/hr Documented by: [id number] Admin: 09/25/20 23:52 Dose: 125 mls/hr Documented by: [id number] Dextrose (D10w) 1,000 mls @ 75 mls/hr IV .[id number] [facility] Stop: 10/26/20 00:59 Last Admin: 09/26/20 15:11 Dose: Not Given Documented by: [id number] Infusion: 09/26/20 14:46 Dose: 0 mls/hr Documented by: [id number] Infusion: 09/26/20 06:01 Dose: 75 mls/hr Documented by: [id number] Infusion: 09/26/20 05:16 Dose: 0 mls/hr Documented by: [id number] Infusion: 09/26/20 03:00 Dose: 75 mls/hr Documented by: [id number] Infusion: 09/26/20 02:15 Dose: 0 mls/hr Documented by: [id number] Admin: 09/26/20 01:15 Dose: 75 mls/hr Documented by: [id number] Ertapenem 1,000 mg/ Sodium (Chloride) 60 mls @ 100 mls/hr IV Q24H [facility] Stop: 10/03/20 04:59 Last Infusion: 09/27/20 06:21 Dose: 0 mls/hr Documented by: [id number] Admin: 09/27/20 05:43 Dose: 100 mls/hr Documented by: [id number] Infusion: 09/26/20 05:45 Dose: 0 mls/hr Documented by: [id number] Admin: 09/26/20 05:15 Dose: 100 mls/hr Documented by: [id number] Vancomycin HCl 1,250 mg/ (Sodium Chloride) 275 mls @ 200 mls/hr IV Q12H [facility]; Protocol Stop: 10/03/20 17:59 Last Infusion: 09/27/20 07:51 Dose: 0 mls/hr Documented by: [id number] Admin: 09/27/20 05:43 Dose: 200 mls/hr Documented by: [id number] Infusion: 09/26/20 19:05 Dose: 0 mls/hr Documented by: [id number] Admin: 09/26/20 17:36 Dose: 200 mls/hr Documented by: [id number] Vancomycin HCl 2,500 mg/ (Sodium Chloride) 550 mls @ 200 mls/hr IV NOW ONE Stop: 09/26/20 07:44 Last Infusion: 09/26/20 08:00 Dose: 0 mls/hr Documented by: [id number] Admin: 09/26/20 05:15 Dose: 200 mls/hr Documented by: [id number] Dextrose/Sodium Chloride (D5w And Nss) 1,000 mls @ 100 mls/hr IV .Q10H [facility] Stop: 09/27/20 00:44 Last Infusion: 09/27/20 00:48 Dose: 0 mls/hr Documented by: [id number] Admin: 09/26/20 14:46 Dose: 100 mls/hr Documented by: [id number] Ceftriaxone Sodium 2,000 mg/ (Dextrose) 70 mls @ 100 mls/hr IV DAILY [facility]; Protocol Stop: 10/02/20 08:59 Last Infusion: 09/28/20 11:08 Dose: 0 mls/hr Documented by: [id number] Admin: 09/28/20 10:05 Dose: 100 mls/hr Documented by: [id number] Infusion: 09/27/20 10:24 Dose: 0 mls/hr Documented by: [id number] Admin: 09/27/20 09:33 Dose: 100 mls/hr Documented by: [id number] Ciprofloxacin (Cipro / D5w) 400 mg in 200 mls @ 100 mls/hr IV Q12H [facility]; Protocol Stop: 10/08/20 17:59 Last Infusion: 09/29/20 09:01 Dose: 0 mls/hr Documented by: [id number] Admin: 09/29/20 05:54 Dose: 100 mls/hr Documented by: [id number] Infusion: 09/28/20 20:44 Dose: 0 mls/hr Documented by: [id number] Admin: 09/28/20 18:22 Dose: 100 mls/hr Documented by: [id number] Lactated Ringer's (Lr) 1,000 mls @ 75 mls/hr IV .[id number] [facility] Stop: 09/29/20 07:04 Last Infusion: 09/29/20 09:01 Dose: 0 mls/hr Documented by: [id number] Admin: 09/28/20 18:22 Dose: 75 mls/hr Documented by: [id number] Ciprofloxacin (Cipro / D5w) 400 mg in 200 mls @ 100 mls/hr IV Q12H [facility]; Protocol Stop: 10/08/20 17:59 Last Infusion: 09/30/20 19:40 Dose: 0 mls/hr Documented by: [id number] Admin: 09/30/20 17:25 Dose: 100 mls/hr Documented by: [id number] Meropenem 500 mg/ Syringe 10 mls @ 2 mls/min IV Q6 [facility]; Protocol Stop: 10/07/20 23:29 Last Admin: 10/01/20 06:06 Dose: 2 mls/min Documented by: [id number] Admin: 10/01/20 00:08 Dose: 2 mls/min Documented by: [id number] Sodium Chloride (Nss) 500 mls @ 100 mls/hr IV .Q5H [facility] Stop: 10/01/20 04:14 Last Infusion: 10/01/20 04:37 Dose: 0 mls/hr Documented by: [id number] Admin: 09/30/20 23:12 Dose: 100 mls/hr Documented by: [id number] Cefepime HCl 2,000 mg/ Syringe 20 mls @ 5 mls/min IV Q8H [facility]; Protocol Stop: 10/08/20 11:59 Last Admin: 10/02/20 11:31 Dose: 5 mls/min Documented by: [id number] Admin: 10/02/20 04:05 Dose: 5 mls/min Documented by: [id number] Admin: 10/01/20 21:50 Dose: 5 mls/min Documented by: [id number] Admin: 10/01/20 13:07 Dose: 5 mls/min Documented by: [id number] Lactated Ringer's (Lr) 1,000 mls @ 80 mls/hr IV .[id number] [facility] Stop: 10/02/20 08:59 Last Infusion: 10/02/20 10:28 Dose: 0 mls/hr Documented by: [id number] Admin: 10/01/20 21:50 Dose: 80 mls/hr Documented by: [id number] Levalbuterol HCl (') 1.25 mg NEB NOW STA Stop: 10/01/20 01:45 Last Admin: 10/01/20 02:17 Dose: 1.25 mg Documented by: [id number] Levothyroxine Sodium (Levothyroxine Sodium 150 Mcg Tablet) 150 mcg PO DAILYBB [facility] Stop: 10/26/20 06:29 Last Admin: 09/26/20 05:16 Dose: 150 mcg Documented by: [id number] Olanzapine (Olanzapine 10 Mg/2.1 Ml Sdv) 5 mg IM NOW STA Stop: 10/02/20 22:22 Last Admin: 10/02/20 22:51 Dose: 5 mg Documented by: [id number] Description This is a 21 electrode EEG with a single channel dedicated to limited EKG. The electrodes were placed in accordance with the International 10-20 system. This EEG was done as a bedside recording and is of reasonably good technical quality allowing for a lot of muscle movement artifacts early on. Once this activity began to caryl tracing became more comfortable. Photic stimulation was performed. Drowsiness light sleep not clearly recorded. Video analysis indicates that the patient is confused and moving randomly and the teletype technician confirms this. Under these conditions there is no normal background alpha rhythm but rather a posterior head region predominant upper theta rhythm of modest voltage which is symmetrical and bilaterally more prominent in the posterior head regions. Centrally the pattern shifts into more of theta delta rhythm with periodic somewhat rhythmic modest amplitude delta activity alternating with low amplitude more chaotic theta but all this is symmetrical, does not demonstrate unilateral predominance and is not associate with any periodic sharp or slow wave discharges or indeed any. potentially epileptogenic activity Beta activity cannot be clearly defined. Photic stimulation provokes minimal driving response of any. There is no evidence for clear-cut potentially epileptogenic activity Interpretation This EEG indicates evidence for nonspecific generalized moderate to moderately severe encephalopathy with no lateralizing features and with no associated potentially epileptogenic features Clinical Correlation This is a moderately abnormal EEG indicating evidence for nonspecific generalized encephalopathy without any associated potentially epileptiform activity. Pattern such as this may be seen in multifocal structural disease although in this setting the MRI and CT scan did not indicate anything of significance. It could also be seen in a toxic or metabolic encephalopathy and in this case cefepime toxicity can produce a similar EEG pattern. The absence of potential epileptogenic activity is reassuring but does not limit future epileptiform activity and repeat tracing in 24 hours may be helpful yuriy Perez MD
[2020-10-03] MEDS ORDERED: SODIUM CHLORIDE 0.9% 1000ML 1,000 ML IV ONE (14:17)
--- NOTE | 2020-10-03 15:53 | Communication Note ---
Date of Service: October 03, 2020 however looks a little better today but is still clearly confused not very verbal but some of this could be recovery from her Zyprexa that was on board to get her through an MRI last night and this wasn't very successful. MRI was incomplete but did not show any evidence for embolic infarctions on diffusion- weighted imaging and EEG today showed a moderate to moderately severe generalized nonfocal encephalopathy pattern without ongoing potentially epileptogenic features She moves all extremities today but still prefers not to interact with the examiner speaks very sparsely won't answer orientation questions but doesn't have the head or eye deviation that that was present yesterday exam otherwise is pretty unreliable and not very helpful Laboratory studies showed a mild renal failure with elevated BUN marginal creatinine and the cefepime has been discontinued but it will take some time for any encephalopathy associated with this agent to clear Overall she remains afebrile. 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 Dr. River will be assuming the service tomorrow and will return to do EEG. I'll discuss things with him tomorrow when I see him in the office Yuriy Perez MD
--- NOTE | 2020-10-03 16:37 | Hospitalist Progress Note ---
Date of Service October 03, 2020 Assessment & Plan (1) Hypoglycemia: (2) AMS (altered mental status): Patient is a 74yr female with H/O DM II, HTN, dyslipidemia, asthma, diastolic dysfunction, GERD, hypothyroidism, obesity, anxiety, H/O COVID-19 in 05/2020, LLE DVT is on Eliquis, s/p IVC filter presented to ER with complaint of AMS and hypoglycemia. Presented with with sudden onset AMS and found to have BSG 35 Acute metabolic encephalopathy Presented with Hypoglycemia CT Head:No acute intracranial findings Covid screen negative Lyme's IgG positive, IgM negative Infection contributing--chronic infection, UTI MRI brain: Motion degraded study. No evidence of acute or subacute infarct. No evidence of mass effect. No evidence of hydrocephalus. Appreciate neurology input EEG: nonspecific generalized moderate to moderately severe encephalopathy with no lateralizing features and with no associated potentially epileptogenic features Cefepime changed to Cipro as Cefepime thought to be causing AMS Monitor for hypoglycemia Hold duloxetine, oxybutynin Plan for repeat EEG tomorrow Gentle IV fluids Urinary tract infection Left Groin Biopsy site Infection Wound culture growing Klebsiella pneumonia, Pseudomonas Urine culture growing Klebsiella pneumonia Continue Doxycycline IV cefepime transition to ciprofloxacin Continue current medications Lactic acidosis Likely secondary to Hodgkin's lymphoma Monitor Hypoglycemia: Hold glipizide and Ozempic A1c: 6.9 in 07/2020 Consider to discontinue oral hypoglycemics upon discharge Monitor BGs Weakness/Ambulatory dysfunction: Ongoing generalized weakness Weakness may be secondary to deconditioning, prolonged fatigue from COVID-19 in 05/2020 Fall precautions PT OT as able Left lower extremity DVT Present upon admission. Diagnosed 09/13/2020 S/p IVC filter Continue Eliquis Chronic Hyponatremia : Due to diuretics Lasix held Monitor sodium levels:133 Hypertension: Continue carvedilol, lisinopril Diastolic dysfunction: Grade II diastolic dysfunction, EF 59% on echo in 2018 Monitor Volume status Resume lasix, Aldactone as able Abnormal thyroid function test: H/O Hypothyroidism: Low TSH, elevated free T4 Repeat TSH normalized Repeat Free T4 low Resume levothyroxine at reduced dose Recently diagnosed Hodgkin's lymphoma. left groin LN biopsy : Hodgkin's Lymphoma Needs out patient oncology follow up Follows with Dr Rosio NAVA Anemia: possible anemia of chronic disease /underlying hematological malignancy - Hodgkins lymphoma Monitor CBC No reported bleeding Dysphagia: very poor appetite Chronic dysphagia. H/O EGD in 2019 without abnormality, however decision made to dilate esophagus Aspiration precautions Soft bite size diet GERD (gastroesophageal reflux disease): Continue PPI, H2 rosita Anxiety: On Duloxetine--Hold due to AMS H/O COVID-19: In 05/2020 DVT Px: on Eliquis Code Status Full Code Admission and Anticipated Discharge Date Admission Date: September 25, 2020 Subjective Patient is seen and examined at bedside Patient very lethargic this morning Received Zyprexa overnight Updated patient's daughter over the phone Discussed with neurology today MRI brain unremarkable EEG showed no signs of seizure activity Poor oral intake as per flavoring maker of Systems Review of Systems: All systems reviewed & are unremarkable except as noted in HPI & below Physical Exam Physical Exam: Physical Exam: Vitals signs as noted above General Appearance:Morbidly Obese, no apparent distress Head: normocephalic, Atraumatic Eyes: normal inspection, EOMI Neck: supple, Trachea midline Respiratory/Chest: Normal breath sounds, CTA, No accessory muscle use Cardiovascular: S1, S2, No murmur Abdomen/GI:Soft, mild tender, Bowel sounds present : Left Groin in bandage Extremities/Musculoskeletal:normal inspection, 1+ B/L LE edema Neurologic/Psych:grossly no focal neurological deficits Skin: normal color, warm Results & Data Results & Data ([facility]) Vital Signs (Past 12 Hours) Vital Signs Temp Pulse Pulse Resp BP Pulse Ox 10/03/20 14:14 36.9 C 66 20 112/66 93 10/03/20 11:23 36.7 C 67 20 102/64 98 10/03/20 08:40 98/59 L 10/03/20 08:30 67 10/03/20 07:34 36.6 C 69 20 103/61 93 Laboratory Results Short CBC 10/03/20 Range/Units 07:22 WBC 9.72 (4.8-10.8) K/uL Hgb 8.7 L (12.0-16.0) g/dL Hct 28.2 L (37-47) % Plt Count 72 L (130-400) K/uL BMP 10/03/20 07:22 Sodium 133 L Potassium 4.3 Chloride 102 Carbon Dioxide 26 BUN 50 H Creatinine 1.15 Glucose 93 Calcium 9.9 Liver Function 10/03/20 Range/Units 07:22 Total Bilirubin 1.2 H (0.2-1) mg/dl AST 27 (15-37) U/L ALT 22 (12-78) U/L Alkaline Phosphatase 143 H (45-117) U/L Albumin 1.3 L (3.4-5.0) gm/dl
[2020-10-03] MEDS: LATANOPROST 0.005% OP SOLN 2.5 ML BTL OP SCH (21:36)
[2020-10-03] MEDS: FAMOTIDINE 40 MG TABLET PO SCH (21:55)
[2020-10-03] MEDS: ACETAMINOPHEN 1,000 MG/100 ML VIAL IV PRN (22:02)
[2020-10-04] MEDS: DOXYCYCLINE HYCLATE 100 MG in DEXTROSE 5% 100 ML IV SCH ×2 (00:48→12:48)
[2020-10-04] MEDS: LEVOTHYROXINE SODIUM 125 MCG TABLET PO SCH (06:06)
[2020-10-04] MEDS: ADVANCED PROBIOTIC 1250 MG CAPSULE PO SCH (08:12)
[2020-10-04] MEDS: DOCUSATE SODIUM 100 MG CAP PO SCH ×2 (08:12→21:17)
[2020-10-04] MEDS: carvediloL 6.25 MG TAB PO SCH ×2 (08:13→21:17)
[2020-10-04] MEDS: APIXABAN 5 MG TABLET PO SCH ×2 (08:13→21:18)
[2020-10-04] MEDS: PANTOprazole 40 MG TAB PO SCH (08:13)
[2020-10-04] MEDS: LACTULOSE SYRUP 30 GM/45 ML UDP PO SCH (08:19)
[2020-10-04] MEDS: CIPROFLOXACIN / D5W 400 MG/200 ML BAG IV SCH ×2 (08:19→20:30)
[2020-10-04] MEDS: INSULIN ASPART 100 UNITS/ML 3 ML PEN SC SCH ×4 (08:22→21:18)
[2020-10-04 09:51] LABS: Hemoglobin 9.6 g/dL (12.0-16.0); Mean Corpuscular Hemoglobin 27.7 pg (25-34); Mean Corpuscular Volume 89.3 fL (80-100); RDW Coefficient of Variation 16.6 % (11.5-14.5); RDW Standard Deviation 54.5 fL (36.4-46.3); Red Blood Count 3.47 M/uL (4.2-5.4); White Blood Count 14.42 K/uL (4.8-10.8)
[2020-10-04 09:59] LABS: Mean Platelet Volume 10.5 fL (7.4-10.4); Platelet Count 61 K/uL (130-400)
[2020-10-04 10:07] LABS: BUN Creatinine Ratio 40.3 (10-20); Creatinine Clr Calc Pharmacy 41.6 ml/min; Est GFR (African American) 42.9 ml/min; Potassium 4.3 mmol/L (3.5-5.1)
[2020-10-04] MEDS ORDERED: SODIUM CHLORIDE 0.9% 1000ML 1,000 ML IV ONE (10:20)
--- NOTE | 2020-10-04 13:35 | Electroencephalogram ---
EEG Procedure Note Date of Service October 04, 2020 Start / End Times Start Time: 12:49 End Time: 11:[address] Yuriy Perez History A 74-year-old woman with encephalopathy. EEG performed for evaluation epileptiform activity. Home Medication List Medication Instructions Recorded Confirmed Type carvedilol 6.25 mg PO BID 12/08/18 09/25/20 History duloxetine 30 mg PO QAM 12/08/18 09/25/20 History furosemide 20 mg PO QAM 12/08/18 09/25/20 History glipizide 5 mg PO BID 12/08/18 09/25/20 History latanoprost (PF) 1 drp OPHTHALMIC (EYE) HS 12/08/18 09/25/20 History levothyroxine 175 mcg PO QAM 12/08/18 09/25/20 History lisinopril 40 mg PO QAM 12/08/18 09/25/20 History omeprazole 40 mg PO QAM 12/08/18 09/25/20 History oxybutynin chloride [Ditropan XL] 5 mg PO TID 12/08/18 09/25/20 History spironolactone 12.5 mg PO QAM 12/08/18 09/25/20 History Ozempic 0.25 mg SUBCUT FLORES 06/05/20 09/25/20 History famotidine 40 mg PO HS 06/05/20 09/25/20 History apixaban [Eliquis] 5 mg PO BID #74 tab 09/21/20 09/25/20 Rx levothyroxine 150 mcg PO DAILY #30 cap 09/27/20 Rx Inpatient Medication List Eliquis, carvedilol, duloxetine, Lasix, famotidine, Synthroid, lisinopril Description This is a 21 electrode EEG with a single channel dedicated to limited EKG. The electrodes were placed in accordance with the International 10-20 system. REPORT: At the onset of the EEG the patient is in an altered mental state. The posterior dominant rhythm is not well seen. The background is symmetric and disorganized. Background predominantly consisted of generalized 3-4 Hz de lta activity with some intermixed faster activity. There is intermittent generalized frontally predominant sharply contoured waves with triphasic morphology seen. Photic stimulation does not induce any additional abnormalities. No stage 2 sleep transients are recorded. IMPRESSION: This is an abnormal routine EEG in a patient with altered mentation due to 1. Generalized background slowing suggestive of a nonspecific encephalopathy, 2. Occasional triphasic waves which are nonspecific and suggestive of an encephalopathy although more commonly seen in metabolic encephalopathies (hepatic and/or renal). No electrographic seizures are recorded.
--- NOTE | 2020-10-04 17:25 | Neurology Progress Note ---
Date of Service October 04, 2020 Assessment & Plan (1) Encephalopathy: A 74-year-old woman with multiple medical comorbidities admitted to hospital on September 25 for presumed hypoglycemic encephalopathy confounded by continued altered mental status in the setting of a presumed sepsis associated encephalopathy/delirium. Patient had 2 EEGs performed during the hospital admission both of which were suggestive of a nonspecific encephalopathy with most recently showing some intermittent triphasic waves which can be seen in uremic or hepatic encephalopathies. There was no electrographic seizures or epileptiform discharges recorded. No lateralizing features seen. On examination today the patient does not appear to be in status epilepticus or evidence of a seizure. She is awake and following some simple commands although speech is very incomprehensible. Given the patient's low blood glucose upon admission unclear if the patient sustained irreversible damage from the hypoglycemia therefore affecting her overall mental status. However the a sepsis associated encephalopathy can take several weeks for recovery in clinic late may lag behind overall objective data seen in her labs. Other possibilities include cefepime toxicity as discussed previously by Dr. Perez. Cefepime has been stopped. Delirium is likely also contributing. I did review her recent MRI of the brain although somewhat limited due to motion artifact however on diffusion-weighted imaging I do not see any signs to suggest an acute stroke contributing to her altered mentation. At this point I would recommend a repeat routine EEG in 2 to 3 days if mentation remains the same. Otherwise I would continue with seizure precautions. (2) Acute UTI: (3) Hypoglycemia associated with diabetes: Admission and Anticipated Discharge Date Admission Date: September 25, 2020 Subjective Patient was seen and examined this afternoon at bedside. Patient is awake and speech is incomprehensible. She tells me that she is 54 years old. She is following some simple commands such as lift both arms although has significant difficulty. She was unable to stick her tongue out although has very dry oral mucosa. Physical Exam Physical Exam: Patient appears acute on chronically ill. She is morbidly obese. Oral mucosa is very dry tongue is midline. Eyes are midline no spontaneous nystagmus. No tremor or myoclonic jerks are present. Patient is diffusely weak and is able to raise both arms against gravity upon command. Pupils are symmetric. She is unable to ambulate. Results & Data ([facility]) Vital Signs (Past 12 Hours) Vital Signs Temp Pulse Resp BP Pulse Ox 10/04/20 16:22 36.4 C L 74 22 102/66 95 07/02/21 12:22 36.4 C L 72 22 108/68 96 10/04/20 08:26 36.6 C 66 20 100/64 95
--- NOTE | 2020-10-04 19:53 | Hospitalist Progress Note ---
Date of Service October 04, 2020 Assessment & Plan (1) Hypoglycemia: (2) AMS (altered mental status): Patient is a 74yr female with H/O DM II, HTN, dyslipidemia, asthma, diastolic dysfunction, GERD, hypothyroidism, obesity, anxiety, H/O COVID-19 in 05/2020, LLE DVT is on Eliquis, s/p IVC filter presented to ER with complaint of AMS and hypoglycemia. Presented with with sudden onset AMS and found to have BSG 35 Acute metabolic encephalopathy Presented with Hypoglycemia CT Head:No acute intracranial findings Covid screen negative Lyme's IgG positive, IgM negative Infection contributing--chronic infection, UTI MRI brain: Motion degraded study. No evidence of acute or subacute infarct. No evidence of mass effect. No evidence of hydrocephalus. Appreciate neurology input EEG: nonspecific generalized moderate to moderately severe encephalopathy with no lateralizing features and with no associated potentially epileptogenic features Cefepime changed to Cipro as Cefepime thought to be causing AMS Monitor for hypoglycemia Hold duloxetine, oxybutynin Plan for repeat EEG as able Continue gentle IV fluids Delirium contributing as well Aspiration precautions Urinary tract infection Left Groin Biopsy site Infection Wound culture growing Klebsiella pneumonia, Pseudomonas Urine culture growing Klebsiella pneumonia Continue Doxycycline IV cefepime transition to ciprofloxacin Persistent leukocytosis Consider ID evaluation if needed Lactic acidosis Likely secondary to Hodgkin's lymphoma Monitor Hypoglycemia: Hold glipizide and Ozempic A1c: 6.9 in 07/2020 Consider to discontinue oral hypoglycemics upon discharge Monitor BGs Weakness/Ambulatory dysfunction: Ongoing generalized weakness Weakness may be secondary to deconditioning, prolonged fatigue from COVID-19 in 05/2020 Fall precautions PT OT as able Left lower extremity DVT Present upon admission. Diagnosed 09/13/2020 S/p IVC filter Continue Eliquis Chronic Hyponatremia : Due to diuretics Lasix held Monitor sodium levels:133 Hypertension: Continue carvedilol, lisinopril Diastolic dysfunction: Grade II diastolic dysfunction, EF 59% on echo in 2018 Monitor Volume status Resume lasix, Aldactone as able Abnormal thyroid function test: H/O Hypothyroidism: Low TSH, elevated free T4 Repeat TSH normalized Repeat Free T4 low Continue Levothyroxine at reduced dose Recently diagnosed Hodgkin's lymphoma. left groin LN biopsy : Hodgkin's Lymphoma Needs out patient oncology follow up Follows with Dr Rosio MEDINA Anemia: Thrombocytopenia possible anemia of chronic disease /underlying hematological malignancy - Hodgkins lymphoma Monitor CBC No reported bleeding issues Dysphagia: very poor appetite Chronic dysphagia. H/O EGD in 2019 without abnormality, however decision made to dilate esophagus Aspiration precautions Soft bite size diet GERD (gastroesophageal reflux disease): Continue PPI, H2 rosita Anxiety: On Duloxetine--Hold due to AMS H/O COVID-19: In 05/2020 DVT Px: on Eliquis Code Status Full Code Admission and Anticipated Discharge Date Admission Date: September 25, 2020 Subjective Patient is seen and examined at bedside More alert, awake during my encounter History is limited secondary to encephalopathy Discussed with neurology today Plan to repeat EEG in 2 to 3 days High risk for aspiration Review of Systems Review of Systems: Unobtainable due to reduced consciousness Physical Exam Physical Exam: Physical Exam: Vitals signs as noted above General Appearance:Morbidly Obese, no apparent distress Head: normocephalic, Atraumatic Eyes: normal inspection, EOMI Neck: supple, Trachea midline Respiratory/Chest: Normal breath sounds, CTA, No accessory muscle use Cardiovascular: S1, S2, No murmur Abdomen/GI:Soft, mild tender, Bowel sounds present : Left Groin in bandage Extremities/Musculoskeletal:normal inspection, 1+ B/L LE edema Neurologic/Psych:grossly no focal neurological deficits Skin: normal color, warm Results & Data Results & Data ([facility]) Vital Signs (Past 12 Hours) Vital Signs Temp Pulse Pulse Resp BP Pulse Ox 10/04/20 19:32 36.9 C 70 22 100/59 L 91 10/04/20 18:13 65 10/04/20 16:22 36.4 C L 74 22 102/66 95 10/04/20 12:22 36.4 C L 72 22 108/68 96 10/04/20 08:26 36.6 C 66 20 100/64 95 10/04/20 08:00 64 Laboratory Results Short CBC 10/04/20 Range/Units 09:15 WBC 14.42 H (4.8-10.8) K/uL Hgb 9.6 L (12.0-16.0) g/dL Hct 31.0 L (37-47) % Plt Count 61 L (130-400) K/uL BMP 10/04/20 09:15 Sodium 133 L Potassium 4.3 Chloride 102 Carbon Dioxide 28 BUN 56 H Creatinine 1.39 H Glucose 114 H Calcium 10.0
[2020-10-04] MEDS: FAMOTIDINE 40 MG TABLET PO SCH (21:17)
[2020-10-04] MEDS: LATANOPROST 0.005% OP SOLN 2.5 ML BTL OP SCH (21:18)
[2020-10-05] MEDS: DOXYCYCLINE HYCLATE 100 MG in DEXTROSE 5% 100 ML IV SCH ×3 (01:06→23:57)
[2020-10-05 06:20] LABS: Hematocrit (blood only) 30.4 % (37-47); Hemoglobin 9.4 g/dL (12.0-16.0); Mean Corpuscular Hemoglobin 27.1 pg (25-34); Mean Corpuscular Hgb Conc 30.9 g/dL (32-36); Mean Corpuscular Volume 87.6 fL (80-100); RDW Coefficient of Variation 16.6 % (11.5-14.5); RDW Standard Deviation 53.4 fL (36.4-46.3); Red Blood Count 3.47 M/uL (4.2-5.4); White Blood Count 15.38 K/uL (4.8-10.8)
[2020-10-05 06:31] LABS: Mean Platelet Volume 11.1 fL (7.4-10.4); Platelet Count 66 K/uL (130-400)
[2020-10-05] MEDS: LEVOTHYROXINE SODIUM 125 MCG TABLET PO SCH (06:35)
[2020-10-05 06:43] LABS: Basophils # (auto) 0.01 K/uL (0-0.2); Basophils % (auto) 0.1 %; Eosinophils # (auto) 0.05 K/uL (0-0.5); Eosinophils % (auto) 0.3 %; Immature Granulocytes % (auto) 1.3 %; Lymphocytes # (auto) 0.43 K/uL (1.2-3.4); Lymphocytes % (auto) 2.8 %; Neutrophils # (auto) 14.39 K/uL (1.4-6.5); Neutrophils % (auto) 93.5 %; Polychromasia 1+; Toxic Vacuolation 2+
[2020-10-05 06:53] LABS: BUN Creatinine Ratio 44.8 (10-20); Calcium 10.2 mg/dl (8.5-10.1); Est GFR (Non-African American) 39.7 ml/min; Potassium 4.6 mmol/L (3.5-5.1)
[2020-10-05] MEDS: CIPROFLOXACIN / D5W 400 MG/200 ML BAG IV SCH ×2 (08:33→21:20)
[2020-10-05] MEDS: INSULIN ASPART 100 UNITS/ML 3 ML PEN SC SCH ×4 (08:33→21:24)
[2020-10-05] MEDS: APIXABAN 5 MG TABLET PO SCH ×2 (08:38→21:21)
[2020-10-05] MEDS: PANTOprazole 40 MG TAB PO SCH (08:39)
[2020-10-05] MEDS: ADVANCED PROBIOTIC 1250 MG CAPSULE PO SCH (08:39)
[2020-10-05] MEDS: carvediloL 6.25 MG TAB PO SCH ×2 (08:39→21:32)
[2020-10-05] MEDS: DOCUSATE SODIUM 100 MG CAP PO SCH ×2 (09:29→21:23)
--- NOTE | 2020-10-05 17:09 | Hospitalist Progress Note ---
Date of Service October 05, 2020 Assessment & Plan (1) Hypoglycemia: (2) AMS (altered mental status): Patient is a 74yr female with H/O DM II, HTN, dyslipidemia, asthma, diastolic dysfunction, GERD, hypothyroidism, obesity, anxiety, H/O COVID-19 in 05/2020, LLE DVT is on Eliquis, s/p IVC filter presented to ER with complaint of AMS and hypoglycemia. Presented with with sudden onset AMS and found to have BSG 35 Acute metabolic encephalopathy Presented with Hypoglycemia CT Head:No acute intracranial findings Covid screen negative Lyme's IgG positive, IgM negative Infection contributing--chronic infection, UTI MRI brain: Motion degraded study. No evidence of acute or subacute infarct. No evidence of mass effect. No evidence of hydrocephalus. Appreciate neurology input EEG: nonspecific generalized moderate to moderately severe encephalopathy with no lateralizing features and with no associated potentially epileptogenic features Cefepime changed to Cipro as Cefepime thought to be causing AMS Monitor for hypoglycemia Hold duloxetine, oxybutynin Plan for repeat EEG as able Continue gentle IV fluids Delirium contributing as well Aspiration precautions Remains encephalopathic Repeat cultures given persistent leukocytosis Repeat thyroid function test tomorrow Urinary tract infection Left Groin Biopsy site Infection Wound culture growing Klebsiella pneumonia, Pseudomonas Urine culture growing Klebsiella pneumonia Continue Doxycycline IV cefepime transition to ciprofloxacin Persistent leukocytosis Consider ID evaluation if needed Lactic acidosis Likely secondary to Hodgkin's lymphoma Monitor Hypoglycemia: Hold glipizide and Ozempic A1c: 6.9 in 07/2020 Consider to discontinue oral hypoglycemics upon discharge Monitor BGs Weakness/Ambulatory dysfunction: Ongoing generalized weakness Weakness may be secondary to deconditioning, prolonged fatigue from COVID-19 in 05/2020 Fall precautions PT OT as able Left lower extremity DVT Present upon admission. Diagnosed 09/13/2020 S/p IVC filter Continue Eliquis Chronic Hyponatremia : Due to diuretics Lasix held Monitor sodium levels:134 Hypertension: Continue carvedilol, lisinopril Diastolic dysfunction: Grade II diastolic dysfunction, EF 59% on echo in 2018 Monitor Volume status Resume lasix, Aldactone as able Abnormal thyroid function test: H/O Hypothyroidism: Low TSH, elevated free T4 Repeat TSH normalized Repeat Free T4 low Continue Levothyroxine at reduced dose Recently diagnosed Hodgkin's lymphoma. left groin LN biopsy : Hodgkin's Lymphoma Needs out patient oncology follow up Follows with Dr Rosio [facility] Anemia: Thrombocytopenia possible anemia of chronic disease /underlying hematological malignancy - Hodgkins lymphoma Monitor CBC No reported bleeding issues Dysphagia: very poor appetite Chronic dysphagia. H/O EGD in 2019 without abnormality, however decision made to dilate esophagus Aspiration precautions Soft bite size diet GERD (gastroesophageal reflux disease): Continue PPI, H2 rosita Anxiety: On Duloxetine--Hold due to AMS H/O COVID-19: In 05/2020 DVT Px: on Eliquis Code Status Full Code Admission and Anticipated Discharge Date Admission Date: September 25, 2020 Subjective Patient is seen and examined at bedside Tries to follow commands today No meaningful history could be obtained today Persistent leukocytosis Discussed with neurology today We will repeat blood, urine culture Physical Exam Physical Exam: Physical Exam: Vitals signs as noted above General Appearance:Morbidly Obese, no apparent distress Head: normocephalic, Atraumatic Eyes: normal inspection, EOMI Neck: supple, Trachea midline Respiratory/Chest: Normal breath sounds, CTA, No accessory muscle use Cardiovascular: S1, S2, No murmur Abdomen/GI:Soft, mild tender, Bowel sounds present : Left Groin in bandage Extremities/Musculoskeletal:normal inspection, 1+ B/L LE edema Neurologic/Psych:grossly no focal neurological deficits Skin: normal color, warm Results & Data Results & Data ([facility]) Vital Signs (Past 12 Hours) Vital Signs Temp Pulse Pulse Resp BP Pulse Ox 10/05/20 15:54 36.4 C L 70 18 94/59 L 96 10/05/20 15:20 81 10/05/20 14:14 77 10/05/20 11:39 36.6 C 75 20 97/59 L 95 10/05/20 07:55 36.9 C 83 20 108/69 94 10/05/20 05:15 76
[2020-10-05] MEDS ORDERED: FLUCONAZOLE 50 MG TAB PO ONE (18:48)
[2020-10-05] MEDS: FAMOTIDINE 40 MG TABLET PO SCH (21:23)
[2020-10-05] MEDS: LATANOPROST 0.005% OP SOLN 2.5 ML BTL OP SCH (21:24)
[2020-10-06] MEDS: LEVOTHYROXINE SODIUM 125 MCG TABLET PO SCH (05:50)
[2020-10-06 06:17] LABS: Hematocrit (blood only) 32.7 % (37-47); Hemoglobin 9.8 g/dL (12.0-16.0); Mean Corpuscular Hemoglobin 26.9 pg (25-34); Mean Corpuscular Volume 89.8 fL (80-100); Mean Platelet Volume 11.2 fL (7.4-10.4); Nucleated RBC # (auto) 0.03 K/uL (0-0); Nucleated RBC % (auto) 0.2 %; Platelet Count 62 K/uL (130-400); RDW Coefficient of Variation 16.9 % (11.5-14.5); RDW Standard Deviation 55.2 fL (36.4-46.3); Red Blood Count 3.64 M/uL (4.2-5.4); White Blood Count 16.47 K/uL (4.8-10.8)
[2020-10-06 06:41] LABS: Anisocytosis Present; Basophils # (auto) 0.01 K/uL (0-0.2); Basophils % (auto) 0.1 %; Eosinophils # (auto) 0.04 K/uL (0-0.5); Eosinophils % (auto) 0.2 %; Immature Granulocytes # (auto) 0.23 K/uL (0.00-0.02); Immature Granulocytes % (auto) 1.4 %; Lymphocytes # (auto) 0.49 K/uL (1.2-3.4); Monocytes # (auto) 0.26 K/uL (0.11-0.59); Monocytes % (auto) 1.6 %; Neutrophils # (auto) 15.44 K/uL (1.4-6.5); Neutrophils % (auto) 93.7 %; Polychromasia 1+
[2020-10-06 06:49] LABS: BUN Creatinine Ratio 34.3 (10-20); Calcium 10.2 mg/dl (8.5-10.1); Creatinine Clr Calc Pharmacy 29.7 ml/min; Est GFR (African American) 28.5 ml/min; Est GFR (Non-African American) 24.6 ml/min; Potassium 4.7 mmol/L (3.5-5.1)
[2020-10-06 07:00] LABS: T4 Free Thyroxine 0.58 ng/dl (0.8-1.6); Thyroid Stimulating Hormone 1.29 uIu/ml (0.300-4.500)
[2020-10-06] MEDS: INSULIN ASPART 100 UNITS/ML 3 ML PEN SC SCH ×4 (08:40→20:48)
[2020-10-06] MEDS: CIPROFLOXACIN / D5W 400 MG/200 ML BAG IV SCH (08:45)
[2020-10-06] MEDS: SODIUM CHLORIDE 0.9% 1000ML 1,000 ML IV SCH ×3 (08:45→22:18)
[2020-10-06] MEDS: PANTOprazole 40 MG TAB PO SCH (09:00)
[2020-10-06] MEDS: ADVANCED PROBIOTIC 1250 MG CAPSULE PO SCH (09:00)
[2020-10-06] MEDS: APIXABAN 5 MG TABLET PO SCH ×2 (09:00→20:14)
[2020-10-06 09:04] LABS: Alanine Aminotransferase 21 U/L (12-78); Albumin Level 1.3 gm/dl (3.4-5.0); Alkaline Phosphatase 120 U/L (45-117); Aspartate Aminotransferase 38 U/L (15-37); Bilirubin Direct 1.3 mg/dl (0-0.2); Bilirubin,Total 1.6 mg/dl (0.2-1); Prealbumin < 3.0 mg/dl (20-40); Total Protein 5.3 gm/dl (6.4-8.2)
[2020-10-06] MEDS: DOCUSATE SODIUM 100 MG CAP PO SCH ×2 (09:05→20:14)
--- NOTE | 2020-10-06 09:23 | XRay Report ---
XR chest 1V portable HISTORY: Pleural effusion COMPARISON: Chest 09/30/2020. FINDINGS: Rotated study. No pneumothorax. The cardiac silhouette is normal in size. There is mild pul monary vascular congestion without overt edema and trace bilateral pleural effusions. This has slight ly improved. Stable superior mediastinal widening. IMPRESSION: 1. Mild central pulmonary vascular congestion without overt edema and trace bilateral pleural effusio ns. This has slightly improved. 2. Persistent mediastinal widening. Dedicated chest CT can be used for further evaluation. ACT 112: Negative or not required by law. Electronically signed by: Wilfred Willis M.D. 10/06/2020 9:22 AM
[2020-10-06 09:32] LABS: Bacteria Urine Automated Negative (Negative); Epithelial Cell Urine Auto >30 /lpf (0-5)
[2020-10-06 10:03] LABS: Calcium Oxalate Crystals Urine Present (None Prsent); RBC Urine Automated >30 /hpf (0-4)
--- NOTE | 2020-10-06 10:42 | Nephrology Consultation ---
Date of Consultation October 06, 2020 Assessment & Plan (1) CHAN (acute kidney injury): Stage 2 CHNA w/ ? oliguria in the setting of hypotension, concern for sepsis, worsening thrombocytopenia, increasing hypercalcemia. Still w/ unexplained altered MS > ? cause Her creatinine on September 25 admission was 0.9. Stayed in this range until October 03 when it trended up to 1.1. On October 04 and creatinine 1.3-1.4. This morning creatinine at 2.with possible oliguria. chemistries acceptable but rate of c reatinien change worrisome/may accelerate. no indication for dialysis discussion at this time. ?hypovolemia. -needs renal u/s - order in -pls do STRICT I/O - communication sent -ordered UA -cont NS for now (2) Hypotension: -agree w/ holding bp meds; ? relation to cardiac pauses -repeat lactate ordered; had been climbing 10/02 -cont NS for now -f/u pending blood , urine cxs Present on Admission?: Yes (3) Thrombocytopenia: worsening; -recommend primary service rule out HIT -microangiopathic hemolytic anemia and other thrombotic microangiopathic anemias not likely here but would still check peripheral smear, LDH at least - orders in (4) Hypercalcemia: mild - moderate but worsenign may well be from lymphoma creatinine too high for bisphosphonate -cont NS, daily bmp -PTH, PTHrp pending as is D store check --low threshold for CT chest to evaluate mediastinal widening, presume from lymphoma Present on Admission?: Yes History of Present Illness Reason for Consultation: CHAN Requesting Physician: Dr Stevens Attending Physician: César Stevens MD History of Present Illness 74-year-old female whom I am asked to evaluate for acute kidney injury was admitted September 25 with metabolic encephalopathy attributed to upper glycemia, UTI, groin biopsy site infection. Past medical history includes type 2 diabetes, hypertension, class III obesity, GERD, hypothyroid, heart failure with preserved ejection fraction, chronic dysphagia with unremarkable 2019 EGD, Covid infection May 2020, left lower extremity DVT on Eliquis status post IVC filter. Also status post September 13 to September 21, 2020 admission here with left lower extremity DVT, inguinal adenopathy status post biopsy after presenting with generalized weakness. Biopsy results consistent with Hodgkin's lymphoma for outpatient follow-up with Dr. Avelar. Her creatinine on September 25 admission was 0.9. Stayed in this range until October 03 when it trended up to 1.1. On October 04 and creatinine 1.3-1.4. This morning creatinine at 2. Her systolic blood pressures have been running 1 teens to 140s through October 02. Wound that time, systolics dropped more to the range of 90s and 100s. Her platelet count has historically been within normal limits but on presentation was 112 on September 25. Down to 60s and 70s since October 02. No recent IV contrast. 12.5 mg daily Aldactone and 40 mg daily lisinopril and 20 mg daily Lasix and oxybutynin 5 mg 3 times a day all on hold. Coreg has been held since yesterday evening due to hypotension. she is currently receiving normal saline at 150 mL hourly, Cipro 400 mg IV every 12 hours, doxycycline IV 100 mg every 12 hours. She has had an external urinary catheter until today. Unclear how complete intake and output charting is but running about 200-500 daily urine output. Currently with indwelling Zafar. Moved to intermediate care today after 3.3 second pauses on teletypesetter monitor overnight. Pt is quite lethargic, nearly obtunded - cannot give hx; hx obtained from the chart. Allergies Allergy/AdvReac Type Severity Reaction Status Date / Time albuterol Allergy Intermediate tachycardia Verified 09/25/20 19:57 amoxicillin Allergy Mild RASH Verified 09/25/20 19:57 aspirin AdvReac Mild stomach Verified 09/25/20 19:58 upset Home Medications Medication Instructions Recorded Confirmed Type carvedilol 6.25 mg PO BID 12/08/18 09/25/20 History duloxetine 30 mg PO QAM 12/08/18 09/25/20 History furosemide 20 mg PO QAM 12/08/18 09/25/20 History glipizide 5 mg PO BID 12/08/18 09/25/20 History latanoprost (PF) 1 drp OPHTHALMIC (EYE) HS 12/08/18 09/25/20 History levothyroxine 175 mcg PO QAM 12/08/18 09/25/20 History lisinopril 40 mg PO QAM 12/08/18 09/25/20 History omeprazole 40 mg PO QAM 12/08/18 09/25/20 History oxybutynin chloride [Ditropan XL] 5 mg PO TID 12/08/18 09/25/20 History spironolactone 12.5 mg PO QAM 12/08/18 09/25/20 History Ozempic 0.25 mg SUBCUT FLORES 06/05/20 09/25/20 History famotidine 40 mg PO HS 06/05/20 09/25/20 History apixaban [Eliquis] 5 mg PO BID #74 tab 09/21/20 09/25/20 Rx levothyroxine 150 mcg PO DAILY #30 cap 09/27/20 Rx Patient History Medical History Anxiety Arthritis Asthma COVID-19 virus detected 06/03/20--c/o fever, headache, fatigue roughly a couple weeks ago, daughter was also sick with symptoms Diabetes mellitus, type 2 Diastolic dysfunction Dysphagia chronic dysphagia, h/o esophageal dilation GERD (gastroesophageal reflux disease) Hiatal hernia History of COVID-19 06/2020 Hypertension Hypothyroidism Morbid obesity with BMI of 45.0-49.9, adult SOBOE (shortness of breath on exertion) Surgical History History of anesthesia reaction "WAKES UP EARLY"-NEEDS MORE MEDS History of bilateral cataract extraction History of bilateral tubal ligation History of carpal tunnel release RIGHT History of section X 2 History of cholecystectomy History of colonoscopy History of esophagogastroduodenoscopy (EGD) WITH DILITATION History of total left knee replacement (TKR) History of total right knee replacement (TKR) x2 Hx of LASIK Family History Daughter Family history of reaction to anesthesia WAKES UP EARLY Mother Family history of diabetes mellitus Father Family history of diabetes mellitus Sister Family history of diabetes mellitus Sister Family history of diabetes mellitus Brother Family history of diabetes mellitus Brother Family history of diabetes mellitus Social History Smoking Status: Never smoker Second Hand Exposure: No; Hx Alcohol Use: No Hx Substance Use: No Preferred Language: Italian Communication Ability: Effective [employer] Livestock Required: No Beliefs That Will Affect Care: None Current Living Situation: Family Current Living Situation Comment: Lives with daughter and son Feels Safe at Home: Yes Safety Concerns: Feels Safe At This Time Assistive Devices: CPAP, Denture - Upper, Denture - Lower and Oxygen - Continuous Review of Systems Review of Systems: Unobtainable due to reduced consciousness Physical Exam Constitutional: well developed, + morbidly obese and + altered mental status; no acute distress Eyes: EOM intact bilaterally (? R gaze preference) ENMT: Ears: no external ear abnormality Nose: no external nose abnormality Mouth: + dry oral mucous membranes Neck: no nuchal rigidity Respiratory: normal respiratory effort; no labored breathing, expiratory phase not prolonged, no nasal flaring and no paradoxical thoraco-abdominal movemnt Auscultation: + diminished lung sounds (on 2L NC) Cardiovascular: RRR, no murmur, no edema Gastrointestinal (Abdomen): Inspection/Auscultation: normal bowel sounds; abdomen not distended Percussion/Palpation: abdomen soft; abdomen nontender and no guarding Musculoskeletal: Extremities: + abnormal strength (generalized weakness) Skin: no rashes, warm and dry + pallor Neurologic: Speech / Cognition: + abnormal cognition stuporous/near- obtunded > does not answer/interact, looks R when I stand on her L, moves arms Genitourinary: zafar w/ scant urine Results & Data ([facility]) Vital Signs (Past 12 Hours) Vital Signs Temp Pulse Pulse Pulse Resp BP Pulse Ox 10/06/20 08:00 62 10/06/20 07:30 36.6 C 64 18 98/61 L 97 10/06/20 03:35 68 28 H 92 10/06/20 03:00 36.2 C L 66 20 97/62 L 96 Laboratory Results 10/06/20 05:50 10/06/20 05:50 Ionized calcium 1.48 Total bilirubin 1.6, direct bilirubin 1.3. Albumin 1.3 Urinalysis microscopy only: 10-30 white cells per high-powered field greater than 30 red cells per high-powered field greater than 30 epithelial cells per low powered field, tyrosine crystals present, calcium oxalate crystals present along with yeast. Diagnostic Findings cxr 1. Mild central pulmonary vascular congestion without overt edema and trace bilateral pleural effusions. This has slightly improved. 2. Persistent mediastinal widening. Dedicated chest CT can be used for further evaluation. (1) Hypotension Hypotension type: unspecified hypotension type Qualified Code(s): I95.9 - Hypotension, unspecified
--- NOTE | 2020-10-06 11:17 | Ultrasound Report ---
RENAL ULTRASOUND HISTORY: Acute kidney injury. COMPARISON: Abdomen and pelvis CT 09/13/2020. FINDINGS: Right kidney: 9.2 cm. No hydronephrosis. Mild cortical thinning likely age-related. Normal corticomed ullary differentiation. Left kidney: 10.7 cm. No hydronephrosis. Mild cortical thinning likely age-related. Normal corticomed ullary differentiation. A 2 cm lower pole cyst. Bladder: No bladder wall thickening. The bilateral ureteral jets were identified. Miscellaneous: Heterogeneous appearance to the liver suggestive of possible of multiple hepatic stewart s. IMPRESSION: 1. No hydronephrosis. 2. Heterogeneous appearance of liver suggesting multiple hepatic masses. Dedicated abdominal MRI is r ecommended for further evaluation. ACT 112: Negative or not required by law. Electronically signed by: Wilfred Willis M.D. 10/06/2020 11:16 AM
[2020-10-06] MEDS: DOXYCYCLINE HYCLATE 100 MG in DEXTROSE 5% 100 ML IV SCH ×2 (12:17→23:09)
[2020-10-06 13:06] LABS: Appearance Urine Turbid (Clear); Bacteria Urine Automated Negative (Negative); Blood Urine Negative (Negative); Color Urine Dark Yellow; Epithelial Cell Urine Auto >30 /lpf (0-5); Glucose Urine UA Negative (Negative); Ketones Urine Trace (Negative); Leukocyte Esterase Urine 1+ (Negative); Nitrite Urine Positive (Negative); Protein Urine 1+ (Negative); Specific Gravity Urine 1.021 (1.000-1.030); Urobilinogen Urine Negative (Negative); WBC Urine Automated >30 /hpf (0-5)
[2020-10-06 13:11] LABS: Bilirubin Urine 1+ (Negative)
[2020-10-06 13:15] LABS: Calcium Oxalate Crystals Urine Present (None Prsent); RBC Urine Automated >30 /hpf (0-4)
--- NOTE | 2020-10-06 13:59 | CT Scan Report ---
CT chest diagnostic wo con CT DOSE: 992.46 mGy.cm HISTORY: Mediastinal widening TECHNIQUE: Multiaxial CT images of the chest were performed without contrast. A dose lowering techni que was utilized adhering to the principles of ALARA. COMPARISON: Chest 10/06/2020. FINDINGS: There is lower cervical, mediastinal, bilateral hilar, and upper abdominal lymphadenopathy. There are innumerable subtle small hypodense lesions within the liver and trace perihepatic ascites. The spleen and liver appear enlarged. Dominant right paratracheal lymph node measures 4.6 x 2.6 cm. This accounts for the mediastinal widening. Small bilateral pleural effusions, right greater the left . There is also paravertebral lymphadenopathy. Mild body wall edema. Normal caliber esophagus. Mild c alcified plaque within the normal caliber thoracic aorta. The heart is normal in size. Trace pericard ial effusion. No suspicious lytic or blastic osseous lesions. No pneumothorax. Mild respiratory motio n artifact. Patchy densities within the lungs posteriorly are nonspecific but favor compressive atele ctasis from the pleural effusions. IMPRESSION: 1. Bulky lymphadenopathy seen within the lower neck, chest, and upper abdomen as described above. Thi s is suspicious for a lymphoma or metastatic disease. 2. There are innumerable small hypodense lesions seen scattered throughout the liver. This is also co ncerning for metastatic disease. 3. Hepatosplenomegaly. 4. Small bilateral pleural effusions, right greater than left. ACT 112: Negative or not required by law. Electronically signed by: Wilfred Willis M.D. 10/06/2020 1:58 PM
--- NOTE | 2020-10-06 15:22 | Hospitalist Progress Note ---
Date of Service October 06, 2020 Assessment & Plan (1) Hypoglycemia: (2) AMS (altered mental status): Patient is a 74yr female with H/O DM II, HTN, dyslipidemia, asthma, diastolic dysfunction, GERD, hypothyroidism, obesity, anxiety, H/O COVID-19 in 05/2020, LLE DVT is on Eliquis, s/p IVC filter presented to ER with complaint of AMS and hypoglycemia. Presented with with sudden onset AMS and found to have BSG 35 Acute metabolic encephalopathy Presented with Hypoglycemia CT Head:No acute intracranial findings Covid screen negative Lyme's IgG positive, IgM negative Infection, Metastatic disease, Hypercalcemia, delirium contributing MRI brain: Motion degraded study. No evidence of acute or subacute infarct. No evidence of mass effect. No evidence of hydrocephalus. Appreciate neurology input EEG: nonspecific generalized moderate to moderately severe encephalopathy with no lateralizing features and with no associated potentially epileptogenic features Cefepime changed to Cipro as Cefepime thought to be causing AMS Monitor for hypoglycemia Hold duloxetine, oxybutynin Continue IV fluids Aspiration precautions Remains mostly encephalopathic Persistent leukocytosis likely due to malignancy Repeat cultures pending Urinary tract infection Left Groin Biopsy site Infection Wound culture growing Klebsiella pneumonia, Pseudomonas Urine culture growing Klebsiella pneumonia Repeat Cx pending Continue Doxycycline IV cefepime transition to ciprofloxacin Persistent leukocytosis Consider ID evaluation if needed Metastatic Disease Recently diagnosed Hodgkin's lymphoma. --CT chest:Bulky lymphadenopathy seen within the lower neck, chest, and upper abdomen as described above. This is suspicious for a lymphoma or metastatic disease. There are innumerable small hypodense lesions seen scattered throughout the liver. This is also concerning for metastatic disease. Hepatosplenomegaly. Small bilateral pleural effusions, right greater than left. Left groin LN biopsy : Hodgkin's Lymphoma --Renal USD: No hydronephrosis. Heterogeneous appearance of liver suggesting multiple hepatic masses. Dedicated abdominal MRI is recommended for further evaluation. -Oncology consulted Needs to address goals of care Transaminitis secondary to metastatic disease Lactic acidosis Likely secondary to Hodgkin's lymphoma Monitor Hypercalcemia Elevated ionized calcium Likely due to Malignancy Hypercalcemia work-up pending Continue IV fluids Monitor calcium levels, Volume status Bradycardia Likely due to Hypercalcemia Hold Coreg Monitor Hypoglycemia: Hold glipizide and Ozempic A1c: 6.9 in 07/2020 Consider to discontinue oral hypoglycemics upon discharge Monitor BGs Acute Kidney Injury Cr:1.3>1.95 -Renal USD: No hydronephrosis. Heterogeneous appearance of liver suggesting multiple hepatic masses. Dedicated abdominal MRI is recommended for further evaluation. -Avoid nephrotoxic agents Continue ambulatory Monitor renal function Appreciate nephrology input Weakness/Ambulatory dysfunction: Ongoing generalized weakness Weakness may be secondary to deconditioning, prolonged fatigue from COVID-19 in 05/2020 Fall precautions PT OT as able Left lower extremity DVT Present upon admission. Diagnosed 09/13/2020 S/p IVC filter Continue Eliquis Chronic Hyponatremia : Due to diuretics Lasix held Monitor sodium levels:134 Hypertension: Hold carvedilol, lisinopril for now Monitor Diastolic dysfunction: Grade II diastolic dysfunction, EF 59% on echo in 2018 Monitor Volume status Held lasix, Aldactone due to CHAN Abnormal thyroid function test: H/O Hypothyroidism: Low TSH, elevated free T4 Repeat TSH normalized Repeat Free T4 low Continue Levothyroxine at reduced dose Anemia: Thrombocytopenia Anemia of chronic disease /underlying hematological malignancy -Hodgkins lymphoma Monitor CBC No reported bleeding issues Dysphagia: very poor appetite Chronic dysphagia. H/O EGD in 2019 without abnormality, however decision made to dilate esophagus Aspiration precautions Soft bite size diet GERD (gastroesophageal reflux disease): Continue PPI, H2 rosita Anxiety: On Duloxetine--Hold due to AMS H/O COVID-19: In 05/2020 DVT Px: on Eliquis Code Status Full Code Need to readdress code status Admission and Anticipated Discharge Date Admission Date: September 25, 2020 Subjective Patient is seen and examined at bedside More conscious today but still poor historian Updated the patient's daughter about the metastatic disease Bradycardia noted this AM on Monitor Persistent leukocytosis Will Transfer to PCU for closer monitoring Hypercalcemia noted Metastatic disease noted on CT-Updated Daughter who is the POA Review of Systems Review of Systems: Unobtainable due to reduced consciousness Physical Exam Physical Exam: Physical Exam: Vitals signs as noted above General Appearance:Morbidly Obese, no apparent distress Head: normocephalic, Atraumatic Eyes: normal inspection, EOMI Neck: supple, Trachea midline Respiratory/Chest: Normal breath sounds, CTA, No accessory muscle use Cardiovascular: S1, S2, No murmur Abdomen/GI:Soft, mild tender, Bowel sounds present : Left Groin in bandage Extremities/Musculoskeletal:normal inspection, 1+ B/L LE edema Neurologic/Psych:grossly no focal neurological deficits Skin: normal color, warm Results & Data Results & Data ([facility]) Vital Signs (Past 12 Hours) Vital Signs Temp Pulse Pulse Resp BP BP Pulse Ox 10/06/20 12:01 60 31 H 92 10/06/20 12:00 60 28 H 103/55 L 95 10/06/20 11:00 62 30 H 93/62 L 95 10/06/20 10:00 36.6 C 60 30 H 93/56 L 94 10/06/20 08:00 62 10/06/20 07:30 36.6 C 64 18 98/61 L 97 10/06/20 03:35 68 28 H 92 Laboratory Results Short CBC 10/06/20 Range/Units 05:50 WBC 16.47 H (4.8-10.8) K/uL Hgb 9.8 L (12.0-16.0) g/dL Hct 32.7 L (37-47) % Plt Count 62 L (130-400) K/uL BMP 10/06/20 05:50 Sodium 134 L Potassium 4.7 Chloride 102 Carbon Dioxide 26 BUN 67 H Creatinine 1.95 H D Glucose 115 H Calcium 10.2 H Liver Function 10/06/20 Range/Units 08:26 Total Bilirubin 1.6 H (0.2-1) mg/dl Direct Bilirubin 1.3 H (0-0.2) mg/dl AST 38 H (15-37) U/L ALT 21 (12-78) U/L Alkaline Phosphatase 120 H (45-117) U/L Albumin 1.3 L (3.4-5.0) gm/dl Urine 10/06/20 Range/Units 12:30 Urine Color Dark Yellow Urine Appearance Turbid A (Clear) Urine pH 5.0 (4.5-7.5) Ur Specific [place] 1.021 (1.000-1.030) Urine Protein 1+ H (Negative) Urine Glucose (UA) Negative (Negative)
[2020-10-06] MEDS: LATANOPROST 0.005% OP SOLN 2.5 ML BTL OP SCH (21:36)
[2020-10-07] MEDS: SODIUM CHLORIDE 0.9% 1000ML 1,000 ML IV SCH ×2 (04:50→11:41)
[2020-10-07] MEDS: LEVOTHYROXINE SODIUM 125 MCG TABLET PO SCH (05:49)
[2020-10-07 05:53] LABS: Hematocrit (blood only) 28.4 % (37-47); Hemoglobin 8.9 g/dL (12.0-16.0); Mean Corpuscular Hemoglobin 27.3 pg (25-34); Mean Corpuscular Hgb Conc 31.3 g/dL (32-36); Mean Corpuscular Volume 87.1 fL (80-100); Nucleated RBC # (auto) 0.05 K/uL (0-0); Nucleated RBC % (auto) 0.3 %; RDW Standard Deviation 53.8 fL (36.4-46.3); Red Blood Count 3.26 M/uL (4.2-5.4); White Blood Count 18.12 K/uL (4.8-10.8)
[2020-10-07 06:18] LABS: BUN Creatinine Ratio 31.7 (10-20); Calcium 9.8 mg/dl (8.5-10.1); Est GFR (African American) 21.5 ml/min; Est GFR (Non-African American) 18.5 ml/min
--- NOTE | 2020-10-07 06:28 | Electrocardiogram Report ---
Test Reason : Blood Pressure : / mmHG Vent. Rate : 065 BPM Atrial Rate : 065 BPM P-R Int : 126 ms QRS Dur : 104 ms QT Int : 442 ms P-R-T Axes : 016 052 087 degrees QTc Int : 459 ms Normal sinus rhythm Low voltage QRS Borderline ECG When compared with ECG of 25-SEP-2020 18:53, No significant change was found Confirmed by Jarod De Santiago ([id number]) on 10/07/2020 6:27:42 AM Referred By: REFERRED SELF Confirmed By:Jarod De Santiago
[2020-10-07 06:30] LABS: Mean Platelet Volume 11.1 fL (7.4-10.4); Platelet Count 64 K/uL (130-400)
[2020-10-07 06:31] LABS: Basophils # (auto) 0.01 K/uL (0-0.2); Basophils % (auto) 0.1 %; Eosinophils # (auto) 0.04 K/uL (0-0.5); Eosinophils % (auto) 0.2 %; Immature Granulocytes # (auto) 0.33 K/uL (0.00-0.02); Immature Granulocytes % (auto) 1.8 %; Lymphocytes % (auto) 2.2 %; Monocytes # (auto) 0.28 K/uL (0.11-0.59); Monocytes % (auto) 1.5 %; Neutrophils # (auto) 17.06 K/uL (1.4-6.5); Neutrophils % (auto) 94.2 %; Toxic Vacuolation 1+
[2020-10-07] MEDS: APIXABAN 5 MG TABLET PO SCH ×3 (07:37→20:53)
[2020-10-07] MEDS: PANTOprazole 40 MG TAB PO SCH (07:39)
[2020-10-07] MEDS: ADVANCED PROBIOTIC 1250 MG CAPSULE PO SCH (07:39)
[2020-10-07] MEDS: INSULIN ASPART 100 UNITS/ML 3 ML PEN SC SCH ×4 (07:40→20:40)
[2020-10-07] MEDS: DOCUSATE SODIUM 100 MG CAP PO SCH ×2 (07:42→20:57)
[2020-10-07] MEDS ORDERED: APIXABAN 2.5 MG TAB PO SCH (09:00)
--- NOTE | 2020-10-07 09:58 | Nephrology Progress Note ---
Date of Service October 07, 2020 Assessment & Plan (1) CHAN (acute kidney injury): Worsening stage 2 CHAN w/ oligoanuria in the setting of hypotension, concern for sepsis, stable thrombocytopenia with platelet counts in the 60s. Still w/ unexplained altered MS > ? cause; had been having transient bradycardia to 30s for less than a minute; has not recurred past 24 hr. Her creatinine on September 25 admission was 0.9. Stayed in this range until October 03 when it trended up to 1.1. On October 04 and creatinine 1.3-1.4. This morning creatinine at 2.5 with emerging oliguria. chemistries acceptable but rate of creatinien change worrisome/may accelerate. no indication for dialysis discussion at this time but heading that way. ?hypovolemia. -continue supportive care >> poor dialysis candidate should the need to discuss arise -low K diet -Daily basic metabolic panel Continue strict intake and output Fluids as dictated by respiratory status and blood pressures Continue to hold Lasix, lisinopril, spironolactone (2) Hypotension: -agree w/ holding bp meds; ? relation to cardiac pauses -repeat lactate is within normal limits; had been climbing 10/02 -cont NS for now but at lower rate -f/u pending blood , urine cxs (3) Thrombocytopenia: worsening; -recommend primary service rule out HIT -microangiopathic hemolytic anemia and other thrombotic microangiopathic anemias not likely here but would still check peripheral smear (pending); LDH wnl (4) Hypercalcemia: mild - moderate but worsening may well be from lymphoma versus volume depletion creatinine too high for bisphosphonate -cont NS, daily bmp -PTH, PTHrp pending as is D store check (5) Hodgkin lymphoma: With bulky adenopathy throughout her thorax and concern for liver metastases -Await input from heme-onc -Agree with palliative care evaluation to discuss goals of care Present on Admission?: Yes Admission and Anticipated Discharge Date Admission Date: September 25, 2020 Subjective more awake/interactive today >> attempting to talk; took some pureed banana and pills Review of Systems Review of Systems: Unobtainable due to reduced consciousness Physical Exam Constitutional: well developed, + morbidly obese and + altered mental status; no acute distress Eyes: EOM intact bilaterally ENMT: Ears: no external ear abnormality Nose: no external nose abnormality Mouth: + dry oral mucous membranes Neck: no nuchal rigidity Respiratory: normal respiratory effort; no labored breathing, expiratory phase not prolonged, no nasal flaring and no paradoxical thoraco-abdominal movemnt Auscultation: + diminished lung sounds (on 2L NC) Cardiovascular: Rate/Rhythm: regular rate and regular rhythm Extremities: + edema (trace) Gastrointestinal (Abdomen): Inspection/Auscultation: normal bowel sounds; abdomen not distended Percussion/Palpation: + abdomen tender (epigastric and LUQ), + guarding and abdomen soft Musculoskeletal: Extremities: + abnormal strength (generalized weakness) Skin: no rashes, warm and dry + pallor Neurologic: Speech / Cognition: + abnormal cognition Moans quite a bit, no discernible words but she does attempt to speak Genitourinary: David with scant yellow urine Results & Data ([facility]) Vital Signs (Past 12 Hours) Vital Signs Temp Pulse Pulse Resp BP Pulse Ox 10/07/20 08:00 70 10/07/20 07:42 36.7 C 73 18 144/71 H 95 10/07/20 04:24 36.7 C 76 21 110/57 L 92 10/07/20 03:46 74 38 H 93 10/07/20 00:45 70 10/06/20 23:43 36.4 C L 71 24 103/60 93 10/06/20 22:22 74 40 H 94 Laboratory Results 10/07/20 05:37 10/07/20 05:37 UA: Dark yellow turbid urine specific gravity 1020 11+ protein trace ketones positive nitrites 1+ leukocyte Estrace, 1+ bilirubin. Greater than 30 white cells, red cells, epithelial cells. Yeast and calcium oxalate crystals present. No bacteria. Other indices negative. Diagnostic Findings Chest x-ray: Small left pleural effusion developed in the interval since last exam with associated atelectasis or left base infiltrate. Also right mid to lower lung hazy opacity consistent possibly with pneumonia. Chest CT yesterday: Bulky adenopathy in the lower neck chest or upper abdomen suspicious for Phoma versus metastatic disease; innumerable hypodense lesions throughout the liver also concerning for metastatic disease and hepatosplenomegaly with small bilateral pleural effusions right greater than left. Ultrasound: Unremarkable kidneys 9 cm on the right 10 on the left with a 2 cm left lower pole cyst; no hydronephrosis or stones; heterogenous liver suggesting multiple hepatic masses. (1) Hypotension Hypotension type: unspecified hypotension type Qualified Code(s): I95.9 - Hypotension, unspecified
--- NOTE | 2020-10-07 10:45 | XRay Report ---
XR chest 1V portable CLINICAL HISTORY: dyspnea COMPARISON STUDY: October 06, 2020 FINDINGS: No definite pneumothorax is seen however evaluation is limited because bilateral lung apices are part ially obscured by patient's chin.. Interval development/redistribution of the small left pleural effusion. Hazy opacity at the right mid to lower lung might represent atelectasis or infiltrate. Small atelecta sis is seen at the left base. Cardiac silhouette is stable. Redemonstration of mild mediastinal widening which is unchanged since p rior study. Aorta is calcified. Pulmonary vasculature is indistinct.. Osseous structures: Degenerative changes of the spine and bilateral shoulders. IMPRESSION: 1. Interval development/redistribution of the small left pleural effusion with associated atelectasi s or infiltrate at the left base. 2. Hazy opacity at the right mid to lower lung which could represent pneumonia or atelectasis. 3. Atherosclerosis. 4. Persistent widening of mediastinum. Which was better evaluated during recent CT of the chest perf ormed on October 06, 2020. ACT 112: Negative or not required by law. The above report was generated using voice recognition software. It may contain grammatical, syntax o r spelling errors. Electronically signed by: Janeth Post DO 10/07/2020 10:44 AM
[2020-10-07] MEDS: DOXYCYCLINE HYCLATE 100 MG in DEXTROSE 5% 100 ML IV SCH ×2 (11:43→23:56)
--- NOTE | 2020-10-07 17:37 | Hospitalist Progress Note ---
Date of Service October 07, 2020 Assessment & Plan (1) Hypoglycemia: (2) AMS (altered mental status): Patient is a 74yr female with H/O DM II, HTN, dyslipidemia, asthma, diastolic dysfunction, GERD, hypothyroidism, obesity, anxiety, H/O COVID-19 in 05/2020, LLE DVT is on Eliquis, s/p IVC filter presented to ER with complaint of AMS and hypoglycemia. Presented with with sudden onset AMS and found to have BSG 35 Acute metabolic encephalopathy Presented with Hypoglycemia CT Head:No acute intracranial findings Covid screen negative Lyme's IgG positive, IgM negative Infection, Metastatic disease, Hypercalcemia, delirium contributing MRI brain: Motion degraded study. No evidence of acute or subacute infarct. No evidence of mass effect. No evidence of hydrocephalus. Appreciate neurology input EEG: nonspecific generalized moderate to moderately severe encephalopathy with no lateralizing features and with no associated potentially epileptogenic features Cefepime changed to Cipro as Cefepime thought to be causing AMS Completed Ciprofloxacin course Monitor for hypoglycemia Hold duloxetine, oxybutynin Continue IV fluids Aspiration precautions Worsening leukocytosis likely due to malignancy Repeat Urine cultures: Sowmya Received a dose of Diflucan More alert awake today Palliative care consulted to address goals of care Urinary tract infection Left Groin Biopsy site Infection Wound culture growing Klebsiella pneumonia, Pseudomonas Urine culture growing Klebsiella pneumonia Continue Doxycycline IV cefepime transition to ciprofloxacin--completed course Consult ID for Input Metastatic Disease Recently diagnosed Hodgkin's lymphoma. --CT chest:Bulky lymphadenopathy seen within the lower neck, chest, and upper abdomen as described above. This is suspicious for a lymphoma or metastatic disease. There are innumerable small hypodense lesions seen scattered throughout the liver. This is also concerning for metastatic disease. Hepatosplenomegaly. Small bilateral pleural effusions, right greater than left. Left groin LN biopsy : Hodgkin's Lymphoma --Renal USD: No hydronephrosis. Heterogeneous appearance of liver suggesting multiple hepatic masses. Dedicated abdominal MRI is recommended for further evaluation. -Oncology consulted Transaminitis secondary to metastatic disease Await oncology input Palliative care consulted to address goals of care Lactic acidosis Likely secondary to Hodgkin's lymphoma Monitor Hypercalcemia Elevated ionized calcium Likely due to Malignancy Continue IV fluids Monitor calcium levels, Volume status Appreciate nephrology input PTH: WNL PTH related Protein:pending Vit D: 9.8 Bradycardia Likely due to Hypercalcemia Hold Coreg No recurrence of bradycardia Monitor Hypoglycemia: Hold glipizide and Ozempic A1c: 6.9 in 07/2020 Consider to discontinue oral hypoglycemics upon discharge Monitor BGs Acute Kidney Injury Cr:1.3>1.95>2.46 -Renal USD: No hydronephrosis. Heterogeneous appearance of liver suggesting multiple hepatic masses. Dedicated abdominal MRI is recommended for further evaluation. -Avoid nephrotoxic agents Continue IV fluids Monitor renal function Appreciate nephrology input Diuretics, Lisinopril held Weakness/Ambulatory dysfunction: Ongoing generalized weakness Weakness may be secondary to deconditioning, prolonged fatigue from COVID-19 in 05/2020 Fall precautions PT OT as able Left lower extremity DVT Present upon admission. Diagnosed 09/13/2020 S/p IVC filter Continue Eliquis Chronic Hyponatremia : Due to diuretics Lasix held Monitor sodium levels:134 Hypertension: Hold carvedilol, lisinopril for now Monitor Diastolic dysfunction: Grade II diastolic dysfunction, EF 59% on echo in 2018 Monitor Volume status Held lasix, Aldactone due to CHAN Abnormal thyroid function test: H/O Hypothyroidism: Low TSH, elevated free T4 Repeat TSH normalized Repeat Free T4 low Continue Levothyroxine at reduced dose Anemia: Thrombocytopenia Anemia of chronic disease /underlying hematological malignancy -Hodgkins lymphoma Monitor CBC No reported bleeding issues Dysphagia: very poor appetite Chronic dysphagia. H/O EGD in 2019 without abnormality, however decision made to dilate esophagus Aspiration precautions Soft bite size diet GERD (gastroesophageal reflux disease): Continue PPI, H2 rosita Anxiety: On Duloxetine--Hold due to AMS H/O COVID-19: In 05/2020 DVT Px: on Eliquis Code Status Full Code Need to readdress code status Admission and Anticipated Discharge Date Admission Date: September 25, 2020 Subjective Patient is seen and examined at bedside More awake/alert today Took her medications today Unable to provide much history Discussed with Nephrology today Will consult ID and Palliative care to address goals of care No recurrence of bradycardia on Monitor Worsening leukocytosis Review of Systems Review of Systems: Unobtainable due to cognitive status Physical Exam Physical Exam: Physical Exam: Vitals signs as noted above General Appearance:Morbidly Obese, mild distress Head: normocephalic, Atraumatic Eyes: normal inspection, EOMI Neck: supple, Trachea midline Respiratory/Chest: Normal breath sounds, CTA Cardiovascular: S1, S2, No murmur Abdomen/GI:Soft, mild tender, Bowel sounds present : Refused exam Extremities/Musculoskeletal:normal inspection, B/L LE edema Neurologic/Psych:grossly no focal neurological deficits Skin: normal color, warm Results & Data Results & Data ([facility]) Vital Signs (Past 12 Hours) Vital Signs Temp Pulse Pulse Resp BP Pulse Ox 10/07/20 16:00 67 10/07/20 15:25 109/56 L 10/07/20 15:20 36.9 C 64 16 91/45 L 96 10/07/20 11:23 37.0 C 79 17 101/62 97 10/07/20 08:00 70 10/07/20 07:42 36.7 C 73 18 144/71 H 95 Laboratory Results Short CBC 10/07/20 Range/Units 05:37 WBC 18.12 H (4.8-10.8) K/uL Hgb 8.9 L (12.0-16.0) g/dL Hct 28.4 L (37-47) % Plt Count 64 L (130-400) K/uL BMP 10/07/20 05:37 Sodium 134 L Potassium 5.0 Chloride 105 Carbon Dioxide 23 BUN 78 H Creatinine 2.46 H D Glucose 127 H Calcium 9.8
[2020-10-07] MEDS: LATANOPROST 0.005% OP SOLN 2.5 ML BTL OP SCH (20:57)
[2020-10-07] MEDS ORDERED: FAMOTIDINE 40 MG TABLET PO SCH (21:00)
[2020-10-08] MEDS: LEVOTHYROXINE SODIUM 125 MCG TABLET PO SCH (05:30)
[2020-10-08 05:52] LABS: Hematocrit (blood only) 29.6 % (37-47); Hemoglobin 9.2 g/dL (12.0-16.0); Mean Corpuscular Hgb Conc 31.1 g/dL (32-36); Mean Corpuscular Volume 86.8 fL (80-100); Nucleated RBC # (auto) 0.15 K/uL (0-0); Nucleated RBC % (auto) 0.7 %; RDW Coefficient of Variation 17.3 % (11.5-14.5); RDW Standard Deviation 53.9 fL (36.4-46.3); Red Blood Count 3.41 M/uL (4.2-5.4); White Blood Count 20.42 K/uL (4.8-10.8)
[2020-10-08 06:05] LABS: Mean Platelet Volume 10.7 fL (7.4-10.4); Platelet Count 52 K/uL (130-400)
[2020-10-08 06:19] LABS: Basophils # (auto) 0.01 K/uL (0-0.2); Eosinophils # (auto) 0.06 K/uL (0-0.5); Eosinophils % (auto) 0.3 %; Immature Granulocytes # (auto) 0.29 K/uL (0.00-0.02); Immature Granulocytes % (auto) 1.4 %; Lymphocytes # (auto) 0.38 K/uL (1.2-3.4); Lymphocytes % (auto) 1.9 %; Monocytes # (auto) 0.35 K/uL (0.11-0.59); Monocytes % (auto) 1.7 %; Neutrophils # (auto) 19.33 K/uL (1.4-6.5); Neutrophils % (auto) 94.7 %; Polychromasia 1+
[2020-10-08 06:25] LABS: BUN Creatinine Ratio 28.3 (10-20); Calcium 9.8 mg/dl (8.5-10.1); Creatinine Clr Calc Pharmacy 19.6 ml/min; Est GFR (African American) 16.8 ml/min; Est GFR (Non-African American) 14.5 ml/min; Magnesium 2.1 mg/dl (1.8-2.4)
[2020-10-08] MEDS: SODIUM CHLORIDE 0.9% 1000ML 1,000 ML IV SCH (07:43)
[2020-10-08] MEDS: INSULIN ASPART 100 UNITS/ML 3 ML PEN SC SCH (07:44)
[2020-10-08] MEDS: APIXABAN 5 MG TABLET PO SCH (09:13)
[2020-10-08] MEDS: PANTOprazole 40 MG TAB PO SCH (09:14)
[2020-10-08] MEDS: DOCUSATE SODIUM 100 MG CAP PO SCH (09:14)
[2020-10-08] MEDS: ADVANCED PROBIOTIC 1250 MG CAPSULE PO SCH (09:14)
--- NOTE | 2020-10-08 09:52 | Consultation Report ---
DATE OF CONSULT: 10/08/2020 REASON FOR CONSULTATION: Classic Hodgkin's lymphoma. HISTORY OF PRESENT ILLNESS: The patient is a confused, agitated, combative 74-year-old female patient admitted for acute metabolic encephalopathy 13 days ago, now with a diagnosis of classic Hodgkin's lymphoma. This patient has several comorbid issues. Presently, her code status is a full code; however, according to nursing this morning it does not seem like there is a lot of family interaction and decision making moving forward. That said, patient has been battling with a urinary tract infection as well as a left groin wound growing Klebsiella and Pseudomonas. The patient continues broad spectrum antimicrobials. Radiographically, a CT scan of the chest reveals scattered adenopathy throughout the lower neck, chest and upper abdomen. An excisional biopsy of left inguinal lymph node confirms a classic Hodgkin lymphoma. Specifically, CT scan of the chest describes cervical, mediastinal, bilateral hilar and upper abdominal lymphadenopathy. The predominant conglomerate in the right paratracheal region measures 4.6 x 2.6 cm. Again, when I tried to interview the patient, I received a lot of garbled phonation, but no coherent speech, otherwise. Thus sought out nursing who reports a palliative consult is pending. By my initial impression it would appear patient is not a good candidate for salvage chemotherapy moving forward. However, would like to receive insight from family members, specifically , if she has one or close relative who can make a rational medical decision moving forward. PAST MEDICAL HISTORY: History of anxiety, osteoarthritis, asthma, COVID-19 infection, type 2 diabetes mellitus, dysphagia, gastroesophageal reflux disease, hiatal hernia, hypertension, hypothyroidism, morbid obesity. PAST SURGICAL HISTORY: Includes bilateral knee replacements, history of LASIK, EGD, colonoscopy, cholecystectomy, section x2, carpal tunnel release, bilateral tubal ligation, bilateral cataract extraction. MEDICATIONS: Prior to admission includes aspirin 81 mg p.o. every day, Ozempic 0.25 mg subq FLORES, famotidine 40 mg p.o. at bedtime, spironolactone 12.5 mg p.o. every day, oxybutynin 5 mg p.o. t.i.d., omeprazole 40 mg p.o. every day, lisinopril 40 mg p.o. every day, levothyroxine 175 mcg p.o. every day, glipizide 5 mg p.o. b.i.d., furosemide 20 mg p.o. every day, duloxetine 30 mg p.o. every day, carvedilol 6.25 mg p.o. b.i.d. ALLERGIES: TO ASPIRIN, AMOXICILLIN AND ALBUTEROL. SOCIAL HISTORY: Unobtainable because of the patient's mental status. REVIEW OF SYSTEMS: Unobtainable because of the patient's mental status; altered mental status, prohibits review of systems. PHYSICAL EXAMINATION: GENERAL: Pickwickian appearing 74-year-old female patient with garbled speech, in no acute distress. VITAL SIGNS: Temperature 37.0, pulse 79, respiratory rate 18, blood pressure 108/52. HEENT: Limited examination. NECK: Bull neck. HEART: Regular rate and rhythm. LUNGS: Clear to auscultation bilaterally. ABDOMEN: Obese, soft, nontender, nondistended. EXTREMITIES: Trace peripheral edema bilateral lower extremities, stasis dermatitis changes also noted. NEUROLOGIC: She is awake and alert. Orientation certainly in question. No further neurologic testing. LABORATORY DATA: WBC count 20,420, hemoglobin 9.2, platelet count 52,000. Absolute neutrophil count 19,330. Sodium 136, potassium 5.0, chloride 107, carbon dioxide 21, creatinine 3.02. IMPRESSION: 1. Classic Hodgkin lymphoma minimally stage III disease. 2. Acute metabolic encephalopathy. 3. Acute renal injury. 4. Urinary tract infection. 5. Hypercalcemia attributable to malignancy. 6. Lower extremity deep venous thrombosis. 7. Hypertension. 8. Anemia/thrombocytopenia. PLAN: The patient is a combative, agitated 74-year-old female patient. I have been asked to offer an opinion with the pathologic confirmed diagnosis of classic Hodgkin lymphoma. Generally, this disorder is a readily amenable to chemotherapy. Incidence for Classic Hodgkin lymphoma in individuals in their 20s is most common and second highest with patients in their 60s. Generally speaking, older individuals have a more aggressive course and thus their prognosis is not quite as good as a younger individuals. That said, if she did not have several comorbid issues on top of the lymphoproliferative disorder, one could consider salvage; however, in patient's case, I do not see her doing very well. Not sure if there are family members able to make a rational medical decision on patient's behalf. I am inclined to agree with the medical service to proceed with a palliative consultation. However, if family decides to push forward with treatment, the standard ABVD combination chemotherapy could be offered perhaps replacing bleomycin with brentuximab considering her age and comorbid status. Because the patient is a complex if salvage therapy is desired, I would prefer transfer to a tertiary center, I would be more than happy to speak to the hospitalist on service to discuss patient's case further. Thank you very much for allowing me to participate in her care. If you have any questions or concerns, feel free to contact me at any time. Job ID: [id number] [facility]
[2020-10-08] MEDS ORDERED: LORazepam 0.5 MG/1 ML VIAL IV PRN (10:50)
[2020-10-08] MEDS ORDERED: GLYCOPYRROLATE 0.2 MG/ML VIAL IV PRN (10:50)
--- NOTE | 2020-10-08 11:08 | Palliative Care Consultation ---
Date of Consultation October 08, 2020 Assessment & Plan (1) Palliative care encounter: I spoke with Mrs. Garay's daughter Jacqueline and her son, at bedside and her son Rene, on speaker phone. We discussed progression of renal failure in the setting of metastatic lymphoma and other comorbidities. Unfortunately, her prognosis is poor and they recognize that. They would not want her to have CPR or intubation and code status has been changed to reflect this. They have recognized decline in the last two months and understand that she is approaching her dying time. Their request is that focus be on comfort. We discussed whether to continue current monitoring and interventions and they would like to have comfort measures only. This was communicated to Dr. Stevens and the RN caring for her. We will adjust orders for comfort medications only. Jacqueline asked about prognosis which I expect is hours to days at this time. She is concerned about her mother being alone and they have been given permission to visit beyond regular visiting hours at this time. I have ordered hydromorphone as needed for pain and will monitor. She may benefit from opioid infusion if needed for comfort. (2) Hodgkin lymphoma: (3) CHAN (acute kidney injury): (4) DVT (deep venous thrombosis): Affected thrombotic vein of extremity: unspecified vein of extremity Chronicity: acute DVT location: lower extremity Laterality: left Qualified Code(s): I82.402 - Acute embolism and thrombosis of unspecified deep veins of left lower extremity History of Present Illness Reason for Consultation: goals of care Requesting Physician: Dr. Stevens Attending Physician: César Stevens MD History of Present Illness 74 yo lady who had been admitted with hypoglycemia and mental status change. Per her daughter she has had functional decline since August of this year with poor po intake, a fall and generalized weakness. She has had complicated course during her hospitalization with UTI as well as infection at site in her left groin where a biopsy had been done recently. Despite optimal therapy she has had persistent encephalopathy though her mental status has waxed and waned. Her daughter reports that she was visiting with the family and doing Face Time on Wednesday. Biopsy is positive for Hodgkins lymphoma and CT indicates metastatic disease in liver and throughout abdomen. She has also had progressive renal failure with current creatinine of 3.02 trending up. Her GFR is 14. She has had bradycardia with pauses intermittently over the last few days. She opens her eyes briefly with stimulation and moans but does not respond to questions or commands. Allergies Allergy/AdvReac Type Severity Reaction Status Date / Time albuterol Allergy Intermediate tachycardia Verified 09/25/20 19:57 amoxicillin Allergy Mild RASH Verified 09/25/20 19:57 aspirin AdvReac Mild stomach Verified 09/25/20 19:58 upset Home Medications Medication Instructions Recorded Confirmed Type carvedilol 6.25 mg PO BID 12/08/18 09/25/20 History duloxetine 30 mg PO QAM 12/08/18 09/25/20 History furosemide 20 mg PO QAM 12/08/18 09/25/20 History glipizide 5 mg PO BID 12/08/18 09/25/20 History latanoprost (PF) 1 drp OPHTHALMIC (EYE) HS 12/08/18 09/25/20 History levothyroxine 175 mcg PO QAM 12/08/18 09/25/20 History lisinopril 40 mg PO QAM 12/08/18 09/25/20 History omeprazole 40 mg PO QAM 12/08/18 09/25/20 History oxybutynin chloride [Ditropan XL] 5 mg PO TID 12/08/18 09/25/20 History spironolactone 12.5 mg PO QAM 12/08/18 09/25/20 History Ozempic 0.25 mg SUBCUT FLORES 06/05/20 09/25/20 History famotidine 40 mg PO HS 06/05/20 09/25/20 History apixaban [Eliquis] 5 mg PO BID #74 tab 09/21/20 09/25/20 Rx levothyroxine 150 mcg PO DAILY #30 cap 09/27/20 Rx Patient History Medical History Anxiety Arthritis Asthma COVID-19 virus detected 06/03/20--c/o fever, headache, fatigue roughly a couple weeks ago, daughter was also sick with symptoms Diabetes mellitus, type 2 Diastolic dysfunction Dysphagia chronic dysphagia, h/o esophageal dilation GERD (gastroesophageal reflux disease) Hiatal hernia History of COVID-19 06/2020 Hodgkin lymphoma Hypertension Hypothyroidism Morbid obesity with BMI of 45.0-49.9, adult SOBOE (shortness of breath on exertion) Surgical History History of anesthesia reaction "WAKES UP EARLY"-NEEDS MORE MEDS History of bilateral cataract extraction History of bilateral tubal ligation History of carpal tunnel release RIGHT History of section X 2 History of cholecystectomy History of colonoscopy History of esophagogastroduodenoscopy (EGD) WITH DILITATION History of total left knee replacement (TKR) History of total right knee replacement (TKR) x2 Hx of LASIK Family History Daughter Family history of reaction to anesthesia WAKES UP EARLY Mother Family history of diabetes mellitus Father Family history of diabetes mellitus Sister Family history of diabetes mellitus Sister Family history of diabetes mellitus Brother Family history of diabetes mellitus Brother Family history of diabetes mellitus Social History Smoking Status: Never smoker Second Hand Exposure: No; Hx Alcohol Use: No Hx Substance Use: No Preferred Language: Khmer Communication Ability: Effective Supervisor Waterproofing Required: No Beliefs That Will Affect Care: None Current Living Situation: Family Current Living Situation Comment: Lives with daughter and son Feels Safe at Home: Yes Safety Concerns: Feels Safe At This Time Assistive Devices: CPAP, Denture - Upper, Denture - Lower and Oxygen - Continuous Review of Systems Review of Systems: Unobtainable due to reduced consciousness Mitchell Symptom Assessment Scale PainAD 3/3 Dyspnea by observation 0/3 Palliative Performance Score 20% Physical Exam Constitutional: + morbidly obese; + uncomfortable ENMT: Mouth: + dry oral mucous membranes Respiratory: Shallow, no audible rhonchi Cardiovascular: bradycardia to 40bpm upper and lower extremity edema Gastrointestinal (Abdomen): Inspection/Auscultation: + significant pannus Percussion/Palpation: abdomen nontender Neurologic: lethargic Results & Data ([facility]) Vital Signs (Past 12 Hours) Vital Signs Temp Pulse Pulse Resp BP Pulse Ox 10/08/20 07:46 94 10/08/20 07:30 67 10/08/20 06:56 98.6 F 79 18 108/52 L 92 10/08/20 03:42 98.6 F 83 19 112/56 L 94 10/08/20 03:36 80 34 H 93 10/08/20 00:21 81 PG Care Time/CCT Total # of Minutes Spent Total Time Spent with Patient: Total time spent is greater than 50% in coordination of care (as documented) at patient's floor/unit and/or counseling patient: total time spent 60 minutes with more than 50% of time spent on family education, prognosis, symptom management, goals of care, code status. Coding Level of Care Code 85372 Initial Inpt Care Lvl 2 Diagnoses Palliative care encounter Z51.5 Hodgkin lymphoma C81.90 CHAN (acute kidney injury) N17.9 DVT (deep venous thrombosis) I82.402 Affected thrombotic vein of extremity: unspecified vein of extremity Chronicity: acute DVT location: lower extremity Laterality: left
[2020-10-08] MEDS: HYDROmorphone INJ 0.5 MG/0.5 ML SYR IV PRN ×3 (11:10→23:21)
--- NOTE | 2020-10-08 13:48 | Hospitalist Progress Note ---
Date of Service October 08, 2020 Assessment & Plan (1) Hypoglycemia: (2) AMS (altered mental status): Patient is a 74yr female with H/O DM II, HTN, dyslipidemia, asthma, diastolic dysfunction, GERD, hypothyroidism, obesity, anxiety, H/O COVID-19 in 05/2020, LLE DVT is on Eliquis, s/p IVC filter presented to ER with complaint of AMS and hypoglycemia. Presented with with sudden onset AMS and found to have BSG 35 Acute metabolic encephalopathy Presented with Hypoglycemia CT Head:No acute intracranial findings Covid screen negative Lyme's IgG positive, IgM negative Infection, Metastatic disease, Hypercalcemia, delirium contributing MRI brain: Motion degraded study. No evidence of acute or subacute infarct. No evidence of mass effect. No evidence of hydrocephalus. Appreciate neurology input EEG: nonspecific generalized moderate to moderately severe encephalopathy with no lateralizing features and with no associated potentially epileptogenic features Cefepime changed to Cipro as Cefepime thought to be causing AMS Completed Ciprofloxacin course Monitor for hypoglycemia Hold duloxetine, oxybutynin Received IV fluids Aspiration precautions Worsening leukocytosis likely due to malignancy Repeat Urine cultures: Sowmya Received a dose of Diflucan Appreciate Palliative care Input Transition to comfort measures only Urinary tract infection Left Groin Biopsy site Infection Wound culture growing Klebsiella pneumonia, Pseudomonas Urine culture growing Klebsiella pneumonia Received Doxycycline IV cefepime transition to ciprofloxacin--completed course Consulted ID for Input Metastatic Disease Recently diagnosed Hodgkin's lymphoma. --CT chest:Bulky lymphadenopathy seen within the lower neck, chest, and upper abdomen as described above. This is suspicious for a lymphoma or metastatic disease. There are innumerable small hypodense lesions seen scattered throughout the liver. This is also concerning for metastatic disease. Hepatosplenomegaly. Small bilateral pleural effusions, right greater than left. Left groin LN biopsy : Hodgkin's Lymphoma --Renal USD: No hydronephrosis. Heterogeneous appearance of liver suggesting multiple hepatic masses. Dedicated abdominal MRI is recommended for further evaluation. Transaminitis secondary to metastatic disease Appreciate oncology input Transitioned to comfort measures Lactic acidosis Likely secondary to Hodgkin's lymphoma Monitor Hypercalcemia Elevated ionized calcium Likely due to Malignancy Continue IV fluids Monitor calcium levels, Volume status Appreciate nephrology input PTH: WNL PTH related Protein:pending Vit D: 9.8 Bradycardia Likely due to Hypercalcemia Hold Coreg No recurrence of bradycardia Monitor Hypoglycemia: Hold glipizide and Ozempic A1c: 6.9 in 07/2020 Consider to discontinue oral hypoglycemics upon discharge Monitor BGs Acute Kidney Injury Cr:1.3>1.95>2.46>3.02 -Renal USD: No hydronephrosis. Heterogeneous appearance of liver suggesting multiple hepatic masses. Dedicated abdominal MRI is recommended for further evaluation. -Avoid nephrotoxic agents Received IV fluids Monitor renal function Appreciate nephrology input Diuretics, Lisinopril held On comfort measures only Weakness/Ambulatory dysfunction: Ongoing generalized weakness Weakness may be secondary to deconditioning, prolonged fatigue from COVID-19 in 05/2020 Fall precautions Left lower extremity DVT Present upon admission. Diagnosed 09/13/2020 S/p IVC filter Was on Eliquis Chronic Hyponatremia : Due to diuretics Lasix held Monitor sodium levels:136 Hypertension: Held carvedilol, lisinopril Monitor Diastolic dysfunction: Grade II diastolic dysfunction, EF 59% on echo in 2018 Monitor Volume status Held lasix, Aldactone due to CHAN Abnormal thyroid function test: H/O Hypothyroidism: Low TSH, elevated free T4 Repeat TSH normalized Repeat Free T4 low Continue Levothyroxine at reduced dose Anemia: Thrombocytopenia Anemia of chronic disease /underlying hematological malignancy -Hodgkins lymphoma Monitor CBC No reported bleeding issues Dysphagia: very poor appetite Chronic dysphagia. H/O EGD in 2019 without abnormality, however decision made to dilate esophagus Aspiration precautions Soft bite size diet GERD (gastroesophageal reflux disease): Continue PPI, H2 rosita Anxiety: On Duloxetine H/O COVID-19: In 05/2020 DVT Px: on Eliquis Code Status DNI/DNR Disposition On Comfort measures only Admission and Anticipated Discharge Date Admission Date: September 25, 2020 Subjective Patient is seen and examined at bedside Very drowsy/lethargic today Unable to provide any history Renal function, leukocytosis continues to worsen Discussed with palliative care today Patient's family prefers patient to be transition to comfort measures. Review of Systems Review of Systems: Unobtainable due to reduced consciousness Physical Exam Physical Exam: Physical Exam: Vitals signs as noted above General Appearance:Morbidly Obese, Drowsy Head: normocephalic, Atraumatic Eyes: normal inspection, EOMI Neck: supple, Trachea midline Respiratory/Chest: Normal breath sounds, CTA Cardiovascular: S1, S2, No murmur Abdomen/GI:Soft, mild tender, Bowel sounds present : Refused exam Extremities/Musculoskeletal:normal inspection, B/L LE edema Neurologic/Psych: Complete neurological exam could not be performed Skin: normal color, warm Results & Data Results & Data ([facility]) Vital Signs (Past 12 Hours) Vital Signs Temp Pulse Pulse Resp BP Pulse Ox 10/08/20 07:46 94 10/08/20 07:30 67 10/08/20 06:56 37.0 C 79 18 108/52 L 92 10/08/20 03:42 37.0 C 83 19 112/56 L 94 10/08/20 03:36 80 34 H 93 Laboratory Results Short CBC 10/08/20 Range/Units 05:25 WBC 20.42 H (4.8-10.8) K/uL Hgb 9.2 L (12.0-16.0) g/dL Hct 29.6 L (37-47) % Plt Count 52 L (130-400) K/uL BMP 10/08/20 05:25 Sodium 136 Potassium 5.0 Chloride 107 Carbon Dioxide 21 BUN 86 H Creatinine 3.02 H D Glucose 146 H Calcium 9.8
[2020-10-09] MEDS: HYDROmorphone INJ 0.5 MG/0.5 ML SYR IV PRN ×8 (04:04→17:13)
--- NOTE | 2020-10-09 09:54 | Palliative Care Progress Note ---
Date of Service October 09, 2020 Assessment & Plan (1) Pain: Unable to articulate pain but exhibits pain related behaviors such as moaning, grimacing, restlessness with care. Discussed routine opioid dosing with her daughter Jacqueline to create more consistent analgesia. She is agreeable to this. (2) Palliative care encounter: Cierra appears within days of her dying time. I talked with Jacqueline about changes with mottling and breathing pattern. She has support from family and friends and repeats that comfort is her primary concern for her mother at this time. (3) Hodgkin lymphoma: (4) Diastolic dysfunction: (5) CHAN (acute kidney injury): (6) Left leg DVT: (7) Diabetes mellitus, type 2: Admission and Anticipated Discharge Date Admission Date: September 25, 2020 Subjective No response to voice or touch. Had some tachypnea earlier. Moans with routine care. She has had five doses of hydromorphone in last 24 hours. Review of Systems Review of Systems: Unobtainable due to reduced consciousness Boaz Symptom Assessment Scale PainAD 0/3 Dyspnea by observation 0/3 Palliative Performance Score 10% Physical Exam Constitutional: + morbidly obese; no acute distress ENMT: Mouth: + dry oral mucous membranes Respiratory: + uses accessory muscles; no respiratory distress Cardiovascular: Rate/Rhythm: + irregularly irregular Gastrointestinal (Abdomen): Inspection/Auscultation: + significant pannus Musculoskeletal: edema b/l upper and lower extremities feet cool to touch with mottling Neurologic: + obtunded Results & Data ([facility]) Vital Signs (Past 12 Hours) Vital Signs Pulse Resp Pulse Ox 10/09/20 03:35 65 34 H 95 PG Care Time/CCT Total # of Minutes Spent Total Time Spent with Patient: Total time spent is greater than 50% in coordination of care (as documented) at patient's floor/unit and/or counseling patient: Coding Level of Care Code 79905 Subseq Hosp Care Lvl 2 Diagnoses Pain R52 Palliative care encounter Z51.5 Hodgkin lymphoma C81.90 Diastolic dysfunction I51.89 CHAN (acute kidney injury) N17.9 Left leg DVT I82.402 Diabetes mellitus, type 2 E11.9
--- NOTE | 2020-10-09 12:08 | Hospitalist Progress Note ---
Date of Service October 09, 2020 Assessment & Plan (1) Hypoglycemia: (2) AMS (altered mental status): Patient is a 74yr female with H/O DM II, HTN, dyslipidemia, asthma, diastolic dysfunction, GERD, hypothyroidism, obesity, anxiety, H/O COVID-19 in 05/2020, LLE DVT is on Eliquis, s/p IVC filter presented to ER with complaint of AMS and hypoglycemia. Presented with with sudden onset AMS and found to have BSG 35 Acute metabolic encephalopathy Presented with Hypoglycemia CT Head:No acute intracranial findings Covid screen negative Lyme's IgG positive, IgM negative Infection, Metastatic disease, Hypercalcemia, delirium contributing MRI brain: Motion degraded study. No evidence of acute or subacute infarct. No evidence of mass effect. No evidence of hydrocephalus. Appreciate neurology input EEG: nonspecific generalized moderate to moderately severe encephalopathy with no lateralizing features and with no associated potentially epileptogenic features Cefepime changed to Cipro as Cefepime thought to be causing AMS Completed Ciprofloxacin course Monitor for hypoglycemia Hold duloxetine, oxybutynin Received IV fluids Aspiration precautions Worsening leukocytosis likely due to malignancy Repeat Urine cultures: Sowmya Received a dose of Diflucan Appreciate Palliative care Input Transitioned to comfort measures only Urinary tract infection Left Groin Biopsy site Infection Wound culture growing Klebsiella pneumonia, Pseudomonas Urine culture growing Klebsiella pneumonia Received Doxycycline IV cefepime transition to ciprofloxacin--completed course Consulted ID for Input -consult now canceled as patient made comfort care only Metastatic Disease Recently diagnosed Hodgkin's lymphoma. --CT chest:Bulky lymphadenopathy seen within the lower neck, chest, and upper abdomen as described above. This is suspicious for a lymphoma or metastatic disease. There are innumerable small hypodense lesions seen scattered throughout the liver. This is also concerning for metastatic disease. Hepatosplenomegaly. Small bilateral pleural effusions, right greater than left. Left groin LN biopsy : Hodgkin's Lymphoma --Renal USD: No hydronephrosis. Heterogeneous appearance of liver suggesting multiple hepatic masses. Dedicated abdominal MRI is recommended for further evaluation. Transaminitis secondary to metastatic disease Appreciate oncology input Transitioned to comfort measures Lactic acidosis Likely secondary to Hodgkin's lymphoma Monitor Hypercalcemia Elevated ionized calcium Likely due to Malignancy Continue IV fluids Monitor calcium levels, Volume status Appreciate nephrology input PTH: WNL PTH related Protein:pending Vit D: 9.8 Bradycardia Likely due to Hypercalcemia Hold Coreg No recurrence of bradycardia Monitor Hypoglycemia: Hold glipizide and Ozempic A1c: 6.9 in 07/2020 Consider to discontinue oral hypoglycemics upon discharge Monitor BGs Acute Kidney Injury Cr:1.3>1.95>2.46>3.02 -Renal USD: No hydronephrosis. Heterogeneous appearance of liver suggesting multiple hepatic masses. Dedicated abdominal MRI is recommended for further evaluation. -Avoid nephrotoxic agents Received IV fluids Monitor renal function Appreciate nephrology input Diuretics, Lisinopril held On comfort measures only Weakness/Ambulatory dysfunction: Ongoing generalized weakness Weakness may be secondary to deconditioning, prolonged fatigue from COVID-19 in 05/2020 Fall precautions Left lower extremity DVT Present upon admission. Diagnosed 09/13/2020 S/p IVC filter Was on Eliquis Chronic Hyponatremia : Due to diuretics Lasix held Monitor sodium levels:136 Hypertension: Held carvedilol, lisinopril Monitor Diastolic dysfunction: Grade II diastolic dysfunction, EF 59% on echo in 2018 Monitor Volume status Held lasix, Aldactone due to CHAN Abnormal thyroid function test: H/O Hypothyroidism: Low TSH, elevated free T4 Repeat TSH normalized Repeat Free T4 low Continued Levothyroxine at reduced dose Discontinue unnecessary medications, patient made comfort care Anemia: Thrombocytopenia Anemia of chronic disease /underlying hematological malignancy -Hodgkins lymphoma Monitor CBC No reported bleeding issues Dysphagia: very poor appetite Chronic dysphagia. H/O EGD in 2019 without abnormality, however decision made to dilate esophagus Aspiration precautions Soft bite size diet GERD (gastroesophageal reflux disease): Continue PPI, H2 rosita Anxiety: On Duloxetine H/O COVID-19: In 05/2020 DVT Px: on Eliquis Code Status DNI/DNR Disposition On Comfort measures only Admission and Anticipated Discharge Date Admission Date: September 25, 2020 Subjective Patient is seen in follow-up of Hodgkin's lymphoma, now comfort care measures Very drowsy/lethargic not responding to touch or voice Unable to provide any history Palliative medicine consulted, and patient made comfort care yesterday Review of Systems Review of Systems: Unobtainable due to cognitive status Physical Exam Physical Exam: General Appearance:Morbidly Obese, Drowsy Head: normocephalic, Atraumatic Eyes: normal inspection Neck: supple, Trachea midline Respiratory/Chest: Normal breath sounds, CTA Cardiovascular: S1, S2, No murmur Abdomen/GI:Soft, Bowel sounds present : David placed Extremities/Musculoskeletal:normal inspection, B/L LE edema Neurologic/Psych: Not responding to touch or voice Skin: normal color, warm Results & Data Results & Data ([facility]) Vital Signs (Past 12 Hours) Vital Signs Pulse Resp Pulse Ox 10/09/20 03:35 65 34 H 95 Medications Administered Current Inpatient Medications Acetaminophen (Acetaminophen 325 Mg Tab) 650 mg PO Q4H PRN PRN Reason: Pain or Fever Stop: 10/25/20 23:05 Last Admin: 09/26/20 23:21 Dose: 650 mg Documented by: Glycopyrrolate (Glycopyrrolate 0.2 Mg/Ml Vial) 0.2 mg IV Q4H PRN PRN Reason: secretions Stop: 11/07/20 10:49 Hydromorphone HCl (Hydromorphone Inj 0.5 Mg/0.5 Ml Syr) 0.5 mg IV Q1H PRN PRN Reason: pain or dyspnea Stop: 10/22/20 10:49 Last Admin: 10/09/20 11:20 Dose: 0.5 mg Documented by: Lorazepam (Ativan) 0.5 mg in 1 mls @ 1 mls/min IV Q4H PRN PRN Reason: agitation Stop: 11/07/20 10:49 Last Admin: 10/08/20 16:36 Dose: 1 mls/min Documented by: Ondansetron HCl (Ondansetron Inj 2 Mg/Ml 2 Ml Vial) 4 mg IV Q6H PRN PRN Reason: Nausea And Vomiting Stop: 10/27/20 02:19 Last Admin: 10/08/20 23:26 Dose: 4 mg Documented by: Polyethylene Glycol (Polyethylene (Miralax) 17 Gm Pack) 17 gm PO DAILY PRN PRN Reason: Constipation Stop: 10/25/20 23:05 Last Admin: 09/30/20 08:27 Dose: 17 gm Documented by:
[2020-10-09 15:57] LABS: Plt Ab, Heparin Induced Negative (Negative)
--- NOTE | 2020-10-10 09:11 | Hospitalist Progress Note ---
Date of Service October 10, 2020 Assessment & Plan Admission and Anticipated Discharge Date Admission Date: September 25, 2020 Subjective NOTE Notified by nursing staff at 8:30 AM that patient ceased breathing, pulseless. On my exam patient is unresponsive to voice or touch. There are no breath sounds, no heart sounds, no radial or carotid pulses. Pupils are fixed and dilated. Patient pronounced at 8:45 AM on October 10, 2020. Nolan Stewart MD
--- NOTE | 2020-10-10 09:12 | Discharge Summary ---
Date of Service October 10, 2020 Admission HPI Per Admitting Provider Pt is 74 y/o F with PMH DM II, HTN, dyslipidemia, asthma, diastolic dysfunction, GERD, hypothyroidism, obesity, anxiety, H/O COVID-19 in 05/2020, LLE DVT is on Eliquis, s/p IVC filter presented to ER with complaint of hypoglycemia. Patient reports laid down to take a nap this afternoon and later when her son saw her she had altered mental status. Reports her BSG was 45 at the time and upon EMS arrival was reported at 35. Patient was given 250 mL D50 with BSG up to 147 and resolution of altered mental status. Daughter is with patient in ER and reports she is at her baseline mental status. Patient's daughter reports that she has not been eating and drinking as well. States did have egg sandwich for breakfast and ham sandwich for lunch today. Daughter reports she manages patient's medications and denies any possible occasion ER. States patient had her glipizide this morning. Last dose of Ozempic was on Wednesday. Does report patient still has overall weakness. She started home PT 2 days ago. She was re cently admitted to [facility] 09/13/2020-09/21/2020 for generalized weakness and was diagnosed with LLE DVT, had IVC filter placed, was found to have inguinal lymphadenopathy and had biopsy, CHAN that resolved. Reports 3 days ago had a fall at home. Denies injury from that fall. Denies fever/chills, diaphoresis, N/V/D/C, GRAF, dizziness, syncope, vision changes, neck pain, CP, SOB, orthopnea, palpitations, cough, sore throat, choking, otalgia, rhinorrhea, abdominal pain, paresthesias, increased extremity edema, rashes, urinary symptoms. Admission Exam Per Admitting Provider General: no distress, obese Head: normocephalic, atraumatic Eyes: PERRL, EOM's intact, conjunctiva non-injected, anicteric ENT: normal inspection external ears, nose, mucous membranes mildly dry Neck: supple, trachea midline Lungs: clear, no respiratory distress, no wheezing/rhonchi/rales CV: regular rhythm, no JVD, trace pretibial edema Abd: protuberant, normal BS, soft, nontender to palpation Ext: no cyanosis, no erythema, bilateral posterior lower legs with palpable cord like firmness, distal pulses palpable, sensation to light touch intact Neuro: Alert, oriented to person, place, year. no focal deficits noted Skin: warm, dry Principal Diagnosis Hodgkin's lymphoma Hyperglycemia Altered mental status CHAN Anemia, thrombocytopenia UTI Biopsy site infection Discharge Exam On my exam patient is unresponsive to voice or touch. There are no breath sounds, no heart sounds, no radial or carotid pulses. Pupils are fixed and dilated. Patient pronounced at 8:45 AM on October 10, 2020. Discharge Data Allergies Allergy/AdvReac Type Severity Reaction Status Date / Time albuterol Allergy Intermediate tachycardia Verified 09/25/20 19:57 amoxicillin Allergy Mild RASH Verified 09/25/20 19:57 aspirin AdvReac Mild stomach Verified 09/25/20 19:58 upset Consultations 09/25/20 20:18 ED Decision to Admit Stat 09/26/20 07:06 Consult General Surgery Routine 09/29/20 17:15 Consult Oncology Routine 10/02/20 14:31 Consult Neurology Routine 10/06/20 07:33 Consult Nephrology Routine 10/06/20 10:52 Consult Hematology Routine 10/07/20 09:48 Consult Palliative Care Routine Ordered Studies 09/29/20 21:50 CT head/brain wo con Urgent IMPRESSION: No acute intracranial findings 10/02/20 14:36 MR brain wo con Urgent IMPRESSION: 1. Motion degraded study. 2. No evidence of acute or subacute infarct 3. No evidence of mass effect. 4. No evidence of hydrocephalus. 10/06/20 07:46 US renal/blad retro comp Routine IMPRESSION: 1. No hydronephrosis. 2. Heterogeneous appearance of liver suggesting multiple hepatic masses. Dedicated abdominal MRI is recommended for further evaluation. 10/06/20 12:03 CT chest diagnostic wo con Urgent IMPRESSION: 1. Bulky lymphadenopathy seen within the lower neck, chest, and upper abdomen as described above. This is suspicious for a lymphoma or metastatic disease. 2. There are innumerable small hypodense lesions seen scattered throughout the liver. This is also concerning for metastatic disease. 3. Hepatosplenomegaly. 4. Small bilateral pleural effusions, right greater than left. Hospital Course (1) Hypoglycemia: (2) AMS (altered mental status): Patient is a 74yr female with H/O DM II, HTN, dyslipidemia, asthma, diastolic dysfunction, GERD, hypothyroidism, obesity, anxiety, H/O COVID-19 in 05/2020, LLE DVT is on Eliquis, s/p IVC filter presented to ER with complaint of AMS and hypoglycemia. Presented with with sudden onset AMS and found to have BSG 35 Acute metabolic encephalopathy Presented with Hypoglycemia CT Head:No acute intracranial findings Covid screen negative Lyme's IgG positive, IgM negative Infection, Metastatic disease, Hypercalcemia, delirium contributing MRI brain: Motion degraded study. No evidence of acute or subacute infarct. No evidence of mass effect. No evidence of hydrocephalus. Appreciate neurology input EEG: nonspecific generalized moderate to moderately severe encephalopathy with no lateralizing features and with no associated potentially epileptogenic features Cefepime changed to Cipro as Cefepime thought to be causing AMS Completed Ciprofloxacin course Monitor for hypoglycemia Hold duloxetine, oxybutynin Received IV fluids Aspiration precautions Worsening leukocytosis likely due to malignancy Repeat Urine cultures: Sowmya Received a dose of Diflucan Appreciate Palliative care Input Transitioned to comfort measures only Urinary tract infection Left Groin Biopsy site Infection Wound culture growing Klebsiella pneumonia, Pseudomonas Urine culture growing Klebsiella pneumonia Received Doxycycline IV cefepime transition to ciprofloxacin--completed course Consulted ID for Input -consult now canceled as patient made comfort care only Metastatic Disease Recently diagnosed Hodgkin's lymphoma. --CT chest:Bulky lymphadenopathy seen within the lower neck, chest, and upper abdomen as described above. This is suspicious for a lymphoma or metastatic disease. There are innumerable small hypodense lesions seen scattered throughout the liver. This is also concerning for metastatic disease. Hepatosplenomegaly. Small bilateral pleural effusions, right greater than left. Left groin LN biopsy : Hodgkin's Lymphoma --Renal USD: No hydronephrosis. Heterogeneous appearance of liver suggesting multiple hepatic masses. Dedicated abdominal MRI is recommended for further evaluation. Transaminitis secondary to metastatic disease Appreciate oncology input Transitioned to comfort measures Lactic acidosis Likely secondary to Hodgkin's lymphoma Monitored while inpt Hypercalcemia Elevated ionized calcium Likely due to Malignancy Continue IV fluids Monitored calcium levels, Volume status Appreciate nephrology input PTH: WNL PTH related Protein:pending Vit D: 9.8 Now pt comfort care Bradycardia Likely due to Hypercalcemia Held Coreg No recurrence of bradycardia Monitor Hypoglycemia: Hold glipizide and Ozempic A1c: 6.9 in 07/2020 Consider to discontinue oral hypoglycemics upon discharge Monitor BGs Acute Kidney Injury Cr:1.3>1.95>2.46>3.02 -Renal USD: No hydronephrosis. Heterogeneous appearance of liver suggesting multiple hepatic masses. Dedicated abdominal MRI is recommended for further evaluation. -Avoid nephrotoxic agents Received IV fluids Monitor renal function Appreciate nephrology input Diuretics, Lisinopril held On comfort measures only Weakness/Ambulatory dysfunction: Ongoing generalized weakness Weakness may be secondary to deconditioning, prolonged fatigue from COVID-19 in 05/2020 Fall precautions Pt transitioned to comfort care Left lower extremity DVT Present upon admission. Diagnosed 09/13/2020 S/p IVC filter Was on Eliquis Pt transitioned to comfort care Chronic Hyponatremia : Due to diuretics Lasix held Monitor sodium levels:136 Hypertension: Held carvedilol, lisinopril Monitor Diastolic dysfunction: Grade II diastolic dysfunction, EF 59% on echo in 2018 Monitor Volume status Held lasix, Aldactone due to CHAN Abnormal thyroid function test: H/O Hypothyroidism: Low TSH, elevated free T4 Repeat TSH normalized Repeat Free T4 low Continued Levothyroxine at reduced dose Discontinue unnecessary medications, patient made comfort care Anemia: Thrombocytopenia Anemia of chronic disease /underlying hematological malignancy -Hodgkins lymphoma Monitor CBC No reported bleeding issues Pt transitioned to comfort care Dysphagia: very poor appetite Chronic dysphagia. H/O EGD in 2019 without abnormality, however decision made to dilate esophagus Aspiration precautions Soft bite size diet Pt transitioned to comfort care GERD (gastroesophageal reflux disease): Continued PPI, H2 rosita while inpt Unnecessary medications discontinued, patient made comfort care Anxiety: On Duloxetine H/O COVID-19: In 05/2020 DVT Px: on Eliquis while inpt Unnecessary medications discontinued, patient made comfort care Code Status DNI/DNR Disposition On Comfort measures only Total Time Total Time Spent Total Time Spent (In Minutes): 10 Total Time Includes: Examination of the Patient Discharge Plan Discharge Items Patient Disposition: Discharge Diagnosis: Hodgkin's lymphoma Hyperglycemia Altered mental status CHAN Anemia, thrombocytopenia UTI Biopsy site infection Addtl Attending Provider Instructions: Patient pronounced on October 10, 2020, at 8:45 AM
== END 2020-10-10 10:50 | disposition expired | DRG 637 ==
LOC: ED 18:03 → 2W 20:23 → SUATTDRO 20:23 → 2W 22:20 → 2E 10-06 08:11 → 2W 10-08 11:04